=== PATIENT | male | born 1955 | race Caucasian/White ===

== ENCOUNTER 2016-08-30 16:55 | Emergency (ER) | payer OTHER ==
[~2016-08-30] VITALS: Ht 180.3 cm; Wt 138.7 kg
[~2016-08-30 16:55] MED LIST: ATEN100T PO; GABA800T PO; GLIP10TA6 PO; LACT12LO4 TOPICAL; LISI-515 PO; MELO-1 PO; METF1000 PO; PANT20 PO; ROPI1TAB PO; [UNRECOGNIZED DRUG - CODE] PO
[2016-08-30 17:02] VITALS: BP 148/83; PULSE 92; RESP 18; TEMP 99.1; O2SAT 97
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
[2016-08-30] MEDS ORDERED: TIZA4CAP3 PO (17:25)
[2016-08-30] MEDS ORDERED: DICL75TA PO (17:25)
[2016-08-30] MEDS ORDERED: IBUPROFEN 600 MG TAB PO ONE (17:30)
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
[2016-08-30 19:00] VITALS: BP 130/95; PULSE 81; RESP 18; O2SAT 98
[2016-08-30] MEDS ORDERED: IBUP-232 PO (19:12)
== END 2016-08-30 19:50 | disposition home or self-care (01) ==
LOC: PHED 16:55
DX: E11.621 Type 2 diabetes mellitus with foot ulcer (principal); M25.511 Pain in right shoulder; M54.5 Low back pain; M25.522 Pain in left elbow; M25.562 Pain in left knee; I10 Essential (primary) hypertension; J44.9 Chronic obstructive pulmonary disease, unspecified; V19.3XXA Pedal cyclist (driver) (passenger) injured in unspecified nontraffic accident, initial encounter; Y93.55 Activity, bike riding
CPT/HCPCS: 73030; 73070; 73560; 99284

== ENCOUNTER 2016-09-05 21:21 | Inpatient (IN) | payer OTHER ==
[~2016-09-05] VITALS: Ht 180.3 cm; Wt 134.0 kg
[~2016-09-05 21:21] MED LIST changes: +DICL75TA PO; +IBUP-232 PO; -LACT12LO4 TOPICAL; -MELO-1 PO; -PANT20 PO; +TIZA4CAP3 PO
[2016-09-05 21:23] VITALS: BP 162/85; PULSE 102; RESP 16; TEMP 98.1; O2SAT 96
[2016-09-05] MEDS ORDERED: LISI20TA PO (22:06)
[2016-09-05] MEDS ORDERED: LANTUS2P SQ (22:06)
[2016-09-05 22:25] LABS: AUTOMATED NEUTROPHIL # 7.7 TH/MM3 (1.8-7.7); BASOPHIL # 0.1 TH/MM3 (0-0.2); BASOPHIL % 0.7 % (0.0-2.0); EOSINOPHIL # 0.2 TH/MM3 (0-0.4); EOSINOPHIL % 1.4 % (0.0-4.0); HEMO FLAGS DIFF FINAL; LYMPH % 18.9 % (9.0-44.0); LYMPHOCYTE # 2.1 TH/MM3 (1.0-4.8); MEAN CELL VOLUME 81.9 FL (80.0-100.0); MEAN CORPUSCULAR HEMOGLOBIN 26.6 PG (27.0-34.0); MEAN CORPUSCULAR HGB CONC 32.5 % (32.0-36.0); MONO % 10.1 % (0.0-8.0); NEUT % 68.9 % (16.0-70.0); PLATELET COUNT 214 TH/MM3 (150-450); RED BLOOD COUNT 4.88 MIL/MM3 (4.50-5.90); RED CELL DISTRIBUTION WIDTH 15.2 % (11.6-17.2); WHITE BLOOD COUNT 11.2 TH/MM3 (4.0-11.0)
[2016-09-05 22:40] LABS: ANION GAP 8 MEQ/L (5-15); AST (GOT) 11 U/L (15-37); BICARBONATE 27.8 MEQ/L (21.0-32.0); BLOOD UREA NITROGEN 32 MG/DL (7-18); CHLORIDE 104 MEQ/L (98-107); GLOMERULAR FILTRATION RATE 60 ML/MIN (>89); POTASSIUM 3.9 MEQ/L (3.5-5.1); SODIUM (NA) 140 MEQ/L (136-145)
[2016-09-05 22:43] LABS: ALKALINE PHOSPHATASE 77 U/L (45-117); ALT (GPT) 17 U/L (12-78); TOTAL BILIRUBIN ADULT 0.4 MG/DL (0.2-1.0)
[2016-09-05] MEDS ORDERED: CLINDAMYCIN INJ 600 MG in SODIUM CHLORIDE 0.9% INJ 100 ML IV ONE (22:45)
--- NOTE | 2016-09-05 22:55 | PD ---
HPI Chief Complaint: Skin Problem Time Seen by Provider: 21:54 Travel History International Travel<30 days: No Contact w/Intl Traveler<30days: No Traveled to known affect area: No History of Present Illness HPI This is a 61-year-old male who has a history of diabetes who presents to the emergency department with pain and redness in his left foot and leg, constant, moderate severity, worsening in the past 24 hours associated with fevers and chills. Patient has a history of growths on his left great toe. He says he's been seen in the hospital by Dr. Fraga in the past but he never followed with a auditing coder as an outpatient. He said when his foot was getting worse today he went to take a walk in the ocean thinking that would help it. He is currently in a drug treatment program for [facility] and recently was living in the [facility]. He denies any history of IV drug use. PFSH Past Medical History Arthritis: Yes Autoimmune Disease: No Anxiety: Yes (Anxiety, panic attacks ) Heart Rhythm Problems: No Cancer: No Cardiovascular Problems: Yes (HTN) High Cholesterol: No Chest Pain: No Congestive Heart Failure: No COPD: Yes Diabetes: Yes Patient Takes Glucophage: Yes (09/05/16) Diminished Hearing: No Endocrine: Yes GERD: No Genitourinary: Yes (Frequency ) Hiatal Hernia: Yes Hypertension: Yes Immune Disorder: No Kidney Stones: No Neurologic: Yes (Neuropathy ) Psychiatric: No Reproductive: Yes Respiratory: Yes Immunizations Current: Yes Migraines: Yes Renal Failure: No Sickle Cell Disease: No Sleep Apnea: Yes Thyroid Disease: No Ulcer: Yes Tetanus Vaccination: < 5 Years Influenza Vaccination: No Past Surgical History Abdominal Surgery: Yes (Hernias) Body Medical Devices: Lt. ACL may have metal nuts Cardiac Surgery: No Ear Surgery: No Endocrine Surgery: No Eye Surgery: No Genitourinary Surgery: No Gynecologic Surgery: No Oral Surgery: No Thoracic Surgery: No Other Surgery: Yes Social History Alcohol Use: No (Hx ETOH abuse/sober 6 months ) Tobacco Use: No Substance Use: No (Hx substance abuse/clean 6 months) Allergies-Medications (Allergen,Severity, Reaction): Coded Allergies: Erythromycin (Verified Allergy, Unknown, UNKNOWN REACTION, 09/05/16) Terramycin (Verified Allergy, Unknown, UNKNOWN REACTION, 09/05/16) Uncoded Allergies: MYCINS (Allergy, Severe, 1/8/09) Reported Meds & Prescriptions Reported Meds & Active Scripts Active Ibuprofen 600 Mg Tab 600 Mg PO Q8HR PRN Metformin (Metformin HCl) 1,000 Mg Tab 1,000 Mg PO BIDPC With meals Detrol (Tolterodine Tartrate) 1 Mg Tab 1 Mg PO BID Reported Lisinopril-Hctz 20-12.5 Mg Tab 1 Tab PO BID Lantus Inj (Insulin Glargine) 1,000 Unit/10 Ml Vial 20 Units SQ HS Tizanidine (Tizanidine HCl) 4 Mg Cap 4 Mg PO TID Diclofenac Sodium DR (Diclofenac Sodium) 75 Mg Tabdr 75 Mg PO BID Ropinirole 1 Mg Tab 1 Mg PO HS Atenolol 100 Mg Tab 100 Mg PO HS Glipizide 10 Mg Tab 10 Mg PO BIDAC Take 30 minutes before a meal Gabapentin 800 Mg Tab 800 Mg PO TID Review of Systems Except as stated in HPI: all other systems reviewed are Neg Physical Exam Narrative GENERAL: Morbidly obese SKIN: Erythema and warmth that starts at the left great toe and is confluent up to the mid left lower extremity, hyperkeratotic lesion over the base of the left great toe with underlying wound down to muscle belly HEAD: Atraumatic. Normocephalic. EYES: Pupils equal and round. No injection or drainage. ENT: Moist mucous membranes NECK: Trachea midline. CARDIOVASCULAR: Regular rate and rhythm. No murmur appreciated. RESPIRATORY: Clear to auscultation. Breath sounds equal bilaterally. GASTROINTESTINAL: Abdomen soft, non-tender, nondistended. MUSCULOSKELETAL: No obvious deformities. NEUROLOGICAL: Awake and alert. No obvious cranial nerve deficits. Moving all extremities. PSYCHIATRIC: Appropriate mood and affect; insight and judgment normal. Data Data Last Documented VS Vital Signs Date Time Temp Pulse Resp B/P Pulse Ox O2 Delivery O2 Flow Rate FiO2 09/05/16 21:23 98.1 102 16 162/85 96 Room Air Orders Complete Blood Count With Diff (09/05/16 22:01) Comprehensive Metabolic Panel (09/05/16 22:01) Lactic Acid (09/05/16 22:01) ^ Insert Iv (09/05/16 22:01) Clindamycin Inj (Cleocin Inj) (09/05/16 22:45) Admit Order (Ed Use Only) (09/05/16 22:48) Labs Laboratory Tests Test 09/05/16 22:09 White Blood Count 11.2 TH/MM3 Red Blood Count 4.88 MIL/MM3 Hemoglobin 13.0 GM/DL Hematocrit 40.0 % Mean Corpuscular Volume 81.9 FL Mean Corpuscular Hemoglobin 26.6 PG Mean Corpuscular Hemoglobin 32.5 % Concent Red Cell Distribution Width 15.2 % Platelet Count 214 TH/MM3 Mean Platelet Volume 10.0 FL Neutrophils (%) (Auto) 68.9 % Lymphocytes (%) (Auto) 18.9 % Monocytes (%) (Auto) 10.1 % Eosinophils (%) (Auto) 1.4 % Basophils (%) (Auto) 0.7 % Neutrophils # (Auto) 7.7 TH/MM3 Lymphocytes # (Auto) 2.1 TH/MM3 Monocytes # (Auto) 1.1 TH/MM3 Eosinophils # (Auto) 0.2 TH/MM3 Basophils # (Auto) 0.1 TH/MM3 CBC Comment DIFF FINAL Differential Comment Sodium Level 140 MEQ/L Potassium Level 3.9 MEQ/L Chloride Level 104 MEQ/L Carbon Dioxide Level 27.8 MEQ/L Anion Gap 8 MEQ/L Blood Urea Nitrogen 32 MG/DL Creatinine 1.23 MG/DL Estimat Glomerular Filtration 60 ML/MIN Rate Random Glucose 160 MG/DL Lactic Acid Level 0.8 mmol/L Calcium Level 9.0 MG/DL Total Bilirubin 0.4 MG/DL Aspartate Amino Transf 11 U/L (AST/SGOT) Alanine Aminotransferase 17 U/L (ALT/SGPT) Alkaline Phosphatase 77 U/L Total Protein 7.6 GM/DL Albumin 3.4 GM/DL [facility] Medical Decision Making Medical Screen Exam Complete: Yes Emergency Medical Condition: Yes Interpretation(s) Afebrile, mild tachycardia, hypertensive Mild leukocytosis Electrolytes are reassuring Lactic acid is 0.8 Differential Diagnosis Diabetic foot infection, cellulitis, sepsis, osteomyelitis Narrative Course This is a 61-year-old male who has a history of diabetes who presents to the emergency department with cellulitis that starts at the patient's left great toe associated with a wound beneath a hyperkeratotic lesion on the toe. It's possible the patient has an underlying osteomyelitis. He was placed on a monitor and an IV was established. The patient was given a dose of clindamycin. He was given IV antibiotics. Labs were obtained which are reassuring. Patient will be placed in observation for podiatry intervention and continued antibiotics. Physician Communication Physician Communication Discussed with Dr. Guzman Diagnosis Primary Impression: Diabetic foot infection Admitting Information Admitting Physician Requests: Observation Angie Bear MD Sep 05, 2016 22:55
[2016-09-05] MEDS ORDERED: GLUCAGON 1 MG/ML VIAL OTHER PRN (23:15)
[2016-09-05] MEDS ORDERED: DEXTROSE 50% IN WATER 50 ML VIAL(D50) IV PUSH PRN (23:15)
[2016-09-05] MEDS ORDERED: ACETAMINOPHEN/HYDROcodone 325 MG/5 MG TAB PO PRN (23:15)
--- NOTE | 2016-09-05 23:41 | RADRPT ---
EXAM DATE/TIME: 09/05/2016 23:22 [facility] COMPARISON: FOOT LEFT LIMITED (2VWS), February 13, 2014, 11:00. INDICATIONS : Patient had open sore medially to distal 1st digit, left foot. Patient complains of pain. Redness and swelling to 1st digit. MEDICAL HISTORY : Diabetes mellitus type II. Hypertension. Hiatal hernia. Chronic obstructive pulmonary disease. SURGICAL HISTORY : None. ENCOUNTER: Initial ACUITY: 1 week PAIN SCORE: 3/10 LOCATION: Left chest 1st digit, left foot. FINDINGS: Bones of the left great toe are intact and normally aligned, appears similar to the comparison left f oot radiographs. There is soft tissue swelling and a bandage. No other radiopaque foreign body seen. CONCLUSION: Soft tissue swelling of the great toe without evidence of destruction or other acute bony abnormality . Tanner Escalona MD on September 05, 2016 at 23:38 Board Certified Radiologist. This report was verified electronically.
[2016-09-06 01:02] VITALS: BP 158/94; PULSE 87; RESP 20; TEMP 98.2; O2SAT 96
[2016-09-06] MEDS: LEVOFLOXACIN 500 MG PREMIX INJ 100 ML IV SCH (01:26)
[2016-09-06] MEDS ORDERED: KETOROLAC TROMETHAMINE 30 MG/ML (IVP) VIAL IV PUSH ONE (02:45)
[2016-09-06] MEDS: INSULIN ASPART SUPPLEMENTAL SCALE SQ SCH ×4 (06:25→21:00)
[2016-09-06] MEDS: glipiZIDE 10 MG TAB PO SCH ×2 (06:25→17:44)
[2016-09-06] MEDS: GABAPENTIN 400 MG CAP PO SCH ×3 (06:25→21:06)
[2016-09-06 07:13] VITALS: BP 151/89; PULSE 76; RESP 20; TEMP 98; O2SAT 96
--- NOTE | 2016-09-06 07:18 | HHI.PR ---
Objective Vital Signs Date Time Temp Pulse Resp B/P Pulse Ox O2 Delivery O2 Flow Rate FiO2 09/06/16 07:13 98.0 76 20 151/89 96 09/06/16 04:30 18 09/06/16 01:02 98.2 87 20 158/94 96 09/05/16 21:23 98.1 102 16 162/85 96 Room Air Result Diagram: 09/05/16220809/05/162208 Assessment and Plan Assessment and Plan BL hallux ulcers, left foot ankle leg edema cellulitis FULL CONSULT DICTATED. Ulcers debrided, tissue culture taken, Left leg compression bandage applied, Doppler ordered R/O DVT, Ordered CAM boot to offload left foot. Xrays do not show OM, Await Cx and will FU 1 day, does not appear to be OM. Michele Cochran DPM Sep 06, 2016 07:18
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
[2016-09-06] MEDS ORDERED: TOLTERODINE 1 MG PO SCH (09:00)
[2016-09-06] MEDS ORDERED: NON-FORMULARY DRUG (Lisinopril-Hctz 1 TAB) PO SCH (09:00)
[2016-09-06] MEDS: LISINOPRIL 20 MG TAB PO SCH ×2 (09:17→21:06)
[2016-09-06] MEDS: GENTAMICIN SULFATE 0.1% CREAM 15 GM TOPICAL SCH (09:17)
[2016-09-06] MEDS: TOLTERODINE TARTRATE 2 MG CAP LA PO SCH (09:17)
[2016-09-06] MEDS: CLINDAMYCIN INJ 600 MG in SODIUM CHLORIDE 0.9% INJ 100 ML IV SCH ×2 (09:17→17:45)
[2016-09-06] MEDS: HYDROCHLOROTHIAZIDE 25 MG TAB PO SCH ×2 (09:18→21:05)
[2016-09-06] MEDS: metFORMIN HCL 500 MG TAB PO SCH ×2 (09:18→17:44)
--- NOTE | 2016-09-06 10:02 | RADRPT ---
EXAM DATE/TIME: 09/06/2016 09:23 [facility] COMPARISON: US LEG LEFT VENOUS DOPPLER, June 26, 2016, 9:54. INDICATIONS : Left leg edema. MEDICAL HISTORY : Arthritis. Chronic obstructive pulmonary disease. Hernia, hiatal. Hypertensi on. Migraines. Neuropathy. Sleep apnea. Dyspnea. Ulcer. Diabetes. Anxiety. ETOH abuse. Substance use. SURGICAL HISTORY : Orthopedic surgery, left knee x2. ENCOUNTER: Subsequent ACUITY: 1 day PAIN SCORE: 0/10 LOCATION: Left leg. TECHNIQUE: Venous ultrasound of the leg was performed from the inguinal ligament to the proximal calf. Real-time, color Doppler and spectral tracing, compression and augmentation techniques were us ed. FINDINGS: There is normal compressibility of the deep venous system from the inguinal region to the proximal ca lf. No echogenic clot is seen in the lumen of the common femoral, femoral, popliteal, and posterior tibial veins. There is a normal response of the venous system to proximal and distal augmentation an d respiration. CONCLUSION: Negative for deep venous thrombosis. Connor Macias MD FACR on September 06, 2016 at 9:59 Board Certified Radiologist. This report was verified electronically.
--- NOTE | 2016-09-06 10:05 | MH ---
cc: ODILIAGELYNATHALIE DATE OF ADMISSION: 09/05/2016 DATE OF 1955 CHIEF COMPLAINT Left foot pain and redness, fever, chills. HISTORY OF PRESENT ILLNESS This is a pleasant 61-year-old white male with a significant history of diabetes at least for the last six years. He has recently been in a drug rehab program at the [facility] for meth and states that he is clean of any drugs. He has not had a PCP or had any insulin for at least two months and now has cellulitis in his left leg and left foot with diabetic wounds. The patient has hallux ulcers on the left foot and ankle with cellulitis. He also has a smaller wound on his right great toe. Currently all wounds are bandage with the left leg having a compression bandage. The ulcers have been debrided this early a.m. and skin cultures have been taken. Currently the patient is resting in the bed. Denies any other major pain including chest pain. No shortness of breath. No dizziness. No extreme weight-gain or weight loss and had been seen in the hospital previously by Dr. Fraga, but had never followed with any senior research consultant on an outpatient basis. The patient noticed that his foot was getting worse and decided to walk in the ocean thinking that it might help. He now is here with bilateral diabetic wound infections. The patient has had some fever and chills over the past 24-hours. He does note, according to the records, a history of growths on his left great toe. The patient originally was from the [place] area and has worked his way down to [place] over a short period of time. PAST MEDICAL HISTORY Includes: 1. Arthritis 2. Anxiety disorder with panic attacks 3. Hypertension 4. Diabetes type 2, he has been on Glucophage and is now back on the insulin. 5. Hiatal hernia 6. GERD 7. Some previous respiratory infections. 8. Migraines 9. COPD PAST SURGICAL HISTORY 1. Abdominal surgery with hernia repair 2. Left ACL, please note according to the medical records, may have metal nuts. ALLERGIES ERYTHROMYCIN AND TETRACYCLINE, NOTE THAT THE ALLERGY WITH THE MYCINS IS SEVERE OF 08/04/08. SOCIAL HISTORY The patient has had a history of ETOH abuse and illicit drug use with meth, but states he has been clean now with both of these for six months. Denies any tobacco use. FAMILY HISTORY Diabetes, hypertension and heart disease. REVIEW OF SYSTEMS A 12-point review was obtained. The positives noted were fever, chills, cellulitis, swelling and pain in the left leg, left ankle and left foot wound with erythema on the right great toe, anxiety. Other systems are negative or unremarkable. PHYSICAL EXAM VITAL SIGNS: Temperature is 98, pulse 76, respirations 20, blood pressure 151/89, O2 sat 96 on room air. HEAD, EYES, EARS, NOSE, AND THROAT: Atraumatic, normocephalic. Pupils are 2 mm. There is no scleral icterus and no scleral drainage. Mucous membranes are pink and moist. NECK: Thick, supple, trachea midline. CARDIOVASCULAR: Regular rate and rhythm. Heart sounds are distant. No murmurs, rubs or gallops appreciated. He has no edema and his pulses are intact. PULMONARY: His breath sounds are clear to auscultation anteriorly and posteriorly with no wheezes, rales or rhonchi. GASTROINTESTINAL: Abdomen is round, soft, nontender and nondistended. Active bowel sounds in all four quadrants. MUSCULOSKELETAL: He can move all of his extremities with purpose. Noted are the wounds and cellulitis on his left foot, left ankle, left leg and right great toe. He has no cyanosis or clubbing. NEUROLOGIC: He is alert and oriented times four, a good historian. Seems to be honest with his history. PSYCHIATRIC: Appropriate mood and affect. Insight and judgment is normal. DIAGNOSTIC DATA WBC count 11.2, RBC 4.88, hemoglobin 13, hematocrit 40, platelet count 214. Monocyte percentage absolute 10.1, all other results are within normal limits. Chemistry, sodium 140, potassium 3.9, chloride 104, carbon dioxide 27.8, amnion gap 8, BUN 32, creatinine 1.23, GFR 60, random glucose 160, lactic acid 0.8, AST 11, albumin 3.4, alkaline phosphatase 77, total protein 7.6. Toe x-ray shows soft tissue swelling. This is on his right great toe without evidence of destruction or any bony abnormality. ASSESSMENT AND PLAN 1. Sepsis due to diabetic foot infection ankle, foot, left leg and right great toe infection. 2. Diabetes type 2 uncontrolled 3. Dehydration with mild acute kidney injury 4. History of hypertension. 5. History of COPD. 6. GERD 7. Anxiety disorder 8. History of meth use. Our plan is to admit for observation. He has been seen per Dr. Michele Cochran. He has debrided the ulcers, taken tissue cultures, bandaged the left leg with a compression bandage. Doppler ultrasound has been ordered to rule out DVT. He has also ordered a cam boot to off-load that left foot. Currently the x-rays do not show osteomyelitis, but we are waiting on the cultures to continue with his plan of care. We are monitoring his vital signs. He is on a diabetic diet. Medications have been reconciled. He is on Accu-Chek's a.c. and h.s. with hypo and hyperglycemia protocols which include sliding scale insulin. He will be on Levemir insulin, IV Clindamycin. He will have any type of pain management. He is full code, full aggressive care and we will follow. Dictated by MASSIMO Potts Nathalie Torres MD JP/DENY /8:05 AM /9:45 AM PT SEEN AND EXAMINED ON DAY ADMISSION ABOVE FACE TO FACE TIME SPENT WITH PT CHART WAS REVIEWED. INCLUDING LABS MEDS AND RAD DATA NOTES WERE REVEIWED PLAN OF CARE WAS SAJI KEYS ABOVE SAJI PT IN DETAIL COND WAS GUARDED APPRECIATED CONSULTANTS HELP KEVAN
[2016-09-06 12:33] VITALS: BP 143/90; PULSE 72; RESP 19; TEMP 97.9; O2SAT 97
--- NOTE | 2016-09-06 14:52 | PD.ID.CON ---
History of Present Illness Service Infectious Disease Consult Requested By Reason for Consult Evaluation and Mment of left and right diabetic foot ulcer infection. Primary Care Physician Unknown Diagnoses: History of Present Illness is a 61 y/o CM with PMHx of Diabetes Mellitus, DM neuropathy, in a drug rehab at [facility]. He reports that while [facility] it has been difficult to get his insulin and other meds and difficult to take care of his wounds. He reports he was admitted at [facility] and had infected ulcer then. He was discharged on oral and he had a delayed start but completed his meds. Thereafter he was supposed to continue wound care but had challenges as reported above. He has not had a PCP or had any insulin for at least two months and now has cellulitis in his left leg and left foot with diabetic wounds. The patient has ulcers on the Hallux and has cellulitis with ankle. He also has a smaller wound on his right great toe. Currently all wounds are bandage with the left leg having a compression bandage and patient deferred exam as Podiatry had changed dressing in am. He reports podiatry debrided wounds and sent cultures. The patient was seen by Dr. Fraga, but had never followed with any boat engine mechanic on an outpatient basis. The patient has had some fever and chills over the past 24-hours. ID was consulted for evaluation and Mment of left diabetic foot infection. Review of Systems Constitutional: DENIES: Diaphoretic episodes, Fatigue, Fever, Weight gain, Weight loss, Chills, Dizziness, Change in appetite, Night Sweats Endocrine: DENIES: Heat/cold intolerance, Polydipsia, Polyuria, Polyphagia Eyes: DENIES: Blurred vision, Diplopia, Eye inflammation, Eye pain, Vision loss , Photosensitivity, Double Vision Ears, nose, mouth, throat: DENIES: Tinnitus, Hearing loss, Vertigo, Nasal discharge, Oral lesions, Throat pain, Hoarseness, Ear Pain, Running Nose, Epistaxis, Sinus Pain, Toothache, Odynophagia Respiratory: DENIES: Apneas, Cough, Snoring, Wheezing, Hemoptysis, Sputum production, Shortness of breath Cardiovascular: DENIES: Chest pain, Palpitations, Syncope, Dyspnea on Exertion , PND, Lower Extremity Edema, Orthopnea, Claudication Gastrointestinal: DENIES: Abdominal pain, Black stools, Bloody stools, Constipation, Diarrhea, Nausea, Vomiting, Difficulty Swallowing, Anorexia Genitourinary: DENIES: Sexual dysfunction, Urinary frequency, Urinary incontinence, Urgency, Hematuria, Dysuria, Nocturia, Penile Discharge, Testicular Pain, Testicular Swelling Musculoskeletal: DENIES: Joint pain, Muscle aches, Stiffness, Joint Swelling, Back pain, Neck pain Integumentary: DENIES: Abnormal pigmentation, Nail changes, Pruritus, Rash Hematologic/lymphatic: DENIES: Bruising, Lymphadenopathy Immunologic/allergic: DENIES: Eczema, Urticaria Neurologic: COMPLAINS OF: Paresthesias Psychiatric: DENIES: Anxiety, Confusion, Mood changes, Depression, Hallucinations, Agitation, Suicidal Ideation, Homicidal Ideation, Delusions Past Family Social History Allergies: Coded Allergies: Erythromycin (Verified Allergy, Unknown, UNKNOWN REACTION, 09/05/16) Terramycin (Verified Allergy, Unknown, UNKNOWN REACTION, 09/05/16) Uncoded Allergies: MYCINS (Allergy, Severe, 08/04/08) Past Medical History 1. Arthritis 2. Anxiety disorder with panic attacks 3. Hypertension 4. Diabetes type 2, he has been on Glucophage and is now back on the insulin. 5. Hiatal hernia 6. GERD 7. Some previous respiratory infections. 8. Migraines 9. COPD Past Surgical History 1. Abdominal surgery with hernia repair 2. Left ACL with some hardware. Reported Medications Reported Meds & Active Scripts Active Ibuprofen 600 Mg Tab 600 Mg PO Q8HR PRN Metformin (Metformin HCl) 1,000 Mg Tab 1,000 Mg PO BIDPC With meals Detrol (Tolterodine Tartrate) 1 Mg Tab 1 Mg PO BID Reported Lisinopril-Hctz 20-12.5 Mg Tab 1 Tab PO BID Lantus Inj (Insulin Glargine) 1,000 Unit/10 Ml Vial 20 Units SQ HS Tizanidine (Tizanidine HCl) 4 Mg Cap 4 Mg PO TID Diclofenac Sodium DR (Diclofenac Sodium) 75 Mg Tabdr 75 Mg PO BID Ropinirole 1 Mg Tab 1 Mg PO HS Atenolol 100 Mg Tab 100 Mg PO HS Glipizide 10 Mg Tab 10 Mg PO BIDAC Take 30 minutes before a meal Gabapentin 800 Mg Tab 800 Mg PO TID Active Ordered Medications Current Medications Medications (Trade) Dose Ordered Sig/Meka Route Start Time Stop Time Status Last Admin (Tenormin) 100 mg HS PO 2/10/17 21:00 (Neurontin) 800 mg Q8HR PO 09/06/16 06:00 09/06/16 13:59 (Glucotrol) 10 mg BIDAC PO 09/06/16 07:00 09/06/16 06:25 (Levemir Inj) 20 units HS SQ 09/06/16 21:00 (Glucophage) 1,000 mg BIDPC PO 09/06/16 09:00 09/06/16 09:18 (Requip) 1 mg HS PO 09/06/16 21:00 (Zanaflex) 4 mg TID PO 09/06/16 09:00 09/06/16 13:59 (D50w (Vial) Inj) 25 ml UNSCH PRN IV PUSH 09/05/16 23:15 Glucagon 1 mg 1 mg UNSCH PRN OTHER 09/05/16 23:15 Levofloxacin/ Dextrose 100 ml @ 100 mls/hr Q24H IV 09/06/16 00:00 09/06/16 01:26 (Cleocin Inj/NS Inj) 104 ml @ 208 mls/hr Q8H IV 09/06/16 09:00 09/06/16 09:17 ([place] 5-325 Mg) 1 tab Q6H PRN PO 09/05/16 23:15 (Prinivil) 20 mg BID PO 09/06/16 09:00 09/06/16 09:17 (Hydrodiuril) 12.5 mg BID PO 09/06/16 09:00 09/06/16 09:18 (Detrol La) 2 mg DAILY PO 09/06/16 09:00 09/06/16 09:17 (Gentamicin 0.1% Cream) 1 applic DAILY TOPICAL 09/06/16 09:00 09/06/16 09:17 Family History reviewed and NC to current ID problems. Social History The patient has had a history of ETOH abuse and illicit drug use with meth, but states he has been clean now with both of these for six months. Denies any tobacco use. He used to live in [place] in past. Physical Exam Vital Signs Vital Signs Date Time Temp Pulse Resp B/P Pulse Ox O2 Delivery O2 Flow Rate FiO2 09/06/16 12:33 97.9 72 19 143/90 97 09/06/16 07:13 98.0 76 20 151/89 96 09/06/16 04:30 18 09/06/16 01:02 98.2 87 20 158/94 96 09/05/16 21:23 98.1 102 16 162/85 96 Room Air Physical Exam GENERAL: This is a well-nourished, well-developed patient, in no apparent distress. SKIN: No rashes, ecchymoses or lesions. Cool and dry. HEAD: Atraumatic. Normocephalic. No temporal or scalp tenderness. EYES: Pupils equal round and reactive. Extraocular motions intact. No scleral icterus. No injection or drainage. ENT: Nose without bleeding, purulent drainage or septal hematoma. Throat without erythema, tonsillar hypertrophy or exudate. Uvula midline. Airway patent. NECK: Trachea midline. Supple, nontender, no meningeal signs. CARDIOVASCULAR: HS audible. RESPIRATORY: Clear to auscultation. Breath sounds equal bilaterally. No wheezes , rales, or rhonchi. GASTROINTESTINAL: Abdomen soft, non-tender, nondistended. MUSCULOSKELETAL: Bilateral great toes in bandage. Pt deferred opening of bandages at present time. NEUROLOGICAL: Awake and alert. Grossly non focal Psych: cooperative IV line sites with no e/o infection. Laboratory Laboratory Tests Test 09/05/16 22:09 White Blood Count 11.2 Red Blood Count 4.88 Hemoglobin 13.0 Hematocrit 40.0 Mean Corpuscular Volume 81.9 Mean Corpuscular Hemoglobin 26.6 Mean Corpuscular Hemoglobin 32.5 Concent Red Cell Distribution Width 15.2 Platelet Count 214 Mean Platelet Volume 10.0 Neutrophils (%) (Auto) 68.9 Lymphocytes (%) (Auto) 18.9 Monocytes (%) (Auto) 10.1 Eosinophils (%) (Auto) 1.4 Basophils (%) (Auto) 0.7 Neutrophils # (Auto) 7.7 Lymphocytes # (Auto) 2.1 Monocytes # (Auto) 1.1 Eosinophils # (Auto) 0.2 Basophils # (Auto) 0.1 CBC Comment DIFF FINAL Differential Comment Sodium Level 140 Potassium Level 3.9 Chloride Level 104 Carbon Dioxide Level 27.8 Anion Gap 8 Blood Urea Nitrogen 32 Creatinine 1.23 Estimat Glomerular Filtration 60 Rate Random Glucose 160 Lactic Acid Level 0.8 Calcium Level 9.0 Total Bilirubin 0.4 Aspartate Amino Transf 11 (AST/SGOT) Alanine Aminotransferase 17 (ALT/SGPT) Alkaline Phosphatase 77 Total Protein 7.6 Albumin 3.4 Date/Time Procedure Status Source Growth 09/06/16 07:11 Gram Stain Received Wound Foot Pending 09/06/16 07:11 Wound Culture Received Wound Foot Pending Result Diagram: 09/05/16220809/05/162208 Imaging Last Impressions Lower Extremity Ultrasound 09/06/16 0000 Signed Impressions: Service Date/Time: Tuesday, September 06, 2016 09:23 - CONCLUSION: Negative for deep venous thrombosis. Connor Macias MD FACR Toe X-Ray 09/05/16 0000 Signed Impressions: Service Date/Time: August 23:22 - CONCLUSION: Soft tissue swelling of the great toe without evidence of destruction or other acute bony abnormality. Tanner Escalona MD Assessment and Plan Assessment and Plan Diabetic foot ulcer infection (DFI) Diabetes mellitus uncontrolled. Prior DFI. DM with neuropathy Recs: Continue Clindamycin IV Continue Levaquin IV for now. Follow cultures Follow clinically. Please call on weekend with culture results. I will see patient on Friday09/09/2016 Yokasta Joy MD Sep 06, 2016 14:51
[2016-09-06 15:19] VITALS: BP 143/89; PULSE 81; RESP 19; TEMP 98.4; O2SAT 99
[2016-09-06 20:07] VITALS: BP 165/97; PULSE 80; RESP 20; TEMP 97.6; O2SAT 96
[2016-09-06] MEDS: INSULIN DETEMIR 100 UNITS/ML VIAL SQ SCH (21:05)
[2016-09-06] MEDS: ATENOLOL 100 MG TAB PO SCH (21:06)
[2016-09-06 23:57] VITALS: BP 166/94; PULSE 79; RESP 18; TEMP 96.8; O2SAT 96
[2016-09-07] MEDS: LEVOFLOXACIN 500 MG PREMIX INJ 100 ML IV SCH ×2 (00:53→23:45)
[2016-09-07] MEDS: CLINDAMYCIN INJ 600 MG in SODIUM CHLORIDE 0.9% INJ 100 ML IV SCH ×3 (00:53→17:14)
[2016-09-07 03:48] VITALS: BP 152/93; PULSE 67; RESP 18; TEMP 98; O2SAT 95
[2016-09-07] MEDS: glipiZIDE 10 MG TAB PO SCH ×2 (06:09→17:14)
[2016-09-07] MEDS: INSULIN ASPART SUPPLEMENTAL SCALE SQ SCH ×4 (06:10→21:00)
[2016-09-07] MEDS: GABAPENTIN 400 MG CAP PO SCH ×3 (06:10→22:31)
--- NOTE | 2016-09-07 07:55 | HHI.PR ---
Subjective Subjective Remarks Complaint of cough, dry, nonproductive Runny nose Mild wheezing No chest No shortness of breath No fever No nausea vomiting no diarrhea No acute changes overnight Review of Systems Constitutional Constitutional Remarks 12 point review of systems completed, negative except as noted above Vitals/Results Intake & Output 09/06/16 09/06/16 09/07/16 15:00 23:00 07:00 Intake Total 240 ml 440 ml Balance 240 ml 440 ml Intake Oral 240 ml 240 ml IV Total 200 ml # Voids 2 3 Vital Signs Vital Signs Date Time Temp Pulse Resp B/P Pulse Ox O2 Delivery O2 Flow Rate FiO2 09/07/16 03:48 98.0 67 18 152/93 95 09/06/16 23:57 96.8 79 18 166/94 96 09/06/16 20:07 97.6 80 20 165/97 96 09/06/16 15:19 98.4 81 19 143/89 99 09/06/16 12:33 97.9 72 19 143/90 97 CBC/BMP: 09/05/16220809/05/162208 Physical Exam General General Appearance: Well Developed, No Acute Distress, Comfortable, Obese Eyes Eye Exam: Pupils Equal, Pupils Reactive Ears & Nose Ears & Nose Exam: Nasal Mucosa [place] Throat Throat Exam: Oral Mucosa [place] & Moist Neck Neck Exam: Neck Supple, Trachea Midline Pulmonary Resp Exam: Clear Bilaterally, No Distress Cardiology CV Exam: Regular, Good Perfusion Gastrointestinal/Abdomen GI Exam: Soft, Non-Tender, Bowel Sounds Present, Non-Distended Musculoskeletal MS Exam: Joints Intact MS Remarks Left foot with dressing D/I, ortho boot in place Right great toe with dressing D/I Integumentary Skin Exam: Warm, Dry, Ulcer(s) Extremeties Extremities Exam: Pedal Pulses Palpable, Trace Edema Neurologic Neuro Exam: Alert, Awake, Oriented, Speech Clear, Moving All Extremities, No Focal Deficits Psychiatric Psych Exam: Appropriate Responses VTE Prophylaxis VTE Prophylaxis Meds: Heparin Assessment/Plan Assessment/Plan 1. Cellulitis left foot, bilat hallux diabetic ulceration, R/O osteo 2. Diabetes type 2 uncontrolled 3. Dehydration with mild acute kidney injury 4. History of hypertension. 5. History of COPD. 6. GERD 7. Anxiety disorder 8. History of meth use. 9. Poss. allergic rhinitis Plan Appreciate podiatry input, status post debridement HALLUX ulcerations 09/06 Continue with wound care Continue with cam boot to off-load on left leg Ultrasound Negative for DVT Appreciate ID input Follow cultures Continue with antibiotic Continue with diabetic diet Accu-Chek's a.c. and h.s. with hypo and hyperglycemia protocols which include sliding scale insulin. Continue Levemir Complaining of dry cough, rhinorrhea, mild wheezing Duo nebs when necessary Claritin 10 mg by mouth daily Pain management as needed Continue to follow labs Heparin for DVT prophylaxis Patient will be changed to inpatient, will need IV antibiotics 2-3 days, continue to follow cultures. If patient had admitted, he is at risk of sepsis, further infection and loss of limb. Labs in am D/W RN D/W Dr. Torres D/W pt. This patient was seen by myself and Dr. Torres, this note is written on his behalf Jessica Hugo Sep 07, 2016 07:55
[2016-09-07] MEDS: metFORMIN HCL 500 MG TAB PO SCH ×2 (08:50→17:14)
[2016-09-07] MEDS: HYDROCHLOROTHIAZIDE 25 MG TAB PO SCH ×2 (08:50→22:33)
[2016-09-07] MEDS: LISINOPRIL 20 MG TAB PO SCH ×2 (08:50→22:34)
[2016-09-07] MEDS: GENTAMICIN SULFATE 0.1% CREAM 15 GM TOPICAL SCH (08:50)
[2016-09-07] MEDS: TOLTERODINE TARTRATE 2 MG CAP LA PO SCH (08:51)
[2016-09-07] MEDS: LORATADINE 10 MG TAB PO SCH (09:03)
--- NOTE | 2016-09-07 09:19 | PD.POD ---
Subjective Pain score: 1 Remarks Improving left leg pain however mild cough developing Past Med/Surg/Social History Past Medical History Endocrine: REPORTS HX OF: Diabetes mellitus Social History Smoking Status: Never Smoker Objective Vital Signs Vital Signs Date Time Temp Pulse Resp B/P Pulse Ox O2 Delivery O2 Flow Rate FiO2 09/07/16 03:48 98.0 67 18 152/93 95 09/06/16 23:57 96.8 79 18 166/94 96 09/06/16 20:07 97.6 80 20 165/97 96 09/06/16 15:19 98.4 81 19 143/89 99 09/06/16 12:33 97.9 72 19 143/90 97 Coded Allergies: Erythromycin (Verified Allergy, Unknown, UNKNOWN REACTION, 09/05/16) Terramycin (Verified Allergy, Unknown, UNKNOWN REACTION, 09/05/16) Medications and IVs Administered Medications Medications (Trade) Dose Ordered Sig/Meka Route PRN Reason Start Time Stop Time Status Last Admin Dose Admin Atenolol (Tenormin) 100 mg HS PO 09/06/16 21:00 09/06/16 21:06 Gabapentin (Neurontin) 800 mg Q8HR PO 09/06/16 06:00 09/07/16 06:10 Glipizide (Glucotrol) 10 mg BIDAC PO 09/06/16 07:00 09/07/16 06:09 Insulin Detemir (Levemir Inj) 20 units HS SQ 09/06/16 21:00 09/06/16 21:05 Metformin HCl (Glucophage) 1,000 mg BIDPC PO 09/06/16 09:00 09/07/16 08:50 Ropinirole HCl (Requip) 1 mg HS PO 09/06/16 21:00 09/06/16 21:06 Tizanidine HCl 4 mg 4 mg TID PO 09/06/16 09:00 09/07/16 08:50 Levofloxacin/ Dextrose 100 ml @ 100 mls/hr Q24H IV 09/06/16 00:00 09/07/16 00:53 Clindamycin Phosphate/Sodium Chloride (Cleocin Inj/NS Inj) 104 ml @ 208 mls/hr Q8H IV 09/06/16 09:00 09/07/16 08:50 Lisinopril (Prinivil) 20 mg BID PO 09/06/16 09:00 09/07/16 08:50 Hydrochlorothiazide (Hydrodiuril) 12.5 mg BID PO 09/06/16 09:00 09/07/16 08:50 Tolterodine Tartrate (Detrol La) 2 mg DAILY PO 09/06/16 09:00 09/07/16 08:51 Gentamicin Sulfate (Gentamicin 0.1% Cream) 1 applic DAILY TOPICAL 09/06/16 09:00 09/07/16 08:50 Loratadine (Claritin) 10 mg DAILY PO 09/07/16 09:00 09/07/16 09:03 Other Results Laboratory Tests Test 09/05/16 22:09 White Blood Count 11.2 TH/MM3 Red Blood Count 4.88 MIL/MM3 Hemoglobin 13.0 GM/DL Hematocrit 40.0 % Mean Corpuscular Volume 81.9 FL Mean Corpuscular Hemoglobin 26.6 PG Mean Corpuscular Hemoglobin 32.5 % Concent Red Cell Distribution Width 15.2 % Platelet Count 214 TH/MM3 Mean Platelet Volume 10.0 FL Neutrophils (%) (Auto) 68.9 % Lymphocytes (%) (Auto) 18.9 % Monocytes (%) (Auto) 10.1 % Eosinophils (%) (Auto) 1.4 % Basophils (%) (Auto) 0.7 % Neutrophils # (Auto) 7.7 TH/MM3 Lymphocytes # (Auto) 2.1 TH/MM3 Monocytes # (Auto) 1.1 TH/MM3 Eosinophils # (Auto) 0.2 TH/MM3 Basophils # (Auto) 0.1 TH/MM3 CBC Comment DIFF FINAL Differential Comment Laboratory Tests Test 09/05/16 22:09 Sodium Level 140 MEQ/L Potassium Level 3.9 MEQ/L Chloride Level 104 MEQ/L Carbon Dioxide Level 27.8 MEQ/L Anion Gap 8 MEQ/L Blood Urea Nitrogen 32 MG/DL Creatinine 1.23 MG/DL Estimat Glomerular Filtration 60 ML/MIN Rate Random Glucose 160 MG/DL Lactic Acid Level 0.8 mmol/L Calcium Level 9.0 MG/DL Total Bilirubin 0.4 MG/DL Aspartate Amino Transf 11 U/L (AST/SGOT) Alanine Aminotransferase 17 U/L (ALT/SGPT) Alkaline Phosphatase 77 U/L Total Protein 7.6 GM/DL Albumin 3.4 GM/DL Microbiology Date/Time Procedure Status Source Growth 09/06/16 07:11 Gram Stain Received Wound Foot Pending 09/06/16 07:11 Wound Culture Received Wound Foot Pending Last 72 hours Impressions Lower Extremity Ultrasound 09/06/16 0000 Signed Impressions: Service Date/Time: Tuesday, September 06, 2016 09:23 - CONCLUSION: Negative for deep venous thrombosis. Connor Macias MD FACR Toe X-Ray 09/05/16 0000 Signed Impressions: Service Date/Time: August 23:22 - CONCLUSION: Soft tissue swelling of the great toe without evidence of destruction or other acute bony abnormality. Tanner Escalona MD Physical Exam Remarks Right foot hallux ulcer dry clean no redness or drainage 4mm 4mm 2mm no bone or tendon exposed. Left hallux with dry red eschar approx 2cm 1.5 cm, no odor no drainage no exposed bone or tendon. Left ankle and calf remain red and swollen. BL pulses of foot are palpable decreased sensation to light touch BL feet Assessment & Plan A/P BL hallux ulcer left > right, left leg cellulitis. SP debridement 09/06 BL hallux ulcers Bandage changed, CAM boot in place to offload, needs to wrap and elevate the left foot ankle and leg, Awaiting Cx will PETRA Ortega, doing well expect DC once cellulitis under better control Michele Cochran DPM Sep 07, 2016 09:19
[2016-09-07] MEDS: RESP: ALBUTEROL 2.5 MG/IPRATROPIUM 0.5 MG NEB (PRN) NEB (09:43)
[2016-09-07] MEDS: HEPARIN SODIUM - SQ 10,000 UNITS/ML VIAL SQ SCH ×2 (11:50→22:34)
[2016-09-07] MEDS: guaiFENesin/DEXTROMETHORPHAN 200 MG/20 MG/10 ML CUP PO PRN ×2 (11:50→23:51)
[2016-09-07 12:00] VITALS: BP 163/88; PULSE 69; RESP 20; TEMP 96.9; O2SAT 95
[2016-09-07 16:00] VITALS: BP 167/89; PULSE 70; RESP 20; TEMP 98; O2SAT 98
[2016-09-07 21:02] VITALS: BP 134/84; PULSE 77; RESP 21; TEMP 97.8; O2SAT 98
[2016-09-07] MEDS: ATENOLOL 100 MG TAB PO SCH (22:33)
[2016-09-07] MEDS: INSULIN DETEMIR 100 UNITS/ML VIAL SQ SCH (22:34)
[2016-09-08] VITALS (7 sets, daily range): BP systolic 104–155; BP diastolic 76–106; PULSE 67–76; RESP 18–20; TEMP 96.8–98.8; O2SAT 94–98
[2016-09-08] MEDS: CLINDAMYCIN INJ 600 MG in SODIUM CHLORIDE 0.9% INJ 100 ML IV SCH ×3 (00:39→15:35)
[2016-09-08] MEDS: GABAPENTIN 400 MG CAP PO SCH ×3 (06:06→20:51)
[2016-09-08] MEDS: INSULIN ASPART SUPPLEMENTAL SCALE SQ SCH ×4 (06:08→20:53)
[2016-09-08] MEDS: metFORMIN HCL 500 MG TAB PO SCH ×2 (07:50→17:13)
[2016-09-08] MEDS: glipiZIDE 10 MG TAB PO SCH ×2 (07:51→15:35)
[2016-09-08] MEDS: HYDROCHLOROTHIAZIDE 25 MG TAB PO SCH ×2 (07:51→20:52)
[2016-09-08] MEDS: LORATADINE 10 MG TAB PO SCH (07:51)
[2016-09-08] MEDS: LISINOPRIL 20 MG TAB PO SCH ×2 (07:51→20:52)
[2016-09-08] MEDS: TOLTERODINE TARTRATE 2 MG CAP LA PO SCH (07:51)
[2016-09-08] MEDS: HEPARIN SODIUM - SQ 10,000 UNITS/ML VIAL SQ SCH ×2 (07:52→20:52)
[2016-09-08] MEDS: GENTAMICIN SULFATE 0.1% CREAM 15 GM TOPICAL SCH (07:54)
[2016-09-08 09:09] LABS: HEMATOCRIT 42.9 % (39.0-51.0); MEAN CELL VOLUME 81.9 FL (80.0-100.0); MEAN CORPUSCULAR HEMOGLOBIN 26.9 PG (27.0-34.0); MEAN CORPUSCULAR HGB CONC 32.9 % (32.0-36.0); PLATELET COUNT 266 TH/MM3 (150-450); RED BLOOD COUNT 5.24 MIL/MM3 (4.50-5.90); RED CELL DISTRIBUTION WIDTH 15.2 % (11.6-17.2); REVIEW FLAG FINAL; WHITE BLOOD COUNT 8.1 TH/MM3 (4.0-11.0)
[2016-09-08 09:32] LABS: BICARBONATE 26.1 MEQ/L (21.0-32.0); POTASSIUM 4.4 MEQ/L (3.5-5.1)
--- NOTE | 2016-09-08 09:33 | HHI.PR ---
Subjective Interval History Complaint of cough, dry, nonproductive Runny nose No wheezing No chest No shortness of breath No fever No nausea vomiting no diarrhea No acute changes overnight Review of Systems 12 point review of systems completed, negative except as noted above Vitals/Results Intake & Output 09/07/16 09/07/16 09/08/16 15:00 23:00 07:00 Intake Total 480 ml Output Total 800 ml Balance -320 ml Intake Oral 480 ml Output Urine Total 800 ml # Voids 3 # Bowel Movements 0 Vital Signs Vital Signs Date Time Temp Pulse Resp B/P Pulse Ox O2 Delivery O2 Flow Rate FiO2 09/08/16 07:38 96.8 70 20 155/106 97 09/08/16 04:00 97.9 68 18 138/84 98 09/08/16 02:30 97.7 67 19 148/84 97 09/07/16 21:02 97.8 77 21 134/84 98 09/07/16 16:00 98.0 70 20 167/89 98 09/07/16 12:00 96.9 69 20 163/88 95 CBC/BMP: 09/08/16 0815 09/05/16 2209 Lab Results Laboratory Tests Test 09/08/16 08:15 White Blood Count 8.1 TH/MM3 Red Blood Count 5.24 MIL/MM3 Hemoglobin 14.1 GM/DL Hematocrit 42.9 % Mean Corpuscular Volume 81.9 FL Mean Corpuscular Hemoglobin 26.9 PG Mean Corpuscular Hemoglobin 32.9 % Concent Red Cell Distribution Width 15.2 % Platelet Count 266 TH/MM3 Mean Platelet Volume 9.6 FL Physical Exam General General Appearance: Well Developed, No Acute Distress, Comfortable, Obese Eyes Eye Exam: Pupils Equal, Pupils Reactive Ears & Nose Ears & Nose Exam: Nasal Mucosa Ko Olina Throat Throat Exam: Oral Mucosa Ko Olina & Moist Neck Neck Exam: Neck Supple, Trachea Midline Pulmonary Resp Exam: Clear Bilaterally, No Distress Cardiology CV Exam: Regular, Good Perfusion Gastrointestinal/Abdomen GI Exam: Soft, Non-Tender, Bowel Sounds Present, Non-Distended Musculoskeletal MS Exam: Joints Intact Integumentary Skin Exam: Warm, Dry, Ulcer(s) Extremeties Extremities Exam: Pedal Pulses Palpable, Trace Edema Extremeties Remarks Dressing on the left foot and leg with boot. Also dressing on the right hallux Neurologic Neuro Exam: Alert, Awake, Oriented, Speech Clear, Moving All Extremities, No Focal Deficits Psychiatric Psych Exam: Appropriate Responses VTE Prophylaxis VTE Prophylaxis Meds: Heparin Assessment/Plan Assessment/Plan 1. Cellulitis left foot, bilat hallux diabetic ulceration, R/O osteo 2. Diabetes type 2 uncontrolled 3. Dehydration with mild acute kidney injury 4. History of hypertension. 5. History of COPD. 6. GERD 7. Anxiety disorder 8. History of meth use. 9. Poss. allergic rhinitis Plan Appreciate podiatry input, status post debridement HALLUX ulcerations 09/06 Continue with wound care Continue with cam boot to off-load on left leg. Podiatry change his dressing yesterday Ultrasound Negative for DVT Appreciate ID input Follow cultures showing beta strep Continue with antibiotic Continue with diabetic diet Accu-Chek's a.c. and h.s. with hypo and hyperglycemia protocols which include sliding scale insulin. Continue Levemir Complaining of dry cough, rhinorrhea, mild wheezing Duo nebs when necessary Claritin 10 mg by mouth daily Tessalon Perles for cough Pain management as needed Continue to follow labs Heparin for DVT prophylaxis Patient will be changed to inpatient, will need IV antibiotics 2-3 days, continue to follow cultures. If patient had admitted, he is at risk of sepsis, further infection and loss of limb. Labs reviewed Increase WBC count better BMP pending D/W RN D/W pt. Boogie Torres MD Sep 08, 2016 09:33
[2016-09-08] MEDS ORDERED: BENZONATATE 100 MG CAP PO PRN (09:45)
--- NOTE | 2016-09-08 13:27 | PD.POD ---
Subjective Pain score: 1 Remarks Much improved left leg pain Past Med/Surg/Social History Past Medical History Endocrine: REPORTS HX OF: Diabetes mellitus Social History Smoking Status: Never Smoker Objective Vital Signs Vital Signs Date Time Temp Pulse Resp B/P Pulse Ox O2 Delivery O2 Flow Rate FiO2 09/08/16 07:38 96.8 70 20 155/106 97 09/08/16 04:00 97.9 68 18 138/84 98 09/08/16 02:30 97.7 67 19 148/84 97 09/07/16 21:02 97.8 77 21 134/84 98 09/07/16 16:00 98.0 70 20 167/89 98 Coded Allergies: Erythromycin (Verified Allergy, Unknown, UNKNOWN REACTION, 09/05/16) Terramycin (Verified Allergy, Unknown, UNKNOWN REACTION, 09/05/16) Physical Exam Remarks Right foot hallux ulcer dry clean no redness or drainage 4mm 4mm 2mm no bone or tendon exposed. Left hallux with dry red eschar approx 2cm 1.5 cm, no odor no drainage no exposed bone or tendon. Left ankle and calf much improved redness and swelling. BL pulses of foot are palpable decreased sensation to light touch BL feet Assessment & Plan A/P BL hallux ulcer left > right, left leg cellulitis. SP debridement 09/06 BL hallux ulcers Bandage changed per afshan, CAM boot in place to offload, needs to wrap and elevate the left foot ankle and leg, Cx Grp B strep, ok to DC tomorrow on PO meds, patient to apply topical ABX qd, Patient was given Medcaid Dr Watters- Dr Stevens to FU out pt, podiatry sign off. Michele Cochran DPM Sep 08, 2016 13:27
[2016-09-08] MEDS: ATENOLOL 100 MG TAB PO SCH (20:51)
[2016-09-08] MEDS: guaiFENesin/DEXTROMETHORPHAN 200 MG/20 MG/10 ML CUP PO PRN (20:52)
[2016-09-08] MEDS: INSULIN DETEMIR 100 UNITS/ML VIAL SQ SCH (20:52)
[2016-09-09] VITALS: BP 119/76; PULSE 72; RESP 19; TEMP 98.4; O2SAT 94
[2016-09-09] MEDS: LEVOFLOXACIN 500 MG PREMIX INJ 100 ML IV SCH (00:57)
[2016-09-09] MEDS: CLINDAMYCIN INJ 600 MG in SODIUM CHLORIDE 0.9% INJ 100 ML IV SCH ×2 (02:21→08:39)
[2016-09-09 04:00] VITALS: BP 129/71; PULSE 64; RESP 18; TEMP 96.7; O2SAT 97
[2016-09-09] MEDS: GABAPENTIN 400 MG CAP PO SCH ×2 (05:26→12:32)
[2016-09-09] MEDS: glipiZIDE 10 MG TAB PO SCH ×2 (05:26→15:57)
[2016-09-09] MEDS: guaiFENesin/DEXTROMETHORPHAN 200 MG/20 MG/10 ML CUP PO PRN (05:28)
[2016-09-09] MEDS: INSULIN ASPART SUPPLEMENTAL SCALE SQ SCH ×3 (07:00→15:57)
[2016-09-09] MEDS: HYDROCHLOROTHIAZIDE 25 MG TAB PO SCH (08:40)
[2016-09-09] MEDS: metFORMIN HCL 500 MG TAB PO SCH (08:40)
[2016-09-09] MEDS: TOLTERODINE TARTRATE 2 MG CAP LA PO SCH (08:40)
[2016-09-09] MEDS: LISINOPRIL 20 MG TAB PO SCH (08:40)
[2016-09-09] MEDS: HEPARIN SODIUM - SQ 10,000 UNITS/ML VIAL SQ SCH (08:41)
[2016-09-09] MEDS: LORATADINE 10 MG TAB PO SCH (08:41)
[2016-09-09] MEDS: GENTAMICIN SULFATE 0.1% CREAM 15 GM TOPICAL SCH (08:41)
[2016-09-09] MEDS: RESP: ALBUTEROL 2.5 MG/IPRATROPIUM 0.5 MG NEB (PRN) NEB (08:43)
[2016-09-09 08:53] VITALS: BP 109/66; PULSE 72; RESP 18; TEMP 98.5; O2SAT 96
--- NOTE | 2016-09-09 09:48 | HHI.PR ---
Subjective Interval History Patient is feeling better offering no complaint Review of system for 10 point system otherwise unremarkable Vitals/Results Intake & Output 09/08/16 09/08/16 09/09/16 15:00 23:00 07:00 Intake Total 2160 ml 480 ml 480 ml Output Total 500 ml 800 ml Balance 1660 ml 480 ml -320 ml Intake Oral 2160 ml 480 ml 480 ml Output Urine Total 500 ml 800 ml # Voids 2 # Bowel Movements 0 0 Vital Signs Vital Signs Date Time Temp Pulse Resp B/P Pulse Ox O2 Delivery O2 Flow Rate FiO2 09/09/16 08:53 98.5 72 18 109/66 96 09/09/16 04:00 96.7 64 18 129/71 97 09/09/16 00:00 98.4 72 19 119/76 94 09/08/16 20:35 98.6 76 18 129/81 96 09/08/16 20:00 98.8 75 18 104/76 94 09/08/16 15:50 98.0 76 20 146/98 97 09/08/16 11:45 98.0 71 20 155/99 97 CBC/BMP: 09/08/16 0815 09/08/16 0815 Physical Exam General General Appearance: Well Developed, No Acute Distress, Comfortable, Obese Eyes Eye Exam: Pupils Equal, Pupils Reactive Ears & Nose Ears & Nose Exam: Nasal Mucosa Payne Throat Throat Exam: Oral Mucosa Payne & Moist Neck Neck Exam: Neck Supple, Trachea Midline Pulmonary Resp Exam: Clear Bilaterally, No Distress Cardiology CV Exam: Regular, Good Perfusion Gastrointestinal/Abdomen GI Exam: Soft, Non-Tender, Bowel Sounds Present, Non-Distended Musculoskeletal MS Exam: Joints Intact Integumentary Skin Exam: Warm, Dry, Ulcer(s) Extremeties Extremities Exam: Pedal Pulses Palpable, Trace Edema Extremeties Remarks Dressing on the left foot and leg with boot. Also dressing on the right hallux Neurologic Neuro Exam: Alert, Awake, Oriented, Speech Clear, Moving All Extremities, No Focal Deficits Psychiatric Psych Exam: Appropriate Responses VTE Prophylaxis VTE Prophylaxis Meds: Heparin Assessment/Plan Assessment/Plan 1. Cellulitis left foot, bilat hallux diabetic ulceration, R/O osteo 2. Diabetes type 2 uncontrolled 3. Dehydration with mild acute kidney injury 4. History of hypertension. 5. History of COPD. 6. GERD 7. Anxiety disorder 8. History of meth use. 9. Poss. allergic rhinitis Plan Appreciate podiatry input, status post debridement HALLUX ulcerations 09/06 Continue with wound care Continue with cam boot to off-load on left leg. Podiatry change his dressing yesterday Ultrasound Negative for DVT Appreciate ID input Follow cultures showing group B beta strep. Continue with antibiotic Continue with diabetic diet Accu-Chek's a.c. and h.s. with hypo and hyperglycemia protocols which include sliding scale insulin. Continue Levemir Complaining of dry cough, rhinorrhea, mild wheezing, better Duo nebs when necessary Claritin 10 mg by mouth daily Tessalon Perles for cough Pain management as needed Continue to follow labs Heparin for DVT prophylaxis Labs reviewed Increase WBC count better BMP pending D/W RN D/W pt. Boogie Torres MD Sep 09, 2016 09:48
[2016-09-09 12:00] VITALS: BP 113/81; PULSE 78; RESP 18; TEMP 97.6; O2SAT 97
[2016-09-09] MEDS ORDERED: LEVA500T PO (13:18)
[2016-09-09] MEDS ORDERED: [UNRECOGNIZED DRUG - CODE] PO (13:18)
--- NOTE | 2016-09-09 13:25 | HHI.DS ---
Discharge Summary Admission Date Sep 07, 2016 at 08:10 Admitting Diagnosis cellulitis (1) Diabetic foot infection Diagnosis: Principal (2) Cellulitis Diagnosis: Principal (3) Type 2 diabetes mellitus Diagnosis: Principal (4) Hypertension Diagnosis: Principal (5) Diabetic foot ulcers Diagnosis: Principal Brief History pt admitted for diabetic ulcer with celluliltis. seen by security tester had infected ulceration which were debrided, seen by ID and kept on appropriate abx. culture were followed. dw ID ok to dc on po abx . as overall stable will dc to [facility] where he is currently residing. for further detail please see chart please. CBC/BMP: 09/08/16 0815 09/08/16 0815 Significant Findings Laboratory Tests Test 09/08/16 08:15 Mean Corpuscular Hemoglobin 26.9 PG (27.0-34.0) Sodium Level 135 MEQ/L (136-145) Blood Urea Nitrogen 20 MG/DL (7-18) Estimat Glomerular Filtration 74 ML/MIN (>89) Rate Random Glucose 135 MG/DL (74-106) Pt Condition on Discharge: Good Discharge Disposition: Discharge Home Discharge Instructions DIET: Follow Instructions for: Diabetic Diet Activities you can perform: Weight Bearing as Kai Follow up Referrals: PCP Follow-up - 1 Week Podiatry - 1 Week New Medications: Levofloxacin (Levaquin) 500 Mg Tab 500 MG PO DAILY Infection #14 Ref 0 TAB Changed Medications: Tolterodine (Detrol) 1 Mg Tab 2 MG PO BID Urinary Symptom Managemen #60 Ref 0 TAB (Changed from: 1 MG) Continued Medications: Atenolol (Atenolol) 100 Mg Tab 100 MG PO HS Blood Pressure Management #30 Ref [address] (Diclofenac Sodium DR) 75 Mg Tabdr 75 MG PO BID #60 Ref 0 TAB Gabapentin (Gabapentin) 800 Mg Tab 800 MG PO TID #90 Ref 0 TAB Glipizide (Glipizide) 10 Mg Tab 10 MG PO BIDAC Take 30 minutes before a meal Blood Sugar Management #60 Ref 0 TAB Ibuprofen (Ibuprofen) 600 Mg Tab 600 MG PO Q8HR PRN PAIN #20 Ref 0 TAB Insulin Glargine Inj (Lantus Inj) 1,000 Unit/10 Ml Vial 20 UNITS SQ HS Blood Sugar Management Ref 0 VIAL Lisinopril-Hctz (Lisinopril-Hctz) 20-12.5 Mg Tab 1 TAB PO BID Blood Pressure Management #30 Ref 0 TAB Metformin (Metformin) 1,000 Mg Tab 1000 MG PO BIDPC With meals Blood Sugar Management #60 Ref 0 TAB Ropinirole (Ropinirole) 1 Mg Tab 1 MG PO HS #30 Ref 0 TAB Tizanidine (Tizanidine) 4 Mg Cap 4 MG PO TID Muscle Spasm Ref 0 CAP Boogie Torres MD Sep 09, 2016 13:25
[2016-09-10] MEDS ORDERED: TOLTERODINE TARTRATE 4 MG CAP LA PO SCH (09:00)
[2016-09-10] MEDS ORDERED: PRED20 PO (23:44)
== END 2016-09-09 16:39 | disposition home or self-care (01) | DRG 623 ==
LOC: NEPE 21:21 → NEDA 22:50 → NEPFCDU 09-06 00:33 → OBSVTOIN 09-07 08:10 → HOCA 09-08 02:16
PROVIDERS: ADMIT Specialist; ATTEND Specialist
PROC: 0HBNXZZ Excision of Left Foot Skin, External Approach (ICD-10-PCS; principal; 2016-09-06)
DX: E11.621 Type 2 diabetes mellitus with foot ulcer (principal); L03.116 Cellulitis of left lower limb; L97.529 Non-pressure chronic ulcer of other part of left foot with unspecified severity; N17.9 Acute kidney failure, unspecified; G62.9 Polyneuropathy, unspecified; E11.40 Type 2 diabetes mellitus with diabetic neuropathy, unspecified; I10 Essential (primary) hypertension; G47.30 Sleep apnea, unspecified; R05 Cough; K44.9 Diaphragmatic hernia without obstruction or gangrene; K21.9 Gastro-esophageal reflux disease without esophagitis; J44.9 Chronic obstructive pulmonary disease, unspecified; E86.0 Dehydration; G43.909 Migraine, unspecified, not intractable, without status migrainosus; M19.90 Unspecified osteoarthritis, unspecified site
CPT/HCPCS: 73660; 76937; 80048; 80053; 80074; 82948; 83605; 85025; 85027; 86403; 87070; 87186; 87205; 93971; 94640; 94664; 99284; G0378; J1644; J1815; J1885; J1956; L2114

== ENCOUNTER 2016-09-10 21:04 | Emergency (ER) | payer OTHER ==
[~2016-09-10] VITALS: Ht 180.3 cm; Wt 134.0 kg
[~2016-09-10 21:04] MED LIST changes: +LANTUS2P SQ; +LEVA500T PO; -LISI-515 PO; +LISI20TA PO
[2016-09-10 21:36] VITALS: BP 129/76; PULSE 88; RESP 20; TEMP 98; O2SAT 93
[2016-09-10] MEDS ORDERED: SODIUM CHLORIDE 0.9% FLUSH 5 ML FLUSH IVF PRN (21:45)
[2016-09-10] MEDS ORDERED: methylPREDNISolone SOD SUCC 125 MG/2 ML VIAL IVP ONE (21:45)
[2016-09-10] MEDS ORDERED: guaiFENesin/CODEINE SYRUP 200 MG/20 MG/10 ML CUP PO ONE (21:45)
--- NOTE | 2016-09-10 21:51 | PD ---
HPI Chief Complaint: Respiratory Symptoms Time Seen by Provider: 21:42 Travel History International Travel<30 days: No Contact w/Intl Traveler<30days: No Traveled to known affect area: No History of Present Illness HPI Patient is a 7-year-old male who presents emergency department for evaluation of coughing, wheezing. Patient states his symptoms started 4 days ago while he was a patient in the hospital. He states he was given nebulizer treatments as well as cough syrup. He states his symptoms are worse when he lays flat. Patient states that he was admitted to the hospital for treatment of diabetic ulcers on his foot. He has been on Levaquin for 3 days, the first dose was IV in the hospital in the second 2 doses were taken orally. Patient denies any fevers, chills, nausea, vomiting, headache. Patient denies any tobacco use, he denies any history of COPD/asthma. PFSH Past Medical History Arthritis: Yes Autoimmune Disease: No Anxiety: Yes (Anxiety, panic attacks ) Heart Rhythm Problems: No Cancer: No High Cholesterol: No Chest Pain: No Congestive Heart Failure: No Diabetes: Yes Diminished Hearing: No Endocrine: Yes GERD: No Genitourinary: Yes (Frequency ) Hiatal Hernia: Yes Hypertension: Yes Immune Disorder: No Kidney Stones: No Neurologic: Yes (Neuropathy ) Psychiatric: No Reproductive: Yes Respiratory: Yes Immunizations Current: Yes Migraines: Yes Renal Failure: No Sickle Cell Disease: No Sleep Apnea: Yes Thyroid Disease: No Ulcer: Yes Past Surgical History Abdominal Surgery: Yes (Hernias) Body Medical Devices: Lt. ACL may have metal nuts Cardiac Surgery: No Ear Surgery: No Endocrine Surgery: No Eye Surgery: No Genitourinary Surgery: No Gynecologic Surgery: No Oral Surgery: No Thoracic Surgery: No Other Surgery: Yes Social History Alcohol Use: No (Hx ETOH abuse/sober 6 months ) Tobacco Use: No Substance Use: Yes (Hx substance abuse/clean 6 months) Allergies-Medications (Allergen,Severity, Reaction): Coded Allergies: Erythromycin (Verified Allergy, Unknown, UNKNOWN REACTION, 09/05/16) Terramycin (Verified Allergy, Unknown, UNKNOWN REACTION, 09/05/16) Reported Meds & Prescriptions Reported Meds & Active Scripts Active Tessalon Perles (Benzonatate) 100 Mg Cap 100 Mg PO TID PRN Proair Hfa 8.5 GM Inh (Albuterol Sulfate) 90 Mcg/Act Aer 2 Puff INH Q6H PRN 108 mcg/actuation Prednisone 20 Mg Tab 40 Mg PO DAILY 5 Days Take 40 mg (2 tablets) daily for 5 days Levaquin (Levofloxacin) 500 Mg Tab 500 Mg PO DAILY Detrol (Tolterodine Tartrate) 1 Mg Tab 2 Mg PO BID Ibuprofen 600 Mg Tab 600 Mg PO Q8HR PRN Metformin (Metformin HCl) 1,000 Mg Tab 1,000 Mg PO BIDPC With meals Reported Lisinopril-Hctz 20-12.5 Mg Tab 1 Tab PO BID Lantus Inj (Insulin Glargine) 1,000 Unit/10 Ml Vial 20 Units SQ HS Tizanidine (Tizanidine HCl) 4 Mg Cap 4 Mg PO TID Diclofenac Sodium DR (Diclofenac Sodium) 75 Mg Tabdr 75 Mg PO BID Ropinirole 1 Mg Tab 1 Mg PO HS Atenolol 100 Mg Tab 100 Mg PO HS Glipizide 10 Mg Tab 10 Mg PO BIDAC Take 30 minutes before a meal Gabapentin 800 Mg Tab 800 Mg PO TID Review of Systems Except as stated in HPI: all other systems reviewed are Neg General / Constitutional: No: Fever, Chills Cardiovascular: No: Chest Pain or Discomfort Respiratory: Positive: Cough, Shortness of Breath, Wheezing, Orthopnea, Pleuritic Pain Gastrointestinal: No: Nausea, Vomiting, Diarrhea, Abdominal Pain Musculoskeletal: No: Myalgias Physical Exam Narrative GENERAL: Obese, well-developed, alert male. Resting comfortably in no acute distress. SKIN: Warm and dry. Chronic changes noted to bilateral lower extremities. HEAD: Atraumatic. Normocephalic. EYES: Pupils equal and round. No scleral icterus. No injection or drainage. ENT: No nasal bleeding or discharge. Mucous membranes pink and moist. NECK: Trachea midline. No JVD. CARDIOVASCULAR: Regular rate and rhythm. No murmur appreciated. RESPIRATORY: No accessory muscle use. Expiratory wheezing noted throughout. Dry nonproductive cough GASTROINTESTINAL: Abdomen soft, non-tender, nondistended. Hepatic and splenic margins not palpable. MUSCULOSKELETAL: No obvious deformities. No clubbing. No cyanosis. No edema. NEUROLOGICAL: Awake and alert. No obvious cranial nerve deficits. Motor grossly within normal limits. Normal speech. PSYCHIATRIC: Appropriate mood and affect; insight and judgment normal. Data Data Last Documented VS Vital Signs Date Time Temp Pulse Resp B/P Pulse Ox O2 Delivery O2 Flow Rate FiO2 09/10/16 23:58 98 Room Air 09/10/16 22:52 107 20 150/93 09/10/16 21:36 98.0 Orders Complete Blood Count With Diff (09/10/16 21:36) Comprehensive Metabolic Panel (09/10/16 21:36) Magnesium (Mg) (09/10/16 21:36) Chest, Pa & Lat (09/10/16 21:36) Sodium Chloride 0.9% Flush (Ns Flush) (09/10/16 21:45) Methylprednisolone So Succ Inj (Solumedr (09/10/16 21:45) Albuterol-Ipratropium Neb (Duoneb Neb) (09/10/16 21:45) Guaifen-Cod 200-20 Mg/10ml Liq (Robituss (09/10/16 21:45) Sodium Chlor 0.9% 1000 Ml Inj (Ns 1000 M (09/10/16 22:45) Resp Request For Service (09/10/16 ) Albuterol Hfa Inh (Proair Hfa Inh) (09/11/16 00:15) Labs Laboratory Tests Test 09/10/16 21:40 White Blood Count 6.1 TH/MM3 Red Blood Count 4.97 MIL/MM3 Hemoglobin 13.4 GM/DL Hematocrit 40.4 % Mean Corpuscular Volume 81.3 FL Mean Corpuscular Hemoglobin 26.9 PG Mean Corpuscular Hemoglobin 33.1 % Concent Red Cell Distribution Width 15.3 % Platelet Count 220 TH/MM3 Mean Platelet Volume 9.8 FL Neutrophils (%) (Auto) 53.5 % Lymphocytes (%) (Auto) 28.2 % Monocytes (%) (Auto) 14.9 % Eosinophils (%) (Auto) 2.6 % Basophils (%) (Auto) 0.8 % Neutrophils # (Auto) 3.2 TH/MM3 Lymphocytes # (Auto) 1.7 TH/MM3 Monocytes # (Auto) 0.9 TH/MM3 Eosinophils # (Auto) 0.2 TH/MM3 Basophils # (Auto) 0.0 TH/MM3 CBC Comment DIFF FINAL Differential Comment Sodium Level 140 MEQ/L Potassium Level 4.0 MEQ/L Chloride Level 104 MEQ/L Carbon Dioxide Level 27.3 MEQ/L Anion Gap 9 MEQ/L Blood Urea Nitrogen 39 MG/DL Creatinine 1.35 MG/DL Estimat Glomerular Filtration 54 ML/MIN Rate Random Glucose 226 MG/DL Calcium Level 8.6 MG/DL Magnesium Level 2.0 MG/DL Total Bilirubin 0.2 MG/DL Aspartate Amino Transf 17 U/L (AST/SGOT) Alanine Aminotransferase 23 U/L (ALT/SGPT) Alkaline Phosphatase 120 U/L Total Protein 7.2 GM/DL Albumin 3.2 GM/DL MDM Medical Decision Making Medical Screen Exam Complete: Yes Emergency Medical Condition: Yes Interpretation(s) Vital Signs Date Time Temp Pulse Resp B/P Pulse Ox O2 Delivery O2 Flow Rate FiO2 09/10/16 21:36 98.0 88 20 129/76 93 Differential Diagnosis Bronchitis versus pneumonia versus viral syndrome versus allergic rhinitis versus other Narrative Course Patient is a 61-year-old male who presented to the emergency department for evaluation of cough, wheezing, shortness of breath. Patient is residing at the [facility]. He was just discharged from the hospital on 09 September due to diabetic ulcers. His O2 sat was 92-93% on room air on arrival, after duo nebs 3, he is currently 98% on room air. CBC is unremarkable chemistry shows acute renal insufficiency with an elevated BUN/creatinine that was not present on labs that were drawn 2 days ago. Patient be given 1 L of normal saline IV now. Care of patient will be transferred to my attending physician who determine patient's disposition. Scripts Benzonatate (Tessalon Perles)100 Mg [id number] Mg PO TID PRN (COUGH) #15 CAP Ref 0 Prov:Will Steen MD 09/11/16 Albuterol 8.5 GM Inh (Proair Hfa 8.5 GM Inh)90 Mcg/Act Aer2 Puff INH Q6H PRN ( SHORTNESS OF BREATH) #1 INHALER Ref 0 108 mcg/actuation Prov:Will Steen MD 09/11/16 Prednisone 20 Mg Tab40 Mg PO DAILY 5 Days Ref 0 Take 40 mg (2 tablets) daily for 5 days Prov:Will Steen MD 09/10/16 Minerva Cordoba Sep 10, 2016 21:51
[2016-09-10] MEDS: RESP: ALBUTEROL 2.5 MG/IPRATROPIUM 0.5 MG NEB (SCH) INH ×2 (22:06→22:07)
[2016-09-10 22:08] LABS: AUTOMATED NEUTROPHIL # 3.2 TH/MM3 (1.8-7.7); BASOPHIL % 0.8 % (0.0-2.0); EOSINOPHIL # 0.2 TH/MM3 (0-0.4); EOSINOPHIL % 2.6 % (0.0-4.0); HEMATOCRIT 40.4 % (39.0-51.0); HEMO FLAGS DIFF FINAL; LYMPH % 28.2 % (9.0-44.0); LYMPHOCYTE # 1.7 TH/MM3 (1.0-4.8); MEAN CELL VOLUME 81.3 FL (80.0-100.0); MEAN CORPUSCULAR HEMOGLOBIN 26.9 PG (27.0-34.0); MEAN CORPUSCULAR HGB CONC 33.1 % (32.0-36.0); MONO % 14.9 % (0.0-8.0); NEUT % 53.5 % (16.0-70.0); PLATELET COUNT 220 TH/MM3 (150-450); RED BLOOD COUNT 4.97 MIL/MM3 (4.50-5.90); RED CELL DISTRIBUTION WIDTH 15.3 % (11.6-17.2); WHITE BLOOD COUNT 6.1 TH/MM3 (4.0-11.0)
--- NOTE | 2016-09-10 22:14 | RADRPT ---
EXAM DATE/TIME: 09/10/2016 21:58 [facility] COMPARISON: No previous studies available for comparison. INDICATIONS : Shortness of breath and cough. MEDICAL HISTORY : Hypertension. Diabetes mellitus type II. Chronic obstructive pulmonary disease. SURGICAL HISTORY : None. ENCOUNTER: Initial ACUITY: 1 week PAIN SCORE: 0/10 LOCATION: Bilateral chest FINDINGS: PA and lateral views of the chest demonstrate the lungs to be symmetrically aerated without evidence of mass, infiltrate or effusion. The cardiomediastinal contours are unremarkable. Osseous structure s are intact. CONCLUSION: No acute disease. Tanner Sheppard MD on September 10, 2016 at 22:12 Board Certified Radiologist. This report was verified electronically.
[2016-09-10 22:26] LABS: ANION GAP 9 MEQ/L (5-15); BICARBONATE 27.3 MEQ/L (21.0-32.0); BLOOD UREA NITROGEN 39 MG/DL (7-18); CHLORIDE 104 MEQ/L (98-107); GLOMERULAR FILTRATION RATE 54 ML/MIN (>89); SODIUM (NA) 140 MEQ/L (136-145)
[2016-09-10 22:31] LABS: ALKALINE PHOSPHATASE 120 U/L (45-117); ALT (GPT) 23 U/L (12-78); AST (GOT) 17 U/L (15-37); TOTAL BILIRUBIN ADULT 0.2 MG/DL (0.2-1.0)
[2016-09-10] MEDS ORDERED: SODIUM CHLOR 0.9% 1000 ML INJ 1,000 ML IV ONE (22:45)
[2016-09-10 22:52] VITALS: BP 150/93; PULSE 107; RESP 20; O2SAT 96
[2016-09-10] MEDS ORDERED: PRED20 PO (23:44)
--- NOTE | 2016-09-10 23:45 | PD ---
Data Data Last Documented VS Vital Signs Date Time Temp Pulse Resp B/P Pulse Ox O2 Delivery O2 Flow Rate FiO2 09/10/16 23:58 98 Room Air 09/10/16 22:52 107 20 150/93 09/10/16 21:36 98.0 Orders Complete Blood Count With Diff (09/10/16 21:36) Comprehensive Metabolic Panel (09/10/16 21:36) Magnesium (Mg) (09/10/16 21:36) Chest, Pa & Lat (09/10/16 21:36) Sodium Chloride 0.9% Flush (Ns Flush) (09/10/16 21:45) Methylprednisolone So Succ Inj (Solumedr (09/10/16 21:45) Albuterol-Ipratropium Neb (Duoneb Neb) (09/10/16 21:45) Guaifen-Cod 200-20 Mg/10ml Liq (Robituss (09/10/16 21:45) Sodium Chlor 0.9% 1000 Ml Inj (Ns 1000 M (09/10/16 22:45) Resp Request For Service (09/10/16 ) Albuterol Hfa Inh (Proair Hfa Inh) (09/11/16 00:15) Labs Laboratory Tests Test 09/10/16 21:40 White Blood Count 6.1 TH/MM3 Red Blood Count 4.97 MIL/MM3 Hemoglobin 13.4 GM/DL Hematocrit 40.4 % Mean Corpuscular Volume 81.3 FL Mean Corpuscular Hemoglobin 26.9 PG Mean Corpuscular Hemoglobin 33.1 % Concent Red Cell Distribution Width 15.3 % Platelet Count 220 TH/MM3 Mean Platelet Volume 9.8 FL Neutrophils (%) (Auto) 53.5 % Lymphocytes (%) (Auto) 28.2 % Monocytes (%) (Auto) 14.9 % Eosinophils (%) (Auto) 2.6 % Basophils (%) (Auto) 0.8 % Neutrophils # (Auto) 3.2 TH/MM3 Lymphocytes # (Auto) 1.7 TH/MM3 Monocytes # (Auto) 0.9 TH/MM3 Eosinophils # (Auto) 0.2 TH/MM3 Basophils # (Auto) 0.0 TH/MM3 CBC Comment DIFF FINAL Differential Comment Sodium Level 140 MEQ/L Potassium Level 4.0 MEQ/L Chloride Level 104 MEQ/L Carbon Dioxide Level 27.3 MEQ/L Anion Gap 9 MEQ/L Blood Urea Nitrogen 39 MG/DL Creatinine 1.35 MG/DL Estimat Glomerular Filtration 54 ML/MIN Rate Random Glucose 226 MG/DL Calcium Level 8.6 MG/DL Magnesium Level 2.0 MG/DL Total Bilirubin 0.2 MG/DL Aspartate Amino Transf 17 U/L (AST/SGOT) Alanine Aminotransferase 23 U/L (ALT/SGPT) Alkaline Phosphatase 120 U/L Total Protein 7.2 GM/DL Albumin 3.2 GM/DL [facility] Medical Record Reviewed: Yes Supervised Visit with FRANCIS: Yes Narrative Course CBC & BMP Diagram 09/10/16 21:40 Mild elevation in LFTs is observed. The patient has mild prerenal azotemia. He is ambulated around the pod without difficulty. His O2 remained at about 98 % or so upon return to his bed. We'll send him home with Tessalon Perles albuterol inhaler and prednisone. Return precautions discussed. Diagnosis Primary Impression: Prerenal azotemia Additional Impression: Wheezing Referrals: Primary Care Physician call for appointment Additional Instruction: You have a choice when it comes to health care, and we are glad that you chose [facility]. Hopefully, we have met your expectations on today's visit. You are welcome to return to [facility] at any time, as we are committed to meeting the health care needs of our community. Med/Other Pt SpecificInfo: Prescription(s) given Scripts Benzonatate (Tessalon Perles)100 Mg [id number] Mg PO TID PRN (COUGH) #15 CAP Ref 0 Prov:Will Steen MD 09/11/16 Albuterol 8.5 GM Inh (Proair Hfa 8.5 GM Inh)90 Mcg/Act Aer2 Puff INH Q6H PRN ( SHORTNESS OF BREATH) #1 INHALER Ref 0 108 mcg/actuation Prov:Will Steen MD 09/11/16 Prednisone 20 Mg Tab40 Mg PO DAILY 5 Days Ref 0 Take 40 mg (2 tablets) daily for 5 days Prov:Will Steen MD 09/10/16 Disposition: 01 DISCHARGE HOME Condition: Stable Will Steen MD Sep 10, 2016 23:45
[2016-09-10 23:58] VITALS: O2SAT 98
[2016-09-11] MEDS ORDERED: BENZ100 PO (00:06)
[2016-09-11] MEDS ORDERED: ALBUAER3 INH (00:06)
[2016-09-11] MEDS ORDERED: ALBUTEROL SULFATE 90 MCG/ACT HFA 8 GM INHALER INH ONE (00:15)
== END 2016-09-11 00:30 | disposition home or self-care (01) ==
LOC: NEPC 21:04
DX: R79.89 Other specified abnormal findings of blood chemistry (principal); R06.2 Wheezing
CPT/HCPCS: 71020; 80053; 83735; 85025; 94640; 94664; 96361; 96374; 99285; J2930; J7030

== ENCOUNTER → 2017-06-23 | Day surgery (SDC) | payer OTHER ==
[~2017-06-23] VITALS: Ht 177.8 cm; Wt 138.0 kg
[~2017-06-23] MED LIST changes: +ACYC400T PO; +CEPH-459 PO; +CHLORHEXIDINE GLUCONATE 2 % 1 PACK (2 CLOTHS) TOPICAL PRN; +CIAL20TA PO; -DICL75TA PO; +DO NOT ADM ANY ANTICOAGULANT DRUGS PRN; +FURO20TA PO; -GLIP10TA6 PO; +GLIP5TAB8 PO; +GLYCOPYRROLATE 1 MG/5 ML SYRINGE IV PUSH ONE; +INSULIN HUMAN REGULAR 1,000 UNITS/10 ML VIAL SQ PRN; +LACTATED RINGER'S 1000 ML INJ 1,000 ML IV ONE; +LACTATED RINGER'S 1000 ML IV PRN; -LEVA500T PO; +LIDOCAINE HCL 1% PF 5 ML SYRINGE OTHER ONE; +LISI-515 PO; -LISI20TA PO; +LURA40 PO; +METH500T3 PO; +METOPROLOL TARTRATE 25 MG TAB PO PRN; +NEOSTIGMINE 3 MG/3 ML SYR IV ONE; +ONDANSETRON HCL 4 MG/2 ML VIAL IV ONE; +ONDANSETRON HCL 4 MG/2 ML VIAL IV PUSH PRN; +PERC5TAB12 PO; +PHENYLEPH/NS 1000 MCG/10 ML SYR IV ONE; +POVIDONE IODINE 5% (ANTISEPSIS KIT) 4 APPLICATIONS EACH NARE PRN; +PROPOFOL 200 MG/20 ML AMP IV ONE; +ROCURONIUM INJ 50 MG/5 ML SYRINGE IV PUSH ONE; -ROPI1TAB PO; +SODIUM CHLORID 0.9% 500 ML IV PRN; -TIZA4CAP3 PO; -[UNRECOGNIZED DRUG - CODE] PO; +ePHEDrine/NS 25 MG/5 ML SYR IV ONE; +oxyCODONE/ACETAMINOPHEN 5 MG/325 MG TAB PO PRN
[2017-06-23 07:06] LABS: BASOPHIL % 0.5 % (0.0-2.0); EOSINOPHIL # 0.2 TH/MM3 (0-0.4); HEMATOCRIT 38.7 % (39.0-51.0); HEMO FLAGS DIFF FINAL; LYMPH % 23.2 % (9.0-44.0); LYMPHOCYTE # 2.1 TH/MM3 (1.0-4.8); MEAN CELL VOLUME 84.6 FL (80.0-100.0); MEAN CORPUSCULAR HEMOGLOBIN 28.1 PG (27.0-34.0); MEAN CORPUSCULAR HGB CONC 33.2 % (32.0-36.0); MONO % 9.2 % (0.0-8.0); NEUT % 65.1 % (16.0-70.0); PLATELET COUNT 205 TH/MM3 (150-450); RED BLOOD COUNT 4.57 MIL/MM3 (4.50-5.90); RED CELL DISTRIBUTION WIDTH 14.5 % (11.6-17.2); WHITE BLOOD COUNT 9.2 TH/MM3 (4.0-11.0)
[2017-06-23] MEDS: BUPIVACAINE HCL PF 0.25% 30 ML VIAL ONE ×2 (08:38→09:38)
--- NOTE | 2017-06-23 09:54 | PD.OP ---
Operative Report Date of Surgery: Jun 23, 2017 Preoperative Diagnosis: (1) Lower urinary tract symptoms (LUTS) (2) Phimosis Postoperative Diagnosis: (1) Lower urinary tract symptoms (LUTS) (2) Phimosis Procedure: Sleeve circumcision, cystoscopy and penile block Anesthesia: General Surgeon: Rohith Pandey Deli Cutter Slicer(s): None Operation and Findings: Indication for procedure: The case of a pleasant 61 year-old gentleman with history severe phimosis and lower urinary tract symptoms who presents today for a sleeve circumcision and cystoscopic evaluation. Operative procedure in detail: Patient was brought to the operating room suite and placed supine on the OR table. He was then placed under general anesthesia. He was then prepped and draped in normal sterile fashion. After appropriate timeout was undertaken I proceeded with performing the circumcision procedure. Initially a dorsal slit was made utilizing the #15 blade to facilitate retraction of the foreskin. 2 circumferential skin incisions were then made both proximal and distal to the redundant penile foreskin utilizing the 15 blade. This collar tissue was then sharply excised off the penile shaft and sent off to pathology. Hemostasis was accomplished utilizing the Bovie cautery and smooth forceps. The free skin edges were then reapproximated with interrupted 3. 0 chromic suture material. A U stitch was placed at the ventral aspect. Next a penile block was administered utilizing 5 cc of one quarter strength Marcaine solution. I then proceeded with cystoscopic evaluation utilizing the flexible cystoscope. The urethra was patent without stricture formation, the prostatic urethra was nonobstructing and further passage of the cystoscope within the urinary bladder fail to demonstrate any significant bladder wall pathology. Both right and left ureteral orifices were in correct anatomic position effluxing clear yellow urine. There were no bladder mucosal lesions, calculi or diverticula formation. The flexible scope was then gently withdrawn. A dressing was placed at the circumcision site consisting of Xeroform followed by Kerlix followed by a Coban wrap. The patient tolerated the procedures without complications and was transferred to the PACU in satisfactory condition. Rohith Pandey MD Jun 23, 2017 09:54
[2017-06-23 11:06] VITALS: BP 138/86; PULSE 86; RESP 16; TEMP 97.5; O2SAT 95
== END | disposition home or self-care (01) ==
LOC: HSDC 05:53
PROVIDERS: ATTEND Urology
DX: N47.1 Phimosis (principal); R39.9 Unspecified symptoms and signs involving the genitourinary system; I10 Essential (primary) hypertension; E11.9 Type 2 diabetes mellitus without complications; Z79.4 Long term (current) use of insulin
CPT/HCPCS: 00920; 52000; 54161; 85025; 88302; J1815; J7120; J2370; J2405; J2710; J3010

== ENCOUNTER 2018-07-05 20:49 | Inpatient (IN) ==
--- NOTE | 2018-07-05 22:48 | US ---
EXAM DATE: 07/05/2018 10:45 PM EST AGE/SEX: 62 years / Male INDICATIONS: Bilateral leg swelling and pain. CLINICAL DATA: This is the patient's initial encounter. Patient reports that signs and symptoms have been present for 1 day and indicates a pain score of 9/10. MEDICAL/SURGICAL HISTORY: Hypertension. Diabetes. Foot ulcer. . Hernia repair. Knee repair. COMPARISON: [facility], US LEG VENOUS DOPPLER, BILATERAL, 01/17/2017. . TECHNIQUE: Venous ultrasound of both lower extremities was performed from the inguinal ligament to t he proximal calf. Real-time, color Doppler and spectral tracing, compression and augmentation techni ques were used. FINDINGS: Right Leg: Normal compression of the deep venous system from the inguinal region to the proximal cathy f. No echogenic clot is seen. Normal response of the venous system to augmentation and respiration. Left Leg: Normal compression of the deep venous system from the inguinal region to the proximal calf . No echogenic clot is seen. Normal response of the venous system to augmentation and respiration. Other: None. CONCLUSION: No venous thrombosis is identified within either lower extremity. Electronically signed by: Tanner Hill MD 07/05/2018 10:47 PM EST
[2018-07-05 22:58] LABS: Baso # (Auto) 0.2 th/mm3 (0.0-0.2); Baso % (Auto) 0.9 % (0.0-2.0); Eos % (Auto) 0.1 % (0.0-4.0); Hematocrit 32.8 % (39.0-51.0); Hemoglobin 10.8 gm/dL (13.0-17.0); Lymph # (Auto) 1.1 th/mm3 (1.0-4.8); Lymph % (Auto) 5.9 % (9.0-44.0); Mean Corpuscular HGB Conc 33.1 % (32.0-36.0); Mean Corpuscular Hemoglobin 24.8 pg (27.0-34.0); Mean Corpuscular Volume 74.9 fL (80.0-100.0); Mean Platelet Volume 9.7 fL (7.0-11.0); Mono # (Auto) 1.1 th/mm3 (0.0-0.9); Mono % (Auto) 5.6 % (0.0-8.0); Neut # (Auto) 16.4 th/mm3 (1.8-7.7); Neut % (Auto) 87.5 % (16.0-70.0); Platelet Count 223 th/mm3 (150-450); Red Blood Count 4.38 mil/mm3 (4.50-5.90); Red Cell Distribution Width 15.6 % (11.6-17.2); White Blood Count 18.8 th/mm3 (4.0-11.0)
[2018-07-05 23:07] LABS: Chloride 97 meq/L (98-107); Potassium 3.6 meq/L (3.5-5.1); Sodium 130 meq/L (136-145)
[2018-07-05 23:10] LABS: Albumin 2.1 g/dL (3.4-5.0); Anion Gap 14 meq/L (5-15); Blood Urea Nitrogen 110 mg/dL (7-18); Carbon Dioxide 18.9 meq/L (21.0-32.0); Glucose,Random 105 mg/dL (74-106)
[2018-07-05 23:13] LABS: Alanine Aminotransferase 51 U/L (12-78); Aspartate Aminotransferase 71 U/L (15-37); Glomerular Filtration Rate 11 mL/min (>89)
[2018-07-05 23:15] LABS: Activated Partial Thrombo Time 37.4 sec (23.4-31.7); D-Dimer 2.74 mg/L FEU (0.00-0.50); Prothrombin Time 10.6 sec (9.8-11.6); Total Protein 7.4 g/dL (6.4-8.2)
[2018-07-05 23:16] LABS: Alkaline Phosphatase 99 U/L (45-117)
[2018-07-05 23:18] LABS: Platelet Estimate Normal (Normal); Platelet Morphology Normal (Normal)
[2018-07-06 02:49] LABS: Bilirubin,Urine Negative (Negative); Clarity,Urine Cloudy (Clear); Color,Urine Yellow (Yellw/Straw); Glucose,Urine (UA) Negative (Negative); Leukocyte Esterase,Urine Small (Negative); Nitrite,Urine Negative (Negative); Specific Gravity,Urine 1.015 (1.002-1.035); Urobilinogen,Urine 0.2 mg/dL (Less than 2)
[2018-07-06 02:54] LABS: Squamous Epithelial Cell,Urine 0-5 /hpf (0-5)
[2018-07-06 02:58] LABS: Amphetamine Screen,Urine Neg (Neg); Barbiturate Screen,Urine Neg (Neg); Cannabinoid Screen,Urine Neg (Neg); Cocaine Screen,Urine Neg (Neg)
[2018-07-06 03:01] LABS: Opiate Screen,Urine Neg (Neg)
--- NOTE | 2018-07-06 03:26 | ED ---
HPI General Chief complaint: Skin/Abscess/Foreign Body Stated complaint: Leg Pain Time Seen by Provider: 07/05/18 21:17 Related Data Home Medications Medication Instructions Recorded Confirmed dapagliflozin [Farxiga] 10 mg PO QAM 07/05/18 07/05/18 diclofenac sodium 100 mg PO DAILY 07/05/18 07/05/18 folic acid 0.8 mg PO DAILY 07/05/18 07/05/18 furosemide 40 mg PO DAILY 07/05/18 07/05/18 gabapentin 800 mg PO TID 07/05/18 07/05/18 glimepiride 4 mg PO QAM 07/05/18 07/05/18 lisinopril 20 mg PO DAILY 07/05/18 07/05/18 metformin 1,000 mg PO BID 07/05/18 07/05/18 [id number] 1 tab PO DAILY 07/05/18 07/05/18 [Airborne (ascorbate sodium)] omega 9-lhv-mri-fish oil [Fish Oil] 1,000 mg PO DAILY 07/05/18 07/05/18 solifenacin [Vesicare] 5 mg PO DAILY 07/05/18 07/05/18 Allergies Allergy/AdvReac Type Severity Reaction Status Date / Time erythromycin base Allergy Unknown UNKNOWN Verified 07/06/18 03:23 REACTION oxytetracycline Allergy Unknown UNKNOWN Verified 07/06/18 03:23 REACTION Review of Systems ROS: all other systems reviewed are negative [facility] Medical History Medical History History of high blood pressure (Acute) Hx of diabetes mellitus (Acute) Hx of diabetic foot ulcer (Acute) Surgical History Surgical History Hx of hernia repair (Acute) Hx of knee surgery (Acute) Social History Social History Substance History: No History of Abuse Smoking Status: Never smoker How Often Do You Have a Drink Containing Alcohol: Never Recent Travel in [place] within the Last 8 Weeks: No Recent Out of Country Travel within the Last 8 Weeks: No Immunization History Tetanus Immunization: Unsure Exam Narrative Exam Narrative: GENERAL: Alert and oriented SKIN: Focused skin assessment warm/dry. HEAD: Atraumatic. Normocephalic. EYES: Pupils equal and round. No scleral icterus. No injection or drainage. ENT: No nasal bleeding or discharge. Mucous membranes pink and moist. NECK: Trachea midline. No JVD. CARDIOVASCULAR: Regular rate and rhythm. No murmur appreciated. RESPIRATORY: No accessory muscle use. Clear to auscultation. Breath sounds equal bilaterally. GASTROINTESTINAL: Abdomen soft, non-tender, nondistended. Hepatic and splenic margins not palpable. MUSCULOSKELETAL: Patient has erythema and swelling with calf tenderness and popliteal tenderness to left leg. The right leg is edematous with minimal calf tenderness. 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 In addition to that he comes in with increasing pain and discomfort to his left leg. Patient has leukocytosis secondary to infection to left lower extremity. Additionally patient has renal failure and has elevated d-dimer. Medical Screen Exam Complete: Yes Emergency Medical Condition: Yes Lab Data Result diagrams: 07/05/18 22:50 07/05/18 22:50 Lab Results 07/05/18 07/05/18 07/05/18 Range/Units 22:50 22:50 22:50 CBC w Diff Slide review pending WBC 18.8 H (4.0-11.0) th/mm3 RBC 4.38 L (4.50-5.90) mil/mm3 Hgb 10.8 L (13.0-17.0) gm/dL Hct 32.8 L (39.0-51.0) % MCV 74.9 L (80.0-100.0) fL MCH 24.8 L (27.0-34.0) pg MCHC 33.1 (32.0-36.0) % RDW 15.6 (11.6-17.2) % Plt Count 223 (150-450) th/mm3 MPV 9.7 (7.0-11.0) fL Neut % (Auto) 87.5 H (16.0-70.0) % Lymph % (Auto) 5.9 L (9.0-44.0) % [place] % (Auto) 5.6 (0.0-8.0) % Eos % (Auto) 0.1 (0.0-4.0) % Baso % (Auto) 0.9 (0.0-2.0) % Neut # (Auto) 16.4 H (1.8-7.7) th/mm3 Lymph # (Auto) 1.1 (1.0-4.8) th/mm3 [place] # (Auto) 1.1 H (0.0-0.9) th/mm3 Eos # (Auto) 0.0 (0.0-0.4) th/mm3 Baso # (Auto) 0.2 (0.0-0.2) th/mm3 WBC Differential . Diff Scan Auto diff confirmed Differential Comment . Platelet Estimate Normal (Normal) Platelet Morphology Normal (Normal) PT 10.6 (9.8-11.6) sec INR 1.0 Ratio APTT 37.4 H (23.4-31.7) sec D-Dimer Quant (PE/DVT) 2.74 H (0.00-0.50) mg/L FEU Sodium 130 L (136-145) meq/L Potassium 3.6 (3.5-5.1) meq/L Chloride 97 L (98-107) meq/L Carbon Dioxide 18.9 L (21.0-32.0) meq/L Anion Gap 14 (5-15) meq/L BUN 110 H (7-18) mg/dL Creatinine 5.30 H (0.60-1.30) mg/dL Estimated GFR 11 L (>89) mL/min Random Glucose 105 (74-106) mg/dL Calcium 8.0 L (8.5-10.1) mg/dL Total Bilirubin 0.6 (0.2-1.0) mg/dL AST 71 H (15-37) U/L ALT 51 (12-78) U/L Alkaline Phosphatase 99 (45-117) U/L Troponin I Less than 0.02 L (0.02-0.05) ng/mL Total Protein 7.4 (6.4-8.2) g/dL Albumin 2.1 L (3.4-5.0) g/dL Urine Color (Yellw/Straw) Urine Clarity (Clear) Urine pH (5.0-8.5) Ur Specific [place] (1.002-1.035) Urine Protein (Neg-Trace) mg/dL Urine Glucose (UA) (Negative) mg/dL Urine Ketones (Negative) mg/dL Urine Occult Blood (Negative) Urine Nitrate (Negative) Urine Bilirubin (Negative) Urine Urobilinogen (Less than 2) mg/dL Ur Leukocyte Esterase (Negative) Urine RBC (0-3) /hpf Urine WBC (0-5) /hpf Ur Squamous Epith Cells (0-5) /hpf Micro UA Comment Ur Microscopic Review Urine Culture Comments Urine Opiates Screen (Neg) Ur Barbiturates Screen (Neg) Ur Amphetamines Screen (Neg) U Benzodiazepines Scrn (Neg) Urine Cocaine Screen (Neg) U Cannabinoids Screen (Neg) 07/06/18 07/06/18 Range/Units 02:45 02:45 CBC w Diff WBC (4.0-11.0) th/mm3 RBC (4.50-5.90) mil/mm3 Hgb (13.0-17.0) gm/dL Hct (39.0-51.0) % MCV (80.0-100.0) fL MCH (27.0-34.0) pg MCHC (32.0-36.0) % RDW (11.6-17.2) % Plt Count (150-450) th/mm3 MPV (7.0-11.0) fL Neut % (Auto) (16.0-70.0) % Lymph % (Auto) (9.0-44.0) % [place] % (Auto) (0.0-8.0) % Eos % (Auto) (0.0-4.0) % Baso % (Auto) (0.0-2.0) % Neut # (Auto) (1.8-7.7) th/mm3 Lymph # (Auto) (1.0-4.8) th/mm3 [place] # (Auto) (0.0-0.9) th/mm3 Eos # (Auto) (0.0-0.4) th/mm3 Baso # (Auto) (0.0-0.2) th/mm3 WBC Differential Diff Scan Differential Comment Platelet Estimate (Normal) Platelet Morphology (Normal) PT (9.8-11.6) sec INR Ratio APTT (23.4-31.7) sec D-Dimer Quant (PE/DVT) (0.00-0.50) mg/L FEU Sodium (136-145) meq/L Potassium (3.5-5.1) meq/L Chloride (98-107) meq/L Carbon Dioxide (21.0-32.0) meq/L Anion Gap (5-15) meq/L BUN (7-18) mg/dL Creatinine (0.60-1.30) mg/dL Estimated GFR (>89) mL/min Random Glucose (74-106) mg/dL Calcium (8.5-10.1) mg/dL Total Bilirubin (0.2-1.0) mg/dL AST (15-37) U/L ALT (12-78) U/L Alkaline Phosphatase (45-117) U/L Troponin I (0.02-0.05) ng/mL Total Protein (6.4-8.2) g/dL Albumin (3.4-5.0) g/dL Urine Color Yellow (Yellw/Straw) Urine Clarity Cloudy H (Clear) Urine pH 5.0 (5.0-8.5) Ur Specific [place] 1.015 (1.002-1.035) Urine Protein 30 H (Neg-Trace) mg/dL Urine Glucose (UA) Negative (Negative) mg/dL Urine Ketones Negative (Negative) mg/dL Urine Occult Blood Large H (Negative) Urine Nitrate Negative (Negative) Urine Bilirubin Negative (Negative) Urine Urobilinogen 0.2 (Less than 2) mg/dL Ur Leukocyte Esterase Small H (Negative) Urine RBC 15-50 H (0-3) /hpf Urine WBC 6-8 H (0-5) /hpf Ur Squamous Epith Cells 0-5 (0-5) /hpf Micro UA Comment Culture not ind Ur Microscopic Review Microscopic reviewed Urine Culture Comments Culture not ind Urine Opiates Screen Neg (Neg) Ur Barbiturates Screen Neg (Neg) Ur Amphetamines Screen Neg (Neg) U Benzodiazepines Scrn Neg (Neg) Urine Cocaine Screen Neg (Neg) U Cannabinoids Screen Neg (Neg) Imaging Data Radiologist's impression: Venous Doppler Study 07/05/18 21:32 CONCLUSION: No venous thrombosis is identified within either lower extremity. Discharge Plan Discharge Order Discharge Orders: ED Use Only Admit Order (Routine); Ordered 07/06/18 Ordered By: Reynold De Paz Physicians Team ED Provider: Reynold De Paz Primary Care Provider: Primary Care Opali,Kirsten Rxs /Orders / Referrals /Forms Prescriptions: No Action furosemide 40 mg Tablet 40 mg PO DAILY RF: 0 lisinopril 20 mg Tablet 20 mg PO DAILY RF: 0 gabapentin 800 mg Tablet 800 mg PO TID RF: 0 metformin 1,000 mg Tablet 1,000 mg PO BID RF: 0 glimepiride 4 mg Tablet 4 mg PO QAM RF: 0 folic acid 800 mcg Tablet 0.8 mg PO DAILY RF: 0 solifenacin [Vesicare] 5 mg Tablet 5 mg PO DAILY RF: 0 omega 9-vpg-yqm-fish oil [Fish Oil] 1,000 mg (120 mg-180 mg) Capsule 1,000 mg PO DAILY RF: 0 mg-xh-cycY-kiaPa-Adp-Izp-hc124 [Airborne (ascorbate sodium)] 333-1.7 mg Tablet ,Chewable 1 tab PO DAILY RF: 0 dapagliflozin [Farxiga] 10 mg Tablet 10 mg PO QAM RF: 0 diclofenac sodium 100 mg PO DAILY RF: 0 Status ED Status: Ready for Discharge
[2018-07-06] MEDS ORDERED: Bisacodyl 10 MG Supp RECTAL PRN (03:27)
[2018-07-06] MEDS ORDERED: Acetaminophen 325 MG Tablet PO PRN (03:27)
[2018-07-06] MEDS ORDERED: Sod Chloride 0.9% Inj 1,000 ML IV.SIG SCH (03:30)
[2018-07-06] MEDS ORDERED: Clindamycin 900 mg/NS Premix 900 MG/50 ML PIGGYBACK IV.SIG SCH ×2 (03:30→12:00)
[2018-07-06] MEDS ORDERED: Sod Chloride 0.9% Inj 1,000 ML IV.CONT SCH (03:30)
[2018-07-06] MEDS: Sod Chloride 0.9% Inj 1,000 ML IV.CONT SCH ×3 (05:45→20:23)
[2018-07-06 05:55] LABS: CKMB Percent 0.7 % (0.0-4.0); Creatine Kinase MB 2.4 ng/mL (0.5-3.6)
[2018-07-06] MEDS: Heparin - SQ 10,000 UNITS/ML Vial SQ SCH ×2 (06:07→17:29)
[2018-07-06] MEDS ORDERED: Dextrose 50% in Water 50 ML Vial IV.PUSH PRN (06:13)
[2018-07-06 07:41] LABS: Potassium 3.7 meq/L (3.5-5.1)
[2018-07-06 07:44] LABS: Calcium 7.7 mg/dL (8.5-10.1); Carbon Dioxide 10.4 meq/L (21.0-32.0)
[2018-07-06] MEDS: Insulin NovoLOG Aspart Correctional Sugar Inj SQ SCH ×4 (07:52→20:35)
[2018-07-06] MEDS ORDERED: Influenza (Quadrivalent) Vaccine 0.5 ML Syringe IM ONE (09:00)
--- NOTE | 2018-07-06 09:02 | US ---
EXAM DATE: 07/06/2018 8:53 AM EST AGE/SEX: 62 years / Male INDICATIONS: Hydronephrosis. CLINICAL DATA: This is the patient's initial encounter. Patient reports that signs and symptoms have been present for 1 day and indicates a pain score of 10/10. MEDICAL/SURGICAL HISTORY: . HTN. Diabetic. Diabetic foot ulcer. . Hernia repair. Knee surge ry. COMPARISON: [facility] – [place], [place] ABDOMEN & PELVIS W CONTRAST, 06/25/2016. . MEASUREMENTS: Right Kidney:__12.6 x 6.0 x 7.4 cm Left Kidney:__14.2 x 7.0 x 7.3 cm FINDINGS: Right Kidney: Small right kidney containing 2 cyst, the largest 5 cm x 5 cm. This is in the mid pole of the kidney. A second cyst is in the upper pole measuring 2.3 cm Left Kidney: Normal echogenicity and cortical thickness. No mass or hydronephrosis. Bladder: Within normal limits given the degree of distension. Other: None. CONCLUSION: 1. Renal cyst on the right 2. No suspicious mass or hydronephrosis. Electronically signed by: Connor Macias MD 07/06/2018 9:01 AM EST
--- NOTE | 2018-07-06 09:41 | XR ---
EXAM DATE: 07/06/2018 9:37 AM EST AGE/SEX: 62 years / Male INDICATIONS: . Short of Breath and Congestion CLINICAL DATA: This is the patient's subsequent encounter. Patient reports that signs and symptoms h ave been present for 2 weeks and indicates a pain score of 2/10. MEDICAL/SURGICAL HISTORY: . . HTN. Diabetic. Diabetic foot ulcer. . . . Hernia repair. Knee surgery. COMPARISON: [facility] – [place], CHEST PA & LAT, 09/10/2016. . FINDINGS: AP and wheelchair lateral views of the chest demonstrate no significant new focal pleural or parenchy mal opacities.. The cardiomediastinal contours are stable. Osseous structures are intact. CONCLUSION: 1. No acute abnormality or significant interval change. Electronically signed by: Shaan Arthur MD 07/06/2018 9:40 AM EST
--- NOTE | 2018-07-06 10:46 | NM ---
EXAM DATE: 07/06/2018 10:41 AM EST AGE/SEX: 62 years / Male INDICATIONS: Leg pain. Shortness of breath and congestion. CLINICAL DATA: This is the patient's initial encounter. Patient reports that signs and symptoms have been present for 1 day and indicates a pain score of 4/10. MEDICAL/SURGICAL HISTORY: Hypertension. Diabetes mellitus type II. Umbilical hernia repair. Kn ee. COMPARISON: [facility], CHEST 2V AP&LAT, 07/06/2018. . DOSE: 1.2 mCi Tc99m DTPA aerosol 8.7 mCi Tc99m MAA IV TECHNIQUE: Following five minutes of tidal breathing of DTPA aerosol, planar images of the lungs wer e performed in eight projections. The patient was then injected with MAA, and eight-view perfusion s can was performed. FINDINGS: There is a homogeneous pattern of aerosol delivery to the periphery of both lungs. No focal ventilat ory defects are seen. The perfusion lung scan demonstrates a homogenous pattern of uptake in both lungs. No segmental or s ubsegmental defects are seen. CONCLUSION: 1. Low probability for pulmonary embolism. Electronically signed by: Naveen Webb MD 07/06/2018 10:45 AM EST
[2018-07-06] MEDS ORDERED: Naloxone Inj 0.4 MG/ML Vial IV.PUSH PRN (13:23)
[2018-07-06] MEDS ORDERED: Sod Chloride 0.9% Inj 1,000 ML IV.SIG ONE (13:28)
[2018-07-06] MEDS ORDERED: Vancomycin Inj 1,000 MG in Sodium Chlor 0.9% Inj 250 ML IV.SIG ONE (13:41)
--- NOTE | 2018-07-06 13:48 | P.HP ---
History of Present Illness Primary Care Physician: No Primary Care Physician Chief Complaint: Left lower extremity pain History of Present Illness: 62-year-old male with known history of hypertension, hyperlipidemia, diabetes who presented to hospital because of worsening left lower extremity pain and swelling. The patient indicates that over the last 2 weeks he has had progressive swelling of the left lower extremity, difficulty ambulating, draining wounds. He got to the point where he could not ambulate so he came to emergency department for evaluation. Patient states that he has not followed up with any of his medical doctors or prior medical doctor concerning this condition in the last 2 weeks. Patient did have workup done in emergency department found to have multiple abnormalities with severe sepsis, leukocytosis , supraventricular tachycardia, acute renal failure, metabolic acidosis. Due to patient's multiple medical problems as recommended by the ER physician the patient be admitted the hospital for further evaluation. Upon evaluating patient he does appear to be a significant amount of pain and in severe sepsis. Patient is requesting to have his home medications continued. As indicated by nursing staff the family is concerned about the patient's ambulatory status. States that he is been having difficulty in walking especially with right ankle pain. Patient indicates that he was walking home using a walker up until 2 weeks ago when his leg started getting worse and it progressively got to the point where he could not ambulate at all. Patient was denying any fever, chills , shortness of breath, dyspnea, chest pain. - Diagnosis (1) Severe sepsis (2) Acute renal failure (3) Cellulitis of left lower extremity (4) Hyponatremia (5) Metabolic acidosis (6) Leukocytosis (7) Febrile illness (8) Supraventricular tachycardia Inpatient Certification: I certify that the inpatient services were ordered in accordance with Medicare regulations governing the order. This includes certification that hospital inpatient services are reasonable and necessary and in the case of services not specified as inpatient-only under 42 CFR 419.22(n), that they are appropriately provided as inpatient services in accordance to with the 2-midnight benchmark under 43 CFR 412.3(e) Estimated Total Length of Stay (Days): 2 Plans for Post Hospital Care: Home Review of Systems All other systems reviewed negative except as stated in HPI Musculoskeletal: Reports abnormal walking PMFSH - History History Provided By: Patient - Medical History Medical History: Medical History (Last Updated 07/06/18 @ 13:33 by RAQUEL Mata) History of high blood pressure Hx of diabetes mellitus Hx of diabetic foot ulcer Peripheral neuropathy - Surgical History Surgical History: Surgical History (Last Reviewed 07/06/18 @ 13:47 by RAQUEL Mata) Hx of hernia repair Hx of knee surgery - Family History Family History: Family History (Last Updated 07/06/18 @ 13:33 by RAQUEL Mata) Other Family history of diabetes mellitus Family history of heart disease - Tobacco History Second Hand Smoke Exposure: No Smoking Status: Never smoker - Alcohol History How Often Do You Have a Drink Containing Alcohol: Never - Substance Use History Substance History: No History of Abuse - Travel History Recent Travel in the [place] Within the Last 8 Weeks: No Recent Travel Out of the Country Within the Last 8 Weeks: No - Immunization History Tetanus Immunization: Unable to Assess Hx Influenza Vaccine This Season: No Medications and Allergies Active Medications: Active Medications Acetaminophen (Tylenol) 650 mg PO Q4H PRN PRN Reason: Temp > 100.4 Al Hydroxide/Mg Hydroxide (Milk Of Magnesia Liq) 30 ml PO Q12H PRN PRN Reason: Mild Constipation Bisacodyl (Dulcolax Supp) 10 mg RECTAL DAILY PRN PRN Reason: SEVERE CONSITIPATION Dextrose (D50w Vial) 50 ml IV.PUSH UNSCH PRN PRN Reason: PER HYPOGLYCEMIA PROTOCOL Glucagon (Glucagon Inj) 1 mg OTHER PRN PRN PRN Reason: for Hypoglycemia Protocol Heparin Sodium (Porcine) (Heparin Inj) 5,000 units SQ Q12H [facility] Last Admin: 07/06/18 06:07 Dose: 5,000 units Sodium Chloride (Ns Inj) 1,000 mls @ 150 mls/hr IV.CONT .Q6H40M [facility] Last Admin: 07/06/18 05:45 Dose: 150 mls/hr Clindamycin/Sodium Chloride (Cleocin 900 Mg/Ns Premix) 900 mg in 50 mls @ 100 mls/hr IV.SIG Q8H [facility] Last Admin: 07/06/18 13:14 Dose: 100 mls/hr Insulin Aspart (Novolog Insulin Correctional Sugar Inj) 0 unit SQ ACHS [facility]; Protocol Last Admin: 07/06/18 13:11 Dose: Not Given Lactulose (Lactulose Liq) 30 ml PO DAILY PRN PRN Reason: SEVERE CONSITIPATION Non-Formulary Medication (Folic Acid [Folic Acid]) 0.8 mg PO DAILY [facility] Ondansetron HCl (Zofran Inj) 4 mg IV.PUSH Q6H PRN PRN Reason: NAUSEA OR VOMITING Sennosides (Senokot) 17.2 mg PO Q12H PRN PRN Reason: Moderate Constipation Sodium Chloride (Ns Flush) 2 ml IV.FLUSH BID [facility] Last Admin: 07/06/18 11:41 Dose: Not Given Sodium Chloride (Ns Flush) 2 ml IV.FLUSH PRN PRN PRN Reason: FLUSH AFTER USING IV ACCESS Allergies Allergy/AdvReac Type Severity Reaction Status Date / Time erythromycin base Allergy Unknown UNKNOWN Verified 07/06/18 03:23 REACTION oxytetracycline Allergy Unknown UNKNOWN Verified 07/06/18 03:23 REACTION Home Medications Medication Instructions Recorded Confirmed Type dapagliflozin [Farxiga] 10 mg PO QAM 07/05/18 07/05/18 History diclofenac sodium 100 mg PO DAILY 07/05/18 07/05/18 History folic acid 0.8 mg PO DAILY 07/05/18 07/05/18 History furosemide 40 mg PO DAILY 07/05/18 07/05/18 History gabapentin 800 mg PO TID 07/05/18 07/05/18 History glimepiride 4 mg PO QAM 07/05/18 07/05/18 History lisinopril 20 mg PO DAILY 07/05/18 07/05/18 History metformin 1,000 mg PO BID 07/05/18 07/05/18 History [id number] 1 tab PO DAILY 07/05/18 07/05/18 History [Airborne (ascorbate sodium)] omega [id number]-jrm-[id number]-fish oil [Fish Oil] 1,000 mg PO DAILY 07/05/18 07/05/18 History solifenacin [Vesicare] 5 mg PO DAILY 07/05/18 07/05/18 History Exam Vital signs: Vital Signs 07/05/18 20:50 07/05/18 22:30 07/05/18 23:50 Temperature 98.4 F Pulse Rate 97 H 87 87 Respiratory Rate 18 16 Blood Pressure 136/69 119/71 Pulse Oximetry 97 98 99 07/06/18 04:55 07/06/18 06:00 07/06/18 07:50 Temperature 96.4 F L Pulse Rate 128 H 147 H Respiratory Rate 18 18 Blood Pressure 110/60 109/63 Pulse Oximetry 96 97 96 07/06/18 08:00 07/06/18 11:48 Temperature 101.1 F H 100.6 F H Pulse Rate 153 H 153 H Respiratory Rate 20 20 Blood Pressure 136/68 122/60 Pulse Oximetry 98 98 Intake & Output 07/05/18 07/06/18 07/06/18 18:59 06:59 18:59 Intake Total 2140 / 2140 Output Total 550 / 550 Balance 1590 / 1590 Weight 140.3 kg Intake: IV 2049 / 0 NS Inj 1,000 ML @ 500 mls/hr IV 1000 / 1000 .CONT .Q2H [facility] Rx#:[id number] Cleocin 900 mg/NS Premix 900 mg 50 / 50 In 50 ml @ 100 mls/hr IV.SIG Q8H [facility] Rx#:[id number] NS Inj 1,000 ML @ 1000 mls/hr 1000 / 1000 IV.SIG BOLUS [facility] Rx#:[id number] Oral 90 / 90 Output: Urine 550 / 550 Other: # Voids 1 Weight On Admission 140.3 kg Narrative: GENERAL: Well-developed, obese with BMI 43, in no acute distress. alert and orientated HEENT: Head is normocephalic without any lesions or masses noted. Facial features are symmetric. Eyes: Pupils equal round reactive to light. Extraocular muscles are intact. Conjunctivae were clear. Oropharyngeal: Pharynx without any erythema edema. Tongue is midline without deviation. Buccal mucosa is moist without any masses or lesions NECK: Supple without any masses. Trachea midline no deviation. No JVD, no bruits are appreciated CARDIAC: Regular rhythm, regular rate. S1/S2 are heard. No murmurs gallops or rubs. LUNGS: Clear to auscultation bilaterally. No wheeze, rhonchi or rales. No use of accessory muscles on inspiration or expiration. ABDOMEN: Soft, nontender. Nondistended. Bowel sounds heard in all 4 quadrants. No organomegaly or masses. Negative rebound, negative guarding EXTREMITIES: No edema, pulses are equal bilaterally. No cyanosis or clubbing NEUROLOGY: Mood and affect appear appropriate. Cranial nerves II through XII grossly intact. Muscle strength 5/5 in upper and lower extremities bilaterally. Deep tendon reflexes are 2+ in upper and lower extremities bilaterally. LEFT LOWER EXTREMITY: Patient has had significant edema noted the left lower extremity. Patient does have cellulitis noted from the knee down to the tips of his toes. Patient has multiple excoriations, openings, weepage of serosanguineous fluid. On the bottom of his toes appears to have black eschars. Patient has had open skin tears on the left anterior surface of his mejía. Patient does have some mild blister formation of fluid noted on the medial aspect of his lower extremity Results - Labs CBC & Chem 7: 07/05/18 22:50 07/06/18 04:40 Labs: Laboratory Results - last 24 hr 07/05/18 07/05/18 07/05/18 22:50 22:50 22:50 CBC w Diff Slide review pending WBC 18.8 H RBC 4.38 L Hgb 10.8 L Hct 32.8 L MCV 74.9 L MCH 24.8 L MCHC 33.1 RDW 15.6 Plt Count 223 MPV 9.7 Neut % (Auto) 87.5 H Lymph % (Auto) 5.9 L Wells % (Auto) 5.6 Eos % (Auto) 0.1 Baso % (Auto) 0.9 Neut # (Auto) 16.4 H Lymph # (Auto) 1.1 Wells # (Auto) 1.1 H Eos # (Auto) 0.0 Baso # (Auto) 0.2 WBC Differential . Diff Scan Auto diff confirmed Differential Comment . Platelet Estimate Normal Platelet Morphology Normal PT 10.6 INR 1.0 APTT 37.4 H D-Dimer Quant (PE/DVT) 2.74 H Sodium 130 L Potassium 3.6 Chloride 97 L Carbon Dioxide 18.9 L Anion Gap 14 BUN 110 H Creatinine 5.30 H Estimated GFR 11 L POC Glucose Random Glucose 105 Calcium 8.0 L Total Bilirubin 0.6 AST 71 H ALT 51 Alkaline Phosphatase 99 Total Creatine Kinase CK-MB (CK-2) CK-MB (CK-2) % Troponin I Less than 0.02 L Total Protein 7.4 Albumin 2.1 L Urine Color Urine Clarity Urine pH Ur Specific Eccles Urine Protein Urine Glucose (UA) Urine Ketones Urine Occult Blood Urine Nitrate Urine Bilirubin Urine Urobilinogen Ur Leukocyte Esterase Urine RBC Urine WBC Ur Squamous Epith Cells Micro UA Comment Ur Microscopic Review Urine Culture Comments Urine Opiates Screen Ur Barbiturates Screen Ur Amphetamines Screen U Benzodiazepines Scrn Urine Cocaine Screen U Cannabinoids Screen 07/06/18 07/06/18 07/06/18 02:45 02:45 04:40 CBC w Diff WBC RBC Hgb Hct MCV MCH MCHC RDW Plt Count MPV Neut % (Auto) Lymph % (Auto) Wells % (Auto) Eos % (Auto) Baso % (Auto) Neut # (Auto) Lymph # (Auto) Wells # (Auto) Eos # (Auto) Baso # (Auto) WBC Differential Diff Scan Differential Comment Platelet Estimate Platelet Morphology PT INR APTT D-Dimer Quant (PE/DVT) Sodium Potassium Chloride Carbon Dioxide Anion Gap BUN Creatinine Estimated GFR POC Glucose Random Glucose Calcium Total Bilirubin AST ALT Alkaline Phosphatase Total Creatine Kinase 339 H CK-MB (CK-2) 2.4 CK-MB (CK-2) % 0.7 Troponin I Total Protein Albumin Urine Color Yellow Urine Clarity Cloudy H Urine pH 5.0 Ur Specific Eccles 1.015 Urine Protein 30 H Urine Glucose (UA) Negative Urine Ketones Negative Urine Occult Blood Large H Urine Nitrate Negative Urine Bilirubin Negative Urine Urobilinogen 0.2 Ur Leukocyte Esterase Small H Urine RBC 15-50 H Urine WBC 6-8 H Ur Squamous Epith Cells 0-5 Micro UA Comment Culture not ind Ur Microscopic Review Microscopic reviewed Urine Culture Comments Culture not ind Urine Opiates Screen Neg Ur Barbiturates Screen Neg Ur Amphetamines Screen Neg U Benzodiazepines Scrn Neg Urine Cocaine Screen Neg U Cannabinoids Screen Neg 07/06/18 07/06/18 04:40 07:47 CBC w Diff WBC RBC Hgb Hct MCV MCH MCHC RDW Plt Count MPV Neut % (Auto) Lymph % (Auto) Wells % (Auto) Eos % (Auto) Baso % (Auto) Neut # (Auto) Lymph # (Auto) Wells # (Auto) Eos # (Auto) Baso # (Auto) WBC Differential Diff Scan Differential Comment Platelet Estimate Platelet Morphology PT INR APTT D-Dimer Quant (PE/DVT) Sodium 131 L Potassium 3.7 Chloride 101 Carbon Dioxide 10.4 L Anion Gap 20 H BUN 100 H Creatinine 4.90 H Estimated GFR 12 L POC Glucose 97 Random Glucose 99 Calcium 7.7 L Total Bilirubin AST ALT Alkaline Phosphatase Total Creatine Kinase CK-MB (CK-2) CK-MB (CK-2) % Troponin I Total Protein Albumin Urine Color Urine Clarity Urine pH Ur Specific Eccles Urine Protein Urine Glucose (UA) Urine Ketones Urine Occult Blood Urine Nitrate Urine Bilirubin Urine Urobilinogen Ur Leukocyte Esterase Urine RBC Urine WBC Ur Squamous Epith Cells Micro UA Comment Ur Microscopic Review Urine Culture Comments Urine Opiates Screen Ur Barbiturates Screen Ur Amphetamines Screen U Benzodiazepines Scrn Urine Cocaine Screen U Cannabinoids Screen - Imaging Impressions Venous Doppler Study 07/05/18 21:32 CONCLUSION: No venous thrombosis is identified within either lower extremity. Abdomen/Bladder Ultrasound 07/06/18 00:00 CONCLUSION: 1. Renal cyst on the right 2. No suspicious mass or hydronephrosis. Chest X-Ray 07/06/18 00:00 CONCLUSION: 1. No acute abnormality or significant interval change. Pulmonary Perfusion Imaging 07/06/18 23:40 CONCLUSION: 1. Low probability for pulmonary embolism. Caprini VTE Risk Assessment Caprini VTE Risk Assessment: Moderate/High Risk (score >= 2) Caprini Risk Assessment Model: Point Value = 1 Point Value = 2 Point Value = 3 Point Value = 5 Age 41-60 Minor surgery BMI > 25 kg/m2 Swollen legs Varicose veins or History of unexplained or recurrent spontaneous Oral contraceptives or hormone replacement Sepsis (< 1 month) Serious lung disease, including pneumonia (< 1 month) Abnormal pulmonary function Acute myocardial infarction Congestive heart failure (< 1 month) History of inflammatory bowel disease Medical patient at bed rest Age 61-74 Arthroscopic surgery Major open surgery (> 45 min) Laparoscopic surgery (> 45 min) Malignancy Confined to bed (> 72 hours) Immobilizing plaster cast Central venous access Age >= 75 History of VTE Family history of VTE Factor V Leiden Prothrombin [id number] Lupus anticoagulant Anticardiolipin antibodies Elevated serum homocysteine Heparin-induced thrombocytopenia Other congenital or acquired thrombophilia Stroke (< 1 month) Elective arthroplasty Hip, pelvis, or leg fracture Acute spinal cord injury (< 1 month) Prophylaxis Regimen: Total Risk Factor Score Risk Level Prophylaxis Regimen 0-1 Low Early ambulation 2 Moderate Order ONE of the following: *Sequential Compression Device (SCD) *Heparin 5000 units SQ BID 3-4 Higher Order ONE of the following medications: *Heparin 5000 units SQ TID *Enoxaparin/Lovenox 40 mg SQ daily (WT < 150 kg, CrCl > 30 mL/min) *Enoxaparin/Lovenox 30 mg SQ daily (WT < 150 kg, CrCl > 10-29 mL/min) *Enoxaparin/Lovenox 30 mg SQ BID (WT < 150 kg, CrCl > 30 mL/min) AND/OR *Sequential Compression Device (SCD) 5 or more Highest Order ONE of the following medications: *Heparin 5000 units SQ TID (Preferred with Epidurals) *Enoxaparin/Lovenox 40 mg SQ daily (WT < 150 kg, CrCl > 30 mL/min) *Enoxaparin/Lovenox 30 mg SQ daily (WT < 150 kg, CrCl > 10-29 mL/min) *Enoxaparin/Lovenox 30 mg SQ BID (WT < 150 kg, CrCl > 30 mL/min) AND *Sequential Compression Device (SCD) Assessment and Plan - Assessment (1) Severe sepsis Code(s): A41.9 - Sepsis, unspecified organism; R65.20 - Severe sepsis without septic shock Status: Acute (2) Acute renal failure Code(s): N17.9 - Acute kidney failure, unspecified Status: Acute (3) Cellulitis of left lower extremity Code(s): L03.116 - Cellulitis of left lower limb Status: Acute (4) Hyponatremia Code(s): E87.1 - Hypo-osmolality and hyponatremia Status: Acute (5) Metabolic acidosis Code(s): E87.2 - Acidosis Status: Acute (6) Leukocytosis Code(s): D72.829 - Elevated white blood cell count, unspecified Status: Acute (7) Febrile illness Code(s): R50.9 - Fever, unspecified Status: Acute (8) Supraventricular tachycardia Code(s): I47.1 - Supraventricular tachycardia Status: Acute - Plan Severe sepsis -Patient with febrile illness, supraventricular tachycardia, leukocytosis, left lower extremity cellulitis -Patient has been started on clindamycin, will discontinue and start vancomycin and Zosyn -Obtain blood cultures -Check influenza testing -Check lactic acid level Left lower leg cellulitis -Complicated with sepsis, diabetes, peripheral vascular disease, peripheral neuropathy -We will continue antibiotics as above with vancomycin and Zosyn, will need MRSA and Pseudomonas coverage -Ultrasound of the lower extremity was done which did not indicate any DVTs -We will get wound care nurse and podiatry consultations for further evaluation -Obtain sed rate and C-reactive protein -Obtain MRI of the ankle and foot to evaluate for any osteomyelitis Acute renal failure with metabolic acidosis, anion gap 20 -Unknown etiology at this time, however patient does have multiple medications that are nephrotoxic -We will hold nephrotoxic medication at this time -Continue IV fluids -Continue monitor BMP -Renal bladder ultrasound was performed which did not indicate any acute abnormality -Nephrology consultation has been requested Elevated d-dimer -Lower extremity ultrasounds performed without any signs of DVT -VQ scan was performed which was low probability for pulmonary emboli Diabetes -Accu-Cheks with sliding scale insulin -Diabetic diet Hypertension -Holding patient's SHANTE inhibitor and diuretic at this time due to acute renal failure -Clonidine as needed for blood pressure control DVT prevention -Subcutaneous heparin
[2018-07-06] MEDS: Folic Acid 1 MG Tablet PO SCH (14:39)
[2018-07-06 14:59] LABS: Baso # (Auto) 0.1 th/mm3 (0.0-0.2); Baso % (Auto) 0.5 % (0.0-2.0); Eos % (Auto) 0.1 % (0.0-4.0); Hematocrit 33.5 % (39.0-51.0); Hemoglobin 11.1 gm/dL (13.0-17.0); Lymph # (Auto) 0.9 th/mm3 (1.0-4.8); Mean Corpuscular Volume 75.7 fL (80.0-100.0); Mean Platelet Volume 9.8 fL (7.0-11.0); Mono # (Auto) 1.5 th/mm3 (0.0-0.9); Neut # (Auto) 15.7 th/mm3 (1.8-7.7); Neut % (Auto) 86.4 % (16.0-70.0); Platelet Count 265 th/mm3 (150-450); Red Blood Count 4.43 mil/mm3 (4.50-5.90); Red Cell Distribution Width 15.4 % (11.6-17.2); White Blood Count 18.2 th/mm3 (4.0-11.0)
[2018-07-06] MEDS ORDERED: Vancomycin Consult Pharmacy 1 EACH OTHER SCH (15:00)
[2018-07-06 15:03] LABS: Potassium 3.4 meq/L (3.5-5.1)
[2018-07-06 15:06] LABS: Calcium 8.2 mg/dL (8.5-10.1)
[2018-07-06 15:07] LABS: Carbon Dioxide 18.3 meq/L (21.0-32.0)
[2018-07-06 15:48] LABS: Lymphocytes 5 % (9-44); Monocytes 10 % (0-8)
[2018-07-06 15:49] LABS: Dohle Bodies Present; Path Slide Review N; Platelet Morphology Normal (Normal)
[2018-07-06] MEDS: Piperacil/Tazo 2.25 GM Premix 50 ML IV.SIG SCH (17:15)
[2018-07-06] MEDS ORDERED: Vancomycin Inj 1,800 MG in Sodium Chlor 0.9% Inj 500 ML IV.SIG ONE (18:00)
[2018-07-06] MEDS ORDERED: Vancomycin Inj 1,750 MG in Sodium Chlor 0.9% Inj 500 ML IV.SIG ONE (18:00)
--- NOTE | 2018-07-06 18:54 | ECG ---
Date Performed: 07/06/2018 Time Performed: 02:20:02 PTAGE: 62 years EKG: SUPRAVENTRICULAR TACHYCARDIA ABNORMAL RHYTHM ECG PREVIOUS TRACING : 06/26/2016 21.07 Since the previous tracing, no significant change noted DOCTOR: Gil Willis Interpretating Date/Time 07/06/2018 18:53:50
[2018-07-07] MEDS: Piperacil/Tazo 2.25 GM Premix 50 ML IV.SIG SCH ×4 (01:11→23:51)
[2018-07-07] MEDS: Sod Chloride 0.9% Inj 1,000 ML IV.CONT SCH ×5 (01:18→23:48)
[2018-07-07] MEDS: Heparin - SQ 10,000 UNITS/ML Vial SQ SCH ×2 (05:43→18:50)
[2018-07-07 06:10] LABS: Baso % (Auto) 0.2 % (0.0-2.0); Eos # (Auto) 0.1 th/mm3 (0.0-0.4); Eos % (Auto) 0.5 % (0.0-4.0); Hematocrit 28.3 % (39.0-51.0); Lymph # (Auto) 1.1 th/mm3 (1.0-4.8); Lymph % (Auto) 6.7 % (9.0-44.0); Mean Corpuscular HGB Conc 31.9 % (32.0-36.0); Mean Corpuscular Hemoglobin 24.3 pg (27.0-34.0); Mean Platelet Volume 9.4 fL (7.0-11.0); Mono # (Auto) 1.3 th/mm3 (0.0-0.9); Mono % (Auto) 8.5 % (0.0-8.0); Neut # (Auto) 13.3 th/mm3 (1.8-7.7); Neut % (Auto) 84.1 % (16.0-70.0); Platelet Count 264 th/mm3 (150-450); Red Blood Count 3.72 mil/mm3 (4.50-5.90); Red Cell Distribution Width 16.2 % (11.6-17.2); White Blood Count 15.8 th/mm3 (4.0-11.0)
[2018-07-07 06:28] LABS: Ovalocytes 1+; Platelet Estimate Normal (Normal); Platelet Morphology Normal (Normal)
[2018-07-07 06:31] LABS: Alanine Aminotransferase 62 U/L (12-78); Albumin 1.7 g/dL (3.4-5.0); Alkaline Phosphatase 107 U/L (45-117); Anion Gap 11 meq/L (5-15); Aspartate Aminotransferase 78 U/L (15-37); Blood Urea Nitrogen 88 mg/dL (7-18); Calcium 7.8 mg/dL (8.5-10.1); Carbon Dioxide 19.6 meq/L (21.0-32.0); Chloride 109 meq/L (98-107); Glomerular Filtration Rate 22 mL/min (>89); Glucose,Random 188 mg/dL (74-106); Potassium 3.5 meq/L (3.5-5.1); Sodium 140 meq/L (136-145); Total Protein 6.1 g/dL (6.4-8.2)
[2018-07-07] MEDS: Insulin NovoLOG Aspart Correctional Sugar Inj SQ SCH ×4 (07:45→21:28)
[2018-07-07] MEDS: Folic Acid 1 MG Tablet PO SCH (08:13)
--- NOTE | 2018-07-07 08:41 | P.PNIM ---
Subjective Interval history: The patient was complaining of a lot of pain. He said that his leg blew up over the past few days. He says that he needs his Neurontin for diabetic control. He was about to be evaluated by the wound care nurse. He says he has been wheezing a lot lately. Physical Exam Vital signs: Vital Signs 07/06/18 10:00 07/06/18 11:48 07/06/18 15:26 Temperature 100.6 F H 100.3 F H Pulse Rate 153 H 103 H Respiratory Rate 20 20 Blood Pressure 122/60 136/73 Pulse Oximetry 96 98 98 07/06/18 20:00 07/07/18 00:00 07/07/18 04:00 Temperature 101.7 F H 96.6 F L 96.8 F L Pulse Rate 98 H 72 87 Respiratory Rate 16 18 18 Blood Pressure 133/72 130/60 137/63 Pulse Oximetry 96 98 98 07/07/18 08:28 Temperature Pulse Rate Respiratory Rate Blood Pressure Pulse Oximetry 96 Intake & Output 07/06/18 07/07/18 07/07/18 18:59 06:59 18:59 Intake Total 1100 / 1100 2170 / 2170 2518 / 2518 Output Total 2500 / 2500 Balance 1100 / 1100 -330 / -330 2518 / 2518 Weight 143 kg Intake: IV 1100 / 1100 2050 / 2050 2518 / 2518 NS Inj 1,000 ML @ 150 mls/hr IV 1000 / 1000 2000 / 2000 1000 / 1000 .CONT .Q6H40M DEBRA Rx#: [id number] Cleocin 900 mg/NS Premix 900 mg 50 / 50 In 50 ml @ 100 mls/hr IV.SIG Q8H DEBRA Rx#:[id number] Zosyn 2.25 GM Premix 50 ML @ 50 / 50 50 / 50 100 mls/hr IV.SIG Q8H DEBRA Rx#: [id number] Oral 120 / 120 Output: Urine 2500 / 2500 Other: # Voids 4 Narrative: GENERAL: Obese, nad. HEENT: Head is normocephalic without any lesions or masses noted. Facial features are symmetric. Eyes: Pupils equal round reactive to light. Extraocular muscles are intact. Conjunctivae were clear. Oropharyngeal: Pharynx without any erythema edema. NECK: Supple without any masses. Trachea midline no deviation. No JVD, no bruits are appreciated. CARDIAC: Regular rhythm, regular rate. S1/S2 are heard. No murmurs gallops or rubs. LUNGS: Clear to auscultation bilaterally. No wheeze, rhonchi or rales. No use of accessory muscles on inspiration or expiration. ABDOMEN: Soft, nontender. Nondistended. Bowel sounds heard in all 4 quadrants. No organomegaly or masses. Negative rebound, negative guarding. NEUROLOGY: Mood and affect appear appropriate. Cranial nerves II through XII grossly intact. Muscle strength 5/5 in upper and lower extremities bilaterally. Deep tendon reflexes are 2+ in upper and lower extremities bilaterally. LEFT LOWER EXTREMITY: Patient has had significant edema noted on the left lower extremity. Patient does have cellulitis noted from the knee down to the tips of his toes. Patient has multiple excoriations, openings, weepage of serosanguineous fluid. On the bottom of his toes appears to have black eschars. Patient has had open skin tears on the left anterior surface of his mejía. Patient does have some mild blister formation of fluid noted on the medial aspect of his lower extremity Results - Labs CBC & Chem 7: 07/07/18 05:27 07/07/18 05:27 Laboratory Results - last 24 hr 07/06/18 07/06/18 07/06/18 14:20 14:20 14:20 CBC w Diff Slide review pending WBC 18.2 H RBC 4.43 L Hgb 11.1 L Hct 33.5 L MCV 75.7 L MCH 25.0 L MCHC 33.0 RDW 15.4 Plt Count 265 MPV 9.8 Neut % (Auto) 86.4 H Lymph % (Auto) 5.0 L [place] % (Auto) 8.0 Eos % (Auto) 0.1 Baso % (Auto) 0.5 Neut # (Auto) 15.7 H Lymph # (Auto) 0.9 L [place] # (Auto) 1.5 H Eos # (Auto) 0.0 Baso # (Auto) 0.1 WBC Differential Manual diff final Diff Scan Seg Neuts % (Manual) 76 H Band Neuts % (Manual) 9 H Lymphocytes % (Manual) 5 L Monocytes % (Manual) 10 H Abs Neuts (Manual) 15.5 H Differential Comment . Dohle Bodies Present H Platelet Estimate Platelet Morphology Normal Ovalocytes ESR 118 H Sodium Potassium Chloride Carbon Dioxide Anion Gap BUN Creatinine Estimated GFR POC Glucose Random Glucose Lactic Acid Calcium Total Bilirubin AST ALT Alkaline Phosphatase C-Reactive Protein 34.50 H Total Protein Albumin 07/06/18 07/06/18 07/06/18 14:20 14:20 16:35 CBC w Diff WBC RBC Hgb Hct MCV MCH MCHC RDW Plt Count MPV Neut % (Auto) Lymph % (Auto) [place] % (Auto) Eos % (Auto) Baso % (Auto) Neut # (Auto) Lymph # (Auto) [place] # (Auto) Eos # (Auto) Baso # (Auto) WBC Differential Diff Scan Seg Neuts % (Manual) Band Neuts % (Manual) Lymphocytes % (Manual) Monocytes % (Manual) Abs Neuts (Manual) Differential Comment Dohle Bodies Platelet Estimate Platelet Morphology Ovalocytes ESR Sodium 131 L Potassium 3.4 L Chloride 100 Carbon Dioxide 18.3 L Anion Gap 13 BUN 106 H Creatinine 4.20 H Estimated GFR 15 L POC Glucose 237 H Random Glucose 210 H D Lactic Acid 1.4 Calcium 8.2 L Total Bilirubin AST ALT Alkaline Phosphatase C-Reactive Protein Total Protein Albumin 07/06/18 07/07/18 07/07/18 20:28 05:27 05:27 CBC w Diff Slide review pending WBC 15.8 H RBC 3.72 L Hgb 9.0 L D Hct 28.3 L MCV 76.0 L MCH 24.3 L MCHC 31.9 L RDW 16.2 Plt Count 264 MPV 9.4 Neut % (Auto) 84.1 H Lymph % (Auto) 6.7 L [place] % (Auto) 8.5 H Eos % (Auto) 0.5 Baso % (Auto) 0.2 Neut # (Auto) 13.3 H Lymph # (Auto) 1.1 [place] # (Auto) 1.3 H Eos # (Auto) 0.1 Baso # (Auto) 0.0 WBC Differential . Diff Scan Auto diff confirmed Seg Neuts % (Manual) Band Neuts % (Manual) Lymphocytes % (Manual) Monocytes % (Manual) Abs Neuts (Manual) Differential Comment . Dohle Bodies Platelet Estimate Normal Platelet Morphology Normal Ovalocytes 1+ H ESR Sodium 140 Potassium 3.5 Chloride 109 H D Carbon Dioxide 19.6 L Anion Gap 11 BUN 88 H Creatinine 2.90 H Estimated GFR 22 L POC Glucose 219 H Random Glucose 188 H Lactic Acid Calcium 7.8 L Total Bilirubin 0.5 AST 78 H ALT 62 Alkaline Phosphatase 107 C-Reactive Protein Total Protein 6.1 L D Albumin 1.7 L 07/07/18 07:36 CBC w Diff WBC RBC Hgb Hct MCV MCH MCHC RDW Plt Count MPV Neut % (Auto) Lymph % (Auto) [place] % (Auto) Eos % (Auto) Baso % (Auto) Neut # (Auto) Lymph # (Auto) [place] # (Auto) Eos # (Auto) Baso # (Auto) WBC Differential Diff Scan Seg Neuts % (Manual) Band Neuts % (Manual) Lymphocytes % (Manual) Monocytes % (Manual) Abs Neuts (Manual) Differential Comment Dohle Bodies Platelet Estimate Platelet Morphology Ovalocytes ESR Sodium Potassium Chloride Carbon Dioxide Anion Gap BUN Creatinine Estimated GFR POC Glucose 251 H Random Glucose Lactic Acid Calcium Total Bilirubin AST ALT Alkaline Phosphatase C-Reactive Protein Total Protein Albumin Microbiology 07/07/18 00:10 Nasal Wash Influenza Types A,B Antigen - Final Negative for FLU A and B antigen Infection due to influenza A or B cannot be ruled out since the antigen present in the sample may be below the detection limit of the test. - Imaging Impressions Abdomen/Bladder Ultrasound 07/06/18 00:00 CONCLUSION: 1. Renal cyst on the right 2. No suspicious mass or hydronephrosis. Chest X-Ray 07/06/18 00:00 CONCLUSION: 1. No acute abnormality or significant interval change. Pulmonary Perfusion Imaging 07/06/18 23:40 CONCLUSION: 1. Low probability for pulmonary embolism. Assessment and Plan - Assessment (1) Severe sepsis Code(s): A41.9 - Sepsis, unspecified organism; R65.20 - Severe sepsis without septic shock Status: Acute (2) Acute renal failure Code(s): N17.9 - Acute kidney failure, unspecified Status: Acute (3) Cellulitis of left lower extremity Code(s): L03.116 - Cellulitis of left lower limb Status: Acute (4) Hyponatremia Code(s): E87.1 - Hypo-osmolality and hyponatremia Status: Acute (5) Metabolic acidosis Code(s): E87.2 - Acidosis Status: Acute (6) Leukocytosis Code(s): D72.829 - Elevated white blood cell count, unspecified Status: Acute (7) Febrile illness Code(s): R50.9 - Fever, unspecified Status: Acute (8) Supraventricular tachycardia Code(s): I47.1 - Supraventricular tachycardia Status: Acute - Plan Severe sepsis -Patient with febrile illness, supraventricular tachycardia, leukocytosis, left lower extremity cellulitis. Flu negative. -continue vancomycin and Zosyn -Obtain blood cultures. Left lower leg cellulitis -Complicated with sepsis, diabetes, peripheral vascular disease, peripheral neuropathy -We will continue antibiotics as above with vancomycin and Zosyn, will need MRSA and Pseudomonas coverage. -Ultrasound of the lower extremity was done which did not indicate any DVTs. -We will get wound care nurse and podiatry consultations for further evaluation. -Obtain MRI of the ankle and foot to evaluate for any osteomyelitis. -pain control with a bowel regimen. Acute renal failure with metabolic acidosis, anion gap 20 Likely prerenal, however patient does have multiple medications that are nephrotoxic -We will hold nephrotoxic medications at this time -Continue IV fluids -Continue monitor BMP -Renal bladder ultrasound was performed which did not indicate any acute abnormality -Nephrology consultation has been requested Elevated d-dimer -Lower extremity ultrasounds performed without any signs of DVT -VQ scan was performed which was low probability for pulmonary emboli Diabetes -Accu-Cheks with sliding scale insulin -Diabetic diet -Levemir 10 units BID. Adjust as needed. Hypertension -Holding patient's SHANTE inhibitor and diuretic at this time due to acute renal failure -Clonidine as needed for blood pressure control DVT prevention -Subcutaneous heparin
--- NOTE | 2018-07-07 09:36 | ECG ---
Date Performed: 07/06/2018 Time Performed: 14:01:32 PTAGE: 62 years EKG: SINUS TACHYCARDIA BORDERLINE RIGHT AXIS DEVIATION ABNORMAL RHYTHM ECG PREVIOUS TRACING : 07/06/2018 02.20 DOCTOR: Martin Borrego Interpretating Date/Time 07/07/2018 09:35:08
[2018-07-07] MEDS: Insulin Detemir Inj 1,000 UNIT/10 ML Vial SQ SCH ×2 (10:05→21:27)
--- NOTE | 2018-07-07 10:46 | P.PNWCN ---
Wound Care Nurse Consult Description: Received wound management consult for L lower extremity from RAQUEL Pleitez Communicated with: HAYDEN Ramsay [facility] 3rd floor, Leeann BLAKE [facility] 3rd floor and Doctor Mcnally Recommendation: 1.Please consult podiatry for Possible debridement L great toe. 2. Cleanse wound to L posterior lower leg and two weeping areas on L anterior lower leg with wound cleanser and pat dry 3. Apply Maxorb extra AG over weeping areas and L lower posterior leg wound. 4. Secure dressing with ABD pads, rolled gauze and tape. 5. Change every 2 days or as needed if saturated or dislodged. 6. keep L leg elevated to reduced edema. Wound/Pressure Injury - Wound Left Lower Posterior Leg Wound Assessment: Ongoing Wound Type: Traumatic Wound Requested from Provider a Wound Care Consult: Yes (Patient was seen today by Wound care inpatient ) Length (cm): 7 (~7cm) Width (cm): 7 (~7cm) Depth (cm): 0.1 (~<0.1cm ) Wound Bed Appearance: [place] Wound Bed Appearance: Wound bed presents with 100% pink tissue Surrounding Tissue Appearance: Erythema, Taut Surrounding Tissue Temperature: Warm Drainage Description: Serosanguinous Drainage Amount: Minimal Drainage Odor: No Odor Dressing Status: Changed Cleansing Solution: Saline Primary Dressing: Maxorb extra AG Cover Dressing: ABD pad,with rolled gauze Tape Type: Silk Wound Dressing Change Date: 07/07/18 Wound Margin Description: Poorly defined and open Left Great Toe Wound Assessment: Ongoing Wound Type: Traumatic Wound (Diabetic foot ulcer) Is This a Chronic Wound: No Length (cm): 1.5 (~1.5cm) Width (cm): 1.5 (~1.5cm) Depth (cm): 0 (100% dry brown callus) Wound Bed Appearance: !00% dry brown callus Drainage Amount: None Drainage Odor: No Odor Dressing Status: Open to Air - Additional Information Patient seen on [facility] 3rd floor for wound management of L lower extremity. Patient is laying in bed upon telegraphic typewriter installer's arrival, L leg is open to air and elevated on pillow with absorbant pad underneath leg. L leg presents with erythema, edema that is pitting 2+ and is warm to touch. L posterior leg is noted with open wound that appears shallow, partial thickness, with poorly defined jagged wound margins. Wound is noted with 100% pink tissue and drainage is minimal and sero-sanguinous with foul odor. Periwound present with boggy erythema and roofed bullae that are deflated. The anterior aspect of the L lower leg presents with two areas of excoriation or scratch raymundo. There are also two pin sized openings in the skin with moderate drainage on the Anterior aspect of the L lower leg. The L great toe presents with a Diabetic foot ulcer that is covered with 100% dry brown callus.Entire L leg and foot were cleansed with soap and water. Open wound to L posterior leg and draining areas on the anterior aspect of the L lower leg were cleansed with wound cleanser and pat dry.All draining areas and open wound to L posterior lower leg was covered with Maxorb extra AG. Abd pad was placed over Maxorb extra AG and secured with rolled gauze and tape. L great toe was left open to air. Full wound description , measurements and wound care recommendations are noted above.
--- NOTE | 2018-07-07 14:48 | MR ---
EXAM DATE: 07/07/2018 1:40 PM EST AGE/SEX: 62 years / Male INDICATIONS: . Cellulitis. GFR 12. CLINICAL DATA: This is the patient's initial encounter. Patient reports that signs and symptoms have been present for 4 - 6 days and indicates a pain score of 9/10. MEDICAL/SURGICAL HISTORY: Diabetes mellitus type II. Hypertension. peripheral neuropathy. Ing uinal hernia repair. Knee surgery. COMPARISON: No prior exams available for comparison. TECHNIQUE: Multiplanar, multisequence MRI examination was performed without contrast. FINDINGS: Severe and diffuse subcutaneous edema seen of the ankle and visualized portions of the foot and lower leg. No organized or drainable fluid/abscess. The muscles and other deep soft tissues are only sligh tly edematous. No fractures or subluxations. Mild navicular/cuneiform osteoarthritis is present. There is no osteomy elitis or evidence of septic arthropathy. Mildly thickened distal Achilles and proximal plantar fascia. No tear. There is a type II accessory navicular without perceptible marrow edema. Minimal tendinosis and tenos ynovitis of tibialis posterior tendon. CONCLUSION: 1. Severe and diffuse subcutaneous edema without abscess or osteomyelitis. 2. Mild navicular/cuneiform osteoarthritis. 3. Type II accessory navicular and slight tendinopathy of tibialis posterior tendon. 4. Very mild proximal plantar fasciitis. No tear. 5. Very mild Achilles tendinosis without tear. Electronically signed by: Tanner Escalona MD 07/07/2018 2:46 PM EST
--- NOTE | 2018-07-07 14:52 | MR ---
EXAM DATE: 07/07/2018 2:33 PM EST AGE/SEX: 62 years / Male INDICATIONS: . Cellulitis. GFR 12. CLINICAL DATA: This is the patient's initial encounter. Patient reports that signs and symptoms have been present for 4 - 6 days and indicates a pain score of 8/10. MEDICAL/SURGICAL HISTORY: Diabetes mellitus type II. Hypertension. Peripheral neuropathy. Ing uinal hernia repair. Knee surgery. COMPARISON: [facility], MR ANKLE LEFT W/O CONTRAST, 07/07/2018. [facility], TOE LEFT 1ST DIGIT (MIN 2VWS), 09/05/2016. . TECHNIQUE: Multiplanar, multisequence MRI examination was performed without contrast. FINDINGS: Fairly diffuse but dorsal predominant subcutaneous edema and swelling present. No organized or draina ble fluid demonstrated. Bones of the left foot are intact and normally aligned. There is mild navicular/cuneiform osteoarthri tis. There is also mild osteoarthritis of the interphalangeal joint of the great toe. There is mild, chronic appearing cortical irregularity of the great toe distal phalanx but without signal changes co nvincing for osteomyelitis. CONCLUSION: Dorsal predominant subcutaneous swelling and edema of the left foot without abscess or ev idence of osteomyelitis. Electronically signed by: Tanner Escalona MD 07/07/2018 2:51 PM EST
[2018-07-07] MEDS ORDERED: Lidocaine 1% Inj 50 ML Vial ONE (15:16)
--- NOTE | 2018-07-07 15:27 | P.CON ---
History of Present Illness Service: Foot and Ankle Surgery/Podiatry Consult date: 07/07/18 Primary Care Provider: No Primary Care Physician Chief Complaint: Left lower extremity pain History of Present Illness: Podiatry consulted for this 62-year-old male with history of hypertension, hyperlipidemia, diabetes for left lower extremity cellulitis with hallux plantar ulcer to the left lower extremity. Patient states he is unable to lift the leg or move it as it has become very heavy due to swelling. Patient was found to be septic in ER and was admitted for IV antibiotics states he had MRIs performed today. Denies any nausea vomiting fevers or chills. Review of Systems Constitutional: Denies chills, Denies fever(s), Denies night sweats Cardiovascular: Denies chest pain, Denies shortness of breath Gastrointestinal: Denies abdominal pain, Denies nausea, Denies vomiting PMFSH - History History Provided By: Patient - Medical History Medical History: Medical History (Last Reviewed 07/07/18 @ 15:22 by Elvia Garcia DPM) History of high blood pressure Hx of diabetes mellitus Hx of diabetic foot ulcer Peripheral neuropathy - Surgical History Surgical History: Surgical History (Last Reviewed 07/07/18 @ 15:23 by Elvia Garcia DPM) Hx of hernia repair Hx of knee surgery - Family History Family History: Family History (Last Reviewed 07/07/18 @ 15:23 by Elvia Garcia DPM) Other Family history of diabetes mellitus Family history of heart disease - Tobacco History Second Hand Smoke Exposure: No Smoking Status: Never smoker - Alcohol History How Often Do You Have a Drink Containing Alcohol: Never - Substance Use History Substance History: No History of Abuse - Travel History Recent Travel in the [place] Within the Last 8 Weeks: No Recent Travel Out of the Country Within the Last 8 Weeks: No - Immunization History Tetanus Immunization: Unable to Assess Hx Influenza Vaccine This Season: No Medications and Allergies Active Medications: Active Medications Acetaminophen (Tylenol) 650 mg PO Q4H PRN PRN Reason: Temp > 100.4 Last Admin: 07/06/18 20:24 Dose: 650 mg Hydrocodone Bitart/Acetaminophen ([place] 10/325) 1 tab PO Q6H PRN PRN Reason: PAIN SCALE 6 TO 10 Last Admin: 07/07/18 12:12 Dose: 1 tab Hydrocodone Bitart/Acetaminophen ([place] 5/325) 1 tab PO Q6H PRN PRN Reason: PAIN SCALE 1 TO 5 Al Hydroxide/Mg Hydroxide (Milk Of Magnesia Liq) 30 ml PO Q12H PRN PRN Reason: Mild Constipation Albuterol (Duoneb Neb (Prn)) 1 ampul NEB Q2HR NEB PRN PRN Reason: WHEEZING Last Admin: 07/07/18 10:39 Dose: 1 ampul Bisacodyl (Dulcolax Supp) 10 mg RECTAL DAILY PRN PRN Reason: SEVERE CONSITIPATION Clonidine HCl (Catapres) 0.1 mg PO Q6H PRN PRN Reason: SBP>160, DBP>90 Dextrose (D50w Vial) 50 ml IV.PUSH UNSCH PRN PRN Reason: PER HYPOGLYCEMIA PROTOCOL Folic Acid (Folic Acid) 1 mg PO DAILY [facility] Last Admin: 07/07/18 08:13 Dose: 1 mg Glucagon (Glucagon Inj) 1 mg OTHER PRN PRN PRN Reason: for Hypoglycemia Protocol Heparin Sodium (Porcine) (Heparin Inj) 5,000 units SQ Q12H [facility] Last Admin: 07/07/18 05:43 Dose: 5,000 units Sodium Chloride (Ns Inj) 1,000 mls @ 150 mls/hr IV.CONT .Q6H40M [facility] Last Admin: 07/07/18 08:14 Dose: 150 mls/hr Piperacillin/Tazobactam/Dextrose (Zosyn 2.25 Gm Premix) 50 mls @ 100 mls/hr IV.SIG Q8H [facility] Last Infusion: 07/07/18 10:07 Dose: Infused Pharmacy Profile Note (Vancomycin Consult Pharmacy) 0 mls @ 0 mls/hr OTHER UNSCH [facility] Insulin Aspart (Novolog Insulin Correctional Sugar Inj) 0 unit SQ ACHS [facility]; Protocol Last Admin: 07/07/18 12:01 Dose: 2 unit Insulin Detemir (Levemir Inj) 10 unit SQ BID [facility] Last Admin: 07/07/18 10:05 Dose: 10 unit Lactulose (Lactulose Liq) 30 ml PO DAILY PRN PRN Reason: SEVERE CONSITIPATION Miscellaneous Information [place] [place]dered [place] Info) 1 each OTHER ONCE ONE Stop: 07/08/18 06:01 Morphine Sulfate (Morphine Inj) 4 mg IV.PUSH Q4H PRN PRN Reason: BREAKTHROUGH PAIN Naloxone HCl (Narcan Inj) 0.4 mg IV.PUSH UNSCH PRN PRN Reason: SEE LABEL COMMENTS Ondansetron HCl (Zofran Inj) 4 mg IV.PUSH Q6H PRN PRN Reason: NAUSEA OR VOMITING Sennosides (Senokot) 17.2 mg PO Q12H PRN PRN Reason: Moderate Constipation Sodium Chloride (Ns Flush) 2 ml IV.FLUSH BID [facility] Last Admin: 07/07/18 08:05 Dose: Not Given Sodium Chloride (Ns Flush) 2 ml IV.FLUSH PRN PRN PRN Reason: FLUSH AFTER USING IV ACCESS Allergies Allergy/AdvReac Type Severity Reaction Status Date / Time erythromycin base Allergy Unknown UNKNOWN Verified 07/06/18 03:23 REACTION oxytetracycline Allergy Unknown UNKNOWN Verified 07/06/18 03:23 REACTION Home Medications Medication Instructions Recorded Confirmed Type dapagliflozin [Farxiga] 10 mg PO QAM 07/05/18 07/05/18 History diclofenac sodium 100 mg PO DAILY 07/05/18 07/05/18 History folic acid 0.8 mg PO DAILY 07/05/18 07/05/18 History furosemide 40 mg PO DAILY 07/05/18 07/05/18 History gabapentin 800 mg PO TID 07/05/18 07/05/18 History glimepiride 4 mg PO QAM 07/05/18 07/05/18 History lisinopril 20 mg PO DAILY 07/05/18 07/05/18 History metformin 1,000 mg PO BID 07/05/18 07/05/18 History [id number] 1 tab PO DAILY 07/05/18 07/05/18 History [Airborne (ascorbate sodium)] omega 8-yif-eaa-fish oil [Fish Oil] 1,000 mg PO DAILY 07/05/18 07/05/18 History solifenacin [Vesicare] 5 mg PO DAILY 07/05/18 07/05/18 History Physical Exam Vital signs: Vital Signs 07/06/18 15:26 07/06/18 20:00 07/07/18 00:00 Temperature 100.3 F H 101.7 F H 96.6 F L Pulse Rate 103 H 98 H 72 Respiratory Rate 20 16 18 Blood Pressure 136/73 133/72 130/60 Pulse Oximetry 98 96 98 07/07/18 04:00 07/07/18 08:00 07/07/18 08:28 Temperature 96.8 F L 98.1 F Pulse Rate 87 83 Respiratory Rate 18 18 Blood Pressure 137/63 118/63 Pulse Oximetry 98 97 96 07/07/18 10:42 Temperature Pulse Rate 85 Respiratory Rate 22 Blood Pressure Pulse Oximetry Intake & Output 07/06/18 07/07/18 07/07/18 18:59 06:59 18:59 Intake Total 1100 / 1100 2170 / 2170 2568 / 2568 Output Total 2500 / 2500 Balance 1100 / 1100 -330 / -330 2568 / 2568 Weight 143 kg Intake: IV 1100 / 1100 2050 / 2050 2568 / 2568 NS Inj 1,000 ML @ 150 mls/hr IV 1000 / 1000 2000 / 2000 1000 / 1000 .CONT .Q6H40M [facility] Rx#: [id number] Cleocin 900 mg/NS Premix 900 mg 50 / 50 In 50 ml @ 100 mls/hr IV.SIG Q8H [facility] Rx#:[id number] Zosyn 2.25 GM Premix 50 ML @ 50 / 50 50 / 50 50 / 50 100 mls/hr IV.SIG Q8H [facility] Rx#: [id number] Oral 120 / 120 Output: Urine 2500 / 2500 Other: # Voids 4 Narrative: GENERAL: This is a well-nourished, well-developed patient, in no apparent distress. SKIN: Left hallux plantar ulceration HEAD: Atraumatic. EYES: Pupils equal round and reactive. ENT: Airway patent. NECK: Trachea midline. RESPIRATORY: Nonlabored breathing. MUSCULOSKELETAL:. Negative Homans sign bilaterally. NEUROLOGICAL: Awake and alert. Normal speech. Lower extremity physical exam: Vascular: Dorsalis pedis nonpalpable secondary to edema, posterior tibial nonpalpable secondary to edema. Capillary refill time within normal limits to digits x5 bilateral foot. Edema present significantly to left lower extremity, +3 pitting edema noted Neuro: Gross sensation intact to bilateral lower extremity. Pinpoint sensation decreased. No hyperalgesia noted to bilateral lower extremity Dermatology: Erythema and edema noted to left lower extremity with brawny induration and multiple blisters present. Weeping drainage noted to left lower extremity. Demarcation of erythema is below the knee. Left hallux ulcer noted to plantar hallux with hyperkeratosis noted. No purulent drainage noted. Fibro -granular base noted. Musculoskeletal: Tender to palpation to left lower extremity. Weakness observed left lower extremity Results - Labs CBC & Chem 7: 07/07/18 05:27 07/07/18 05:27 Labs: Laboratory Results - last 24 hr 07/06/18 07/06/18 07/06/18 14:20 14:20 16:35 CBC w Diff WBC RBC Hgb Hct MCV MCH MCHC RDW Plt Count MPV Neut % (Auto) Lymph % (Auto) Cook % (Auto) Eos % (Auto) Baso % (Auto) Neut # (Auto) Lymph # (Auto) Cook # (Auto) Eos # (Auto) Baso # (Auto) WBC Differential Manual diff final Diff Scan Seg Neuts % (Manual) 76 H Band Neuts % (Manual) 9 H Lymphocytes % (Manual) 5 L Monocytes % (Manual) 10 H Abs Neuts (Manual) 15.5 H Differential Comment Dohle Bodies Present H Platelet Estimate Platelet Morphology Normal Ovalocytes ESR 118 H Sodium Potassium Chloride Carbon Dioxide Anion Gap BUN Creatinine Estimated GFR POC Glucose 237 H Random Glucose Calcium Total Bilirubin AST ALT Alkaline Phosphatase Total Protein Albumin 07/06/18 07/07/18 07/07/18 20:28 05:27 05:27 CBC w Diff Slide review pending WBC 15.8 H RBC 3.72 L Hgb 9.0 L D Hct 28.3 L MCV 76.0 L MCH 24.3 L MCHC 31.9 L RDW 16.2 Plt Count 264 MPV 9.4 Neut % (Auto) 84.1 H Lymph % (Auto) 6.7 L Cook % (Auto) 8.5 H Eos % (Auto) 0.5 Baso % (Auto) 0.2 Neut # (Auto) 13.3 H Lymph # (Auto) 1.1 Cook # (Auto) 1.3 H Eos # (Auto) 0.1 Baso # (Auto) 0.0 WBC Differential . Diff Scan Auto diff confirmed Seg Neuts % (Manual) Band Neuts % (Manual) Lymphocytes % (Manual) Monocytes % (Manual) Abs Neuts (Manual) Differential Comment . Dohle Bodies Platelet Estimate Normal Platelet Morphology Normal Ovalocytes 1+ H ESR Sodium 140 Potassium 3.5 Chloride 109 H D Carbon Dioxide 19.6 L Anion Gap 11 BUN 88 H Creatinine 2.90 H Estimated GFR 22 L POC Glucose 219 H Random Glucose 188 H Calcium 7.8 L Total Bilirubin 0.5 AST 78 H ALT 62 Alkaline Phosphatase 107 Total Protein 6.1 L D Albumin 1.7 L 07/07/18 07/07/18 07:36 11:45 CBC w Diff WBC RBC Hgb Hct MCV MCH MCHC RDW Plt Count MPV Neut % (Auto) Lymph % (Auto) Cook % (Auto) Eos % (Auto) Baso % (Auto) Neut # (Auto) Lymph # (Auto) Cook # (Auto) Eos # (Auto) Baso # (Auto) WBC Differential Diff Scan Seg Neuts % (Manual) Band Neuts % (Manual) Lymphocytes % (Manual) Monocytes % (Manual) Abs Neuts (Manual) Differential Comment Dohle Bodies Platelet Estimate Platelet Morphology Ovalocytes ESR Sodium Potassium Chloride Carbon Dioxide Anion Gap BUN Creatinine Estimated GFR POC Glucose 251 H 173 H Random Glucose Calcium Total Bilirubin AST ALT Alkaline Phosphatase Total Protein Albumin - Imaging Impressions Ankle MRI 07/07/18 00:00 CONCLUSION: 1. Severe and diffuse subcutaneous edema without abscess or osteomyelitis. 2. Mild navicular/cuneiform osteoarthritis. 3. Type II accessory navicular and slight tendinopathy of tibialis posterior tendon. 4. Very mild proximal plantar fasciitis. No tear. 5. Very mild Achilles tendinosis without tear. Foot MRI 07/07/18 07:11 CONCLUSION: Dorsal predominant subcutaneous swelling and edema of the left foot without abscess or evidence of osteomyelitis. Assessment and Plan - Plan 62-year-old male with left lower extremity cellulitis associated lymphedema and venous leg ulcers, left hallux ulceration Patient examined evaluated with all questions answered Bedside debridement performed Left lower extremity dressed by nursing with Maxorb AG, ABD, Julius Will place daily wound care orders MRI foot and ankle negative for any osteomyelitis, subcutaneous edema noted Continue IV antibiotic Will reevaluate for improvement Continue local wound care No surgical intervention planned at this time Full thickness excisional debridement to subcutaneous tissue performed to left hallux ulceration with 15 blade. Appropriate bleeding noted. No probe to bone. No purulent drainage. Left hallux dressed with DSD.
--- NOTE | 2018-07-07 20:32 | P.CONNP ---
History of Present Illness Service: Nephrology Consult date: 07/07/18 Requesting Physician: Jerald Geller Reason for Consult: Acute renal failure Primary Care Provider: No Primary Care Physician Chief Complaint: Left lower extremity pain History of Present Illness: Patient is a 62-year-old with history of diabetes, obesity, who has left leg cellulitis which is getting worse he stated that he had leg pain for a week and then he noticed increased redness and this has been getting worse and he came in with a creatinine 5.3, declined 4.9 with hydration is down to 2.9 Patient he denies any history of kidney disease or stones in the past Review of Systems Constitutional: Reports chills, Reports fatigue, Reports fever(s) Eyes: Denies blind spots, Denies blurry vision, Denies bulging eyes, Denies change in vision, Denies double vision, Denies discharge, Denies dry eyes, Denies floaters, Denies irritation, Denies itchy eyes, Denies loss of vision, Denies pain, Denies requires corrective lenses, Denies sensitivity to light, Denies other Ears, Nose, Mouth, and Throat: Denies abnormal hearing, Denies bleeding gums, Denies bad breath, Denies change in voice, Denies dental pain, Denies difficulty swallowing, Denies dizziness, Denies dry mouth, Denies ear discharge , Denies ear pain, Denies facial pain, Denies headache(s), Denies hearing loss, Denies hoarseness, Denies lip swelling, Denies nosebleed, Denies mouth lesions, Denies mouth pain, Denies nasal congestion, Denies nasal discharge, Denies nasal obstruction, Denies nasal trauma, Denies neck lump, Denies neck pain, Denies nose pain, Denies pain with swallowing, Denies poor balance, Denies post nasal drip, Denies ringing in the ears, Denies sinus pain, Denies sinus pressure , Denies sore throat, Denies throat swelling, Denies tongue swelling, Denies other Cardiovascular: Denies chest pain, Denies chest pain at rest, Denies chest pain with activity, Denies excessive sweating, Denies fainting, Denies fast heart rate, Denies foot swelling, Denies generalized swelling, Denies irregular heart rhythm, Denies leg pain with activity, Denies leg sores, Denies leg swelling, Denies lightheadedness, Denies radiating jaw, neck or arm pain, Denies rapid, pounding, or irregular heartbeat, Denies shortness of breath, Denies shortness of breath with activity, Denies shortness of breath when lying down, Denies shortness of breath causing sudden awakening, Denies slow heart rate, Denies other Respiratory: Reports other Gastrointestinal: Reports other Genitourinary: Reports urinary frequency Musculoskeletal: Reports radiating pain into limb Skin/Breast: Reports redness, Reports rash, Reports sores Neurologic: Reports sensory deficit, Reports tingling, Reports tingling/numbness /burning sensations, Reports weakness Psychiatric: Reports anxiety PMFSH - History History Provided By: Patient - Medical History Medical History: Medical History (Last Reviewed 07/07/18 @ 20:25 by Lew Means MD) History of high blood pressure Hx of diabetes mellitus Hx of diabetic foot ulcer Peripheral neuropathy - Surgical History Surgical History: Surgical History (Last Reviewed 07/07/18 @ 20:25 by Lew Means MD) Hx of hernia repair Hx of knee surgery - Family History Family History: Family History (Last Reviewed 07/07/18 @ 20:25 by Lew Means MD) Other Family history of diabetes mellitus Family history of heart disease - Social History I have reviewed the patient's Social History: Yes - Tobacco History Second Hand Smoke Exposure: No Smoking Status: Never smoker - Alcohol History How Often Do You Have a Drink Containing Alcohol: Never - Substance Use History Substance History: No History of Abuse - Travel History Recent Travel in the [place] Within the Last 8 Weeks: No Recent Travel Out of the Country Within the Last 8 Weeks: No - Immunization History Tetanus Immunization: Unable to Assess Hx Influenza Vaccine This Season: No Medications and Allergies Active Medications: Active Medications Acetaminophen (Tylenol) 650 mg PO Q4H PRN PRN Reason: Temp > 100.4 Last Admin: 07/06/18 20:24 Dose: 650 mg Hydrocodone Bitart/Acetaminophen ([place] 10/325) 1 tab PO Q6H PRN PRN Reason: PAIN SCALE 6 TO 10 Last Admin: 07/07/18 12:12 Dose: 1 tab Hydrocodone Bitart/Acetaminophen ([place] 5/325) 1 tab PO Q6H PRN PRN Reason: PAIN SCALE 1 TO 5 Al Hydroxide/Mg Hydroxide (Milk Of Magnesia Liq) 30 ml PO Q12H PRN PRN Reason: Mild Constipation Albuterol (Duoneb Neb (Prn)) 1 ampul NEB Q2HR NEB PRN PRN Reason: WHEEZING Last Admin: 07/07/18 10:39 Dose: 1 ampul Bisacodyl (Dulcolax Supp) 10 mg RECTAL DAILY PRN PRN Reason: SEVERE CONSITIPATION Clonidine HCl (Catapres) 0.1 mg PO Q6H PRN PRN Reason: SBP>160, DBP>90 Dextrose (D50w Vial) 50 ml IV.PUSH UNSCH PRN PRN Reason: PER HYPOGLYCEMIA PROTOCOL Folic Acid (Folic Acid) 1 mg PO DAILY [facility] Last Admin: 07/07/18 08:13 Dose: 1 mg Glucagon (Glucagon Inj) 1 mg OTHER PRN PRN PRN Reason: for Hypoglycemia Protocol Heparin Sodium (Porcine) (Heparin Inj) 5,000 units SQ Q12H [facility] Last Admin: 07/07/18 18:50 Dose: 5,000 units Sodium Chloride (Ns Inj) 1,000 mls @ 150 mls/hr IV.CONT .Q6H40M [facility] Last Admin: 07/07/18 08:14 Dose: 150 mls/hr Piperacillin/Tazobactam/Dextrose (Zosyn 2.25 Gm Premix) 50 mls @ 100 mls/hr IV.SIG Q8H [facility] Last Infusion: 07/07/18 18:06 Dose: Infused Pharmacy Profile Note (Vancomycin Consult Pharmacy) 0 mls @ 0 mls/hr OTHER UNSCH [facility] Insulin Aspart (Novolog Insulin Correctional Sugar Inj) 0 unit SQ ACHS [facility]; Protocol Last Admin: 07/07/18 18:01 Dose: 7 unit Insulin Detemir (Levemir Inj) 10 unit SQ BID [facility] Last Admin: 07/07/18 10:05 Dose: 10 unit Lactulose (Lactulose Liq) 30 ml PO DAILY PRN PRN Reason: SEVERE CONSITIPATION Miscellaneous Information [place] Or[place] Info) 1 each OTHER ONCE ONE Stop: 07/08/18 06:01 Morphine Sulfate (Morphine Inj) 4 mg IV.PUSH Q4H PRN PRN Reason: BREAKTHROUGH PAIN Naloxone HCl (Narcan Inj) 0.4 mg IV.PUSH UNSCH PRN PRN Reason: SEE LABEL COMMENTS Ondansetron HCl (Zofran Inj) 4 mg IV.PUSH Q6H PRN PRN Reason: NAUSEA OR VOMITING Sennosides (Senokot) 17.2 mg PO Q12H PRN PRN Reason: Moderate Constipation Sodium Chloride (Ns Flush) 2 ml IV.FLUSH BID [facility] Last Admin: 07/07/18 08:05 Dose: Not Given Sodium Chloride (Ns Flush) 2 ml IV.FLUSH PRN PRN PRN Reason: FLUSH AFTER USING IV ACCESS Allergies Allergy/AdvReac Type Severity Reaction Status Date / Time erythromycin base Allergy Unknown UNKNOWN Verified 07/06/18 03:23 REACTION oxytetracycline Allergy Unknown UNKNOWN Verified 07/06/18 03:23 REACTION Home Medications Medication Instructions Recorded Confirmed Type dapagliflozin [Farxiga] 10 mg PO QAM 07/05/18 07/05/18 History diclofenac sodium 100 mg PO DAILY 07/05/18 07/05/18 History folic acid 0.8 mg PO DAILY 07/05/18 07/05/18 History furosemide 40 mg PO DAILY 07/05/18 07/05/18 History gabapentin 800 mg PO TID 07/05/18 07/05/18 History glimepiride 4 mg PO QAM 07/05/18 07/05/18 History lisinopril 20 mg PO DAILY 07/05/18 07/05/18 History metformin 1,000 mg PO BID 07/05/18 07/05/18 History [id number] 1 tab PO DAILY 07/05/18 07/05/18 History [Airborne (ascorbate sodium)] omega 7-rjz-zvr-fish oil [Fish Oil] 1,000 mg PO DAILY 07/05/18 07/05/18 History solifenacin [Vesicare] 5 mg PO DAILY 07/05/18 07/05/18 History Exam Vital signs: Vital Signs 07/07/18 00:00 07/07/18 04:00 07/07/18 08:00 Temperature 96.6 F L 96.8 F L 98.1 F Pulse Rate 72 87 83 Respiratory Rate 18 18 18 Blood Pressure 130/60 137/63 118/63 Pulse Oximetry 98 98 97 07/07/18 08:28 07/07/18 10:42 07/07/18 16:00 Temperature 98.2 F Pulse Rate 85 85 Respiratory Rate 22 20 Blood Pressure 125/67 Pulse Oximetry 96 98 07/07/18 20:00 Temperature 97.0 F L Pulse Rate 98 H Respiratory Rate 18 Blood Pressure 150/74 H Pulse Oximetry 99 Intake & Output 07/07/18 07/07/18 07/08/18 06:59 18:59 06:59 Intake Total 2170 / 2170 3518 / 3518 Output Total 2500 / 2500 1100 / 1100 Balance -330 / -330 2418 / 2418 Weight 143 kg Intake: IV 2049 / 2049 2618 / 2618 NS Inj 1,000 ML @ 150 mls/hr IV 2000 / 2000 1000 / 1000 .CONT .Q6H40M [facility] Rx#: [id number] Zosyn 2.25 GM Premix 50 ML @ 50 / 50 100 / 100 100 mls/hr IV.SIG Q8H [facility] Rx#: [id number] Oral 120 / 120 900 / 900 Output: Urine 2500 / 2500 1100 / 1100 Other: Date of Last Bowel Movement 07/07/18 # Bowel Movements 1 Narrative: GENERAL: Well-nourished, well-developed patient. SKIN: Warm and dry. HEAD: Normocephalic. EYES: No scleral icterus. No injection or drainage. NECK: Supple, trachea midline. No JVD or lymphadenopathy. CARDIOVASCULAR: Regular rate and rhythm without murmurs, gallops, or rubs. RESPIRATORY: Breath sounds equal bilaterally. No accessory muscle use. GASTROINTESTINAL: Abdomen soft, non-tender, nondistended. EXTREMITIES: Left leg erythematous red up to the knee with blotches which are dark colored edema present NEUROLOGICAL: Awake, alert, and oriented x 3. Non-focal. Results - Lab Results 07/07/18 05:27 07/07/18 05:27 Most recent lab results Calcium 7.8 mg/dL (8.5-10.1) L 07/07/18 05:27 Assessment and Plan - Assessment (1) Acute renal failure Code(s): N17.9 - Acute kidney failure, unspecified Status: Acute Plan: Acute renal failure repeat appears to be due to dehydration and recent infection which is resolving with hydration and IV antibiotics creatinine is significantly improved since admission continue to monitor BMP, avoid nephrotoxic agents Avoid dye studies ultrasound reviewed he has right renal cyst which appears benign Patient received vancomycin and this should be monitored I will try to avoid it and use alternate medication Monitor urine output (2) Cellulitis of left lower extremity Code(s): L03.116 - Cellulitis of left lower limb Status: Acute Plan: Patient is given vancomycin and Zosyn (3) Severe sepsis Code(s): A41.9 - Sepsis, unspecified organism; R65.20 - Severe sepsis without septic shock Status: Acute (4) Diabetes Code(s): E11.9 - Type 2 diabetes mellitus without complications Status: Acute Plan: Blood sugars elevated on insulin continue to monitor - Plan Patient has acute renal failure was resolving with hydration we will monitor his progress (4) Diabetes Qualifiers: Diabetes mellitus type: type 2 Diabetes mellitus complication status: with neurologic complications Diabetes mellitus complication detail: with polyneuropathy
[2018-07-07] MEDS: Morphine Inj 4 MG/ML Vial IV.PUSH PRN (23:50)
[2018-07-08] MEDS ORDERED: Metoprolol Tartrate 25 MG Tablet PO ONE (00:46)
[2018-07-08 02:54] LABS: Baso % (Auto) 0.2 % (0.0-2.0); Eos # (Auto) 0.2 th/mm3 (0.0-0.4); Eos % (Auto) 1.1 % (0.0-4.0); Hematocrit 27.3 % (39.0-51.0); Lymph # (Auto) 1.5 th/mm3 (1.0-4.8); Lymph % (Auto) 7.7 % (9.0-44.0); Mean Corpuscular HGB Conc 33.2 % (32.0-36.0); Mean Corpuscular Hemoglobin 25.6 pg (27.0-34.0); Mean Corpuscular Volume 77.2 fL (80.0-100.0); Mean Platelet Volume 9.6 fL (7.0-11.0); Mono # (Auto) 1.5 th/mm3 (0.0-0.9); Mono % (Auto) 7.6 % (0.0-8.0); Neut # (Auto) 16.6 th/mm3 (1.8-7.7); Neut % (Auto) 83.4 % (16.0-70.0); Platelet Count 383 th/mm3 (150-450); Red Blood Count 3.53 mil/mm3 (4.50-5.90); Red Cell Distribution Width 16.2 % (11.6-17.2); White Blood Count 19.8 th/mm3 (4.0-11.0)
[2018-07-08 02:58] LABS: Potassium 3.7 meq/L (3.5-5.1)
[2018-07-08 03:01] LABS: Calcium 7.8 mg/dL (8.5-10.1)
[2018-07-08 03:25] LABS: Dohle Bodies Present; Ovalocytes 1+; Platelet Estimate Normal (Normal); Platelet Morphology Clumped (Normal); Target Cells 1+
[2018-07-08] MEDS: Sod Chloride 0.9% Inj 1,000 ML IV.CONT SCH ×2 (03:32→12:08)
[2018-07-08] MEDS ORDERED: Metoprolol Inj 5 MG/5 ML Vial IV.PUSH ONE (04:00)
[2018-07-08] MEDS ORDERED: Vancomycin Inj 1,500 MG in Sodium Chlor 0.9% Inj 500 ML IV.SIG ONE (05:00)
[2018-07-08] MEDS ORDERED: Adenosine Inj 6 MG/2 ML Syringe IV.PUSH ONE ×6 (05:09→08:01)
[2018-07-08 05:15] LABS: Baso # (Auto) 0.5 th/mm3 (0.0-0.2); Baso % (Auto) 2.2 % (0.0-2.0); Eos # (Auto) 0.2 th/mm3 (0.0-0.4); Eos % (Auto) 1.1 % (0.0-4.0); Hematocrit 29.5 % (39.0-51.0); Hemoglobin 9.5 gm/dL (13.0-17.0); Lymph # (Auto) 1.3 th/mm3 (1.0-4.8); Lymph % (Auto) 6.1 % (9.0-44.0); Mean Corpuscular Hemoglobin 24.5 pg (27.0-34.0); Mean Corpuscular Volume 76.4 fL (80.0-100.0); Mean Platelet Volume 9.5 fL (7.0-11.0); Mono # (Auto) 0.8 th/mm3 (0.0-0.9); Mono % (Auto) 3.9 % (0.0-8.0); Neut # (Auto) 17.8 th/mm3 (1.8-7.7); Neut % (Auto) 86.7 % (16.0-70.0); Platelet Count 410 th/mm3 (150-450); Red Blood Count 3.87 mil/mm3 (4.50-5.90); White Blood Count 20.6 th/mm3 (4.0-11.0)
[2018-07-08 05:33] LABS: Potassium 3.9 meq/L (3.5-5.1)
[2018-07-08 05:35] LABS: Carbon Dioxide 20.8 meq/L (21.0-32.0); Magnesium 1.8 mg/dL (1.5-2.5)
[2018-07-08] MEDS: Piperacil/Tazo 3.375 GM Premix 50 ML IV.SIG SCH ×3 (05:51→17:18)
[2018-07-08] MEDS: Heparin - SQ 10,000 UNITS/ML Vial SQ SCH ×2 (05:52→17:18)
[2018-07-08 06:00] LABS: Ovalocytes 1+; Tear Drop Cells 1+
[2018-07-08] MEDS ORDERED: VANCOMYCIN RANDOM OTHER ONE (06:00)
[2018-07-08 06:01] LABS: Target Cells 1+
[2018-07-08] MEDS: Insulin NovoLOG Aspart Correctional Sugar Inj SQ SCH ×4 (08:11→22:22)
[2018-07-08] MEDS: Insulin Detemir Inj 1,000 UNIT/10 ML Vial SQ SCH ×2 (08:14→22:22)
[2018-07-08] MEDS: Folic Acid 1 MG Tablet PO SCH (08:15)
--- NOTE | 2018-07-08 09:55 | P.PNIM ---
Subjective Interval history: The patient was feeling well. He denied any chest pain or shortness of breath. He said his pain was controlled. He said he has had problems with his heart rate in the past but does not have a heart condition. Discussed with nursing at the bedside. Physical Exam Vital signs: Vital Signs 07/07/18 10:42 07/07/18 16:00 07/07/18 20:00 Temperature 98.2 F 97.0 F L Pulse Rate 85 85 94 H Respiratory Rate 22 20 18 Blood Pressure 125/67 150/74 H Pulse Oximetry 98 99 07/08/18 00:00 07/08/18 03:42 07/08/18 04:00 Temperature 98.5 F Pulse Rate 142 H 145 H Respiratory Rate 18 Blood Pressure 136/75 Pulse Oximetry 99 96 07/08/18 05:00 07/08/18 05:04 07/08/18 05:09 Temperature Pulse Rate 142 H 142 H 144 H Respiratory Rate 21 23 22 Blood Pressure 82/48 L 85/72 L 110/82 Pulse Oximetry 97 97 96 07/08/18 06:09 Temperature Pulse Rate 146 H Respiratory Rate 25 H Blood Pressure 113/69 Pulse Oximetry 95 Intake & Output 07/07/18 07/08/18 07/08/18 18:59 06:59 18:59 Intake Total 4518 / 4518 1615 / 1615 Output Total 1100 / 1100 Balance 3418 / 3418 1615 / 1615 Weight 142 kg Intake: IV 3618 / 3618 1615 / 1615 NS Inj 1,000 ML @ 150 mls/hr IV 1999 / 1999 1000 / 1000 .CONT .Q6H40M [facility] Rx#: [id number] Zosyn 2.25 GM Premix 50 ML @ 100 / 100 50 / 50 100 mls/hr IV.SIG Q8H [facility] Rx#: [id number] Zosyn 3.375 GM Premix 50 ML @ 50 / 50 100 mls/hr IV.SIG Q6HR [facility] Rx#: [id number] Vancomycin Inj 1,500 MG In NS 515 / 515 Inj 500 ML @ 257.5 mls/hr IV. SIG ONCE ONE Rx#:[id number] Oral 900 / 900 Output: Urine 1100 / 1100 Other: # Incontinent Voids 2 Date of Last Bowel Movement 07/07/18 07/07/18 # Bowel Movements 1 Narrative: GENERAL: Well-nourished, well-developed patient. SKIN: Warm and dry. HEAD: Normocephalic. EYES: No scleral icterus. No injection or drainage. NECK: Supple, trachea midline. No JVD or lymphadenopathy. CARDIOVASCULAR: Regular rate and rhythm without murmurs, gallops, or rubs. RESPIRATORY: Breath sounds equal bilaterally. No accessory muscle use. GASTROINTESTINAL: Abdomen soft, non-tender, nondistended. EXTREMITIES: Left leg erythematous red up to the knee with blotches which are dark colored. NEUROLOGICAL: Awake, alert, and oriented x 3. Non-focal. Results - Labs CBC & Chem 7: 07/08/18 04:45 07/08/18 04:45 Laboratory Results - last 24 hr 07/07/18 07/07/18 07/07/18 11:45 16:33 20:33 CBC w Diff WBC RBC Hgb Hct MCV MCH MCHC RDW Plt Count MPV Neut % (Auto) Lymph % (Auto) Ramsey % (Auto) Eos % (Auto) Baso % (Auto) Neut # (Auto) Lymph # (Auto) Ramsey # (Auto) Eos # (Auto) Baso # (Auto) WBC Differential Diff Scan Differential Comment Dohle Bodies Platelet Estimate Platelet Morphology Target Cells Tear Drop Cells Ovalocytes Sodium Potassium Chloride Carbon Dioxide Anion Gap BUN Creatinine Estimated GFR POC Glucose 173 H 271 H 185 H Random Glucose Calcium Magnesium 07/08/18 07/08/18 07/08/18 02:35 02:35 02:35 CBC w Diff Slide review pending WBC 19.8 H RBC 3.53 L Hgb 9.0 L Hct 27.3 L MCV 77.2 L MCH 25.6 L MCHC 33.2 RDW 16.2 Plt Count 383 D MPV 9.6 Neut % (Auto) 83.4 H Lymph % (Auto) 7.7 L Ramsey % (Auto) 7.6 Eos % (Auto) 1.1 Baso % (Auto) 0.2 Neut # (Auto) 16.6 H Lymph # (Auto) 1.5 Ramsey # (Auto) 1.5 H Eos # (Auto) 0.2 Baso # (Auto) 0.0 WBC Differential Manual diff final Diff Scan Differential Comment . Dohle Bodies Present H Platelet Estimate Normal Platelet Morphology Clumped H Target Cells 1+ H Tear Drop Cells Ovalocytes 1+ H Sodium 142 Potassium 3.7 Chloride 112 H Carbon Dioxide 21.0 Anion Gap 9 BUN 59 H Creatinine 1.70 H Estimated GFR 41 L POC Glucose Random Glucose 131 H Calcium 7.8 L Magnesium 1.8 07/08/18 07/08/18 07/08/18 04:45 04:45 08:11 CBC w Diff Slide review pending WBC 20.6 H RBC 3.87 L Hgb 9.5 L Hct 29.5 L MCV 76.4 L MCH 24.5 L MCHC 32.0 RDW 16.0 Plt Count 410 MPV 9.5 Neut % (Auto) 86.7 H Lymph % (Auto) 6.1 L Ramsey % (Auto) 3.9 Eos % (Auto) 1.1 Baso % (Auto) 2.2 H Neut # (Auto) 17.8 H Lymph # (Auto) 1.3 Ramsey # (Auto) 0.8 Eos # (Auto) 0.2 Baso # (Auto) 0.5 H WBC Differential . Diff Scan Auto diff confirmed Differential Comment . Dohle Bodies Platelet Estimate Platelet Morphology Target Cells 1+ H Tear Drop Cells 1+ H Ovalocytes 1+ H Sodium 142 Potassium 3.9 Chloride 112 H Carbon Dioxide 20.8 L Anion Gap 9 BUN 53 H Creatinine 1.70 H Estimated GFR 41 L POC Glucose 142 H Random Glucose 166 H Calcium 8.0 L Magnesium 1.8 Microbiology 07/07/18 09:00 Wound - Leg Gram Stain - Final 07/06/18 14:10 Blood - Peripheral Aerobic Blood Culture - Preliminary No growth in 1 day 07/06/18 14:10 Blood - Peripheral Anaerobic Blood Culture - Preliminary No growth in 1 day 07/06/18 14:20 Blood - Peripheral Aerobic Blood Culture - Preliminary No growth in 1 day 07/06/18 14:20 Blood - Peripheral Anaerobic Blood Culture - Preliminary No growth in 1 day - Imaging Impressions Ankle MRI 07/07/18 00:00 CONCLUSION: 1. Severe and diffuse subcutaneous edema without abscess or osteomyelitis. 2. Mild navicular/cuneiform osteoarthritis. 3. Type II accessory navicular and slight tendinopathy of tibialis posterior tendon. 4. Very mild proximal plantar fasciitis. No tear. 5. Very mild Achilles tendinosis without tear. Foot MRI 07/07/18 07:11 CONCLUSION: Dorsal predominant subcutaneous swelling and edema of the left foot without abscess or evidence of osteomyelitis. Assessment and Plan - Assessment (1) Severe sepsis Code(s): A41.9 - Sepsis, unspecified organism; R65.20 - Severe sepsis without septic shock Status: Acute (2) Acute renal failure Code(s): N17.9 - Acute kidney failure, unspecified Status: Acute (3) Cellulitis of left lower extremity Code(s): L03.116 - Cellulitis of left lower limb Status: Acute (4) Hyponatremia Code(s): E87.1 - Hypo-osmolality and hyponatremia Status: Acute (5) Metabolic acidosis Code(s): E87.2 - Acidosis Status: Acute (6) Leukocytosis Code(s): D72.829 - Elevated white blood cell count, unspecified Status: Acute (7) Febrile illness Code(s): R50.9 - Fever, unspecified Status: Acute (8) Supraventricular tachycardia Code(s): I47.1 - Supraventricular tachycardia Status: Acute - Plan Severe sepsis -Patient with febrile illness, supraventricular tachycardia, leukocytosis, left lower extremity cellulitis. Flu negative. -continue Zosyn and clindamycin. -Obtain blood cultures. Left lower leg cellulitis -Complicated with sepsis, diabetes, peripheral vascular disease, peripheral neuropathy -We will continue antibiotics as above. -Ultrasound of the lower extremity was done which did not indicate any DVTs. -We will get wound care nurse and podiatry consultations for further evaluation. -MRI of the ankle and foot negative for osteomyelitis. -pain control with a bowel regimen. SVT Resolved with two doses of adenosine. -telemetry. Acute renal failure with metabolic acidosis, anion gap 20 Likely prerenal, however patient does have multiple medications that are nephrotoxic. Nephrology consult appreciated. -We will hold nephrotoxic medications at this time -Continue IV fluids -Continue monitor BMP -Renal bladder ultrasound was performed which did not indicate any acute abnormality -switch vancomycin to clindamycin. Elevated d-dimer -Lower extremity ultrasounds performed without any signs of DVT -VQ scan was performed which was low probability for pulmonary emboli Diabetes -Accu-Cheks with sliding scale insulin -Diabetic diet -Levemir 10 units BID. Adjust as needed. Hypertension -Holding patient's SHANTE inhibitor and diuretic at this time due to acute renal failure -Clonidine as needed for blood pressure control DVT prevention -Subcutaneous heparin
[2018-07-08 10:26] LABS: Vancomycin,Random 7.5 Comment
[2018-07-08] MEDS: Morphine Inj 4 MG/ML Vial IV.PUSH PRN (12:07)
[2018-07-08] MEDS ORDERED: Vancomycin Consult Pharmacy OTHER PRN (14:05)
[2018-07-08] MEDS: Gabapentin 400 MG Capsule PO SCH ×2 (14:23→17:18)
--- NOTE | 2018-07-08 18:20 | P.CON ---
History of Present Illness Service: INFECTIOUS DISEASE Primary Care Provider: Kirsten Primary Care Physician Chief Complaint: Left lower extremity pain History of Present Illness: 62 YR OLD MALE PATIENT WHO WAS ADMITTED WITH LEFT LEG CELLULITIS WORSENING OVER THE PAST 2 WEEKS. HE IS IN THE ICU AND WAITING TO TRANSFER TO THE FLOOR. 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 HE IS NOT ABLE TO GIVE MANY DETAILS BUT STATES HE WAS IN CARE HOME X 77DAYS. HE HAD A LEFT GREAT TOE FUNGAL INFECTION BUT STATES THE LEG STARTED TO SWELL AND WEAP OUT OF NO WHERE. HE DID HAVE SOME FEVER AND CHILLS. HE IS DIABETIC AND STATES HE IS DISABLED. HIS WOUND CULTURES ARE + PSEUDOMONAS AND BLOOD CULTURES ARE GROWING GPC IN 2 OF 4 BOTTLES. HE IS ON ZOSYN AND VANCOMYCIN. ID CONSULTED. Review of Systems unobtainable due to mental status Constitutional: Reports chills Cardiovascular: Reports foot swelling PMFSH - History History Provided By: Patient - Medical History Medical History: Medical History (Last Reviewed 07/07/18 @ 20:25 by Lew Means MD) History of high blood pressure Hx of diabetes mellitus Hx of diabetic foot ulcer Peripheral neuropathy - Surgical History Surgical History: Surgical History (Last Reviewed 07/07/18 @ 20:25 by Lew Means MD) Hx of hernia repair Hx of knee surgery - Family History Family History: Family History (Last Reviewed 07/07/18 @ 20:25 by Lew Means MD) Other Family history of diabetes mellitus Family history of heart disease - Social History I have reviewed the patient's Social History: Yes - Tobacco History Second Hand Smoke Exposure: No Smoking Status: Never smoker - Alcohol History How Often Do You Have a Drink Containing Alcohol: Never - Substance Use History Substance History: No History of Abuse - Travel History History of Recent Travel: No Recent Travel in the [place] Within the Last 8 Weeks: No Recent Travel Out of the Country Within the Last 8 Weeks: No - Immunization History Tetanus Immunization: Unable to Assess Hx Influenza Vaccine This Season: No Medications and Allergies Active Medications: Active Medications Acetaminophen (Tylenol) 650 mg PO Q4H PRN PRN Reason: Temp > 100.4 Last Admin: 07/06/18 20:24 Dose: 650 mg Hydrocodone Bitart/Acetaminophen ([place] 10/325) 1 tab PO Q6H PRN PRN Reason: PAIN SCALE 6 TO 10 Last Admin: 07/08/18 17:18 Dose: 1 tab Hydrocodone Bitart/Acetaminophen ([place] 5/325) 1 tab PO Q6H PRN PRN Reason: PAIN SCALE 1 TO 5 Al Hydroxide/Mg Hydroxide (Milk Of Magnesia Liq) 30 ml PO Q12H PRN PRN Reason: Mild Constipation Albuterol (Duoneb Neb (Prn)) 1 ampul NEB Q2HR NEB PRN PRN Reason: WHEEZING Last Admin: 07/07/18 10:39 Dose: 1 ampul Bisacodyl (Dulcolax Supp) 10 mg RECTAL DAILY PRN PRN Reason: SEVERE CONSITIPATION Clonidine HCl (Catapres) 0.1 mg PO Q6H PRN PRN Reason: SBP>160, DBP>90 Dextrose (D50w Vial) 50 ml IV.PUSH UNSCH PRN PRN Reason: PER HYPOGLYCEMIA PROTOCOL Folic Acid (Folic Acid) 1 mg PO DAILY [facility] Last Admin: 07/08/18 08:15 Dose: 1 mg Gabapentin (Neurontin) 800 mg PO TID [facility] Last Admin: 07/08/18 17:18 Dose: 800 mg Glucagon (Glucagon Inj) 1 mg OTHER PRN PRN PRN Reason: for Hypoglycemia Protocol Heparin Sodium (Porcine) (Heparin Inj) 5,000 units SQ Q12H [facility] Last Admin: 07/08/18 17:18 Dose: 5,000 units Sodium Chloride (Ns Inj) 1,000 mls @ 150 mls/hr IV.CONT .Q6H40M [facility] Last Admin: 07/08/18 12:08 Dose: 150 mls/hr Piperacillin/Tazobactam/Dextrose (Zosyn 3.375 Gm Premix) 50 mls @ 100 mls/hr IV.SIG Q6HR [facility] Last Admin: 07/08/18 17:18 Dose: 100 mls/hr Insulin Aspart (Novolog Insulin Correctional Sugar Inj) 0 unit SQ ACHS [facility]; Protocol Last Admin: 07/08/18 17:18 Dose: 2 unit Insulin Detemir (Levemir Inj) 10 unit SQ BID [facility] Last Admin: 07/08/18 08:14 Dose: 10 unit Lactulose (Lactulose Liq) 30 ml PO DAILY PRN PRN Reason: SEVERE CONSITIPATION Naloxone HCl (Narcan Inj) 0.4 mg IV.PUSH UNSCH PRN PRN Reason: SEE LABEL COMMENTS Ondansetron HCl (Zofran Inj) 4 mg IV.PUSH Q6H PRN PRN Reason: NAUSEA OR VOMITING Pharmacy Profile Note (Vancomycin Consult Pharmacy) 1 each OTHER UNSCH PRN PRN Reason: Pharmacy to dose Sennosides (Senokot) 17.2 mg PO Q12H PRN PRN Reason: Moderate Constipation Sodium Chloride (Ns Flush) 2 ml IV.FLUSH BID [facility] Last Admin: 07/08/18 08:20 Dose: Not Given Sodium Chloride (Ns Flush) 2 ml IV.FLUSH PRN PRN PRN Reason: FLUSH AFTER USING IV ACCESS Last Admin: 07/07/18 23:51 Dose: 2 ml Allergies Allergy/AdvReac Type Severity Reaction Status Date / Time erythromycin base Allergy Unknown UNKNOWN Verified 07/06/18 03:23 REACTION oxytetracycline Allergy Unknown UNKNOWN Verified 07/06/18 03:23 REACTION Home Medications Medication Instructions Recorded Confirmed Type dapagliflozin [Farxiga] 10 mg PO QAM 07/05/18 07/05/18 History diclofenac sodium 100 mg PO DAILY 07/05/18 07/05/18 History folic acid 0.8 mg PO DAILY 07/05/18 07/05/18 History furosemide 40 mg PO DAILY 07/05/18 07/05/18 History gabapentin 800 mg PO TID 07/05/18 07/05/18 History glimepiride 4 mg PO QAM 07/05/18 07/05/18 History lisinopril 20 mg PO DAILY 07/05/18 07/05/18 History metformin 1,000 mg PO BID 07/05/18 07/05/18 History [id number] 1 tab PO DAILY 07/05/18 07/05/18 History [Airborne (ascorbate sodium)] omega [id number] oil [Fish Oil] 1,000 mg PO DAILY 07/05/18 07/05/18 History solifenacin [Vesicare] 5 mg PO DAILY 07/05/18 07/05/18 History Physical Exam Vital signs: Vital Signs 07/07/18 20:00 07/08/18 00:00 07/08/18 03:42 Temperature 97.0 F L 98.5 F Pulse Rate 94 H 142 H Respiratory Rate 18 18 Blood Pressure 150/74 H 136/75 Pulse Oximetry 99 99 96 07/08/18 04:00 07/08/18 05:00 07/08/18 05:04 Temperature Pulse Rate 145 H 142 H 142 H Respiratory Rate 21 23 Blood Pressure 82/48 L 85/72 L Pulse Oximetry 97 97 07/08/18 05:09 07/08/18 06:09 07/08/18 08:00 Temperature 98.2 F Pulse Rate 144 H 146 H 150 H Respiratory Rate 22 25 H 16 Blood Pressure 110/82 113/69 121/81 Pulse Oximetry 96 95 97 07/08/18 12:00 07/08/18 16:00 07/08/18 17:18 Temperature 98.2 F 98 F Pulse Rate 96 H 96 H Respiratory Rate 17 27 H 22 Blood Pressure 159/72 H 143/79 H Pulse Oximetry 94 L 96 Intake & Output 07/07/18 07/08/18 07/08/18 18:59 06:59 18:59 Intake Total 4518 / 4518 2615 / 2615 154 / 154 Output Total 1100 / 1100 Balance 3418 / 3418 2615 / 2615 154 / 154 Weight 142 kg Intake: IV 3618 / 3618 2615 / 2615 154 / 154 NS Inj 1,000 ML @ 150 mls/hr IV 2000 / 1999 1000 / 1000 .CONT .Q6H40M [facility] Rx#: [id number] Cleocin Inj 600 MG In NS Inj 104 / 104 100 ML @ 200 mls/hr IV.SIG Q8H [facility] Rx#:[id number] LR 1000 mL Inj 1,000 ML @ Wide 1000 / 1000 Open IV.SIG BOLUS ONE Rx#: [id number] Zosyn 2.25 GM Premix 50 ML @ 100 / 100 50 / 50 100 mls/hr IV.SIG Q8H [facility] Rx#: [id number] Zosyn 3.375 GM Premix 50 ML @ 50 / 50 50 / 50 100 mls/hr IV.SIG Q6HR [facility] Rx#: [id number] Vancomycin Inj 1,500 MG In NS 515 / 515 Inj 500 ML @ 257.5 mls/hr IV. SIG ONCE ONE Rx#:[id number] Oral 900 / 900 Output: Urine 1100 / 1100 Other: # Incontinent Voids 2 Date of Last Bowel Movement 07/07/18 07/07/18 07/07/18 # Bowel Movements 1 - Constitutional no acute distress, morbidly obese - Routine HEENT Exam Head: Present: normocephalic, atraumatic Eye: Present: EOMI, PERRL ENT: Present: mucous membranes moist - Routine Neck Exam Present: supple - Routine Respiratory Exam Present: CTA bilaterally - Routine Cardiovascular Exam Present: S1, S2 - Routine Abdominal Exam Present: soft, normoactive bowel sounds - Routine Extremities Exam Present: edema, calf tenderness. Absent: full ROM - Detailed Lower Extremity Exam Lower leg: Left swelling, Left tenderness, Left wound, Left erythema, Left warmth Ankle: Left erythema, Left swelling, Left tenderness (BLISTERING WEAPING ECCYOTIC AND VERY TENDER) - Routine Skin Exam Present: intact, erythema, warm, ecchymosis Results - Labs CBC & Chem 7: 07/08/18 04:45 07/08/18 04:45 Labs: Laboratory Results - last 24 hr 07/07/18 07/08/18 07/08/18 20:33 02:35 02:35 CBC w Diff Slide review pending WBC 19.8 H RBC 3.53 L Hgb 9.0 L Hct 27.3 L MCV 77.2 L MCH 25.6 L MCHC 33.2 RDW 16.2 Plt Count 383 D MPV 9.6 Neut % (Auto) 83.4 H Lymph % (Auto) 7.7 L Lamb % (Auto) 7.6 Eos % (Auto) 1.1 Baso % (Auto) 0.2 Neut # (Auto) 16.6 H Lymph # (Auto) 1.5 Lamb # (Auto) 1.5 H Eos # (Auto) 0.2 Baso # (Auto) 0.0 WBC Differential Manual diff final Diff Scan Differential Comment . Dohle Bodies Present H Platelet Estimate Normal Platelet Morphology Clumped H Target Cells 1+ H Tear Drop Cells Ovalocytes 1+ H Sodium Potassium Chloride Carbon Dioxide Anion Gap BUN Creatinine Estimated GFR POC Glucose 185 H Random Glucose Calcium Magnesium 1.8 Random Vancomycin 07/08/18 07/08/18 07/08/18 02:35 04:45 04:45 CBC w Diff Slide review pending WBC 20.6 H RBC 3.87 L Hgb 9.5 L Hct 29.5 L MCV 76.4 L MCH 24.5 L MCHC 32.0 RDW 16.0 Plt Count 410 MPV 9.5 Neut % (Auto) 86.7 H Lymph % (Auto) 6.1 L Lamb % (Auto) 3.9 Eos % (Auto) 1.1 Baso % (Auto) 2.2 H Neut # (Auto) 17.8 H Lymph # (Auto) 1.3 Lamb # (Auto) 0.8 Eos # (Auto) 0.2 Baso # (Auto) 0.5 H WBC Differential . Diff Scan Auto diff confirmed Differential Comment . Dohle Bodies Platelet Estimate Platelet Morphology Target Cells 1+ H Tear Drop Cells 1+ H Ovalocytes 1+ H Sodium 142 142 Potassium 3.7 3.9 Chloride 112 H 112 H Carbon Dioxide 21.0 20.8 L Anion Gap 9 9 BUN 59 H 53 H Creatinine 1.70 H 1.70 H Estimated GFR 41 L 41 L POC Glucose Random Glucose 131 H 166 H Calcium 7.8 L 8.0 L Magnesium 1.8 Random Vancomycin 7.5 07/08/18 07/08/18 07/08/18 08:11 12:17 17:13 CBC w Diff WBC RBC Hgb Hct MCV MCH MCHC RDW Plt Count MPV Neut % (Auto) Lymph % (Auto) Lamb % (Auto) Eos % (Auto) Baso % (Auto) Neut # (Auto) Lymph # (Auto) Lamb # (Auto) Eos # (Auto) Baso # (Auto) WBC Differential Diff Scan Differential Comment Dohle Bodies Platelet Estimate Platelet Morphology Target Cells Tear Drop Cells Ovalocytes Sodium Potassium Chloride Carbon Dioxide Anion Gap BUN Creatinine Estimated GFR POC Glucose 142 H 159 H 170 H Random Glucose Calcium Magnesium Random Vancomycin Assessment and Plan - Plan STOP ZOSYN START MERREM 500MG IV Q8H CONTINUE VANCOMYCIN WILL MONITOR CBC CLOSELY PT LEFT LEG IS STILL VERY INFECTED FOLLOW BC CLOSELY
--- NOTE | 2018-07-08 19:16 | P.PNNP ---
Subjective Interval history: patient has leg edema tired and weak Physical Exam Vital signs: Vital Signs 07/07/18 20:00 07/08/18 00:00 07/08/18 03:42 Temperature 97.0 F L 98.5 F Pulse Rate 94 H 142 H Respiratory Rate 18 18 Blood Pressure 150/74 H 136/75 Pulse Oximetry 99 99 96 07/08/18 04:00 07/08/18 05:00 07/08/18 05:04 Temperature Pulse Rate 145 H 142 H 142 H Respiratory Rate 21 23 Blood Pressure 82/48 L 85/72 L Pulse Oximetry 97 97 07/08/18 05:09 07/08/18 06:09 07/08/18 08:00 Temperature 98.2 F Pulse Rate 144 H 146 H 150 H Respiratory Rate 22 25 H 16 Blood Pressure 110/82 113/69 121/81 Pulse Oximetry 96 95 97 07/08/18 12:00 07/08/18 16:00 07/08/18 17:18 Temperature 98.2 F 98 F Pulse Rate 96 H 96 H Respiratory Rate 17 27 H 22 Blood Pressure 159/72 H 143/79 H Pulse Oximetry 94 L 96 Intake & Output 07/08/18 07/08/18 07/09/18 06:59 18:59 06:59 Intake Total 2615 / 2615 204 / 204 Balance 2615 / 2615 204 / 204 Weight 142 kg Intake: IV 2615 / 2615 204 / 204 NS Inj 1,000 ML @ 150 mls/hr IV 1000 / 1000 .CONT .Q6H40M [facility] Rx#: [id number] Cleocin Inj 600 MG In NS Inj 104 / 104 100 ML @ 200 mls/hr IV.SIG Q8H [facility] Rx#:[id number] LR 1000 mL Inj 1,000 ML @ Wide 1000 / 1000 Open IV.SIG BOLUS ONE Rx#: [id number] Zosyn 2.25 GM Premix 50 ML @ 50 / 50 100 mls/hr IV.SIG Q8H [facility] Rx#: [id number] Zosyn 3.375 GM Premix 50 ML @ 50 / 50 100 / 100 100 mls/hr IV.SIG Q6HR [facility] Rx#: [id number] Vancomycin Inj 1,500 MG In NS 515 / 515 Inj 500 ML @ 257.5 mls/hr IV. SIG ONCE ONE Rx#:[id number] Other: # Incontinent Voids 2 Date of Last Bowel Movement 07/07/18 07/07/18 Narrative: GENERAL: Well-nourished, well-developed patient. SKIN: Warm and dry. HEAD: Normocephalic. EYES: No scleral icterus. No injection or drainage. NECK: Supple, trachea midline. No JVD or lymphadenopathy. CARDIOVASCULAR: Regular rate and rhythm without murmurs, gallops, or rubs. RESPIRATORY: Breath sounds equal bilaterally. No accessory muscle use. GASTROINTESTINAL: Abdomen soft, non-tender, nondistended. EXTREMITIES: Left leg erythematous red up to the knee with blotches which are dark colored. NEUROLOGICAL: Awake, alert, and oriented x 3. Non-focal. Assessment and Plan - Assessment (1) Acute renal failure Code(s): N17.9 - Acute kidney failure, unspecified Status: Acute Plan: Acute renal failure repeat appears to be due to dehydration and recent infection which is resolving with hydration cr 1.7 better L Leg cellulitis blister on Vanco Level 7.5 off it stayed on Zosyn follow c/s gr neg gr positive may continue Vanco and change to Meropenem per ID Notes (2) Cellulitis of left lower extremity Code(s): L03.116 - Cellulitis of left lower limb Status: Acute Plan: Patient is given Zosyn (3) Severe sepsis Code(s): A41.9 - Sepsis, unspecified organism; R65.20 - Severe sepsis without septic shock Status: Acute (4) Diabetes Code(s): E11.9 - Type 2 diabetes mellitus without complications Status: Acute Qualifiers: Diabetes mellitus type: type 2 Diabetes mellitus complication status: with neurologic complications Diabetes mellitus complication detail: with polyneuropathy Plan: Blood sugars elevated on insulin continue to monitor - Plan Patient has acute renal failure was resolving with hydration we will monitor his progress
--- NOTE | 2018-07-08 21:59 | ECG ---
Date Performed: 07/08/2018 Time Performed: 02:34:29 PTAGE: 62 years EKG: SUPRAVENTRICULAR TACHYCARDIA BORDERLINE RIGHT AXIS DEVIATION ABNORMAL ECG PREVIOUS TRACING : 07/06/2018 14.01 Compared to previous tracing, SVT has replaced NSR DOCTOR: Judah Dahl Interpretating Date/Time 07/08/2018 21:58:02
[2018-07-09] MEDS: Sod Chloride 0.9% Inj 1,000 ML IV.CONT SCH ×2 (00:29→00:37)
[2018-07-09] MEDS: Piperacil/Tazo 3.375 GM Premix 50 ML IV.SIG SCH ×4 (00:37→20:38)
[2018-07-09] MEDS: Heparin - SQ 10,000 UNITS/ML Vial SQ SCH ×2 (05:27→17:24)
[2018-07-09 06:39] LABS: Baso # (Auto) 0.1 th/mm3 (0.0-0.2); Baso % (Auto) 0.8 % (0.0-2.0); Eos # (Auto) 0.3 th/mm3 (0.0-0.4); Eos % (Auto) 1.6 % (0.0-4.0); Hematocrit 24.7 % (39.0-51.0); Hemoglobin 8.1 gm/dL (13.0-17.0); Lymph # (Auto) 1.5 th/mm3 (1.0-4.8); Lymph % (Auto) 8.3 % (9.0-44.0); Mean Corpuscular HGB Conc 32.7 % (32.0-36.0); Mean Corpuscular Hemoglobin 25.6 pg (27.0-34.0); Mean Corpuscular Volume 78.2 fL (80.0-100.0); Mean Platelet Volume 9.7 fL (7.0-11.0); Mono # (Auto) 1.7 th/mm3 (0.0-0.9); Mono % (Auto) 9.1 % (0.0-8.0); Neut # (Auto) 14.8 th/mm3 (1.8-7.7); Neut % (Auto) 80.2 % (16.0-70.0); Platelet Count 441 th/mm3 (150-450); Red Blood Count 3.16 mil/mm3 (4.50-5.90); Red Cell Distribution Width 16.6 % (11.6-17.2); White Blood Count 18.4 th/mm3 (4.0-11.0)
[2018-07-09 06:45] LABS: Potassium 3.6 meq/L (3.5-5.1)
[2018-07-09 06:51] LABS: Calcium 7.9 mg/dL (8.5-10.1)
[2018-07-09 06:52] LABS: Carbon Dioxide 23.2 meq/L (21.0-32.0)
[2018-07-09 07:30] LABS: Platelet Morphology Normal (Normal)
[2018-07-09] MEDS: Gabapentin 400 MG Capsule PO SCH ×3 (08:01→17:23)
[2018-07-09] MEDS: Insulin Detemir Inj 1,000 UNIT/10 ML Vial SQ SCH ×2 (08:02→21:32)
[2018-07-09] MEDS: Folic Acid 1 MG Tablet PO SCH (08:02)
[2018-07-09] MEDS: Insulin NovoLOG Aspart Correctional Sugar Inj SQ SCH ×4 (08:02→21:33)
--- NOTE | 2018-07-09 10:25 | P.PNIM ---
Subjective Interval history: The patient was requesting to get out of bed and walk around a little bit. He stated that he wants to eat more fruit. He says he has been having a lot of salmon and broccoli. Discussed with nursing at the bedside. Physical Exam Vital signs: Vital Signs 07/08/18 12:00 07/08/18 16:00 07/08/18 17:18 Temperature 98.2 F 98 F Pulse Rate 96 H 96 H Respiratory Rate 17 27 H 22 Blood Pressure 159/72 H 143/79 H Pulse Oximetry 94 L 96 07/08/18 20:00 07/08/18 20:50 07/09/18 00:00 Temperature 99.3 F 100.9 F H Pulse Rate 97 H 94 H 99 H Respiratory Rate 20 20 Blood Pressure 140/68 140/65 Pulse Oximetry 96 94 L 07/09/18 00:05 07/09/18 04:55 07/09/18 07:36 Temperature 98.7 F Pulse Rate 97 H 94 H Respiratory Rate 20 20 Blood Pressure 145/90 H Pulse Oximetry 97 07/09/18 08:00 Temperature 97.5 F L Pulse Rate 90 Respiratory Rate 20 Blood Pressure 146/74 H Pulse Oximetry 97 Intake & Output 07/08/18 07/09/18 07/09/18 18:59 06:59 18:59 Intake Total 204 / 204 1935 / 1935 50 / 50 Output Total 1800 / 1800 800 / 800 Balance -1596 / -1596 1135 / 1135 50 / 50 Weight 143.9 kg Intake: IV 204 / 204 1050 / 1050 50 / 50 NS Inj 1,000 ML @ 150 mls/hr IV 1000 / 1000 .CONT .Q6H40M DEBRA Rx#: [id number] Cleocin Inj 600 MG In NS Inj 104 / 104 100 ML @ 200 mls/hr IV.SIG Q8H DEBRA Rx#:[id number] Zosyn 3.375 GM Premix 50 ML @ 100 / 100 50 / 50 50 / 50 100 mls/hr IV.SIG Q6HR DEBRA Rx#: [id number] Oral 885 / 885 Output: Urine 1800 / 1800 800 / 800 Other: # Incontinent Voids 1 Date of Last Bowel Movement 07/07/18 07/08/18 07/08/18 # Bowel Movements 1 Narrative: GENERAL: Well-nourished, well-developed patient. SKIN: Warm and dry. HEAD: Normocephalic. EYES: No scleral icterus. No injection or drainage. NECK: Supple, trachea midline. No JVD or lymphadenopathy. CARDIOVASCULAR: Regular rate and rhythm without murmurs, gallops, or rubs. RESPIRATORY: Breath sounds equal bilaterally. No accessory muscle use. GASTROINTESTINAL: Abdomen soft, non-tender, nondistended. EXTREMITIES: Left leg erythematous red up to the knee with blotches which are dark colored. Currently bandaged. NEUROLOGICAL: Awake, alert, and oriented x 3. Non-focal. Results - Labs CBC & Chem 7: 07/09/18 05:45 07/09/18 05:45 Laboratory Results - last 24 hr 07/08/18 07/08/18 07/08/18 04:45 12:17 17:13 CBC w Diff WBC RBC Hgb Hct MCV MCH MCHC RDW Plt Count MPV Neut % (Auto) Lymph % (Auto) [place] % (Auto) Eos % (Auto) Baso % (Auto) Neut # (Auto) Lymph # (Auto) [place] # (Auto) Eos # (Auto) Baso # (Auto) WBC Differential Diff Scan Differential Comment Platelet Estimate Platelet Morphology Sodium Potassium Chloride Carbon Dioxide Anion Gap BUN Creatinine Estimated GFR POC Glucose 159 H 170 H Random Glucose Calcium Random Vancomycin 7.5 07/08/18 07/09/18 07/09/18 22:16 05:45 05:45 CBC w Diff Slide review pending WBC 18.4 H RBC 3.16 L Hgb 8.1 L Hct 24.7 L MCV 78.2 L MCH 25.6 L MCHC 32.7 RDW 16.6 Plt Count 441 MPV 9.7 Neut % (Auto) 80.2 H Lymph % (Auto) 8.3 L [place] % (Auto) 9.1 H Eos % (Auto) 1.6 Baso % (Auto) 0.8 Neut # (Auto) 14.8 H Lymph # (Auto) 1.5 [place] # (Auto) 1.7 H Eos # (Auto) 0.3 Baso # (Auto) 0.1 WBC Differential . Diff Scan Auto diff confirmed Differential Comment . Platelet Estimate High H Platelet Morphology Normal Sodium 146 H Potassium 3.6 Chloride 114 H Carbon Dioxide 23.2 Anion Gap 9 BUN 28 H Creatinine 1.10 Estimated GFR 68 L POC Glucose 179 H Random Glucose 130 H Calcium 7.9 L Random Vancomycin Microbiology 07/06/18 14:20 Blood - Peripheral Aerobic Blood Culture - Preliminary gram positive cocci 07/06/18 14:20 Blood - Peripheral Anaerobic Blood Culture - Preliminary pleomorphic gram positive rods 07/07/18 09:00 Wound - Leg Gram Stain - Final 07/07/18 09:00 Wound - Leg Wound Culture - Preliminary Pseudomonas species 07/06/18 14:10 Blood - Peripheral Aerobic Blood Culture - Preliminary gram positive cocci 07/06/18 14:10 Blood - Peripheral Anaerobic Blood Culture - Preliminary No growth in 2 days Assessment and Plan - Assessment (1) Severe sepsis Code(s): A41.9 - Sepsis, unspecified organism; R65.20 - Severe sepsis without septic shock Status: Acute (2) Acute renal failure Code(s): N17.9 - Acute kidney failure, unspecified Status: Acute (3) Cellulitis of left lower extremity Code(s): L03.116 - Cellulitis of left lower limb Status: Acute (4) Hyponatremia Code(s): E87.1 - Hypo-osmolality and hyponatremia Status: Acute (5) Metabolic acidosis Code(s): E87.2 - Acidosis Status: Acute (6) Leukocytosis Code(s): D72.829 - Elevated white blood cell count, unspecified Status: Acute (7) Febrile illness Code(s): R50.9 - Fever, unspecified Status: Acute (8) Supraventricular tachycardia Code(s): I47.1 - Supraventricular tachycardia Status: Acute - Plan Left lower leg cellulitis/Severe sepsis Complicated with sepsis, diabetes, peripheral vascular disease, peripheral neuropathy. Ultrasound of the lower extremity was done which did not indicate any DVTs. Wound care nurse, ID and podiatry consultations appreciated. MRI of the ankle and foot negative for osteomyelitis. S/p IVFs. Blood cultures with gpc , wound culture with pseudomonas. -continue IV vancomycin and Zosyn. -pain control with a bowel regimen. -follow culture data. SVT Resolved with two doses of adenosine. -telemetry. Acute renal failure with metabolic acidosis, anion gap 20 Likely prerenal, however patient does have multiple medications that are nephrotoxic. Nephrology consult appreciated. -We will hold nephrotoxic medications at this time -S/p IV fluids. -Continue to monitor BMP. -Renal bladder ultrasound was performed which did not indicate any acute abnormality. Elevated d-dimer -Lower extremity ultrasounds performed without any signs of DVT -VQ scan was performed which was low probability for pulmonary emboli Diabetes -Accu-Cheks with sliding scale insulin -Diabetic diet -Levemir 10 units BID. Adjust as needed. Hypertension -Holding patient's SHANTE inhibitor and diuretic at this time due to acute renal failure -Clonidine as needed for blood pressure control DVT prevention -Subcutaneous heparin
[2018-07-09] MEDS: Vancomycin Inj 1,750 MG in Sodium Chlor 0.9% Inj 500 ML IV.SIG SCH (13:16)
[2018-07-09 13:39] LABS: % Iron Saturation 12.2 % (20-50); Iron 21 mcg/dL (65-175); Total Iron Binding Capacity 172 mcg/dL (250-450)
[2018-07-09 14:04] LABS: Ferritin 1320 ng/mL (26-388); Vitamin B12 641 pg/mL (193-986)
[2018-07-09] MEDS: Levofloxacin 500 mg Premix Inj 500 MG/100 ML PIGGYBACK IV.SIG SCH (16:20)
--- NOTE | 2018-07-09 22:02 | P.PNPOD ---
Subjective Interval history: Patient seen at bedside with nursing staff. Physical Exam Vital signs: Vital Signs 07/09/18 00:00 07/09/18 00:05 07/09/18 04:55 Temperature 100.9 F H 98.7 F Pulse Rate 99 H 97 H 94 H Respiratory Rate 20 20 Blood Pressure 140/65 145/90 H Pulse Oximetry 94 L 97 07/09/18 07:36 07/09/18 08:00 07/09/18 12:00 Temperature 97.5 F L 99.8 F H Pulse Rate 90 20 L Respiratory Rate 20 20 20 Blood Pressure 146/74 H 178/84 H Pulse Oximetry 97 07/09/18 16:00 07/09/18 20:00 07/09/18 20:25 Temperature 98.1 F 97.2 F L Pulse Rate 81 96 H Respiratory Rate 20 18 Blood Pressure 139/72 158/85 H Pulse Oximetry 97 93 L 96 Intake & Output 07/09/18 07/09/18 07/10/18 06:59 18:59 06:59 Intake Total 1935 / 1935 1557.5 / 1557.5 50 / 50 Output Total 800 / 800 1025 / 1025 Balance 1135 / 1135 532.5 / 532.5 50 / 50 Weight 143.9 kg Intake: IV 1050 / 1050 717.5 / 717.5 50 / 50 NS Inj 1,000 ML @ 150 mls/hr IV 1000 / 1000 .CONT .Q6H40M DEBRA Rx#: [id number] Levaquin 500 mg Premix Inj 500 100 / 100 mg In 100 ml @ 100 mls/hr IV. SIG Q24H DEBRA Rx#:[id number] Zosyn 3.375 GM Premix 50 ML @ 50 / 50 100 / 100 50 / 50 100 mls/hr IV.SIG Q6HR DEBRA Rx#: [id number] Vancomycin Inj 1,750 MG In NS 517.5 / 517.5 Inj 500 ML @ 250 mls/hr IV.SIG Q12H DEBRA Rx#:[id number] Oral 885 / 885 840 / 840 Output: Urine 800 / 800 1025 / 1025 Other: # Incontinent Voids 1 Date of Last Bowel Movement 07/08/18 07/08/18 # Bowel Movements 1 Narrative: LLE\ + significant edema, + multiple serous bulla, + ecchymotic to the knee, no streaking. Warm to warm. Medications and Allergies Active Medications: Active Medications Acetaminophen (Tylenol) 650 mg PO Q4H PRN PRN Reason: Temp > 100.4 Last Admin: 07/06/18 20:24 Dose: 650 mg Hydrocodone Bitart/Acetaminophen ([place] 10/325) 1 tab PO Q6H PRN PRN Reason: PAIN SCALE 6 TO 10 Last Admin: 07/09/18 09:36 Dose: 1 tab Hydrocodone Bitart/Acetaminophen ([place]good 5/325) 1 tab PO Q6H PRN PRN Reason: PAIN SCALE 1 TO 5 Al Hydroxide/Mg Hydroxide (Milk Of Magnesia Liq) 30 ml PO Q12H PRN PRN Reason: Mild Constipation Albuterol (Duoneb Neb (Prn)) 1 ampul NEB Q2HR NEB PRN PRN Reason: WHEEZING Last Admin: 07/07/18 10:39 Dose: 1 ampul Bisacodyl (Dulcolax Supp) 10 mg RECTAL DAILY PRN PRN Reason: SEVERE CONSITIPATION Clonidine HCl (Catapres) 0.1 mg PO Q6H PRN PRN Reason: SBP>160, DBP>90 Dextrose (D50w Vial) 50 ml IV.PUSH UNSCH PRN PRN Reason: PER HYPOGLYCEMIA PROTOCOL Folic Acid (Folic Acid) 1 mg PO DAILY [facility] Last Admin: 07/09/18 08:02 Dose: 1 mg Gabapentin (Neurontin) 800 mg PO TID [facility] Last Admin: 07/09/18 17:23 Dose: 800 mg Glucagon (Glucagon Inj) 1 mg OTHER PRN PRN PRN Reason: for Hypoglycemia Protocol Heparin Sodium (Porcine) (Heparin Inj) 5,000 units SQ Q12H [facility] Last Admin: 07/09/18 17:24 Dose: 5,000 units Piperacillin/Tazobactam/Dextrose (Zosyn 3.375 Gm Premix) 50 mls @ 100 mls/hr IV.SIG Q6HR [facility] Last Infusion: 07/09/18 21:33 Dose: Infused Vancomycin HCl 1,750 mg/ (Sodium Chloride) 517.5 mls @ 250 mls/hr IV.SIG Q12H [facility] Last Infusion: 07/09/18 15:21 Dose: Infused Levofloxacin/Dextrose (Levaquin 500 Mg Premix Inj) 500 mg in 100 mls @ 100 mls/ hr IV.SIG Q24H [facility] Last Infusion: 07/09/18 17:54 Dose: Infused Insulin Aspart (Novolog Insulin Correctional Sugar Inj) 0 unit SQ ACHS [facility]; Protocol Last Admin: 07/09/18 21:33 Dose: 2 unit Insulin Detemir (Levemir Inj) 10 unit SQ BID [facility] Last Admin: 07/09/18 21:32 Dose: 10 unit Lactulose (Lactulose Liq) 30 ml PO DAILY PRN PRN Reason: SEVERE CONSITIPATION Miscellaneous Information ([facility] Ordered Lab Info) 1 each OTHER ONCE ONE Stop: 07/11/18 01:46 Naloxone HCl (Narcan Inj) 0.4 mg IV.PUSH UNSCH PRN PRN Reason: SEE LABEL COMMENTS Ondansetron HCl (Zofran Inj) 4 mg IV.PUSH Q6H PRN PRN Reason: NAUSEA OR VOMITING Pharmacy Profile Note (Vancomycin Consult Pharmacy) 1 each OTHER UNSCH PRN PRN Reason: Pharmacy to dose Sennosides (Senokot) 17.2 mg PO Q12H PRN PRN Reason: Moderate Constipation Sodium Chloride (Ns Flush) 2 ml IV.FLUSH BID [facility] Last Admin: 07/09/18 10:48 Dose: Not Given Sodium Chloride (Ns Flush) 2 ml IV.FLUSH PRN PRN PRN Reason: FLUSH AFTER USING IV ACCESS Last Admin: 07/07/18 23:51 Dose: 2 ml Allergies Allergy/AdvReac Type Severity Reaction Status Date / Time erythromycin base Allergy Unknown UNKNOWN Verified 07/06/18 03:23 REACTION oxytetracycline Allergy Unknown UNKNOWN Verified 07/06/18 03:23 REACTION Home Medications Medication Instructions Recorded Confirmed Type dapagliflozin [Farxiga] 10 mg PO QAM 07/05/18 07/05/18 History diclofenac sodium 100 mg PO DAILY 07/05/18 07/05/18 History folic acid 0.8 mg PO DAILY 07/05/18 07/05/18 History furosemide 40 mg PO DAILY 07/05/18 07/05/18 History gabapentin 800 mg PO TID 07/05/18 07/05/18 History glimepiride 4 mg PO QAM 07/05/18 07/05/18 History lisinopril 20 mg PO DAILY 07/05/18 07/05/18 History metformin 1,000 mg PO BID 07/05/18 07/05/18 History [id number] 1 tab PO DAILY 07/05/18 07/05/18 History [Airborne (ascorbate sodium)] omega [id number] oil [Fish Oil] 1,000 mg PO DAILY 07/05/18 07/05/18 History solifenacin [Vesicare] 5 mg PO DAILY 07/05/18 07/05/18 History Results - Labs CBC & Chem 7: 07/09/18 05:45 07/09/18 05:45 Laboratory Results - last 24 hr 07/08/18 07/09/18 07/09/18 22:16 05:45 05:45 CBC w Diff Slide review pending WBC 18.4 H RBC 3.16 L Hgb 8.1 L Hct 24.7 L MCV 78.2 L MCH 25.6 L MCHC 32.7 RDW 16.6 Plt Count 441 MPV 9.7 Neut % (Auto) 80.2 H Lymph % (Auto) 8.3 L [place] % (Auto) 9.1 H Eos % (Auto) 1.6 Baso % (Auto) 0.8 Neut # (Auto) 14.8 H Lymph # (Auto) 1.5 [place] # (Auto) 1.7 H Eos # (Auto) 0.3 Baso # (Auto) 0.1 WBC Differential . Diff Scan Auto diff confirmed Differential Comment . Platelet Estimate High H Platelet Morphology Normal Sodium 146 H Potassium 3.6 Chloride 114 H Carbon Dioxide 23.2 Anion Gap 9 BUN 28 H Creatinine 1.10 Estimated GFR 68 L POC Glucose 179 H Random Glucose 130 H Calcium 7.9 L Iron TIBC % Saturation Ferritin Vitamin B12 Folate Random Vancomycin 07/09/18 07/09/18 07/09/18 05:45 05:45 11:20 CBC w Diff WBC RBC Hgb Hct MCV MCH MCHC RDW Plt Count MPV Neut % (Auto) Lymph % (Auto) [place] % (Auto) Eos % (Auto) Baso % (Auto) Neut # (Auto) Lymph # (Auto) [place] # (Auto) Eos # (Auto) Baso # (Auto) WBC Differential Diff Scan Differential Comment Platelet Estimate Platelet Morphology Sodium Potassium Chloride Carbon Dioxide Anion Gap BUN Creatinine Estimated GFR POC Glucose 147 H Random Glucose Calcium Iron 21 L TIBC 172 L % Saturation 12.2 L Ferritin 1320 H Vitamin B12 641 Folate Greater than 20.0 H Random Vancomycin 7.4 07/09/18 07/09/18 17:00 20:07 CBC w Diff WBC RBC Hgb Hct MCV MCH MCHC RDW Plt Count MPV Neut % (Auto) Lymph % (Auto) [place] % (Auto) Eos % (Auto) Baso % (Auto) Neut # (Auto) Lymph # (Auto) [place] # (Auto) Eos # (Auto) Baso # (Auto) WBC Differential Diff Scan Differential Comment Platelet Estimate Platelet Morphology Sodium Potassium Chloride Carbon Dioxide Anion Gap BUN Creatinine Estimated GFR POC Glucose 167 H 168 H Random Glucose Calcium Iron TIBC % Saturation Ferritin Vitamin B12 Folate Random Vancomycin Microbiology 07/06/18 14:20 Blood - Peripheral Aerobic Blood Culture - Preliminary 07/06/18 14:20 Blood - Peripheral Anaerobic Blood Culture - Preliminary pleomorphic gram positive rods 07/07/18 09:00 Wound - Leg Gram Stain - Final 07/07/18 09:00 Wound - Leg Wound Culture - Preliminary Pseudomonas aeruginosa gram negative rods Group D Enterococcus 07/06/18 14:10 Blood - Peripheral Aerobic Blood Culture - Preliminary gram positive cocci 07/06/18 14:10 Blood - Peripheral Anaerobic Blood Culture - Preliminary No growth in 3 days Assessment and Plan - Assessment (1) Cellulitis of left lower extremity Code(s): L03.116 - Cellulitis of left lower limb Status: Acute (2) Diabetes Code(s): E11.9 - Type 2 diabetes mellitus without complications Status: Acute (3) Leukocytosis Code(s): D72.829 - Elevated white blood cell count, unspecified Status: Acute (4) Severe sepsis Code(s): A41.9 - Sepsis, unspecified organism; R65.20 - Severe sepsis without septic shock Status: Acute - Plan Continue abx per ID Wound care with Elyse vera and ramakrishna, change daily. RX placed and discussed with nurse MRI negative Will continue to follow. (2) Diabetes Qualifiers: Diabetes mellitus type: type 2 Diabetes mellitus complication status: with neurologic complications Diabetes mellitus complication detail: with polyneuropathy
[2018-07-10] MEDS: Piperacil/Tazo 3.375 GM Premix 50 ML IV.SIG SCH (00:46)
[2018-07-10] MEDS: Vancomycin Inj 1,750 MG in Sodium Chlor 0.9% Inj 500 ML IV.SIG SCH ×2 (01:19→13:04)
[2018-07-10] MEDS: Heparin - SQ 10,000 UNITS/ML Vial SQ SCH ×2 (05:48→17:11)
[2018-07-10 06:15] LABS: Albumin 1.5 g/dL (3.4-5.0); Carbon Dioxide 25.7 meq/L (21.0-32.0); Magnesium 1.5 mg/dL (1.5-2.5)
[2018-07-10] MEDS ORDERED: Meropenem Inj 500 MG in Sodium Chlor 0.9% Inj 100 ML IV.SIG SCH (08:00)
[2018-07-10] MEDS: Folic Acid 1 MG Tablet PO SCH (09:05)
[2018-07-10] MEDS: Gabapentin 400 MG Capsule PO SCH ×3 (09:05→17:11)
--- NOTE | 2018-07-10 09:05 | P.PNID ---
Subjective Remarks: Left leg feels " like a ton of bricks" No more fevers No nausea, vomiting or diarrhea Antibiotics: IV Vancomycin, Meropenem and Levofloxacin Lines: Peripheral Past Medical History: Diabetes Allergies/Adverse Reactions: Allergies erythromycin base Allergy (Unknown, Verified 07/06/18 03:23) UNKNOWN REACTION oxytetracycline Allergy (Unknown, Verified 07/06/18 03:23) UNKNOWN REACTION Objective Vital Signs 07/09/18 12:00 07/09/18 16:00 07/09/18 20:00 Temperature 99.8 F H 98.1 F 97.2 F L Pulse Rate 20 L 81 96 H Respiratory Rate 20 20 18 Blood Pressure 178/84 H 139/72 158/85 H Pulse Oximetry 97 93 L 07/09/18 20:25 07/10/18 00:00 07/10/18 03:58 Temperature 97.7 F 98 F Pulse Rate 87 83 Respiratory Rate 18 18 Blood Pressure 152/81 H 155/84 H Pulse Oximetry 96 96 99 07/10/18 04:00 07/10/18 08:00 Temperature 97.6 F Pulse Rate 78 81 Respiratory Rate 20 Blood Pressure 143/67 H Pulse Oximetry 96 Intake & Output 07/09/18 07/10/18 07/10/18 18:59 06:59 18:59 Intake Total 1557.5 / 1557.5 617.5 / 617.5 Output Total 1025 / 1025 900 / 900 Balance 532.5 / 532.5 -282.5 / -282.5 Weight 146.6 kg Intake: IV 717.5 / 717.5 617.5 / 617.5 Levaquin 500 mg Premix Inj 500 100 / 100 mg In 100 ml @ 100 mls/hr IV. SIG Q24H DEBRA Rx#:[id number] Zosyn 3.375 GM Premix 50 ML @ 100 / 100 100 / 100 100 mls/hr IV.SIG Q6HR DEBRA Rx#: [id number] Vancomycin Inj 1,750 MG In NS 517.5 / 517.5 517.5 / 517.5 Inj 500 ML @ 250 mls/hr IV.SIG Q12H DEBRA Rx#:[id number] Oral 840 / 840 Output: Urine 1025 / 1025 900 / 900 Other: Date of Last Bowel Movement 07/08/18 07/07/18 09:00 Wound - Leg Gram Stain - Final 07/07/18 09:00 Wound - Leg Wound Culture - Preliminary Pseudomonas aeruginosa gram negative rods Group D Enterococcus 07/06/18 14:20 Blood - Peripheral Aerobic Blood Culture - Preliminary 07/06/18 14:20 Blood - Peripheral Anaerobic Blood Culture - Preliminary pleomorphic gram positive rods 07/06/18 14:10 Blood - Peripheral Aerobic Blood Culture - Preliminary gram positive cocci 07/06/18 14:10 Blood - Peripheral Anaerobic Blood Culture - Preliminary No growth in 3 days Lab - Hematology Results 07/09/18 05:45 CBC w Diff Slide review pending WBC 18.4 H RBC 3.16 L Hgb 8.1 L Hct 24.7 L MCV 78.2 L MCH 25.6 L MCHC 32.7 RDW 16.6 Plt Count 441 MPV 9.7 Neut % (Auto) 80.2 H Lymph % (Auto) 8.3 L [place] % (Auto) 9.1 H Eos % (Auto) 1.6 Baso % (Auto) 0.8 Neut # (Auto) 14.8 H Lymph # (Auto) 1.5 [place] # (Auto) 1.7 H Eos # (Auto) 0.3 Baso # (Auto) 0.1 WBC Differential . Diff Scan Auto diff confirmed Differential Comment . Platelet Estimate High H Platelet Morphology Normal Lab - Chemistry Results 07/08/18 07/08/18 07/08/18 12:17 17:13 22:16 Sodium Potassium Chloride Carbon Dioxide Anion Gap BUN Creatinine Estimated GFR POC Glucose 159 H 170 H 179 H Random Glucose Calcium Magnesium Iron TIBC % Saturation Ferritin Total Bilirubin Direct Bilirubin Indirect Bilirubin AST ALT Alkaline Phosphatase Total Protein Albumin Vitamin B12 Folate 07/09/18 07/09/18 07/09/18 05:45 05:45 11:20 Sodium 146 H Potassium 3.6 Chloride 114 H Carbon Dioxide 23.2 Anion Gap 9 BUN 28 H Creatinine 1.10 Estimated GFR 68 L POC Glucose 147 H Random Glucose 130 H Calcium 7.9 L Magnesium Iron 21 L TIBC 172 L % Saturation 12.2 L Ferritin 1320 H Total Bilirubin Direct Bilirubin Indirect Bilirubin AST ALT Alkaline Phosphatase Total Protein Albumin Vitamin B12 641 Folate Greater than 20.0 H 07/09/18 07/09/18 07/10/18 17:00 20:07 05:20 Sodium 144 Potassium 4.0 Chloride 111 H Carbon Dioxide 25.7 Anion Gap 7 BUN 18 Creatinine 0.97 Estimated GFR 79 L POC Glucose 167 H 168 H Random Glucose 113 H Calcium 8.0 L Magnesium 1.5 Iron TIBC % Saturation Ferritin Total Bilirubin 0.6 Direct Bilirubin 0.2 Indirect Bilirubin 0.4 AST 31 ALT 40 Alkaline Phosphatase 120 H Total Protein 6.0 L Albumin 1.5 L Vitamin B12 Folate 07/10/18 07:43 Sodium Potassium Chloride Carbon Dioxide Anion Gap BUN Creatinine Estimated GFR POC Glucose 167 H Random Glucose Calcium Magnesium Iron TIBC % Saturation Ferritin Total Bilirubin Direct Bilirubin Indirect Bilirubin AST ALT Alkaline Phosphatase Total Protein Albumin Vitamin B12 Folate Imaging: ITS Impressions Venous Doppler Study 07/05/18 21:32 CONCLUSION: No venous thrombosis is identified within either lower extremity. Abdomen/Bladder Ultrasound 07/06/18 00:00 CONCLUSION: 1. Renal cyst on the right 2. No suspicious mass or hydronephrosis. Chest X-Ray 07/06/18 00:00 CONCLUSION: 1. No acute abnormality or significant interval change. Pulmonary Perfusion Imaging 07/06/18 23:40 CONCLUSION: 1. Low probability for pulmonary embolism. Ankle MRI 07/07/18 00:00 CONCLUSION: 1. Severe and diffuse subcutaneous edema without abscess or osteomyelitis. 2. Mild navicular/cuneiform osteoarthritis. 3. Type II accessory navicular and slight tendinopathy of tibialis posterior tendon. 4. Very mild proximal plantar fasciitis. No tear. 5. Very mild Achilles tendinosis without tear. Foot MRI 07/07/18 07:11 CONCLUSION: Dorsal predominant subcutaneous swelling and edema of the left foot without abscess or evidence of osteomyelitis. Physical Exam: Alert, Oriented x 3 No icterus No thrush Chest : Clear Heart : S1 S2 normal Abdomen: Soft Non tender Bowel sounds present Left leg with large bullous lesions and cellulitis - No spread above knee DP felt Assessment and Plan (1) Cellulitis of left lower extremity Status: Acute Code(s): L03.116 - Cellulitis of left lower limb (2) Severe sepsis Status: Acute Code(s): A41.9 - Sepsis, unspecified organism; R65.20 - Severe sepsis without septic shock (3) Diabetes Status: Acute Code(s): E11.9 - Type 2 diabetes mellitus without complications - Plan 1. Blood cultures- still not identified 2. Reviewed wound cultures 3. Continue IV Vancomycin 4. IV Zosyn at 4.5 g q 6hrs 5. Levofloxacin 500 mg IV daily (3) Diabetes Qualifiers: Diabetes mellitus type: type 2 Diabetes mellitus complication status: with neurologic complications Diabetes mellitus complication detail: with polyneuropathy
[2018-07-10] MEDS: Insulin Detemir Inj 1,000 UNIT/10 ML Vial SQ SCH ×2 (09:06→20:55)
[2018-07-10] MEDS: Insulin NovoLOG Aspart Correctional Sugar Inj SQ SCH ×4 (09:06→20:54)
[2018-07-10 09:22] LABS: Baso # (Auto) 0.3 th/mm3 (0.0-0.2); Baso % (Auto) 1.4 % (0.0-2.0); Eos # (Auto) 0.4 th/mm3 (0.0-0.4); Hematocrit 25.7 % (39.0-51.0); Hemoglobin 8.1 gm/dL (13.0-17.0); Lymph # (Auto) 1.8 th/mm3 (1.0-4.8); Mean Corpuscular HGB Conc 31.4 % (32.0-36.0); Mean Corpuscular Hemoglobin 24.9 pg (27.0-34.0); Mean Corpuscular Volume 79.4 fL (80.0-100.0); Mono # (Auto) 1.8 th/mm3 (0.0-0.9); Mono % (Auto) 9.2 % (0.0-8.0); Neut # (Auto) 15.2 th/mm3 (1.8-7.7); Neut % (Auto) 78.4 % (16.0-70.0); Platelet Count 507 th/mm3 (150-450); Red Blood Count 3.24 mil/mm3 (4.50-5.90); Red Cell Distribution Width 16.8 % (11.6-17.2); White Blood Count 19.5 th/mm3 (4.0-11.0)
[2018-07-10] MEDS: Piperacil/Tazo 4.5 GM Premix 4.5 GM/100 ML BAG IV.SIG SCH ×3 (11:01→22:20)
--- NOTE | 2018-07-10 12:03 | P.PNIM ---
Subjective Interval history: The patient was complaining of severe pain in his left lower extremity. He said that the pain was much better when the bandage was undressed. He says he has been ambulatory with a walker but feels like he wants a walker with different handgrips. Discussed with nursing at the bedside. Physical Exam Vital signs: Vital Signs 07/09/18 12:00 07/09/18 16:00 07/09/18 20:00 Temperature 99.8 F H 98.1 F 97.2 F L Pulse Rate 20 L 81 96 H Respiratory Rate 20 20 18 Blood Pressure 178/84 H 139/72 158/85 H Pulse Oximetry 97 93 L 07/09/18 20:25 07/10/18 00:00 07/10/18 03:58 Temperature 97.7 F 98 F Pulse Rate 87 83 Respiratory Rate 18 18 Blood Pressure 152/81 H 155/84 H Pulse Oximetry 96 96 99 07/10/18 04:00 07/10/18 08:00 Temperature 97.6 F Pulse Rate 78 81 Respiratory Rate 20 Blood Pressure 143/67 H Pulse Oximetry 96 Intake & Output 07/09/18 07/10/18 07/10/18 18:59 06:59 18:59 Intake Total 1557.5 / 1557.5 617.5 / 617.5 Output Total 1025 / 1025 900 / 900 Balance 532.5 / 532.5 -282.5 / -282.5 Weight 146.6 kg Intake: IV 717.5 / 717.5 617.5 / 617.5 Levaquin 500 mg Premix Inj 500 100 / 100 mg In 100 ml @ 100 mls/hr IV. SIG Q24H [facility] Rx#:[id number] Zosyn 3.375 GM Premix 50 ML @ 100 / 100 100 / 100 100 mls/hr IV.SIG Q6HR [facility] Rx#: [id number] Vancomycin Inj 1,750 MG In NS 517.5 / 517.5 517.5 / 517.5 Inj 500 ML @ 250 mls/hr IV.SIG Q12H [facility] Rx#:[id number] Oral 840 / 840 Output: Urine 1025 / 1025 900 / 900 Other: Date of Last Bowel Movement 07/08/18 Narrative: GENERAL: Well-nourished, well-developed patient. SKIN: Warm and dry. HEAD: Normocephalic. EYES: No scleral icterus. No injection or drainage. NECK: Supple, trachea midline. No JVD or lymphadenopathy. CARDIOVASCULAR: Regular rate and rhythm without murmurs, gallops, or rubs. RESPIRATORY: Breath sounds equal bilaterally. No accessory muscle use. GASTROINTESTINAL: Abdomen soft, non-tender, nondistended. EXTREMITIES: Left leg erythematous red up to the knee with blotches which are dark colored. NEUROLOGICAL: Awake, alert, and oriented x 3. Non-focal. Results - Labs CBC & Chem 7: 07/10/18 05:20 07/10/18 05:20 Laboratory Results - last 24 hr 07/09/18 07/09/18 07/09/18 05:45 17:00 20:07 CBC w Diff WBC RBC Hgb Hct MCV MCH MCHC RDW Plt Count MPV Neut % (Auto) Lymph % (Auto) [place] % (Auto) Eos % (Auto) Baso % (Auto) Neut # (Auto) Lymph # (Auto) [place] # (Auto) Eos # (Auto) Baso # (Auto) WBC Differential Diff Scan Differential Comment Sodium Potassium Chloride Carbon Dioxide Anion Gap BUN Creatinine Estimated GFR POC Glucose 167 H 168 H Random Glucose Calcium Magnesium Iron 21 L TIBC 172 L % Saturation 12.2 L Ferritin 1320 H Total Bilirubin Direct Bilirubin Indirect Bilirubin AST ALT Alkaline Phosphatase Total Protein Albumin Vitamin B12 641 Folate Greater than 20.0 H 07/10/18 07/10/18 07/10/18 05:20 05:20 07:43 CBC w Diff Slide review pending WBC 19.5 H RBC 3.24 L Hgb 8.1 L Hct 25.7 L MCV 79.4 L MCH 24.9 L MCHC 31.4 L RDW 16.8 Plt Count 507 H MPV 10.0 Neut % (Auto) 78.4 H Lymph % (Auto) 9.0 [place] % (Auto) 9.2 H Eos % (Auto) 2.0 Baso % (Auto) 1.4 Neut # (Auto) 15.2 H Lymph # (Auto) 1.8 [place] # (Auto) 1.8 H Eos # (Auto) 0.4 Baso # (Auto) 0.3 H WBC Differential . Diff Scan Auto diff confirmed Differential Comment . Sodium 144 Potassium 4.0 Chloride 111 H Carbon Dioxide 25.7 Anion Gap 7 BUN 18 Creatinine 0.97 Estimated GFR 79 L POC Glucose 167 H Random Glucose 113 H Calcium 8.0 L Magnesium 1.5 Iron TIBC % Saturation Ferritin Total Bilirubin 0.6 Direct Bilirubin 0.2 Indirect Bilirubin 0.4 AST 31 ALT 40 Alkaline Phosphatase 120 H Total Protein 6.0 L Albumin 1.5 L Vitamin B12 Folate Microbiology 07/06/18 14:10 Blood - Peripheral Aerobic Blood Culture - Preliminary gram positive cocci 07/06/18 14:10 Blood - Peripheral Anaerobic Blood Culture - Preliminary No growth in 4 days 07/07/18 09:00 Wound - Leg Gram Stain - Final 07/07/18 09:00 Wound - Leg Wound Culture - Preliminary Pseudomonas aeruginosa gram negative rods Enterococcus faecalis 07/06/18 14:20 Blood - Peripheral Aerobic Blood Culture - Preliminary 07/06/18 14:20 Blood - Peripheral Anaerobic Blood Culture - Preliminary pleomorphic gram positive rods Assessment and Plan - Assessment (1) Severe sepsis Code(s): A41.9 - Sepsis, unspecified organism; R65.20 - Severe sepsis without septic shock Status: Acute (2) Acute renal failure Code(s): N17.9 - Acute kidney failure, unspecified Status: Acute (3) Cellulitis of left lower extremity Code(s): L03.116 - Cellulitis of left lower limb Status: Acute (4) Hyponatremia Code(s): E87.1 - Hypo-osmolality and hyponatremia Status: Acute (5) Metabolic acidosis Code(s): E87.2 - Acidosis Status: Acute (6) Leukocytosis Code(s): D72.829 - Elevated white blood cell count, unspecified Status: Acute (7) Febrile illness Code(s): R50.9 - Fever, unspecified Status: Acute (8) Supraventricular tachycardia Code(s): I47.1 - Supraventricular tachycardia Status: Acute - Plan Left lower leg cellulitis/Severe sepsis Complicated with sepsis, diabetes, peripheral vascular disease, peripheral neuropathy. Ultrasound of the lower extremity was done which did not indicate any DVTs. Wound care nurse, ID and podiatry consultations appreciated. MRI of the ankle and foot negative for osteomyelitis. S/p IVFs. Blood cultures with gpc , wound culture with pseudomonas, gram-negative rods and Enterococcus faecalis. Pt complained of increased pain in the leg 07/10, but it was relieved with undoing of the dressings. -continue IV vancomycin, Levaquin and Zosyn per ID. -pain control with a bowel regimen. -follow culture data. -follow up with podiatry. SVT Resolved with two doses of adenosine. -telemetry. Acute renal failure with metabolic acidosis, anion gap 20 Likely prerenal, however patient does have multiple medications that are nephrotoxic. Nephrology consult appreciated. -We will hold nephrotoxic medications at this time -S/p IV fluids. -Continue to monitor BMP. -Renal bladder ultrasound was performed which did not indicate any acute abnormality. Elevated d-dimer -Lower extremity ultrasounds performed without any signs of DVT. -VQ scan was performed which was low probability for pulmonary emboli. Diabetes -Accu-Cheks with sliding scale insulin -Diabetic diet -Levemir 10 units BID. Adjust as needed. Hypertension -resume lisinopril at 10 mg daily (normally on 20) -Clonidine as needed for blood pressure control DVT prevention -Subcutaneous heparin
[2018-07-10] MEDS: Lisinopril 10 MG Tablet PO SCH (13:03)
--- NOTE | 2018-07-10 16:10 | P.PNNP ---
Subjective Interval history: Patient has cellulitis left leg which is being treated On vancomycin and Zosyn Physical Exam Vital signs: Vital Signs 07/09/18 20:00 07/09/18 20:25 07/10/18 00:00 Temperature 97.2 F L 97.7 F Pulse Rate 96 H 87 Respiratory Rate 18 18 Blood Pressure 158/85 H 152/81 H Pulse Oximetry 93 L 96 96 07/10/18 03:58 07/10/18 04:00 07/10/18 08:00 Temperature 98 F 97.6 F Pulse Rate 83 78 81 Respiratory Rate 18 20 Blood Pressure 155/84 H 143/67 H Pulse Oximetry 99 96 07/10/18 12:00 Temperature 97.2 F L Pulse Rate 99 H Respiratory Rate 21 Blood Pressure 146/74 H Pulse Oximetry 96 Intake & Output 07/09/18 07/10/18 07/10/18 18:59 06:59 18:59 Intake Total 1557.5 / 1557.5 617.5 / 617.5 617.5 / 617.5 Output Total 1025 / 1025 900 / 900 Balance 532.5 / 532.5 -282.5 / -282.5 617.5 / 617.5 Weight 146.6 kg Intake: IV 717.5 / 717.5 617.5 / 617.5 617.5 / 617.5 Levaquin 500 mg Premix Inj 500 100 / 100 mg In 100 ml @ 100 mls/hr IV. SIG Q24H [facility] Rx#:[id number] Zosyn 3.375 GM Premix 50 ML @ 100 / 100 100 / 100 100 mls/hr IV.SIG Q6HR [facility] Rx#: [id number] Zosyn 4.5 GM Premix 4.5 gm In 100 / 100 100 ml @ 200 mls/hr IV.SIG Q6H [facility] Rx#:[id number] Vancomycin Inj 1,750 MG In NS 517.5 / 517.5 517.5 / 517.5 517.5 / 517.5 Inj 500 ML @ 250 mls/hr IV.SIG Q12H [facility] Rx#:[id number] Oral 840 / 840 Output: Urine 1025 / 1025 900 / 900 Other: Date of Last Bowel Movement 07/08/18 07/10/18 Narrative: GENERAL: Well-nourished, well-developed patient. SKIN: Warm and dry. HEAD: Normocephalic. EYES: No scleral icterus. No injection or drainage. NECK: Supple, trachea midline. No JVD or lymphadenopathy. CARDIOVASCULAR: Regular rate and rhythm without murmurs, gallops, or rubs. RESPIRATORY: Breath sounds equal bilaterally. No accessory muscle use. GASTROINTESTINAL: Abdomen soft, non-tender, nondistended. EXTREMITIES: Left leg erythematous red up to the knee with blotches which are dark colored. NEUROLOGICAL: Awake, alert, and oriented x 3. Non-focal. Assessment and Plan - Assessment (1) Acute renal failure Code(s): N17.9 - Acute kidney failure, unspecified Status: Acute Plan: Acute renal failure repeat appears to be due to dehydration and recent infection which is resolved with hydration cr 0.9 better L Leg cellulitis on Vanco Level 7.4 patient has Pseudomonas and enterococcus in the wound stayed on Zosyn continue Vanco Kidney function improved nephrology to sign off (2) Cellulitis of left lower extremity Code(s): L03.116 - Cellulitis of left lower limb Status: Acute Plan: Patient is on Zosyn And vancomycin (3) Severe sepsis Code(s): A41.9 - Sepsis, unspecified organism; R65.20 - Severe sepsis without septic shock Status: Acute (4) Diabetes Code(s): E11.9 - Type 2 diabetes mellitus without complications Status: Acute Qualifiers: Diabetes mellitus type: type 2 Diabetes mellitus complication status: with neurologic complications Diabetes mellitus complication detail: with polyneuropathy Plan: Blood sugars elevated on insulin continue to monitor - Plan Patient has acute renal failure which resolved.
[2018-07-10] MEDS: Levofloxacin 500 mg Premix Inj 500 MG/100 ML PIGGYBACK IV.SIG SCH (16:16)
[2018-07-10] MEDS ORDERED: dilTIAZem 30 MG Tablet PO ONE (22:10)
[2018-07-11] MEDS ORDERED: Adenosine Inj 6 MG/2 ML Syringe IV.PUSH ONE (00:47)
[2018-07-11] MEDS ORDERED: VANCOMYCIN TROUGH OTHER ONE (01:45)
[2018-07-11] MEDS: Vancomycin Inj 1,750 MG in Sodium Chlor 0.9% Inj 500 ML IV.SIG SCH ×2 (02:03→14:23)
[2018-07-11 02:16] LABS: Chloride 109 meq/L (98-107); Potassium 3.8 meq/L (3.5-5.1); Sodium 143 meq/L (136-145)
[2018-07-11] MEDS: Metoprolol Tartrate 25 MG Tablet PO SCH ×3 (02:17→20:41)
[2018-07-11 02:19] LABS: Anion Gap 8 meq/L (5-15); Blood Urea Nitrogen 16 mg/dL (7-18); Calcium 7.7 mg/dL (8.5-10.1); Carbon Dioxide 26.5 meq/L (21.0-32.0); Glucose,Random 150 mg/dL (74-106); Magnesium 1.5 mg/dL (1.5-2.5)
[2018-07-11 02:22] LABS: Glomerular Filtration Rate 76 mL/min (>89)
[2018-07-11 02:23] LABS: Hematocrit 27.1 % (39.0-51.0); Hemoglobin 8.5 gm/dL (13.0-17.0)
[2018-07-11 02:33] LABS: Creatine Kinase 35 U/L (39-308)
[2018-07-11] MEDS ORDERED: Sodium Chlor 0.9% Inj 250 ML IV.SIG SCH (03:31)
[2018-07-11] MEDS: Piperacil/Tazo 4.5 GM Premix 4.5 GM/100 ML BAG IV.SIG SCH ×4 (04:21→21:46)
[2018-07-11] MEDS: Heparin - SQ 10,000 UNITS/ML Vial SQ SCH ×2 (05:45→18:06)
--- NOTE | 2018-07-11 06:28 | XR ---
EXAM DATE: 07/11/2018 6:02 AM EST AGE/SEX: 62 years / Male INDICATIONS: Cardiomyopathy. CLINICAL DATA: This is the patient's subsequent encounter. Patient reports that signs and symptoms h ave been present for 4 - 6 days and indicates a pain score of 0/10. MEDICAL/SURGICAL HISTORY: Hypertension. Diabetes mellitus type II. Sepsis. Peripheral neurop athy. Acute renal failure. . Hernia repair. COMPARISON: . FINDINGS: A single AP view of the chest demonstrates the lungs to be symmetrically aerated without evidence of mass, infiltrate or effusion. The cardiomediastinal contours are unremarkable. Osseous structures a re intact. CONCLUSION: No acute cardiopulmonary process. Electronically signed by: Tanner Sheppard MD Board Certified Radiologist 07/11/2018 6:26 AM EST
[2018-07-11 08:40] LABS: Baso # (Auto) 0.1 th/mm3 (0.0-0.2); Baso % (Auto) 0.4 % (0.0-2.0); Eos # (Auto) 0.2 th/mm3 (0.0-0.4); Eos % (Auto) 1.5 % (0.0-4.0); Hematocrit 30.6 % (39.0-51.0); Hemoglobin 9.4 gm/dL (13.0-17.0); Lymph # (Auto) 2.4 th/mm3 (1.0-4.8); Lymph % (Auto) 15.7 % (9.0-44.0); Mean Corpuscular Hemoglobin 24.5 pg (27.0-34.0); Mean Corpuscular Volume 79.7 fL (80.0-100.0); Mean Platelet Volume 8.9 fL (7.0-11.0); Mono % (Auto) 6.4 % (0.0-8.0); Neut # (Auto) 11.6 th/mm3 (1.8-7.7); Platelet Count 543 th/mm3 (150-450); Red Blood Count 3.84 mil/mm3 (4.50-5.90); Red Cell Distribution Width 15.9 % (11.6-17.2); White Blood Count 15.3 th/mm3 (4.0-11.0)
[2018-07-11] MEDS: Insulin NovoLOG Aspart Correctional Sugar Inj SQ SCH ×4 (08:42→20:42)
[2018-07-11] MEDS: Insulin Detemir Inj 1,000 UNIT/10 ML Vial SQ SCH ×3 (08:42→20:41)
[2018-07-11] MEDS: Gabapentin 400 MG Capsule PO SCH ×4 (08:43→20:41)
[2018-07-11] MEDS: Folic Acid 1 MG Tablet PO SCH (08:43)
[2018-07-11] MEDS: Lisinopril 10 MG Tablet PO SCH (08:43)
[2018-07-11 08:50] LABS: Potassium 3.6 meq/L (3.5-5.1)
[2018-07-11 08:53] LABS: Calcium 7.8 mg/dL (8.5-10.1); Carbon Dioxide 25.9 meq/L (21.0-32.0)
[2018-07-11 08:55] LABS: Mean Corpuscular HGB Conc 30.7 % (32.0-36.0)
--- NOTE | 2018-07-11 11:37 | ECG ---
Date Performed: 07/11/2018 Time Performed: 00:35:16 PTAGE: 62 years EKG: SINUS TACHYCARDIA BORDERLINE RIGHT AXIS DEVIATION LOW QRS VOLTAGE IN PRECORDIAL LEADS PATTE RN CONSISTENT WITH PULMONARY DISEASE ABNORMAL ECG Compared to PREVIOUS TRACING no significant change PREVIOUS TRACIN07/08/2018 02.34 DOCTOR: Stefan Aldana Interpretating Date/Time 07/11/2018 11:36:53
--- NOTE | 2018-07-11 12:06 | P.PNIM ---
Subjective Interval history: The patient said that he did not feel his heart racing earlier. He says overall his leg feels better. He would like his Neurontin dose increased in frequency. Otherwise he has no acute complaints. Discussed with nursing. Physical Exam Vital signs: Vital Signs 07/10/18 12:00 07/10/18 16:00 07/10/18 20:00 Temperature 97.2 F L 100.0 F H 99.7 F H Pulse Rate 99 H 97 H 118 H Respiratory Rate 21 20 18 Blood Pressure 146/74 H 160/72 H 152/90 H Pulse Oximetry 96 96 98 07/10/18 21:45 07/10/18 21:51 07/10/18 22:00 Temperature 100.2 F H Pulse Rate 147 H 146 H 141 H Respiratory Rate 18 Blood Pressure 138/84 Pulse Oximetry 07/10/18 23:00 07/10/18 23:28 07/11/18 00:00 Temperature 100.1 F H Pulse Rate 141 H 74 123 H Respiratory Rate 20 Blood Pressure 104/79 Pulse Oximetry 95 07/11/18 01:00 07/11/18 01:05 07/11/18 02:02 Temperature Pulse Rate 139 H 141 H Respiratory Rate 20 Blood Pressure Pulse Oximetry 07/11/18 02:32 07/11/18 04:00 07/11/18 08:00 Temperature 99.6 F Pulse Rate 66 82 Respiratory Rate 16 23 Blood Pressure 107/69 Pulse Oximetry 93 L 07/11/18 08:19 07/11/18 09:01 Temperature 98.3 F Pulse Rate 86 90 Respiratory Rate 20 14 Blood Pressure 136/72 165/84 H Pulse Oximetry 96 Intake & Output 07/10/18 07/11/18 07/11/18 18:59 06:59 18:59 Intake Total 817.5 / 817.5 940 / 940 Output Total 1785 / 1785 Balance 817.5 / 817.5 -845 / -845 Weight 146.7 kg Intake: IV 817.5 / 817.5 700 / 700 Levaquin 500 mg Premix Inj 500 100 / 100 mg In 100 ml @ 100 mls/hr IV. SIG Q24H [facility] Rx#:[id number] Zosyn 4.5 GM Premix 4.5 gm In 200 / 200 200 / 200 100 ml @ 200 mls/hr IV.SIG Q6H [facility] Rx#:[id number] Vancomycin Inj 1,750 MG In NS 517.5 / 517.5 500 / 500 Inj 500 ML @ 250 mls/hr IV.SIG Q12H [facility] Rx#:[id number] Oral 240 / 240 Output: Urine 1785 / 1785 Other: # Incontinent Voids 2 Date of Last Bowel Movement 07/10/18 07/11/18 07/11/18 # Bowel Movements 1 Narrative: GENERAL: Well-nourished, well-developed patient. SKIN: Warm and dry. HEAD: Normocephalic. EYES: No scleral icterus. No injection or drainage. NECK: Supple, trachea midline. No JVD or lymphadenopathy. CARDIOVASCULAR: Regular rate and rhythm without murmurs, gallops, or rubs. RESPIRATORY: Breath sounds equal bilaterally. No accessory muscle use. GASTROINTESTINAL: Abdomen soft, non-tender, nondistended. EXTREMITIES: Left leg erythematous red up to the knee with dark colored bullous lesions and weeping edema. NEUROLOGICAL: Awake, alert, and oriented x 3. Non-focal. Results - Labs CBC & Chem 7: 07/11/18 08:15 07/11/18 08:15 Laboratory Results - last 24 hr 07/10/18 07/10/18 07/10/18 12:17 16:24 20:09 CBC w Diff WBC RBC Hgb Hct MCV MCH MCHC RDW Plt Count MPV Neut % (Auto) Lymph % (Auto) [place] % (Auto) Eos % (Auto) Baso % (Auto) Neut # (Auto) Lymph # (Auto) [place] # (Auto) Eos # (Auto) Baso # (Auto) WBC Differential Differential Comment Sodium Potassium Chloride Carbon Dioxide Anion Gap BUN Creatinine Estimated GFR POC Glucose 191 H 184 H 200 H Random Glucose Calcium Magnesium Total Creatine Kinase Troponin I Vancomycin Trough 07/11/18 07/11/18 07/11/18 01:45 01:45 02:10 CBC w Diff WBC RBC Hgb 8.5 L Hct 27.1 L MCV MCH MCHC RDW Plt Count MPV Neut % (Auto) Lymph % (Auto) [place] % (Auto) Eos % (Auto) Baso % (Auto) Neut # (Auto) Lymph # (Auto) [place] # (Auto) Eos # (Auto) Baso # (Auto) WBC Differential Differential Comment Sodium 143 Potassium 3.8 Chloride 109 H Carbon Dioxide 26.5 Anion Gap 8 BUN 16 Creatinine 1.00 Estimated GFR 76 L POC Glucose Random Glucose 150 H Calcium 7.7 L Magnesium 1.5 Total Creatine Kinase 35 L Troponin I Less than 0.02 L Vancomycin Trough 17.2 H 07/11/18 07/11/18 07/11/18 07:22 08:15 08:15 CBC w Diff Auto diff final WBC 15.3 H RBC 3.84 L Hgb 9.4 L Hct 30.6 L MCV 79.7 L MCH 24.5 L MCHC 30.7 L RDW 15.9 Plt Count 543 H MPV 8.9 Neut % (Auto) 76.0 H Lymph % (Auto) 15.7 [place] % (Auto) 6.4 Eos % (Auto) 1.5 Baso % (Auto) 0.4 Neut # (Auto) 11.6 H Lymph # (Auto) 2.4 [place] # (Auto) 1.0 H Eos # (Auto) 0.2 Baso # (Auto) 0.1 WBC Differential . Differential Comment . Sodium 144 Potassium 3.6 Chloride 108 H Carbon Dioxide 25.9 Anion Gap 10 BUN 13 Creatinine 1.00 Estimated GFR 76 L POC Glucose 154 H Random Glucose 145 H Calcium 7.8 L Magnesium Total Creatine Kinase Troponin I Vancomycin Trough 07/11/18 11:13 CBC w Diff WBC RBC Hgb Hct MCV MCH MCHC RDW Plt Count MPV Neut % (Auto) Lymph % (Auto) [place] % (Auto) Eos % (Auto) Baso % (Auto) Neut # (Auto) Lymph # (Auto) [place] # (Auto) Eos # (Auto) Baso # (Auto) WBC Differential Differential Comment Sodium Potassium Chloride Carbon Dioxide Anion Gap BUN Creatinine Estimated GFR POC Glucose 203 H Random Glucose Calcium Magnesium Total Creatine Kinase Troponin I Vancomycin Trough Microbiology 07/10/18 13:40 Blood - Peripheral Aerobic Blood Culture - Preliminary No growth in 1 day 07/10/18 13:40 Blood - Peripheral Anaerobic Blood Culture - Preliminary No growth in 1 day 07/10/18 13:50 Blood - Peripheral Aerobic Blood Culture - Preliminary No growth in 1 day 07/10/18 13:50 Blood - Peripheral Anaerobic Blood Culture - Preliminary No growth in 1 day 07/06/18 14:10 Blood - Peripheral Aerobic Blood Culture - Final Corynebacterium not JK 07/06/18 14:10 Blood - Peripheral Anaerobic Blood Culture - Final No growth in 5 days 07/06/18 14:20 Blood - Peripheral Aerobic Blood Culture - Final Corynebacterium not K 07/06/18 14:20 Blood - Peripheral Anaerobic Blood Culture - Final Corynebacterium not JK 07/07/18 09:00 Wound - Leg Gram Stain - Final 07/07/18 09:00 Wound - Leg Wound Culture - Final Pseudomonas aeruginosa Klebsiella pneumoniae Enterococcus faecalis - Imaging Impressions Chest X-Ray 07/11/18 00:00 CONCLUSION: No acute cardiopulmonary process. Assessment and Plan - Assessment (1) Severe sepsis Code(s): A41.9 - Sepsis, unspecified organism; R65.20 - Severe sepsis without septic shock Status: Acute (2) Acute renal failure Code(s): N17.9 - Acute kidney failure, unspecified Status: Acute (3) Cellulitis of left lower extremity Code(s): L03.116 - Cellulitis of left lower limb Status: Acute (4) Hyponatremia Code(s): E87.1 - Hypo-osmolality and hyponatremia Status: Acute (5) Metabolic acidosis Code(s): E87.2 - Acidosis Status: Acute (6) Leukocytosis Code(s): D72.829 - Elevated white blood cell count, unspecified Status: Acute (7) Febrile illness Code(s): R50.9 - Fever, unspecified Status: Acute (8) Supraventricular tachycardia Code(s): I47.1 - Supraventricular tachycardia Status: Acute - Plan Left lower leg cellulitis/Severe sepsis Complicated with sepsis, diabetes, peripheral vascular disease, peripheral neuropathy. Ultrasound of the lower extremity was done which did not indicate any DVTs. Wound care nurse, ID and podiatry consultations appreciated. MRI of the ankle and foot negative for osteomyelitis. S/p IVFs. Wound culture with pseudomonas, gram-negative rods and Enterococcus faecalis. Blood cultures growing corynebacterium. Pt complained of increased pain in the leg 07/10, but it was relieved with undoing of the dressings. -continue IV vancomycin, Levaquin and Zosyn per ID. -pain control with a bowel regimen. -follow culture data. -follow up with podiatry. SVT Resolved with two doses of adenosine. Went into sinus tachycardia on 07/11 which has resolved. -telemetry. Acute renal failure with metabolic acidosis, anion gap 20 Likely prerenal, however patient does have multiple medications that are nephrotoxic. Nephrology consult appreciated. -We will hold nephrotoxic medications at this time -S/p IV fluids. -Continue to monitor BMP. -Renal bladder ultrasound was performed which did not indicate any acute abnormality. -nephrology signed off. Elevated d-dimer -Lower extremity ultrasounds performed without any signs of DVT. -VQ scan was performed which was low probability for pulmonary emboli. Diabetes -Accu-Cheks with sliding scale insulin -Diabetic diet -Levemir increased to 15 units BID. Adjust as needed. Hypertension -resume lisinopril at 10 mg daily (normally on 20). -amlodipine 5 mg daily added. -Clonidine as needed for blood pressure control DVT prevention -Subcutaneous heparin
[2018-07-11] MEDS: amLODIPine 5 MG Tablet PO SCH (14:26)
--- NOTE | 2018-07-11 16:19 | P.PNPOD ---
Subjective Interval history: Patient seen at bedside this am. Nursing staff present. Physical Exam Vital signs: Vital Signs 07/10/18 20:00 07/10/18 21:45 07/10/18 21:51 Temperature 99.7 F H 100.2 F H Pulse Rate 118 H 147 H 146 H Respiratory Rate 18 18 Blood Pressure 152/90 H 138/84 Pulse Oximetry 98 07/10/18 22:00 07/10/18 23:00 07/10/18 23:28 Temperature Pulse Rate 141 H 141 H 74 Respiratory Rate Blood Pressure Pulse Oximetry 07/11/18 00:00 07/11/18 01:00 07/11/18 01:05 Temperature 100.1 F H Pulse Rate 123 H 139 H 141 H Respiratory Rate 20 Blood Pressure 104/79 Pulse Oximetry 95 07/11/18 02:02 07/11/18 02:32 07/11/18 04:00 Temperature 99.6 F Pulse Rate 66 Respiratory Rate 20 16 23 Blood Pressure 107/69 Pulse Oximetry 93 L 07/11/18 08:00 07/11/18 08:19 07/11/18 09:01 Temperature 98.3 F Pulse Rate 82 86 90 Respiratory Rate 20 14 Blood Pressure 136/72 165/84 H Pulse Oximetry 96 07/11/18 14:34 Temperature Pulse Rate Respiratory Rate 19 Blood Pressure Pulse Oximetry Intake & Output 07/10/18 07/11/18 07/11/18 18:59 06:59 18:59 Intake Total 817.5 / 817.5 957.5 / 957.5 100 / 100 Output Total 1785 / 1785 Balance 817.5 / 817.5 -827.5 / -827.5 100 / 100 Weight 146.7 kg Intake: IV 817.5 / 817.5 717.5 / 717.5 100 / 100 Levaquin 500 mg Premix Inj 500 100 / 100 mg In 100 ml @ 100 mls/hr IV. SIG Q24H [facility] Rx#:[id number] Zosyn 4.5 GM Premix 4.5 gm In 200 / 200 200 / 200 100 / 100 100 ml @ 200 mls/hr IV.SIG Q6H [facility] Rx#:[id number] Vancomycin Inj 1,750 MG In NS 517.5 / 517.5 517.5 / 517.5 Inj 500 ML @ 250 mls/hr IV.SIG Q12H [facility] Rx#:[id number] Oral 240 / 240 Output: Urine 1785 / 1785 Other: # Incontinent Voids 2 Date of Last Bowel Movement 07/10/18 07/11/18 07/11/18 # Bowel Movements 1 Narrative: LLE continued edema, erythema, + bulla eccymotic and puritic. warm no palpable cords. Medications and Allergies Active Medications: Active Medications Acetaminophen (Tylenol) 650 mg PO Q4H PRN PRN Reason: Temp > 100.4 Last Admin: 07/06/18 20:24 Dose: 650 mg Hydrocodone Bitart/Acetaminophen (Bracey 10/325) 1 tab PO Q6H PRN PRN Reason: PAIN SCALE 6 TO 10 Last Admin: 07/11/18 14:34 Dose: 1 tab Hydrocodone Bitart/Acetaminophen (Bracey 5/325) 1 tab PO Q6H PRN PRN Reason: PAIN SCALE 1 TO 5 Al Hydroxide/Mg Hydroxide (Milk Of Magnesia Liq) 30 ml PO Q12H PRN PRN Reason: Mild Constipation Albuterol (Duoneb Neb (Prn)) 1 ampul NEB Q2HR NEB PRN PRN Reason: WHEEZING Last Admin: 07/07/18 10:39 Dose: 1 ampul Amlodipine Besylate (Norvasc) 5 mg PO DAILY [facility] Last Admin: 07/11/18 14:26 Dose: 5 mg Bisacodyl (Dulcolax Supp) 10 mg RECTAL DAILY PRN PRN Reason: SEVERE CONSITIPATION Clonidine HCl (Catapres) 0.1 mg PO Q6H PRN PRN Reason: SBP>160, DBP>90 Last Admin: 07/10/18 20:05 Dose: 0.1 mg Dextrose (D50w Vial) 50 ml IV.PUSH UNSCH PRN PRN Reason: PER HYPOGLYCEMIA PROTOCOL Folic Acid (Folic Acid) 1 mg PO DAILY [facility] Last Admin: 07/11/18 08:43 Dose: 1 mg Gabapentin (Neurontin) 800 mg PO QID [facility] Last Admin: 07/11/18 14:24 Dose: 800 mg Glucagon (Glucagon Inj) 1 mg OTHER PRN PRN PRN Reason: for Hypoglycemia Protocol Heparin Sodium (Porcine) (Heparin Inj) 5,000 units SQ Q12H [facility] Last Admin: 07/11/18 05:45 Dose: 5,000 units Vancomycin HCl 1,750 mg/ (Sodium Chloride) 517.5 mls @ 250 mls/hr IV.SIG Q12H [facility] Last Admin: 07/11/18 14:23 Dose: 250 mls/hr Levofloxacin/Dextrose (Levaquin 500 Mg Premix Inj) 500 mg in 100 mls @ 100 mls/ hr IV.SIG Q24H [facility] Last Infusion: 07/10/18 17:36 Dose: Infused Piperacillin/Tazobactam/Dextrose (Zosyn 4.5 Gm Premix) 4.5 gm in 100 mls @ 200 mls/hr IV.SIG Q6H [facility] Last Infusion: 07/11/18 11:35 Dose: Infused Sodium Chloride (Ns Inj) 1,000 mls @ 100 mls/hr IV.CONT .Q10H [facility] Insulin Aspart (Novolog Insulin Correctional Sugar Inj) 0 unit SQ ACHS [facility]; Protocol Last Admin: 07/11/18 14:24 Dose: 4 unit Insulin Detemir (Levemir Inj) 15 unit SQ BID [facility] Last Admin: 07/11/18 14:25 Dose: 15 unit Lactulose (Lactulose Liq) 30 ml PO DAILY PRN PRN Reason: SEVERE CONSITIPATION Lisinopril (Prinivil) 10 mg PO DAILY [facility] Last Admin: 07/11/18 08:43 Dose: 10 mg Metoprolol Tartrate (Lopressor) 25 mg PO BID [facility] Last Admin: 07/11/18 08:42 Dose: 25 mg Naloxone HCl (Narcan Inj) 0.4 mg IV.PUSH UNSCH PRN PRN Reason: SEE LABEL COMMENTS Ondansetron HCl (Zofran Inj) 4 mg IV.PUSH Q6H PRN PRN Reason: NAUSEA OR VOMITING Pharmacy Profile Note (Vancomycin Consult Pharmacy) 1 each OTHER UNSCH PRN PRN Reason: Pharmacy to dose Sennosides (Senokot) 17.2 mg PO Q12H PRN PRN Reason: Moderate Constipation Sodium Chloride (Ns Flush) 2 ml IV.FLUSH BID [facility] Last Admin: 07/11/18 08:43 Dose: 2 ml Sodium Chloride (Ns Flush) 2 ml IV.FLUSH PRN PRN PRN Reason: FLUSH AFTER USING IV ACCESS Last Admin: 07/10/18 00:46 Dose: 2 ml Allergies Allergy/AdvReac Type Severity Reaction Status Date / Time erythromycin base Allergy Unknown UNKNOWN Verified 07/06/18 03:23 REACTION oxytetracycline Allergy Unknown UNKNOWN Verified 07/06/18 03:23 REACTION Home Medications Medication Instructions Recorded Confirmed Type dapagliflozin [Farxiga] 10 mg PO QAM 07/05/18 07/05/18 History diclofenac sodium 100 mg PO DAILY 07/05/18 07/05/18 History folic acid 0.8 mg PO DAILY 07/05/18 07/05/18 History furosemide 40 mg PO DAILY 07/05/18 07/05/18 History gabapentin 800 mg PO TID 07/05/18 07/05/18 History glimepiride 4 mg PO QAM 07/05/18 07/05/18 History lisinopril 20 mg PO DAILY 07/05/18 07/05/18 History metformin 1,000 mg PO BID 07/05/18 07/05/18 History [id number] 1 tab PO DAILY 07/05/18 07/05/18 History [Airborne (ascorbate sodium)] omega [id number] oil [Fish Oil] 1,000 mg PO DAILY 07/05/18 07/05/18 History solifenacin [Vesicare] 5 mg PO DAILY 07/05/18 07/05/18 History Results - Labs CBC & Chem 7: 07/11/18 08:15 07/11/18 08:15 Laboratory Results - last 24 hr 07/10/18 07/10/18 07/11/18 16:24 20:09 01:45 CBC w Diff WBC RBC Hgb Hct MCV MCH MCHC RDW Plt Count MPV Neut % (Auto) Lymph % (Auto) [place] % (Auto) Eos % (Auto) Baso % (Auto) Neut # (Auto) Lymph # (Auto) [place] # (Auto) Eos # (Auto) Baso # (Auto) WBC Differential Differential Comment Sodium Potassium Chloride Carbon Dioxide Anion Gap BUN Creatinine Estimated GFR POC Glucose 184 H 200 H Random Glucose Calcium Magnesium Total Creatine Kinase Troponin I Vancomycin Trough 17.2 H 07/11/18 07/11/18 07/11/18 01:45 02:10 07:22 CBC w Diff WBC RBC Hgb 8.5 L Hct 27.1 L MCV MCH MCHC RDW Plt Count MPV Neut % (Auto) Lymph % (Auto) [place] % (Auto) Eos % (Auto) Baso % (Auto) Neut # (Auto) Lymph # (Auto) [place] # (Auto) Eos # (Auto) Baso # (Auto) WBC Differential Differential Comment Sodium 143 Potassium 3.8 Chloride 109 H Carbon Dioxide 26.5 Anion Gap 8 BUN 16 Creatinine 1.00 Estimated GFR 76 L POC Glucose 154 H Random Glucose 150 H Calcium 7.7 L Magnesium 1.5 Total Creatine Kinase 35 L Troponin I Less than 0.02 L Vancomycin Trough 07/11/18 07/11/18 07/11/18 08:15 08:15 11:13 CBC w Diff Auto diff final WBC 15.3 H RBC 3.84 L Hgb 9.4 L Hct 30.6 L MCV 79.7 L MCH 24.5 L MCHC 30.7 L RDW 15.9 Plt Count 543 H MPV 8.9 Neut % (Auto) 76.0 H Lymph % (Auto) 15.7 [place] % (Auto) 6.4 Eos % (Auto) 1.5 Baso % (Auto) 0.4 Neut # (Auto) 11.6 H Lymph # (Auto) 2.4 [place] # (Auto) 1.0 H Eos # (Auto) 0.2 Baso # (Auto) 0.1 WBC Differential . Differential Comment . Sodium 144 Potassium 3.6 Chloride 108 H Carbon Dioxide 25.9 Anion Gap 10 BUN 13 Creatinine 1.00 Estimated GFR 76 L POC Glucose 203 H Random Glucose 145 H Calcium 7.8 L Magnesium Total Creatine Kinase Troponin I Vancomycin Trough Microbiology 07/10/18 13:40 Blood - Peripheral Aerobic Blood Culture - Preliminary No growth in 1 day 07/10/18 13:40 Blood - Peripheral Anaerobic Blood Culture - Preliminary No growth in 1 day 07/10/18 13:50 Blood - Peripheral Aerobic Blood Culture - Preliminary No growth in 1 day 07/10/18 13:50 Blood - Peripheral Anaerobic Blood Culture - Preliminary No growth in 1 day 07/06/18 14:10 Blood - Peripheral Aerobic Blood Culture - Final Corynebacterium not 07/06/18 14:10 Blood - Peripheral Anaerobic Blood Culture - Final No growth in 5 days 07/06/18 14:20 Blood - Peripheral Aerobic Blood Culture - Final Corynebacterium not 07/06/18 14:20 Blood - Peripheral Anaerobic Blood Culture - Final Corynebacterium not JK 07/07/18 09:00 Wound - Leg Gram Stain - Final 07/07/18 09:00 Wound - Leg Wound Culture - Final Pseudomonas aeruginosa Klebsiella pneumoniae Enterococcus faecalis - Imaging Impressions Chest X-Ray 07/11/18 00:00 CONCLUSION: No acute cardiopulmonary process. Assessment and Plan - Assessment (1) Cellulitis of left lower extremity Code(s): L03.116 - Cellulitis of left lower limb Status: Acute (2) Diabetes Code(s): E11.9 - Type 2 diabetes mellitus without complications Status: Acute (3) Leukocytosis Code(s): D72.829 - Elevated white blood cell count, unspecified Status: Acute (4) Severe sepsis Code(s): A41.9 - Sepsis, unspecified organism; R65.20 - Severe sepsis without septic shock Status: Acute - Plan Continue abx per ID Wound care with Elyse vrea and ramakrishna, change daily. RX placed and discussed with nurse MRI negative Negative for DVT. Will continue to follow. (2) Diabetes Qualifiers: Diabetes mellitus type: type 2 Diabetes mellitus complication status: with neurologic complications Diabetes mellitus complication detail: with polyneuropathy
[2018-07-11] MEDS: Levofloxacin 500 mg Premix Inj 500 MG/100 ML PIGGYBACK IV.SIG SCH (16:30)
[2018-07-11] MEDS: Sod Chloride 0.9% Inj 1,000 ML IV.CONT SCH (16:32)
[2018-07-12] MEDS: Vancomycin Inj 1,750 MG in Sodium Chlor 0.9% Inj 500 ML IV.SIG SCH ×2 (01:47→13:24)
[2018-07-12] MEDS: Sod Chloride 0.9% Inj 1,000 ML IV.CONT SCH ×2 (02:17→16:23)
[2018-07-12] MEDS: Piperacil/Tazo 4.5 GM Premix 4.5 GM/100 ML BAG IV.SIG SCH ×3 (03:35→19:49)
[2018-07-12] MEDS: Heparin - SQ 10,000 UNITS/ML Vial SQ SCH ×2 (05:30→19:48)
[2018-07-12 06:33] LABS: Eos # (Auto) 0.2 th/mm3 (0.0-0.4); Eos % (Auto) 1.7 % (0.0-4.0); Hematocrit 27.9 % (39.0-51.0); Hemoglobin 8.9 gm/dL (13.0-17.0); Lymph % (Auto) 15.7 % (9.0-44.0); Mean Corpuscular Hemoglobin 25.6 pg (27.0-34.0); Mean Corpuscular Volume 79.8 fL (80.0-100.0); Mean Platelet Volume 8.9 fL (7.0-11.0); Mono # (Auto) 0.7 th/mm3 (0.0-0.9); Mono % (Auto) 5.7 % (0.0-8.0); Neut % (Auto) 76.9 % (16.0-70.0); Platelet Count 502 th/mm3 (150-450); Red Cell Distribution Width 16.1 % (11.6-17.2); White Blood Count 12.9 th/mm3 (4.0-11.0)
[2018-07-12 06:41] LABS: Potassium 3.8 meq/L (3.5-5.1)
[2018-07-12 06:44] LABS: Calcium 7.7 mg/dL (8.5-10.1)
[2018-07-12 06:45] LABS: Albumin 1.6 g/dL (3.4-5.0); Carbon Dioxide 26.6 meq/L (21.0-32.0)
[2018-07-12 06:50] LABS: Total Protein 6.1 g/dL (6.4-8.2)
--- NOTE | 2018-07-12 08:20 | P.PNID ---
Subjective Remarks: ID FU DR THACKER NO FEVER OR CHILLS WBC 20 TODAY LEG PAIN BETTER Antibiotics: IV Vancomycin, Meropenem and Levofloxacin Lines: Peripheral Past Medical History: Diabetes Allergies/Adverse Reactions: Allergies erythromycin base Allergy (Unknown, Verified 07/06/18 03:23) UNKNOWN REACTION oxytetracycline Allergy (Unknown, Verified 07/06/18 03:23) UNKNOWN REACTION Objective Vital Signs 07/11/18 09:01 07/11/18 12:00 07/11/18 14:34 Temperature Pulse Rate 90 76 Respiratory Rate 14 19 19 Blood Pressure 165/84 H 148/72 H Pulse Oximetry 07/11/18 16:00 07/11/18 17:27 07/11/18 17:30 Temperature Pulse Rate 138 H 138 H Respiratory Rate 20 19 Blood Pressure 141/84 H 138/94 H Pulse Oximetry 07/11/18 18:00 07/11/18 20:00 07/11/18 23:38 Temperature 99.1 F Pulse Rate 126 H 140 H Respiratory Rate 22 35 H Blood Pressure 141/84 H 138/94 H Pulse Oximetry 94 L 07/12/18 00:00 07/12/18 04:00 Temperature 98.9 F 98.8 F Pulse Rate 133 H 133 H Respiratory Rate 22 22 Blood Pressure 152/106 H 119/83 Pulse Oximetry 98 95 Intake & Output 07/11/18 07/12/18 07/12/18 18:59 06:59 18:59 Intake Total 1677.5 / 1677.5 2600 / 2600 Output Total 1100 / 1100 2800 / 2800 Balance 577.5 / 577.5 -200 / -200 Weight 144.6 kg Intake: IV 717.5 / 717.5 1400 / 1400 NS Inj 1,000 ML @ 100 mls/hr IV 100 / 100 .CONT .Q10H [facility] Rx#:[id number] Levaquin 500 mg Premix Inj 500 100 / 100 mg In 100 ml @ 100 mls/hr IV. SIG Q24H [facility] Rx#:[id number] Zosyn 4.5 GM Premix 4.5 gm In 100 / 100 300 / 300 100 ml @ 200 mls/hr IV.SIG Q6H [facility] Rx#:[id number] Vancomycin Inj 1,750 MG In NS 517.5 / 517.5 1000 / 1000 Inj 500 ML @ 250 mls/hr IV.SIG Q12H [facility] Rx#:[id number] Oral 960 / 960 1200 / 1200 Output: Urine 1100 / 1100 2800 / 2800 Other: # Incontinent Voids 2 2 Date of Last Bowel Movement 07/11/18 # Incontinent Bowel Movements 0 07/10/18 13:40 Blood - Peripheral Aerobic Blood Culture - Preliminary No growth in 1 day 07/10/18 13:40 Blood - Peripheral Anaerobic Blood Culture - Preliminary No growth in 1 day 07/10/18 13:50 Blood - Peripheral Aerobic Blood Culture - Preliminary No growth in 1 day 07/10/18 13:50 Blood - Peripheral Anaerobic Blood Culture - Preliminary No growth in 1 day 07/06/18 14:10 Blood - Peripheral Aerobic Blood Culture - Final Corynebacterium not 07/06/18 14:10 Blood - Peripheral Anaerobic Blood Culture - Final No growth in 5 days 07/06/18 14:20 Blood - Peripheral Aerobic Blood Culture - Final Corynebacterium not 07/06/18 14:20 Blood - Peripheral Anaerobic Blood Culture - Final Corynebacterium not 07/07/18 09:00 Wound - Leg Gram Stain - Final 07/07/18 09:00 Wound - Leg Wound Culture - Final Pseudomonas aeruginosa Klebsiella pneumoniae Enterococcus faecalis Lab - Hematology Results 07/10/18 07/11/18 07/11/18 05:20 02:10 08:15 CBC w Diff Slide review pending Auto diff final WBC 19.5 H 15.3 H RBC 3.24 L 3.84 L Hgb 8.1 L 8.5 L 9.4 L Hct 25.7 L 27.1 L 30.6 L MCV 79.4 L 79.7 L MCH 24.9 L 24.5 L MCHC 31.4 L 30.7 L RDW 16.8 15.9 Plt Count 507 H 543 H MPV 10.0 8.9 Neut % (Auto) 78.4 H 76.0 H Lymph % (Auto) 9.0 15.7 [place] % (Auto) 9.2 H 6.4 Eos % (Auto) 2.0 1.5 Baso % (Auto) 1.4 0.4 Neut # (Auto) 15.2 H 11.6 H Lymph # (Auto) 1.8 2.4 [place] # (Auto) 1.8 H 1.0 H Eos # (Auto) 0.4 0.2 Baso # (Auto) 0.3 H 0.1 WBC Differential . . Diff Scan Auto diff confirmed Differential Comment . . 07/12/18 05:55 CBC w Diff Auto diff final WBC 12.9 H RBC 3.50 L Hgb 8.9 L Hct 27.9 L MCV 79.8 L MCH 25.6 L MCHC 32.0 RDW 16.1 Plt Count 502 H MPV 8.9 Neut % (Auto) 76.9 H Lymph % (Auto) 15.7 [place] % (Auto) 5.7 Eos % (Auto) 1.7 Baso % (Auto) 0.0 Neut # (Auto) 10.0 H Lymph # (Auto) 2.0 [place] # (Auto) 0.7 Eos # (Auto) 0.2 Baso # (Auto) 0.0 WBC Differential . Diff Scan Differential Comment . Lab - Chemistry Results 07/10/18 07/10/18 07/10/18 12:17 16:24 20:09 Sodium Potassium Chloride Carbon Dioxide Anion Gap BUN Creatinine Estimated GFR POC Glucose 191 H 184 H 200 H Random Glucose Calcium Magnesium Total Bilirubin Direct Bilirubin Indirect Bilirubin AST ALT Alkaline Phosphatase Total Creatine Kinase Troponin I Total Protein Albumin 07/11/18 07/11/18 07/11/18 01:45 07:22 08:15 Sodium 143 144 Potassium 3.8 3.6 Chloride 109 H 108 H Carbon Dioxide 26.5 25.9 Anion Gap 8 10 BUN 16 13 Creatinine 1.00 1.00 Estimated GFR 76 L 76 L POC Glucose 154 H Random Glucose 150 H 145 H Calcium 7.7 L 7.8 L Magnesium 1.5 Total Bilirubin Direct Bilirubin Indirect Bilirubin AST ALT Alkaline Phosphatase Total Creatine Kinase 35 L Troponin I Less than 0.02 L Total Protein Albumin 07/11/18 07/11/18 07/11/18 11:13 18:01 20:35 Sodium Potassium Chloride Carbon Dioxide Anion Gap BUN Creatinine Estimated GFR POC Glucose 203 H 179 H 182 H Random Glucose Calcium Magnesium Total Bilirubin Direct Bilirubin Indirect Bilirubin AST ALT Alkaline Phosphatase Total Creatine Kinase Troponin I Total Protein Albumin 07/12/18 05:55 Sodium 144 Potassium 3.8 Chloride 110 H Carbon Dioxide 26.6 Anion Gap 7 BUN 12 Creatinine 0.92 Estimated GFR 84 L POC Glucose Random Glucose 92 Calcium 7.7 L Magnesium Total Bilirubin 0.4 Direct Bilirubin 0.2 Indirect Bilirubin 0.2 AST 27 ALT 35 Alkaline Phosphatase 101 Total Creatine Kinase Troponin I Total Protein 6.1 L Albumin 1.6 L Imaging: ITS Impressions Venous Doppler Study 07/05/18 21:32 CONCLUSION: No venous thrombosis is identified within either lower extremity. Abdomen/Bladder Ultrasound 07/06/18 00:00 CONCLUSION: 1. Renal cyst on the right 2. No suspicious mass or hydronephrosis. Pulmonary Perfusion Imaging 07/06/18 23:40 CONCLUSION: 1. Low probability for pulmonary embolism. Ankle MRI 07/07/18 00:00 CONCLUSION: 1. Severe and diffuse subcutaneous edema without abscess or osteomyelitis. 2. Mild navicular/cuneiform osteoarthritis. 3. Type II accessory navicular and slight tendinopathy of tibialis posterior tendon. 4. Very mild proximal plantar fasciitis. No tear. 5. Very mild Achilles tendinosis without tear. Foot MRI 07/07/18 07:11 CONCLUSION: Dorsal predominant subcutaneous swelling and edema of the left foot without abscess or evidence of osteomyelitis. Chest X-Ray 07/11/18 00:00 CONCLUSION: No acute cardiopulmonary process. Physical Exam: Sleepy arouses HEENT: Perrl ns no jvd, No thrush Chest : Clear No wheezes Heart : S1 S2 normal Abdomen: Soft Non tender Bowel sounds present Left leg with large bullous lesions and cellulitis - No spread above knee DP felt Assessment and Plan - Plan 1. Blood cultures- CORNYBACTERIUM NOT JK - REPEAT HOWEVER NEGATIVE SO FAR 2. Reviewed wound cultures 3. Continue IV Vancomycin 4. IV Zosyn at 4.5 g q 6hrs 5. Levofloxacin 500 mg IV daily
[2018-07-12] MEDS: Metoprolol Tartrate 25 MG Tablet PO SCH ×2 (08:34→20:18)
[2018-07-12] MEDS: Lisinopril 10 MG Tablet PO SCH (08:34)
[2018-07-12] MEDS: amLODIPine 5 MG Tablet PO SCH (08:34)
[2018-07-12] MEDS: Folic Acid 1 MG Tablet PO SCH (08:34)
[2018-07-12] MEDS: Insulin Detemir Inj 1,000 UNIT/10 ML Vial SQ SCH ×2 (09:43→20:27)
[2018-07-12] MEDS: Insulin NovoLOG Aspart Correctional Sugar Inj SQ SCH ×4 (09:46→20:28)
[2018-07-12] MEDS: Gabapentin 400 MG Capsule PO SCH ×4 (09:47→20:18)
--- NOTE | 2018-07-12 11:25 | P.PNIM ---
Subjective Interval history: The patient was resting comfortably in bed. He said he had a large bowel movement and needed to have another one. He said his pain was about a 7 out of 10 in severity. No other acute complaints. Discussed with nursing at the bedside. Physical Exam Vital signs: Vital Signs 07/11/18 12:00 07/11/18 14:34 07/11/18 16:00 Temperature Pulse Rate 76 138 H Respiratory Rate 19 19 20 Blood Pressure 148/72 H 141/84 H Pulse Oximetry 07/11/18 17:27 07/11/18 17:30 07/11/18 18:00 Temperature Pulse Rate 138 H 126 H Respiratory Rate 19 22 Blood Pressure 138/94 H 141/84 H Pulse Oximetry 07/11/18 20:00 07/11/18 23:38 07/12/18 00:00 Temperature 99.1 F 98.9 F Pulse Rate 140 H 133 H Respiratory Rate 35 H 22 Blood Pressure 138/94 H 152/106 H Pulse Oximetry 94 L 98 07/12/18 04:00 07/12/18 08:05 Temperature 98.8 F Pulse Rate 133 H 136 H Respiratory Rate 22 18 Blood Pressure 119/83 137/91 H Pulse Oximetry 95 Intake & Output 07/11/18 07/12/18 07/12/18 18:59 06:59 18:59 Intake Total 1677.5 / 1677.5 2600 / 2600 Output Total 1100 / 1100 2800 / 2800 Balance 577.5 / 577.5 -200 / -200 Weight 144.6 kg Intake: IV 717.5 / 717.5 1400 / 1400 NS Inj 1,000 ML @ 100 mls/hr IV 100 / 100 .CONT .Q10H [facility] Rx#:[id number] Levaquin 500 mg Premix Inj 500 100 / 100 mg In 100 ml @ 100 mls/hr IV. SIG Q24H [facility] Rx#:[id number] Zosyn 4.5 GM Premix 4.5 gm In 100 / 100 300 / 300 100 ml @ 200 mls/hr IV.SIG Q6H [facility] Rx#:[id number] Vancomycin Inj 1,750 MG In NS 517.5 / 517.5 1000 / 1000 Inj 500 ML @ 250 mls/hr IV.SIG Q12H [facility] Rx#:[id number] Oral 960 / 960 1200 / 1200 Output: Urine 1100 / 1100 2800 / 2800 Other: # Incontinent Voids 2 2 Date of Last Bowel Movement 07/11/18 07/11/18 # Incontinent Bowel Movements 0 Narrative: GENERAL: Well-nourished, well-developed patient. SKIN: Warm and dry. HEAD: Normocephalic. EYES: No scleral icterus. No injection or drainage. NECK: Supple, trachea midline. No JVD or lymphadenopathy. CARDIOVASCULAR: Regular rate and rhythm without murmurs, gallops, or rubs. RESPIRATORY: Breath sounds equal bilaterally. No accessory muscle use. GASTROINTESTINAL: Abdomen soft, non-tender, nondistended. EXTREMITIES: Left leg erythematous red up to the knee with dark colored bullous lesions and weeping edema. NEUROLOGICAL: Awake, alert, and oriented x 3. Non-focal. Results - Labs CBC & Chem 7: 07/12/18 05:55 07/12/18 05:55 Laboratory Results - last 24 hr 07/11/18 07/11/18 07/12/18 18:01 20:35 05:55 CBC w Diff Auto diff final WBC 12.9 H RBC 3.50 L Hgb 8.9 L Hct 27.9 L MCV 79.8 L MCH 25.6 L MCHC 32.0 RDW 16.1 Plt Count 502 H MPV 8.9 Neut % (Auto) 76.9 H Lymph % (Auto) 15.7 [place] % (Auto) 5.7 Eos % (Auto) 1.7 Baso % (Auto) 0.0 Neut # (Auto) 10.0 H Lymph # (Auto) 2.0 [place] # (Auto) 0.7 Eos # (Auto) 0.2 Baso # (Auto) 0.0 WBC Differential . Differential Comment . Sodium Potassium Chloride Carbon Dioxide Anion Gap BUN Creatinine Estimated GFR POC Glucose 179 H 182 H Random Glucose Calcium Total Bilirubin Direct Bilirubin Indirect Bilirubin AST ALT Alkaline Phosphatase Total Protein Albumin 07/12/18 05:55 CBC w Diff WBC RBC Hgb Hct MCV MCH MCHC RDW Plt Count MPV Neut % (Auto) Lymph % (Auto) [place] % (Auto) Eos % (Auto) Baso % (Auto) Neut # (Auto) Lymph # (Auto) [place] # (Auto) Eos # (Auto) Baso # (Auto) WBC Differential Differential Comment Sodium 144 Potassium 3.8 Chloride 110 H Carbon Dioxide 26.6 Anion Gap 7 BUN 12 Creatinine 0.92 Estimated GFR 84 L POC Glucose Random Glucose 92 Calcium 7.7 L Total Bilirubin 0.4 Direct Bilirubin 0.2 Indirect Bilirubin 0.2 AST 27 ALT 35 Alkaline Phosphatase 101 Total Protein 6.1 L Albumin 1.6 L Microbiology 07/10/18 13:40 Blood - Peripheral Aerobic Blood Culture - Preliminary No growth in 2 days 07/10/18 13:40 Blood - Peripheral Anaerobic Blood Culture - Preliminary No growth in 2 days 07/10/18 13:50 Blood - Peripheral Aerobic Blood Culture - Preliminary No growth in 2 days 07/10/18 13:50 Blood - Peripheral Anaerobic Blood Culture - Preliminary No growth in 2 days 07/06/18 14:10 Blood - Peripheral Aerobic Blood Culture - Final Corynebacterium not K 07/06/18 14:10 Blood - Peripheral Anaerobic Blood Culture - Final No growth in 5 days 07/06/18 14:20 Blood - Peripheral Aerobic Blood Culture - Final Corynebacterium not K 07/06/18 14:20 Blood - Peripheral Anaerobic Blood Culture - Final Corynebacterium not K 07/07/18 09:00 Wound - Leg Gram Stain - Final 07/07/18 09:00 Wound - Leg Wound Culture - Final Pseudomonas aeruginosa Klebsiella pneumoniae Enterococcus faecalis Assessment and Plan - Assessment (1) Severe sepsis Code(s): A41.9 - Sepsis, unspecified organism; R65.20 - Severe sepsis without septic shock Status: Acute (2) Acute renal failure Code(s): N17.9 - Acute kidney failure, unspecified Status: Acute (3) Cellulitis of left lower extremity Code(s): L03.116 - Cellulitis of left lower limb Status: Acute (4) Hyponatremia Code(s): E87.1 - Hypo-osmolality and hyponatremia Status: Acute (5) Metabolic acidosis Code(s): E87.2 - Acidosis Status: Acute (6) Leukocytosis Code(s): D72.829 - Elevated white blood cell count, unspecified Status: Acute (7) Febrile illness Code(s): R50.9 - Fever, unspecified Status: Acute (8) Supraventricular tachycardia Code(s): I47.1 - Supraventricular tachycardia Status: Acute - Plan Left lower leg cellulitis/Severe sepsis Complicated with sepsis, diabetes, peripheral vascular disease, peripheral neuropathy. Ultrasound of the lower extremity was done which did not indicate any DVTs. Wound care nurse, ID and podiatry consultations appreciated. MRI of the ankle and foot negative for osteomyelitis. S/p IVFs. Wound culture with pseudomonas, gram-negative rods and Enterococcus faecalis. Blood cultures growing corynebacterium. Pt complained of increased pain in the leg 07/10, but it was relieved with undoing of the dressings. -continue IV vancomycin, Levaquin and Zosyn per ID. -pain control with a bowel regimen. -follow culture data. -follow up with podiatry. SVT Resolved with two doses of adenosine. Currently in sinus tachycardia. -IV fluids and pain control. -IV Lopressor if needed. -telemetry. Acute renal failure with metabolic acidosis, anion gap 20 Likely prerenal, however patient does have multiple medications that are nephrotoxic. Nephrology consult appreciated. -We will hold nephrotoxic medications at this time -IV fluids. -Continue to monitor BMP. -Renal bladder ultrasound was performed which did not indicate any acute abnormality. -nephrology signed off. Elevated d-dimer -Lower extremity ultrasounds performed without any signs of DVT. -VQ scan was performed which was low probability for pulmonary emboli. Diabetes -Accu-Cheks with sliding scale insulin -Diabetic diet -Levemir increased to 15 units BID. Adjust as needed. Hypertension -resume lisinopril at 10 mg daily (normally on 20). -amlodipine 5 mg daily added. -Clonidine as needed for blood pressure control DVT prevention -Subcutaneous heparin
[2018-07-12] MEDS: Levofloxacin 500 mg Premix Inj 500 MG/100 ML PIGGYBACK IV.SIG SCH (16:24)
[2018-07-12] MEDS ORDERED: Metoprolol Inj 5 MG/5 ML Vial ONE (19:24)
[2018-07-12] MEDS ORDERED: Metoprolol Inj 5 MG/5 ML Vial IV.PUSH ONE (20:00)
[2018-07-13] MEDS: Vancomycin Inj 1,750 MG in Sodium Chlor 0.9% Inj 500 ML IV.SIG SCH ×2 (01:42→18:49)
[2018-07-13 04:35] LABS: Baso % (Auto) 0.3 % (0.0-2.0); Eos # (Auto) 0.2 th/mm3 (0.0-0.4); Eos % (Auto) 1.6 % (0.0-4.0); Hematocrit 30.1 % (39.0-51.0); Hemoglobin 9.4 gm/dL (13.0-17.0); Lymph # (Auto) 1.9 th/mm3 (1.0-4.8); Lymph % (Auto) 16.7 % (9.0-44.0); Mean Corpuscular HGB Conc 31.1 % (32.0-36.0); Mean Corpuscular Hemoglobin 24.5 pg (27.0-34.0); Mean Corpuscular Volume 78.9 fL (80.0-100.0); Mean Platelet Volume 8.6 fL (7.0-11.0); Mono # (Auto) 0.7 th/mm3 (0.0-0.9); Mono % (Auto) 6.2 % (0.0-8.0); Neut # (Auto) 8.7 th/mm3 (1.8-7.7); Neut % (Auto) 75.2 % (16.0-70.0); Platelet Count 584 th/mm3 (150-450); Red Blood Count 3.82 mil/mm3 (4.50-5.90); Red Cell Distribution Width 15.6 % (11.6-17.2); White Blood Count 11.5 th/mm3 (4.0-11.0)
[2018-07-13] MEDS: Piperacil/Tazo 4.5 GM Premix 4.5 GM/100 ML BAG IV.SIG SCH ×2 (04:46→22:17)
[2018-07-13 05:00] LABS: Ovalocytes 1+; Platelet Estimate Normal (Normal); Platelet Morphology Normal (Normal)
[2018-07-13] MEDS: Heparin - SQ 10,000 UNITS/ML Vial SQ SCH ×2 (06:33→19:22)
[2018-07-13] MEDS: Folic Acid 1 MG Tablet PO SCH (09:43)
[2018-07-13] MEDS: Lisinopril 10 MG Tablet PO SCH (09:43)
[2018-07-13] MEDS: Gabapentin 400 MG Capsule PO SCH ×3 (09:43→19:57)
[2018-07-13] MEDS: Insulin Detemir Inj 1,000 UNIT/10 ML Vial SQ SCH ×2 (09:43→22:07)
[2018-07-13] MEDS: Metoprolol Tartrate 25 MG Tablet PO SCH ×2 (09:43→22:16)
[2018-07-13] MEDS: amLODIPine 5 MG Tablet PO SCH (09:43)
[2018-07-13] MEDS: Insulin NovoLOG Aspart Correctional Sugar Inj SQ SCH ×4 (09:44→22:17)
[2018-07-13] MEDS ORDERED: Piperacil/Tazo 4.5 GM Premix 4.5 GM/100 ML BAG IV.SIG SCH (10:00)
--- NOTE | 2018-07-13 13:05 | P.PNIM ---
Subjective Interval history: The patient was sitting up in a chair. He said his pain was well controlled. He said he has been having some bowel movements in response to the antibiotics. He ambulated well with physical therapy. He had no acute complaints. Discussed with nursing. Physical Exam Vital signs: Vital Signs 07/12/18 13:39 07/12/18 13:59 07/12/18 14:00 Temperature Pulse Rate 144 H 144 H 144 H Respiratory Rate 21 20 20 Blood Pressure 113/92 H 127/64 Pulse Oximetry 07/12/18 15:03 07/12/18 15:58 07/12/18 16:00 Temperature Pulse Rate 138 H 138 H Respiratory Rate 16 18 20 Blood Pressure 99/76 L Pulse Oximetry 94 L 94 L 07/12/18 16:58 07/12/18 17:00 07/12/18 20:00 Temperature 98.8 F Pulse Rate 138 H 138 H 138 H Respiratory Rate 17 16 20 Blood Pressure 117/83 119/79 Pulse Oximetry 96 96 95 07/13/18 00:00 07/13/18 04:00 07/13/18 08:00 Temperature 98.3 F 98.9 F 98.5 F Pulse Rate 133 H 100 H 87 Respiratory Rate 17 15 16 Blood Pressure 128/80 112/81 137/77 Pulse Oximetry 94 L 94 L Intake & Output 07/12/18 07/13/18 07/13/18 18:59 06:59 18:59 Intake Total 2917.5 / 2917.5 957.5 / 957.5 Output Total 1800 / 1800 1000 / 1000 Balance 1117.5 / 1117.5 -42.5 / -42.5 Weight 144.6 kg Intake: IV 1717.5 / 1717.5 717.5 / 717.5 NS Inj 1,000 ML @ 100 mls/hr IV 1000 / 1000 .CONT .Q10H DEBRA Rx#:[id number] Levaquin 500 mg Premix Inj 500 100 / 100 mg In 100 ml @ 100 mls/hr IV. SIG Q24H DEBRA Rx#:[id number] Zosyn 4.5 GM Premix 4.5 gm In 100 / 100 200 / 200 100 ml @ 200 mls/hr IV.SIG Q6H DEBRA Rx#:[id number] Vancomycin Inj 1,750 MG In NS 517.5 / 517.5 517.5 / 517.5 Inj 500 ML @ 250 mls/hr IV.SIG Q12H DEBRA Rx#:[id number] Oral 1200 / 1200 240 / 240 Output: Urine 1800 / 1800 1000 / 1000 Other: Date of Last Bowel Movement 07/12/18 07/13/18 07/13/18 # Bowel Movements 2 2 # Incontinent Bowel Movements 0 Narrative: GENERAL: Well-nourished, well-developed patient. SKIN: Warm and dry. HEAD: Normocephalic. EYES: No scleral icterus. No injection or drainage. NECK: Supple, trachea midline. No JVD or lymphadenopathy. CARDIOVASCULAR: Regular rate and rhythm without murmurs, gallops, or rubs. RESPIRATORY: Breath sounds equal bilaterally. No accessory muscle use. GASTROINTESTINAL: Abdomen soft, non-tender, nondistended. EXTREMITIES: Left leg erythematous red up to the knee with dark colored bullous lesions and weeping edema. Currently bandaged. NEUROLOGICAL: Awake, alert, and oriented x 3. Non-focal. Results - Labs CBC & Chem 7: 07/13/18 04:09 07/12/18 05:55 Laboratory Results - last 24 hr 07/12/18 07/12/18 07/13/18 18:20 20:21 04:09 CBC w Diff Slide review pending WBC 11.5 H RBC 3.82 L Hgb 9.4 L Hct 30.1 L MCV 78.9 L MCH 24.5 L MCHC 31.1 L RDW 15.6 Plt Count 584 H MPV 8.6 Neut % (Auto) 75.2 H Lymph % (Auto) 16.7 [place] % (Auto) 6.2 Eos % (Auto) 1.6 Baso % (Auto) 0.3 Neut # (Auto) 8.7 H Lymph # (Auto) 1.9 [place] # (Auto) 0.7 Eos # (Auto) 0.2 Baso # (Auto) 0.0 WBC Differential . Diff Scan Auto diff confirmed Differential Comment . Platelet Estimate Normal Platelet Morphology Normal Ovalocytes 1+ H POC Glucose 145 H 196 H 07/13/18 07/13/18 07:47 11:57 CBC w Diff WBC RBC Hgb Hct MCV MCH MCHC RDW Plt Count MPV Neut % (Auto) Lymph % (Auto) [place] % (Auto) Eos % (Auto) Baso % (Auto) Neut # (Auto) Lymph # (Auto) Rogers # (Auto) Eos # (Auto) Baso # (Auto) WBC Differential Diff Scan Differential Comment Platelet Estimate Platelet Morphology Ovalocytes POC Glucose 149 H 203 H Microbiology 07/10/18 13:40 Blood - Peripheral Aerobic Blood Culture - Preliminary No growth in 3 days 07/10/18 13:40 Blood - Peripheral Anaerobic Blood Culture - Preliminary No growth in 3 days 07/10/18 13:50 Blood - Peripheral Aerobic Blood Culture - Preliminary No growth in 3 days 07/10/18 13:50 Blood - Peripheral Anaerobic Blood Culture - Preliminary No growth in 3 days Assessment and Plan - Assessment (1) Severe sepsis Code(s): A41.9 - Sepsis, unspecified organism; R65.20 - Severe sepsis without septic shock Status: Acute (2) Acute renal failure Code(s): N17.9 - Acute kidney failure, unspecified Status: Acute (3) Cellulitis of left lower extremity Code(s): L03.116 - Cellulitis of left lower limb Status: Acute (4) Hyponatremia Code(s): E87.1 - Hypo-osmolality and hyponatremia Status: Acute (5) Metabolic acidosis Code(s): E87.2 - Acidosis Status: Acute (6) Leukocytosis Code(s): D72.829 - Elevated white blood cell count, unspecified Status: Acute (7) Febrile illness Code(s): R50.9 - Fever, unspecified Status: Acute (8) Supraventricular tachycardia Code(s): I47.1 - Supraventricular tachycardia Status: Acute - Plan Left lower leg cellulitis/Severe sepsis Complicated with sepsis, diabetes, peripheral vascular disease, peripheral neuropathy. Ultrasound of the lower extremity was done which did not indicate any DVTs. Wound care nurse, ID and podiatry consultations appreciated. MRI of the ankle and foot negative for osteomyelitis. S/p IVFs. Wound culture with pseudomonas, gram-negative rods and Enterococcus faecalis. Blood cultures growing corynebacterium. Pt complained of increased pain in the leg 07/10, but it was relieved with undoing of the dressings. -continue IV vancomycin, Levaquin and Zosyn per ID. -pain control with a bowel regimen. -follow culture data. -follow up with podiatry. SVT Resolved with two doses of adenosine. Currently in sinus tachycardia. -IV fluids and pain control. -IV Lopressor if needed. -telemetry. -seems resolved. Acute renal failure with metabolic acidosis, anion gap 20 Likely prerenal, however patient does have multiple medications that are nephrotoxic. Nephrology consult appreciated. -We will hold nephrotoxic medications at this time -IV fluids. -Continue to monitor BMP. -Renal bladder ultrasound was performed which did not indicate any acute abnormality. -nephrology signed off. Elevated d-dimer -Lower extremity ultrasounds performed without any signs of DVT. -VQ scan was performed which was low probability for pulmonary emboli. Diabetes -Accu-Cheks with sliding scale insulin -Diabetic diet -Levemir increased to 15 units BID. Adjust as needed. Hypertension -resume lisinopril at 10 mg daily (normally on 20). -amlodipine 5 mg daily added. -Clonidine as needed for blood pressure control DVT prevention -Subcutaneous heparin Discharge Planning: D/c when cleared by podiatry and ID
[2018-07-13] MEDS: Levofloxacin 500 mg Premix Inj 500 MG/100 ML PIGGYBACK IV.SIG SCH (16:44)
[2018-07-13] MEDS: Sod Chloride 0.9% Inj 1,000 ML IV.CONT SCH (17:09)
[2018-07-13] MEDS ORDERED: Sod Chloride 0.9% Inj 1,000 ML IV.CONT SCH (17:15)
[2018-07-13] MEDS ORDERED: Piperacil/Tazo 4.5 GM Premix 4.5 GM/100 ML BAG IV.SIG ONE ×2 (17:15→17:30)
--- NOTE | 2018-07-13 17:51 | P.PNID ---
Subjective Remarks: No fevers Feels better Less pain in leg even during ambulation with PT Antibiotics: IV Vancomycin, Zosyn and Levofloxacin Lines: Peripheral Past Medical History: Diabetes Allergies/Adverse Reactions: Allergies erythromycin base Allergy (Unknown, Verified 07/06/18 03:23) UNKNOWN REACTION oxytetracycline Allergy (Unknown, Verified 07/06/18 03:23) UNKNOWN REACTION Objective Vital Signs 07/12/18 20:00 07/13/18 00:00 07/13/18 04:00 Temperature 98.8 F 98.3 F 98.9 F Pulse Rate 138 H 133 H 100 H Respiratory Rate 20 17 15 Blood Pressure 119/79 128/80 112/81 Pulse Oximetry 95 94 L 94 L 07/13/18 08:00 07/13/18 12:00 Temperature 98.5 F 98 F Pulse Rate 87 83 Respiratory Rate 16 18 Blood Pressure 137/77 110/77 Pulse Oximetry 96 Intake & Output 07/12/18 07/13/18 07/13/18 18:59 06:59 18:59 Intake Total 2917.5 / 2917.5 957.5 / 957.5 100 / 100 Output Total 1800 / 1800 1000 / 1000 Balance 1117.5 / 1117.5 -42.5 / -42.5 100 / 100 Weight 144.6 kg Intake: IV 1717.5 / 1717.5 717.5 / 717.5 100 / 100 NS Inj 1,000 ML @ 100 mls/hr IV 1000 / 1000 .CONT .Q10H DEBRA Rx#:[id number] Levaquin 500 mg Premix Inj 500 100 / 100 mg In 100 ml @ 100 mls/hr IV. SIG Q24H DEBRA Rx#:[id number] Zosyn 4.5 GM Premix 4.5 gm In 100 / 100 200 / 200 100 / 100 100 ml @ 200 mls/hr IV.SIG ONCE ONE Rx#:[id number] Vancomycin Inj 1,750 MG In NS 517.5 / 517.5 517.5 / 517.5 Inj 500 ML @ 250 mls/hr IV.SIG Q12H DEBRA Rx#:[id number] Oral 1200 / 1200 240 / 240 Output: Urine 1800 / 1800 1000 / 1000 Other: Date of Last Bowel Movement 07/12/18 07/13/18 07/13/18 # Bowel Movements 2 2 # Incontinent Bowel Movements 0 07/10/18 13:40 Blood - Peripheral Aerobic Blood Culture - Preliminary No growth in 3 days 07/10/18 13:40 Blood - Peripheral Anaerobic Blood Culture - Preliminary No growth in 3 days 07/10/18 13:50 Blood - Peripheral Aerobic Blood Culture - Preliminary No growth in 3 days 07/10/18 13:50 Blood - Peripheral Anaerobic Blood Culture - Preliminary No growth in 3 days 07/06/18 14:10 Blood - Peripheral Aerobic Blood Culture - Final Corynebacterium not K 07/06/18 14:10 Blood - Peripheral Anaerobic Blood Culture - Final No growth in 5 days 07/06/18 14:20 Blood - Peripheral Aerobic Blood Culture - Final Corynebacterium not 07/06/18 14:20 Blood - Peripheral Anaerobic Blood Culture - Final Corynebacterium not 07/07/18 09:00 Wound - Leg Gram Stain - Final 07/07/18 09:00 Wound - Leg Wound Culture - Final Pseudomonas aeruginosa Klebsiella pneumoniae Enterococcus faecalis Lab - Hematology Results 07/12/18 07/13/18 05:55 04:09 CBC w Diff Auto diff final Slide review pending WBC 12.9 H 11.5 H RBC 3.50 L 3.82 L Hgb 8.9 L 9.4 L Hct 27.9 L 30.1 L MCV 79.8 L 78.9 L MCH 25.6 L 24.5 L MCHC 32.0 31.1 L RDW 16.1 15.6 Plt Count 502 H 584 H MPV 8.9 8.6 Neut % (Auto) 76.9 H 75.2 H Lymph % (Auto) 15.7 16.7 [place] % (Auto) 5.7 6.2 Eos % (Auto) 1.7 1.6 Baso % (Auto) 0.0 0.3 Neut # (Auto) 10.0 H 8.7 H Lymph # (Auto) 2.0 1.9 [place] # (Auto) 0.7 0.7 Eos # (Auto) 0.2 0.2 Baso # (Auto) 0.0 0.0 WBC Differential . . Diff Scan Auto diff confirmed Differential Comment . . Platelet Estimate Normal Platelet Morphology Normal Ovalocytes 1+ H Lab - Chemistry Results 07/11/18 07/11/18 07/12/18 18:01 20:35 05:55 Sodium 144 Potassium 3.8 Chloride 110 H Carbon Dioxide 26.6 Anion Gap 7 BUN 12 Creatinine 0.92 Estimated GFR 84 L POC Glucose 179 H 182 H Random Glucose 92 Calcium 7.7 L Total Bilirubin 0.4 Direct Bilirubin 0.2 Indirect Bilirubin 0.2 AST 27 ALT 35 Alkaline Phosphatase 101 Total Protein 6.1 L Albumin 1.6 L 07/12/18 07/12/18 07/12/18 12:10 18:20 20:21 Sodium Potassium Chloride Carbon Dioxide Anion Gap BUN Creatinine Estimated GFR POC Glucose 174 H 145 H 196 H Random Glucose Calcium Total Bilirubin Direct Bilirubin Indirect Bilirubin AST ALT Alkaline Phosphatase Total Protein Albumin 07/13/18 07/13/18 07/13/18 07:47 11:57 17:14 Sodium Potassium Chloride Carbon Dioxide Anion Gap BUN Creatinine Estimated GFR POC Glucose 149 H 203 H 199 H Random Glucose Calcium Total Bilirubin Direct Bilirubin Indirect Bilirubin AST ALT Alkaline Phosphatase Total Protein Albumin Imaging: ITS Impressions Venous Doppler Study 07/05/18 21:32 CONCLUSION: No venous thrombosis is identified within either lower extremity. Abdomen/Bladder Ultrasound 07/06/18 00:00 CONCLUSION: 1. Renal cyst on the right 2. No suspicious mass or hydronephrosis. Pulmonary Perfusion Imaging 07/06/18 23:40 CONCLUSION: 1. Low probability for pulmonary embolism. Ankle MRI 07/07/18 00:00 CONCLUSION: 1. Severe and diffuse subcutaneous edema without abscess or osteomyelitis. 2. Mild navicular/cuneiform osteoarthritis. 3. Type II accessory navicular and slight tendinopathy of tibialis posterior tendon. 4. Very mild proximal plantar fasciitis. No tear. 5. Very mild Achilles tendinosis without tear. Foot MRI 07/07/18 07:11 CONCLUSION: Dorsal predominant subcutaneous swelling and edema of the left foot without abscess or evidence of osteomyelitis. Chest X-Ray 07/11/18 00:00 CONCLUSION: No acute cardiopulmonary process. Physical Exam: Sleepy arouses HEENT: Perrl ns no jvd, No thrush Chest : Clear No wheezes Heart : S1 S2 normal Abdomen: Soft Non tender Bowel sounds present Left leg dressing clean. Swelling of leg is improved Assessment and Plan (1) Cellulitis of left lower extremity Status: Acute Code(s): L03.116 - Cellulitis of left lower limb (2) Severe sepsis Status: Acute Code(s): A41.9 - Sepsis, unspecified organism; R65.20 - Severe sepsis without septic shock (3) Diabetes Status: Acute Code(s): E11.9 - Type 2 diabetes mellitus without complications - Plan 1. Blood cultures- CORNYBACTERIUM NOT JK - REPEAT HOWEVER NEGATIVE SO FAR. Likely was contaminants 2. Reviewed wound cultures- 3. Continue IV Vancomycin 4. IV Zosyn at 4.5 g q 6hrs 5. Change Levofloxacin to 500 mg po daily (3) Diabetes Qualifiers: Diabetes mellitus type: type 2 Diabetes mellitus complication status: with neurologic complications Diabetes mellitus complication detail: with polyneuropathy
[2018-07-14] MEDS: Gabapentin 400 MG Capsule PO SCH ×5 (00:04→21:25)
[2018-07-14] MEDS: Sod Chloride 0.9% Inj 1,000 ML IV.CONT SCH ×3 (06:08→22:45)
[2018-07-14] MEDS: Piperacil/Tazo 4.5 GM Premix 4.5 GM/100 ML BAG IV.SIG SCH ×4 (06:09→21:25)
[2018-07-14] MEDS: Heparin - SQ 10,000 UNITS/ML Vial SQ SCH ×2 (06:11→17:32)
[2018-07-14] MEDS: Vancomycin Inj 1,750 MG in Sodium Chlor 0.9% Inj 500 ML IV.SIG SCH ×2 (06:52→17:33)
[2018-07-14] MEDS: Lisinopril 10 MG Tablet PO SCH (11:14)
[2018-07-14] MEDS: Folic Acid 1 MG Tablet PO SCH (11:14)
[2018-07-14] MEDS: amLODIPine 5 MG Tablet PO SCH (11:14)
[2018-07-14] MEDS: Metoprolol Tartrate 25 MG Tablet PO SCH ×2 (11:14→21:25)
[2018-07-14] MEDS: Insulin NovoLOG Aspart Correctional Sugar Inj SQ SCH ×4 (11:15→22:04)
[2018-07-14] MEDS: Insulin Detemir Inj 1,000 UNIT/10 ML Vial SQ SCH ×2 (11:17→21:37)
--- NOTE | 2018-07-14 14:23 | P.PNIM ---
Subjective Interval history: patient c/o left thigh pain since yesterday. no other complaints. Physical Exam Vital signs: Last Vital Signs Temp 99.1 F 07/14/18 12:00 Pulse 80 07/14/18 12:00 Resp 20 07/14/18 12:00 BP 168/82 H 07/14/18 12:00 Pulse Ox 97 07/14/18 12:00 Intake & Output 07/12/18 07/13/18 07/14/18 07/15/18 06:59 06:59 06:59 06:59 Intake Total 4277.5 / 4277.5 3875.0 / 3875.0 2762.5 / 2762.5 480 / 480 Output Total 3900 / 3900 2800 / 2800 3850 / 3850 1000 / 1000 Balance 377.5 / 377.5 1075.0 / 1075.0 -1087.5 / -1087.5 -520 / -520 Weight 144.6 kg 144.6 kg 146.7 kg Narrative: GENERAL: Well-nourished, well-developed patient. SKIN: Warm and dry. HEENT: not pale,anicteric NECK:No JVD or lymphadenopathy. CARDIOVASCULAR: Regular rate and rhythm without murmurs, gallops, or rubs. RESPIRATORY: Breath sounds equal bilaterally. No accessory muscle use. GASTROINTESTINAL: Abdomen soft, non-tender, nondistended. EXTREMITIES: Left leg with dressing in situ. NEUROLOGICAL: Awake, alert, and oriented x 3. Non-focal. Results Labs CBC & Chem 7: 07/15/18 05:45 07/15/18 05:45 Labs: Microbiology 07/10/18 13:40 Blood - Peripheral Aerobic Blood Culture - Preliminary No growth in 4 days 07/10/18 13:40 Blood - Peripheral Anaerobic Blood Culture - Preliminary No growth in 4 days 07/10/18 13:50 Blood - Peripheral Aerobic Blood Culture - Preliminary No growth in 4 days 07/10/18 13:50 Blood - Peripheral Anaerobic Blood Culture - Preliminary No growth in 4 days Assessment and Plan Plan Left lower leg cellulitis/Severe sepsis Complicated with sepsis, diabetes, peripheral vascular disease, peripheral neuropathy. Ultrasound of the lower extremity was done which did not indicate any DVTs. Wound care nurse, ID and podiatry consultations appreciated. MRI of the ankle and foot negative for osteomyelitis. S/p IVFs. Wound culture with pseudomonas, gram-negative rods and Enterococcus faecalis. Blood cultures growing corynebacterium. Pt complained of increased pain in the leg 07/10, but it was relieved with undoing of the dressings. -continue IV vancomycin, Levaquin and Zosyn per ID. -pain control with a bowel regimen. -follow culture data. -follow up with podiatry. 07/14-had left thigh pain, resolved now. reviewed recent duplex, there was no evidence of DVT. SVT Resolved with two doses of adenosine. Currently in sinus tachycardia. -IV fluids and pain control. -IV Lopressor if needed. -telemetry. -seems resolved. Acute Kidney injury with metabolic acidosis, anion gap 20--now resolved. Likely prerenal, however patient does have multiple medications that are nephrotoxic. Nephrology consult appreciated. -We will hold nephrotoxic medications at this time -Renal bladder ultrasound was performed which did not indicate any acute abnormality. Elevated d-dimer -Lower extremity ultrasounds performed without any signs of DVT. -VQ scan was performed which was low probability for pulmonary emboli. Diabetes -Accu-Cheks with sliding scale insulin -Diabetic diet -Levemir increased to 15 units BID. Adjust as needed. Hypertension -continue lisinopril at 10 mg daily (normally on 20). -amlodipine 5 mg daily added. -Clonidine as needed for blood pressure control DVT prevention -Subcutaneous heparin Progress Note: Quality VTE Deep Vein Thrombosis/Pulmonary Embolism Present on Admission: No
--- NOTE | 2018-07-14 15:04 | P.PNPOD ---
Subjective Interval history: LATE ENTRY PATIENT WAS SEEN 07-13 at 4pm with Nursing staff. Doing better, leg drainage and swelling is less. Physical Exam Vital signs: Vital Signs 07/13/18 16:00 07/13/18 16:33 07/13/18 20:00 Temperature 98.8 F Pulse Rate 86 84 146 H Respiratory Rate 20 16 Blood Pressure 135/69 129/79 Pulse Oximetry 97 07/14/18 00:00 07/14/18 04:00 07/14/18 08:00 Temperature 99.6 F 98.5 F 99.0 F Pulse Rate 135 H 85 80 Respiratory Rate 20 20 22 Blood Pressure 131/69 138/66 136/77 Pulse Oximetry 95 95 97 07/14/18 12:00 Temperature 99.1 F Pulse Rate 80 Respiratory Rate 20 Blood Pressure 168/82 H Pulse Oximetry 97 Intake & Output 07/13/18 07/14/18 07/14/18 18:59 06:59 18:59 Intake Total 200 / 200 2562.5 / 2562.5 720 / 720 Output Total 1500 / 1500 2350 / 2350 1999 Balance -1300 / -1300 212.5 / 212.5 -1280 / -1280 Weight 146.7 kg Intake: IV 200 / 200 1717.5 / 1717.5 NS Inj 1,000 ML @ 100 mls/hr IV 1000 / 1000 .CONT .Q10H DEBRA Rx#:[id number] Levaquin 500 mg Premix Inj 500 100 / 100 mg In 100 ml @ 100 mls/hr IV. SIG Q24H DEBRA Rx#:[id number] Zosyn 4.5 GM Premix 4.5 gm In 100 / 100 200 / 200 100 ml @ 200 mls/hr IV.SIG Q6H DEBRA Rx#:[id number] Vancomycin Inj 1,750 MG In NS 517.5 / 517.5 Inj 500 ML @ 250 mls/hr IV.SIG Q12H DEBRA Rx#:[id number] Oral 845 / 845 720 / 720 Output: Urine 1500 / 1500 2350 / 2350 1999 Other: Date of Last Bowel Movement 07/13/18 # Bowel Movements 2 1 - Neurological Alert and oriented x3 - Routine Extremities Exam Comments: LEFT LE expansile partial thickness skin slough of purple tissue with viable tissue beneath with no probing deep from calf to ankle serous fluid noted pulses hard to palpate but feet are warm able to perform ROM of foot and ankle sensation decreased to light touch Medications and Allergies Active Medications: Active Medications Acetaminophen (Tylenol) 650 mg PO Q4H PRN PRN Reason: Temp > 100.4 Last Admin: 07/06/18 20:24 Dose: 650 mg Hydrocodone Bitart/Acetaminophen ([place] 10/325) 1 tab PO Q6H PRN PRN Reason: PAIN SCALE 6 TO 10 Last Admin: 07/13/18 06:34 Dose: 1 tab Hydrocodone Bitart/Acetaminophen ([place] 5/325) 1 tab PO Q6H PRN PRN Reason: PAIN SCALE 1 TO 5 Al Hydroxide/Mg Hydroxide (Milk Of Magnesia Liq) 30 ml PO Q12H PRN PRN Reason: Mild Constipation Albuterol (Duoneb Neb (Prn)) 1 ampul NEB Q2HR NEB PRN PRN Reason: WHEEZING Last Admin: 07/07/18 10:39 Dose: 1 ampul Amlodipine Besylate (Norvasc) 5 mg PO DAILY [facility] Last Admin: 07/14/18 11:14 Dose: 5 mg Bisacodyl (Dulcolax Supp) 10 mg RECTAL DAILY PRN PRN Reason: SEVERE CONSITIPATION Clonidine HCl (Catapres) 0.1 mg PO Q6H PRN PRN Reason: SBP>160, DBP>90 Last Admin: 07/10/18 20:05 Dose: 0.1 mg Dextrose (D50w Vial) 50 ml IV.PUSH UNSCH PRN PRN Reason: PER HYPOGLYCEMIA PROTOCOL Folic Acid (Folic Acid) 1 mg PO DAILY [facility] Last Admin: 07/14/18 11:14 Dose: 1 mg Gabapentin (Neurontin) 800 mg PO QID [facility] Last Admin: 07/14/18 14:24 Dose: Not Given Glucagon (Glucagon Inj) 1 mg OTHER PRN PRN PRN Reason: for Hypoglycemia Protocol Heparin Sodium (Porcine) (Heparin Inj) 5,000 units SQ Q12H [facility] Last Admin: 07/14/18 06:11 Dose: 5,000 units Levofloxacin/Dextrose (Levaquin 500 Mg Premix Inj) 500 mg in 100 mls @ 100 mls/ hr IV.SIG Q24H [facility] Last Infusion: 07/13/18 17:45 Dose: Infused Sodium Chloride (Ns Inj) 1,000 mls @ 100 mls/hr IV.CONT .Q10H [facility] Last Admin: 07/14/18 14:24 Dose: Not Given Vancomycin HCl 1,750 mg/ (Sodium Chloride) 517.5 mls @ 250 mls/hr IV.SIG Q12H [facility] Last Infusion: 07/14/18 11:19 Dose: 250 mls/hr Piperacillin/Tazobactam/Dextrose (Zosyn 4.5 Gm Premix) 4.5 gm in 100 mls @ 200 mls/hr IV.SIG Q6H [facility] Last Admin: 07/14/18 14:24 Dose: 200 mls/hr Insulin Aspart (Novolog Insulin Correctional Sugar Inj) 0 unit SQ ACHS [facility]; Protocol Last Admin: 07/14/18 14:24 Dose: Not Given Insulin Detemir (Levemir Inj) 15 unit SQ BID [facility] Last Admin: 07/14/18 11:17 Dose: 15 unit Lactulose (Lactulose Liq) 30 ml PO DAILY PRN PRN Reason: SEVERE CONSITIPATION Lisinopril (Prinivil) 10 mg PO DAILY [facility] Last Admin: 07/14/18 11:14 Dose: 10 mg Metoprolol Tartrate (Lopressor) 25 mg PO BID [facility] Last Admin: 07/14/18 11:14 Dose: 25 mg Naloxone HCl (Narcan Inj) 0.4 mg IV.PUSH UNSCH PRN PRN Reason: SEE LABEL COMMENTS Ondansetron HCl (Zofran Inj) 4 mg IV.PUSH Q6H PRN PRN Reason: NAUSEA OR VOMITING Pharmacy Profile Note (Vancomycin Consult Pharmacy) 1 each OTHER UNSCH PRN PRN Reason: Pharmacy to dose Sennosides (Senokot) 17.2 mg PO Q12H PRN PRN Reason: Moderate Constipation Last Admin: 07/14/18 14:25 Dose: 17.2 mg Sodium Chloride (Ns Flush) 2 ml IV.FLUSH BID [facility] Last Admin: 07/14/18 14:23 Dose: Not Given Sodium Chloride (Ns Flush) 2 ml IV.FLUSH PRN PRN PRN Reason: FLUSH AFTER USING IV ACCESS Last Admin: 07/10/18 00:46 Dose: 2 ml Allergies Allergy/AdvReac Type Severity Reaction Status Date / Time erythromycin base Allergy Unknown UNKNOWN Verified 07/06/18 03:23 REACTION oxytetracycline Allergy Unknown UNKNOWN Verified 07/06/18 03:23 REACTION Home Medications Medication Instructions Recorded Confirmed Type dapagliflozin [Farxiga] 10 mg PO QAM 07/05/18 07/05/18 History diclofenac sodium 100 mg PO DAILY 07/05/18 07/05/18 History folic acid 0.8 mg PO DAILY 07/05/18 07/05/18 History furosemide 40 mg PO DAILY 07/05/18 07/05/18 History gabapentin 800 mg PO TID 07/05/18 07/05/18 History glimepiride 4 mg PO QAM 07/05/18 07/05/18 History lisinopril 20 mg PO DAILY 07/05/18 07/05/18 History metformin 1,000 mg PO BID 07/05/18 07/05/18 History [id number] 1 tab PO DAILY 07/05/18 07/05/18 History [Airborne (ascorbate sodium)] omega 1-qhn-[id number]-fish oil [Fish Oil] 1,000 mg PO DAILY 07/05/18 07/05/18 History solifenacin [Vesicare] 5 mg PO DAILY 07/05/18 07/05/18 History Results - Labs CBC & Chem 7: 07/13/18 04:09 07/12/18 05:55 Laboratory Results - last 24 hr 07/13/18 07/13/18 07/14/18 17:14 21:55 11:17 POC Glucose 199 H 162 H 183 H Microbiology 07/10/18 13:40 Blood - Peripheral Aerobic Blood Culture - Preliminary No growth in 4 days 07/10/18 13:40 Blood - Peripheral Anaerobic Blood Culture - Preliminary No growth in 4 days 07/10/18 13:50 Blood - Peripheral Aerobic Blood Culture - Preliminary No growth in 4 days 07/10/18 13:50 Blood - Peripheral Anaerobic Blood Culture - Preliminary No growth in 4 days Assessment and Plan - Assessment (1) Cellulitis of left lower extremity Code(s): L03.116 - Cellulitis of left lower limb Status: Acute (2) Diabetes Code(s): E11.9 - Type 2 diabetes mellitus without complications Status: Acute (3) Leukocytosis Code(s): D72.829 - Elevated white blood cell count, unspecified Status: Acute (4) Severe sepsis Code(s): A41.9 - Sepsis, unspecified organism; R65.20 - Severe sepsis without septic shock Status: Acute - Plan New multilayer compression bandage applied. I expect with each bandage change more of the slough tissue will be removed. Continue ABX and wound care Will follow up in 3-5 days. Patient to be showing some improvement. (2) Diabetes Qualifiers: Diabetes mellitus type: type 2 Diabetes mellitus complication status: with neurologic complications Diabetes mellitus complication detail: with polyneuropathy
[2018-07-14] MEDS: Levofloxacin 500 mg Premix Inj 500 MG/100 ML PIGGYBACK IV.SIG SCH (17:33)
[2018-07-15] MEDS ORDERED: Metoprolol Tartrate 25 MG Tablet PO ONE (01:13)
[2018-07-15] MEDS ORDERED: Metoprolol Inj 5 MG/5 ML Vial IV.PUSH ONE (05:34)
[2018-07-15] MEDS: Piperacil/Tazo 4.5 GM Premix 4.5 GM/100 ML BAG IV.SIG SCH ×4 (05:49→21:55)
[2018-07-15] MEDS: Heparin - SQ 10,000 UNITS/ML Vial SQ SCH ×2 (05:50→18:18)
[2018-07-15] MEDS: Vancomycin Inj 1,750 MG in Sodium Chlor 0.9% Inj 500 ML IV.SIG SCH ×2 (06:32→18:17)
[2018-07-15 07:02] LABS: Baso % (Auto) 0.5 % (0.0-2.0); Eos # (Auto) 0.1 th/mm3 (0.0-0.4); Eos % (Auto) 1.7 % (0.0-4.0); Hematocrit 28.4 % (39.0-51.0); Hemoglobin 8.9 gm/dL (13.0-17.0); Lymph # (Auto) 1.6 th/mm3 (1.0-4.8); Lymph % (Auto) 18.5 % (9.0-44.0); Mean Corpuscular HGB Conc 31.4 % (32.0-36.0); Mean Corpuscular Hemoglobin 24.9 pg (27.0-34.0); Mean Corpuscular Volume 79.1 fL (80.0-100.0); Mean Platelet Volume 8.9 fL (7.0-11.0); Mono # (Auto) 0.6 th/mm3 (0.0-0.9); Mono % (Auto) 7.1 % (0.0-8.0); Neut # (Auto) 6.3 th/mm3 (1.8-7.7); Neut % (Auto) 72.2 % (16.0-70.0); Platelet Count 515 th/mm3 (150-450); Red Blood Count 3.59 mil/mm3 (4.50-5.90); Red Cell Distribution Width 16.5 % (11.6-17.2); White Blood Count 8.6 th/mm3 (4.0-11.0)
[2018-07-15] MEDS: amLODIPine 5 MG Tablet PO SCH (08:49)
[2018-07-15] MEDS: Lisinopril 10 MG Tablet PO SCH (08:49)
[2018-07-15] MEDS: Gabapentin 400 MG Capsule PO SCH ×4 (08:50→21:55)
[2018-07-15] MEDS: Insulin NovoLOG Aspart Correctional Sugar Inj SQ SCH ×4 (08:50→22:05)
[2018-07-15] MEDS: Folic Acid 1 MG Tablet PO SCH (08:50)
[2018-07-15] MEDS: Metoprolol Tartrate 25 MG Tablet PO SCH ×2 (08:50→21:56)
[2018-07-15] MEDS: Insulin Detemir Inj 1,000 UNIT/10 ML Vial SQ SCH ×2 (08:51→22:05)
[2018-07-15 10:32] LABS: Potassium 3.5 meq/L (3.5-5.1)
[2018-07-15 10:35] LABS: Calcium 8.3 mg/dL (8.5-10.1)
[2018-07-15 10:36] LABS: Carbon Dioxide 29.3 meq/L (21.0-32.0)
[2018-07-15] MEDS: Sod Chloride 0.9% Inj 1,000 ML IV.CONT SCH ×2 (12:15→20:47)
--- NOTE | 2018-07-15 15:15 | P.PNID ---
Subjective Remarks: ID coverage. Notes reviewed. No fevers Has some pain in the left leg. No pain with removal of the dressing for dressing change. Antibiotics: IV Vancomycin, Zosyn and Levofloxacin Lines: Peripheral Past Medical History: Diabetes Allergies/Adverse Reactions: Allergies erythromycin base Allergy (Unknown, Verified 07/06/18 03:23) UNKNOWN REACTION oxytetracycline Allergy (Unknown, Verified 07/06/18 03:23) UNKNOWN REACTION Objective Vital Signs 07/14/18 16:00 07/14/18 20:00 07/15/18 00:00 Temperature 98.3 F 97.2 F L 98.5 F Pulse Rate 80 130 H 85 Respiratory Rate 21 18 18 Blood Pressure 149/72 H 142/82 H 143/74 H Pulse Oximetry 95 97 98 07/15/18 04:00 07/15/18 08:00 07/15/18 11:11 Temperature 96.8 F L 98.2 F Pulse Rate 131 H 136 H 81 Respiratory Rate 18 20 Blood Pressure 159/83 H 130/72 Pulse Oximetry 96 07/15/18 11:34 07/15/18 12:00 Temperature 97.4 F L Pulse Rate 83 95 H Respiratory Rate 20 Blood Pressure 154/78 H Pulse Oximetry 97 Intake & Output 07/14/18 07/15/18 07/15/18 18:59 06:59 18:59 Intake Total 1300 / 1300 2367.5 / 2367.5 1517.5 / 1517.5 Output Total 2500 / 2500 3000 / 3000 Balance -1200 / -1200 -632.5 / -632.5 1517.5 / 1517.5 Weight 146.7 kg Intake: IV 100 / 100 1917.5 / 1917.5 1517.5 / 1517.5 NS Inj 1,000 ML @ 100 mls/hr IV 1000 / 1000 1000 / 1000 .CONT .Q10H [facility] Rx#:[id number] Levaquin 500 mg Premix Inj 500 100 / 100 mg In 100 ml @ 100 mls/hr IV. SIG Q24H [facility] Rx#:[id number] Zosyn 4.5 GM Premix 4.5 gm In 100 / 100 300 / 300 100 ml @ 200 mls/hr IV.SIG Q6H [facility] Rx#:[id number] Vancomycin Inj 1,750 MG In NS 517.5 / 517.5 517.5 / 517.5 Inj 500 ML @ 250 mls/hr IV.SIG Q12H [facility] Rx#:[id number] Oral 1200 / 1200 450 / 450 Output: Urine 2500 / 2500 3000 / 3000 Other: Date of Last Bowel Movement 07/14/18 07/10/18 13:40 Blood - Peripheral Aerobic Blood Culture - Final No growth in 5 days 07/10/18 13:40 Blood - Peripheral Anaerobic Blood Culture - Final No growth in 5 days 07/10/18 13:50 Blood - Peripheral Aerobic Blood Culture - Final No growth in 5 days 07/10/18 13:50 Blood - Peripheral Anaerobic Blood Culture - Final No growth in 5 days Lab - Hematology Results 07/15/18 05:45 CBC w Diff Slide review pending WBC 8.6 RBC 3.59 L Hgb 8.9 L Hct 28.4 L MCV 79.1 L MCH 24.9 L MCHC 31.4 L RDW 16.5 Plt Count 515 H MPV 8.9 Neut % (Auto) 72.2 H Lymph % (Auto) 18.5 Ponce % (Auto) 7.1 Eos % (Auto) 1.7 Baso % (Auto) 0.5 Neut # (Auto) 6.3 Lymph # (Auto) 1.6 Ponce # (Auto) 0.6 Eos # (Auto) 0.1 Baso # (Auto) 0.0 WBC Differential . Diff Scan Auto diff confirmed Differential Comment . Lab - Chemistry Results 07/13/18 07/13/18 07/14/18 17:14 21:55 11:17 Sodium Potassium Chloride Carbon Dioxide Anion Gap BUN Creatinine Estimated GFR POC Glucose 199 H 162 H 183 H Random Glucose Calcium 07/14/18 07/14/18 07/15/18 18:46 21:35 01:55 Sodium Potassium Chloride Carbon Dioxide Anion Gap BUN Creatinine Estimated GFR POC Glucose 217 H 217 H 160 H Random Glucose Calcium 07/15/18 07/15/18 07/15/18 05:45 06:03 12:18 Sodium 147 H Potassium 3.5 Chloride 111 H Carbon Dioxide 29.3 Anion Gap 7 BUN 8 Creatinine 0.91 Estimated GFR 85 L POC Glucose 110 151 H Random Glucose 118 H Calcium 8.3 L Imaging: ITS Impressions Venous Doppler Study 07/05/18 21:32 CONCLUSION: No venous thrombosis is identified within either lower extremity. Abdomen/Bladder Ultrasound 07/06/18 00:00 CONCLUSION: 1. Renal cyst on the right 2. No suspicious mass or hydronephrosis. Pulmonary Perfusion Imaging 07/06/18 23:40 CONCLUSION: 1. Low probability for pulmonary embolism. Ankle MRI 07/07/18 00:00 CONCLUSION: 1. Severe and diffuse subcutaneous edema without abscess or osteomyelitis. 2. Mild navicular/cuneiform osteoarthritis. 3. Type II accessory navicular and slight tendinopathy of tibialis posterior tendon. 4. Very mild proximal plantar fasciitis. No tear. 5. Very mild Achilles tendinosis without tear. Foot MRI 07/07/18 07:11 CONCLUSION: Dorsal predominant subcutaneous swelling and edema of the left foot without abscess or evidence of osteomyelitis. Chest X-Ray 07/11/18 00:00 CONCLUSION: No acute cardiopulmonary process. Physical Exam: Awake alert and oriented. HEENT: Andrei. EOMI. No icterus. Chest : Clear breath sounds. Heart : S1 S2 normal. Abdomen: Soft Non tender Bowel sounds present EXT: Left leg has blisters with brittle underlying skin which partially peels off and sloughs upon removal of the dressing. underlying skin is purpuric. NEURO: non-focal. PSYCH: Calm and cooperative. Assessment and Plan (1) Cellulitis of left lower extremity Status: Acute Code(s): L03.116 - Cellulitis of left lower limb (2) Severe sepsis Status: Acute Code(s): A41.9 - Sepsis, unspecified organism; R65.20 - Severe sepsis without septic shock (3) Diabetes Status: Acute Code(s): E11.9 - Type 2 diabetes mellitus without complications - Plan Cellulitis severe. 1. Blood cultures- CORNYBACTERIUM NOT JK - REPEAT HOWEVER NEGATIVE. Likely was contaminants 2. Reviewed wound cultures- 3. Continue IV Vancomycin 4. Continue IV Zosyn at 4.5 g q 6hrs 5. Continue Levofloxacin 500 mg po daily. 6. Continue dressing changes. (3) Diabetes Qualifiers: Diabetes mellitus type: type 2 Diabetes mellitus complication status: with neurologic complications Diabetes mellitus complication detail: with polyneuropathy
[2018-07-15] MEDS: Levofloxacin 500 mg Premix Inj 500 MG/100 ML PIGGYBACK IV.SIG SCH (16:17)
--- NOTE | 2018-07-15 16:50 | P.PNIM ---
Subjective Interval history: No complaints today Physical Exam Vital signs: Last Vital Signs Temp 97.4 F L 07/15/18 12:00 Pulse 95 H 07/15/18 12:00 Resp 20 07/15/18 12:00 BP 154/78 H 07/15/18 12:00 Pulse Ox 97 07/15/18 12:00 Intake & Output 07/13/18 07/14/18 07/15/18 07/16/18 06:59 06:59 06:59 06:59 Intake Total 3875.0 / 3875.0 2762.5 / 2762.5 3667.5 / 3667.5 1617.5 / 1617.5 Output Total 2800 / 2800 3850 / 3850 5500 / 5500 Balance 1075.0 / 1075.0 -1087.5 / -1087.5 -1832.5 / -1832.5 1617.5 / 1617.5 Weight 144.6 kg 146.7 kg 146.7 kg Narrative: GENERAL: Well-nourished, well-developed patient. SKIN: Warm and dry. HEENT: not pale,anicteric NECK:No JVD or lymphadenopathy. CARDIOVASCULAR: Regular rate and rhythm without murmurs, gallops, or rubs. RESPIRATORY: Breath sounds equal bilaterally. No accessory muscle use. GASTROINTESTINAL: Abdomen soft, non-tender, nondistended. EXTREMITIES: Left leg with dressing in situ. NEUROLOGICAL: Awake, alert, and oriented x 3. Non-focal. Results Labs CBC & Chem 7: 07/15/18 05:45 07/15/18 05:45 Labs: Microbiology 07/10/18 13:40 Blood - Peripheral Aerobic Blood Culture - Final No growth in 5 days 07/10/18 13:40 Blood - Peripheral Anaerobic Blood Culture - Final No growth in 5 days 07/10/18 13:50 Blood - Peripheral Aerobic Blood Culture - Final No growth in 5 days 07/10/18 13:50 Blood - Peripheral Anaerobic Blood Culture - Final No growth in 5 days Assessment and Plan Plan Left lower leg cellulitis/Severe sepsis Complicated with sepsis, diabetes, peripheral vascular disease, peripheral neuropathy. Ultrasound of the lower extremity was done which did not indicate any DVTs. Wound care nurse, ID and podiatry consultations appreciated. MRI of the ankle and foot negative for osteomyelitis. S/p IVFs. Wound culture with pseudomonas, gram-negative rods and Enterococcus faecalis. Blood cultures growing corynebacterium. Pt complained of increased pain in the leg 07/10, but it was relieved with undoing of the dressings. -continue IV vancomycin, Levaquin and Zosyn per ID. -pain control with a bowel regimen. -follow culture data. -follow up with podiatry. 07/14-had left thigh pain, resolved now. reviewed recent duplex, there was no evidence of DVT. SVT Resolved with two doses of adenosine. Currently in sinus tachycardia. -IV fluids and pain control. -IV Lopressor if needed. -telemetry. -seems resolved. Acute Kidney injury with metabolic acidosis, anion gap 20--now resolved. Likely prerenal, however patient does have multiple medications that are nephrotoxic. Nephrology consult appreciated. -We will hold nephrotoxic medications at this time -Renal bladder ultrasound was performed which did not indicate any acute abnormality. Elevated d-dimer -Lower extremity ultrasounds performed without any signs of DVT. -VQ scan was performed which was low probability for pulmonary emboli. Diabetes -Accu-Cheks with sliding scale insulin -Diabetic diet -Levemir 15 units BID. Adjust as needed. Hypertension -continue lisinopril at 10 mg daily (normally on 20). -amlodipine 5 mg daily added. -Clonidine as needed for blood pressure control DVT prevention -Subcutaneous heparin Progress Note: Quality VTE Deep Vein Thrombosis/Pulmonary Embolism Present on Admission: No
[2018-07-16] MEDS: Piperacil/Tazo 4.5 GM Premix 4.5 GM/100 ML BAG IV.SIG SCH ×4 (04:06→21:34)
[2018-07-16] MEDS: Vancomycin Inj 1,750 MG in Sodium Chlor 0.9% Inj 500 ML IV.SIG SCH ×2 (05:52→18:26)
[2018-07-16] MEDS: Heparin - SQ 10,000 UNITS/ML Vial SQ SCH ×2 (05:52→17:30)
[2018-07-16] MEDS: Sod Chloride 0.9% Inj 1,000 ML IV.CONT SCH (05:53)
[2018-07-16] MEDS: Insulin NovoLOG Aspart Correctional Sugar Inj SQ SCH ×4 (07:37→21:49)
[2018-07-16] MEDS: Insulin Detemir Inj 1,000 UNIT/10 ML Vial SQ SCH ×2 (08:50→21:49)
[2018-07-16] MEDS: Folic Acid 1 MG Tablet PO SCH (08:50)
[2018-07-16] MEDS: Metoprolol Tartrate 25 MG Tablet PO SCH ×3 (08:51→21:34)
[2018-07-16] MEDS: amLODIPine 5 MG Tablet PO SCH (08:51)
[2018-07-16] MEDS: Gabapentin 400 MG Capsule PO SCH ×4 (08:51→21:34)
[2018-07-16] MEDS: Lisinopril 10 MG Tablet PO SCH (08:51)
[2018-07-16] MEDS ORDERED: levoFLOXacin 500 MG Tablet PO SCH (14:00)
[2018-07-16] MEDS: levoFLOXacin 500 MG Tablet PO SCH (16:35)
--- NOTE | 2018-07-16 17:02 | P.PNIM ---
Subjective Interval history: patient has no new complaints. Physical Exam Vital signs: Last Vital Signs Temp 97.8 F 07/16/18 16:00 Pulse 137 H 07/16/18 16:00 Resp 20 07/16/18 16:00 BP 134/79 07/16/18 16:00 Pulse Ox 95 07/16/18 16:00 Intake & Output 07/14/18 07/15/18 07/16/18 07/17/18 06:59 06:59 06:59 06:59 Intake Total 2762.5 / 2762.5 3667.5 / 3667.5 5555.0 / 5555.0 1517.5 / 1517.5 Output Total 3850 / 3850 5500 / 5500 1700 / 1700 Balance -1087.5 / -1087.5 -1832.5 / -1832.5 3855.0 / 3855.0 1517.5 / 1517.5 Weight 146.7 kg 146.7 kg 146.4 kg Narrative: GENERAL: Well-nourished, well-developed patient. SKIN: Warm and dry. HEENT: not pale,anicteric NECK:No JVD or lymphadenopathy. CARDIOVASCULAR: Regular rate and rhythm without murmurs, gallops, or rubs. RESPIRATORY: Breath sounds equal bilaterally. No accessory muscle use. GASTROINTESTINAL: Abdomen soft, non-tender, nondistended. EXTREMITIES: Left leg with dressing in situ. NEUROLOGICAL: Awake, alert, and oriented x 3. Non-focal. Results Labs CBC & Chem 7: 07/15/18 05:45 07/15/18 05:45 Assessment and Plan Plan Left lower leg cellulitis/Severe sepsis Complicated with sepsis, diabetes, peripheral vascular disease, peripheral neuropathy. Ultrasound of the lower extremity was done which did not indicate any DVTs. Wound care nurse, ID and podiatry consultations appreciated. MRI of the ankle and foot negative for osteomyelitis. S/p IVFs. Wound culture with pseudomonas, gram-negative rods and Enterococcus faecalis. Blood cultures growing corynebacterium. Pt complained of increased pain in the leg 07/10, but it was relieved with undoing of the dressings. -continue IV vancomycin, Levaquin and Zosyn per ID. -pain control with a bowel regimen. -follow culture data. -follow up with podiatry. On 07/14-had left thigh pain, resolved now. reviewed recent duplex, there was no evidence of DVT. Sinus Tachycardia-unexplained: Had SVT in the course of hospitalization which resolved with two doses of adenosine. Currently in sinus tachycardia which is unexplained. He is well hydrated,will discontinue IV fluids. His pain is well controlled.VQ scan 10 days ago was with low probability for PE. TSH is normal. He is on Metoprolol 25 mg q12, will increase to q6h. If no change, will obtain echo -telemetry. Acute Kidney injury with metabolic acidosis, anion gap 20--now resolved. Likely prerenal, however patient does have multiple medications that are nephrotoxic. Nephrology consult appreciated. -We will hold nephrotoxic medications at this time -Renal bladder ultrasound was performed which did not indicate any acute abnormality. Elevated d-dimer -Lower extremity ultrasounds performed without any signs of DVT. -VQ scan was performed which was low probability for pulmonary emboli. Diabetes- blood glucose within acceptable limits. -Accu-Cheks with sliding scale insulin -Diabetic diet -Levemir 15 units BID. Adjust as needed. Hypertension--bp within acceptable limits. -continue lisinopril at 10 mg daily (normally on 20). -amlodipine 5 mg daily added. -Clonidine as needed for blood pressure control DVT prevention -Subcutaneous heparin Progress Note: Quality VTE Deep Vein Thrombosis/Pulmonary Embolism Present on Admission: No
[2018-07-17] MEDS: Metoprolol Tartrate 25 MG Tablet PO SCH ×4 (03:56→22:12)
[2018-07-17] MEDS: Piperacil/Tazo 4.5 GM Premix 4.5 GM/100 ML BAG IV.SIG SCH ×4 (03:59→22:12)
[2018-07-17] MEDS ORDERED: Pharmacy Ordered Lab Info OTHER ONE (05:45)
[2018-07-17] MEDS: Vancomycin Inj 1,750 MG in Sodium Chlor 0.9% Inj 500 ML IV.SIG SCH (06:21)
[2018-07-17] MEDS: Heparin - SQ 10,000 UNITS/ML Vial SQ SCH ×2 (06:22→17:23)
[2018-07-17] MEDS: Gabapentin 400 MG Capsule PO SCH ×4 (08:14→22:12)
[2018-07-17] MEDS: Insulin Detemir Inj 1,000 UNIT/10 ML Vial SQ SCH ×2 (08:15→22:12)
[2018-07-17] MEDS: amLODIPine 5 MG Tablet PO SCH (08:15)
[2018-07-17] MEDS: Lisinopril 10 MG Tablet PO SCH (08:15)
[2018-07-17] MEDS: Folic Acid 1 MG Tablet PO SCH (08:15)
[2018-07-17] MEDS: Insulin NovoLOG Aspart Correctional Sugar Inj SQ SCH ×4 (08:16→22:12)
--- NOTE | 2018-07-17 11:30 | P.PNIM ---
Subjective Interval history: reports palpitations this morning when he was seated on chair , felt a bit dizzy and had to go back to bed. Physical Exam Vital signs: Last Vital Signs Temp 97.4 F L 07/17/18 08:00 Pulse 78 07/17/18 08:00 Resp 21 07/17/18 08:00 BP 125/62 07/17/18 08:00 Pulse Ox 95 07/17/18 08:00 Intake & Output 07/15/18 07/16/18 07/17/18 07/18/18 06:59 06:59 06:59 06:59 Intake Total 3667.5 / 3667.5 5555.0 / 5555.0 3850.0 / 3850.0 580 / 580 Output Total 5500 / 5500 1700 / 1700 3850 / 3850 800 / 800 Balance -1832.5 / -1832.5 3855.0 / 3855.0 0 / 0 -220 / -220 Weight 146.7 kg 146.4 kg 146.6 kg Narrative: GENERAL: Well-nourished, well-developed patient. SKIN: Warm and dry. HEENT: not pale,anicteric NECK:No JVD or lymphadenopathy. CARDIOVASCULAR: Regular rate and rhythm without murmurs, gallops, or rubs. RESPIRATORY: Breath sounds equal bilaterally. No accessory muscle use. GASTROINTESTINAL: Abdomen soft, non-tender, nondistended. EXTREMITIES: Left leg with dressing in situ. NEUROLOGICAL: Awake, alert, and oriented x 3. Non-focal. Results Labs CBC & Chem 7: 07/15/18 05:45 07/17/18 05:20 Assessment and Plan Plan Left lower leg cellulitis/Severe sepsis Complicated with sepsis, diabetes, peripheral vascular disease, peripheral neuropathy. Ultrasound of the lower extremity was done which did not indicate any DVTs. Wound care nurse, ID and podiatry consultations appreciated. MRI of the ankle and foot negative for osteomyelitis. S/p IVFs. Wound culture with pseudomonas, gram-negative rods and Enterococcus faecalis. Blood cultures growing corynebacterium. Pt complained of increased pain in the leg 07/10, but it was relieved with undoing of the dressings. -continue IV vancomycin, Levaquin and Zosyn per ID. -pain control with a bowel regimen. -follow culture data. -follow up with podiatry. On 07/14-had left thigh pain, resolved now. reviewed recent duplex, there was no evidence of DVT. Sinus Tachycardia-unexplained: Had SVT in the course of hospitalization which resolved with two doses of adenosine. Currently in sinus tachycardia which is unexplained. He is well hydrated,will discontinue IV fluids. His pain is well controlled.VQ scan 10 days ago was with low probability for PE. TSH is normal. increased Metoprol to q6h. If no change, will obtain echo -telemetry. Acute Kidney injury with metabolic acidosis, anion gap 20--now resolved. Likely prerenal, however patient does have multiple medications that are nephrotoxic. Nephrology consult appreciated. -We will hold nephrotoxic medications at this time -Renal bladder ultrasound was performed which did not indicate any acute abnormality. Elevated d-dimer -Lower extremity ultrasounds performed without any signs of DVT. -VQ scan was performed which was low probability for pulmonary emboli. Diabetes- blood glucose within acceptable limits. -Accu-Cheks with sliding scale insulin -Diabetic diet -Levemir 15 units BID. Adjust as needed. Hypertension--bp within acceptable limits. -continue lisinopril at 10 mg daily (normally on 20). -amlodipine 5 mg daily added. -Clonidine as needed for blood pressure control DVT prevention -Subcutaneous heparin Progress Note: Quality VTE Deep Vein Thrombosis/Pulmonary Embolism Present on Admission: No
[2018-07-17] MEDS: levoFLOXacin 500 MG Tablet PO SCH (15:43)
[2018-07-18] MEDS: Metoprolol Tartrate 25 MG Tablet PO SCH ×4 (02:09→21:30)
[2018-07-18] MEDS: Piperacil/Tazo 4.5 GM Premix 4.5 GM/100 ML BAG IV.SIG SCH ×4 (05:54→23:58)
[2018-07-18] MEDS: Heparin - SQ 10,000 UNITS/ML Vial SQ SCH ×2 (05:55→17:09)
[2018-07-18] MEDS: Lisinopril 10 MG Tablet PO SCH (09:07)
[2018-07-18] MEDS: Gabapentin 400 MG Capsule PO SCH ×4 (09:07→21:30)
[2018-07-18] MEDS: amLODIPine 5 MG Tablet PO SCH (09:08)
[2018-07-18] MEDS: Folic Acid 1 MG Tablet PO SCH (09:08)
[2018-07-18] MEDS: Insulin NovoLOG Aspart Correctional Sugar Inj SQ SCH ×4 (09:18→21:38)
[2018-07-18] MEDS: Insulin Detemir Inj 1,000 UNIT/10 ML Vial SQ SCH ×2 (09:18→21:30)
[2018-07-18] MEDS: Vancomycin Inj 1,500 MG in Sodium Chlor 0.9% Inj 500 ML IV.SIG SCH ×2 (13:39→23:58)
--- NOTE | 2018-07-18 14:14 | P.PNIM ---
Subjective Interval history: no complaints today, says he walked around the hallway with PT. Physical Exam Vital signs: Last Vital Signs Temp 97.9 F 07/18/18 12:00 Pulse 85 07/18/18 12:00 Resp 21 07/18/18 12:00 BP 173/83 H 07/18/18 12:00 Pulse Ox 96 07/18/18 12:00 Intake & Output 07/16/18 07/17/18 07/18/18 07/19/18 06:59 06:59 06:59 06:59 Intake Total 5555.0 / 5555.0 3850.0 / 3850.0 3660 / 3660 1160 / 1160 Output Total 1700 / 1700 3850 / 3850 8400 / 8400 1999 / 1999 Balance 3855.0 / 3855.0 0 / 0 -4740 / -4740 -840 / -840 Weight 146.4 kg 146.6 kg 144.4 kg Narrative: GENERAL: Well-nourished, well-developed patient. SKIN: Warm and dry. HEENT: not pale,anicteric NECK:No JVD or lymphadenopathy. CARDIOVASCULAR: Regular rate and rhythm without murmurs, gallops, or rubs. RESPIRATORY: Breath sounds equal bilaterally. No accessory muscle use. GASTROINTESTINAL: Abdomen soft, non-tender, nondistended. EXTREMITIES: Left leg with dressing in situ. NEUROLOGICAL: Awake, alert, and oriented x 3. Non-focal. Results Labs CBC & Chem 7: 07/15/18 05:45 07/17/18 05:20 Assessment and Plan Plan Left lower leg cellulitis/Severe sepsis Complicated with sepsis, diabetes, peripheral vascular disease, peripheral neuropathy. Ultrasound of the lower extremity was done which did not indicate any DVTs. Wound care nurse, ID and podiatry consultations appreciated. MRI of the ankle and foot negative for osteomyelitis. S/p IVFs. Wound culture with pseudomonas, Kleb pneumonia and Enterococcus faecalis. Blood cultures growing corynebacterium. Pt complained of increased pain in the leg 07/10, but it was relieved with undoing of the dressings. -continue IV vancomycin, Levaquin and Zosyn per ID. -pain control with a bowel regimen. -follow up with podiatry. Sinus Tachycardia-unexplained: Had SVT in the course of hospitalization which resolved with two doses of adenosine. Currently in sinus tachycardia which is unexplained. He is well hydrated,will discontinue IV fluids. His pain is well controlled.VQ scan 10 days ago was with low probability for PE. TSH is normal. increased Metoprol to [id number]--[id number] with this change. If no change, will obtain echo -telemetry. Acute Kidney injury with metabolic acidosis, anion gap 20--now resolved. Likely prerenal, however patient does have multiple medications that are nephrotoxic. Nephrology consult appreciated. -We will hold nephrotoxic medications at this time -Renal bladder ultrasound was performed which did not indicate any acute abnormality. Elevated d-dimer -Lower extremity ultrasounds performed without any signs of DVT. -VQ scan was performed which was low probability for pulmonary emboli. Diabetes- blood glucose within acceptable limits. -Accu-Cheks with sliding scale insulin -Diabetic diet -Levemir 15 units BID. Adjust as needed. Hypertension--bp within acceptable limits. -continue lisinopril at 10 mg daily (normally on 20). -amlodipine 5 mg daily added. -Clonidine as needed for blood pressure control DVT prevention -Subcutaneous heparin Progress Note: Quality VTE Deep Vein Thrombosis/Pulmonary Embolism Present on Admission: No
[2018-07-18] MEDS: levoFLOXacin 500 MG Tablet PO SCH (17:09)
[2018-07-19] MEDS: Metoprolol Tartrate 25 MG Tablet PO SCH ×4 (02:16→21:16)
[2018-07-19] MEDS: Piperacil/Tazo 4.5 GM Premix 4.5 GM/100 ML BAG IV.SIG SCH ×4 (04:59→21:26)
[2018-07-19] MEDS: Heparin - SQ 10,000 UNITS/ML Vial SQ SCH ×2 (06:15→17:22)
[2018-07-19 07:56] LABS: Potassium 3.7 meq/L (3.5-5.1)
[2018-07-19 08:02] LABS: Calcium 8.6 mg/dL (8.5-10.1)
[2018-07-19] MEDS: Insulin NovoLOG Aspart Correctional Sugar Inj SQ SCH ×4 (08:02→21:20)
[2018-07-19] MEDS: amLODIPine 5 MG Tablet PO SCH (09:04)
[2018-07-19] MEDS: Gabapentin 400 MG Capsule PO SCH ×4 (09:04→21:16)
[2018-07-19] MEDS: Insulin Detemir Inj 1,000 UNIT/10 ML Vial SQ SCH ×2 (09:04→21:16)
[2018-07-19] MEDS: Folic Acid 1 MG Tablet PO SCH (09:04)
[2018-07-19] MEDS: Lisinopril 10 MG Tablet PO SCH (09:05)
--- NOTE | 2018-07-19 09:26 | P.PNIM ---
Subjective Interval history: no complaints Physical Exam Vital signs: Last Vital Signs Temp 96.1 F L 07/19/18 04:00 Pulse 71 07/19/18 04:05 Resp 20 07/19/18 04:00 BP 116/79 07/19/18 04:00 Pulse Ox 98 07/19/18 04:00 Intake & Output 07/17/18 07/18/18 07/19/18 07/20/18 06:59 06:59 06:59 06:59 Intake Total 3850.0 / 3850.0 3660 / 3660 2970 / 2970 Output Total 3850 / 3850 8400 / 8400 3800 / 3800 Balance 0 / 0 -4740 / -4740 -830 / -830 Weight 146.6 kg 144.4 kg Narrative: GENERAL: Well-nourished, well-developed patient. SKIN: Warm and dry. HEENT: not pale,anicteric NECK:No JVD or lymphadenopathy. CARDIOVASCULAR: Regular rate and rhythm without murmurs, gallops, or rubs. RESPIRATORY: Breath sounds equal bilaterally. No accessory muscle use. GASTROINTESTINAL: Abdomen soft, non-tender, nondistended. EXTREMITIES: Left leg with dressing in situ. NEUROLOGICAL: Awake, alert, and oriented x 3. Non-focal. Results Labs CBC & Chem 7: 07/15/18 05:45 07/19/18 06:10 Assessment and Plan Plan 62-year-old male with known history of hypertension, hyperlipidemia, diabetes who presented to hospital because of 2 week h/o progressive worsening left lower extremity pain and swelling.He was found to have severe Leg wound with sepsis, metabolic acidosis an acute kidney injury on admission. He has had intermittent tachycardia inhouse, PE ruled out. 1.Left lower leg cellulitis/Severe sepsis Complicated with sepsis, diabetes, peripheral vascular disease, peripheral neuropathy. Ultrasound of the lower extremity was done which did not indicate any DVTs. Wound care nurse, ID and podiatry consultations appreciated. MRI of the ankle and foot negative for osteomyelitis. S/p IVFs. Wound culture with pseudomonas, Kleb pneumonia and Enterococcus faecalis. Blood cultures growing corynebacterium. Pt complained of increased pain in the leg 07/10, but it was relieved with undoing of the dressings. -continue IV vancomycin, Levaquin and Zosyn per ID. -pain control with a bowel regimen. -follow up with podiatry. 2.Sinus Tachycardia-unexplained: Had SVT in the course of hospitalization which resolved with two doses of adenosine. Currently in sinus tachycardia which is unexplained. He is well hydrated,will discontinue IV fluids. His pain is well controlled.VQ scan 10 days ago was with low probability for PE. TSH is normal. increased Metoprol to [id number]--[id number] with this change. If no change, will obtain echo -telemetry. 3.Acute Kidney injury with metabolic acidosis, anion gap 20--now resolved. Likely prerenal, however patient does have multiple medications that are nephrotoxic. Nephrology consult appreciated. -We will hold nephrotoxic medications at this time -Renal bladder ultrasound was performed which did not indicate any acute abnormality. 4.Elevated d-dimer -Lower extremity ultrasounds performed without any signs of DVT. -VQ scan was performed which was low probability for pulmonary emboli. 5.Diabetes- blood glucose within acceptable limits. -Accu-Cheks with sliding scale insulin -Diabetic diet -Levemir 15 units BID. Adjust as needed. 6.Hypertension--bp within acceptable limits. -continue lisinopril at 10 mg daily (normally on 20). -amlodipine 5 mg daily added. -Clonidine as needed for blood pressure control DVT prevention -Subcutaneous heparin dispo-still requires inpatient care,needs a few more days of IV abx as per ID recs. Progress Note: Quality VTE Deep Vein Thrombosis/Pulmonary Embolism Present on Admission: No
[2018-07-19] MEDS: Vancomycin Inj 1,500 MG in Sodium Chlor 0.9% Inj 500 ML IV.SIG SCH ×2 (12:09→23:54)
[2018-07-19] MEDS: levoFLOXacin 500 MG Tablet PO SCH (17:23)
--- NOTE | 2018-07-19 22:43 | P.PNPOD ---
Subjective Interval history: LLE infection. In NAD at bedside this am. Physical Exam Vital signs: Vital Signs 07/19/18 00:00 07/19/18 00:08 07/19/18 04:00 Temperature 97.5 F L 96.1 F L Pulse Rate 80 75 78 Respiratory Rate 20 20 Blood Pressure 137/79 116/79 Pulse Oximetry 98 98 07/19/18 04:05 07/19/18 08:00 07/19/18 12:00 Temperature 97.6 F Pulse Rate 71 85 90 Respiratory Rate 18 Blood Pressure 153/87 H Pulse Oximetry 98 07/19/18 16:00 07/19/18 20:00 Temperature 97.0 F L 97.1 F L Pulse Rate 82 80 Respiratory Rate 19 18 Blood Pressure 143/65 H 145/70 H Pulse Oximetry 98 97 Intake & Output 07/19/18 07/19/18 07/20/18 06:59 18:59 06:59 Intake Total 715 / 715 1215 / 1215 100 / 100 Output Total 1600 / 1600 Balance 715 / 715 -385 / -385 100 / 100 Weight 144.4 kg Intake: IV 715 / 715 715 / 715 100 / 100 Zosyn 4.5 GM Premix 4.5 gm In 200 / 200 200 / 200 100 / 100 100 ml @ 200 mls/hr IV.SIG Q6H DEBRA Rx#:[id number] Vancomycin Inj 1,500 MG In NS 515 / 515 515 / 515 Inj 500 ML @ 250 mls/hr IV.SIG Q12H DEBRA Rx#:[id number] Oral 500 / 500 Output: Urine 1600 / 1600 Other: Date of Last Bowel Movement 07/18/18 07/18/18 Narrative: LLE warm LE LLE is significantly improved in edema an erythema. Some skin slough. Medial calf with full thickness wound 5cm x 5cm, 100% granular. Medications and Allergies Active Medications: Active Medications Acetaminophen (Tylenol) 650 mg PO Q4H PRN PRN Reason: Temp > 100.4 Last Admin: 07/06/18 20:24 Dose: 650 mg Hydrocodone Bitart/Acetaminophen ([place] 10/325) 1 tab PO Q6H PRN PRN Reason: PAIN SCALE 6 TO 10 Last Admin: 07/19/18 17:23 Dose: 1 tab Hydrocodone Bitart/Acetaminophen ([place] 5/325) 1 tab PO Q6H PRN PRN Reason: PAIN SCALE 1 TO 5 Al Hydroxide/Mg Hydroxide (Milk Of Magnesia Liq) 30 ml PO Q12H PRN PRN Reason: Mild Constipation Albuterol (Duoneb Neb (Prn)) 1 ampul NEB Q2HR NEB PRN PRN Reason: WHEEZING Last Admin: 07/07/18 10:39 Dose: 1 ampul Amlodipine Besylate (Norvasc) 5 mg PO DAILY [facility] Last Admin: 07/19/18 09:04 Dose: 5 mg Bisacodyl (Dulcolax Supp) 10 mg RECTAL DAILY PRN PRN Reason: SEVERE CONSITIPATION Clonidine HCl (Catapres) 0.1 mg PO Q6H PRN PRN Reason: SBP>160, DBP>90 Last Admin: 07/10/18 20:05 Dose: 0.1 mg Dextrose (D50w Vial) 50 ml IV.PUSH UNSCH PRN PRN Reason: PER HYPOGLYCEMIA PROTOCOL Folic Acid (Folic Acid) 1 mg PO DAILY [facility] Last Admin: 07/19/18 09:04 Dose: 1 mg Gabapentin (Neurontin) 800 mg PO QID [facility] Last Admin: 07/19/18 21:16 Dose: 800 mg Glucagon (Glucagon Inj) 1 mg OTHER PRN PRN PRN Reason: for Hypoglycemia Protocol Heparin Sodium (Porcine) (Heparin Inj) 5,000 units SQ Q12H [facility] Last Admin: 07/19/18 17:22 Dose: 5,000 units Piperacillin/Tazobactam/Dextrose (Zosyn 4.5 Gm Premix) 4.5 gm in 100 mls @ 200 mls/hr IV.SIG Q6H [facility] Last Infusion: 07/19/18 22:00 Dose: Infused Vancomycin HCl 1,500 mg/ (Sodium Chloride) 515 mls @ 250 mls/hr IV.SIG Q12H [facility] Last Infusion: 07/19/18 18:39 Dose: Infused Insulin Aspart (Novolog Insulin Correctional Sugar Inj) 0 unit SQ ACHS [facility]; Protocol Last Admin: 07/19/18 21:20 Dose: 4 unit Insulin Detemir (Levemir Inj) 15 unit SQ BID [facility] Last Admin: 07/19/18 21:16 Dose: 15 unit Lactulose (Lactulose Liq) 30 ml PO DAILY PRN PRN Reason: SEVERE CONSITIPATION Levofloxacin (Levaquin) 500 mg PO Q24H [facility] Last Admin: 07/19/18 17:23 Dose: 500 mg Lisinopril (Prinivil) 10 mg PO DAILY [facility] Last Admin: 07/19/18 09:05 Dose: 10 mg Metoprolol Tartrate (Lopressor) 25 mg PO Q6H [facility] Last Admin: 07/19/18 21:16 Dose: 25 mg Miscellaneous Information ([facility] Ordered Lab Info) 0 each OTHER ONCE ONE Stop: 07/19/18 23:46 Naloxone HCl (Narcan Inj) 0.4 mg IV.PUSH UNSCH PRN PRN Reason: SEE LABEL COMMENTS Ondansetron HCl (Zofran Inj) 4 mg IV.PUSH Q6H PRN PRN Reason: NAUSEA OR VOMITING Pharmacy Profile Note (Vancomycin Consult Pharmacy) 1 each OTHER UNSCH PRN PRN Reason: Pharmacy to dose Sennosides (Senokot) 17.2 mg PO Q12H PRN PRN Reason: Moderate Constipation Last Admin: 07/14/18 14:25 Dose: 17.2 mg Sodium Chloride (Ns Flush) 2 ml IV.FLUSH BID [facility] Last Admin: 07/19/18 21:21 Dose: 2 ml Sodium Chloride (Ns Flush) 2 ml IV.FLUSH PRN PRN PRN Reason: FLUSH AFTER USING IV ACCESS Last Admin: 07/10/18 00:46 Dose: 2 ml Allergies Allergy/AdvReac Type Severity Reaction Status Date / Time erythromycin base Allergy Unknown UNKNOWN Verified 07/06/18 03:23 REACTION oxytetracycline Allergy Unknown UNKNOWN Verified 07/06/18 03:23 REACTION Home Medications Medication Instructions Recorded Confirmed Type dapagliflozin [Farxiga] 10 mg PO QAM 07/05/18 07/05/18 History diclofenac sodium 100 mg PO DAILY 07/05/18 07/05/18 History folic acid 0.8 mg PO DAILY 07/05/18 07/05/18 History furosemide 40 mg PO DAILY 07/05/18 07/05/18 History gabapentin 800 mg PO TID 07/05/18 07/05/18 History glimepiride 4 mg PO QAM 07/05/18 07/05/18 History lisinopril 20 mg PO DAILY 07/05/18 07/05/18 History metformin 1,000 mg PO BID 07/05/18 07/05/18 History [id number] 1 tab PO DAILY 07/05/18 07/05/18 History [Airborne (ascorbate sodium)] omega 9-uln-dbh-fish oil [Fish Oil] 1,000 mg PO DAILY 07/05/18 07/05/18 History solifenacin [Vesicare] 5 mg PO DAILY 07/05/18 07/05/18 History Results - Labs CBC & Chem 7: 07/15/18 05:45 07/19/18 06:10 Laboratory Results - last 24 hr 07/19/18 07/19/18 07/19/18 06:10 08:01 11:45 Sodium 141 Potassium 3.7 Chloride 104 Carbon Dioxide 29.0 Anion Gap 8 BUN 10 Creatinine 1.10 Estimated GFR 68 L POC Glucose 147 H 131 H Random Glucose 130 H Calcium 8.6 07/19/18 07/19/18 16:51 21:20 Sodium Potassium Chloride Carbon Dioxide Anion Gap BUN Creatinine Estimated GFR POC Glucose 179 H 213 H Random Glucose Calcium Assessment and Plan - Assessment (1) Cellulitis of left lower extremity Code(s): L03.116 - Cellulitis of left lower limb Status: Acute (2) Diabetes Code(s): E11.9 - Type 2 diabetes mellitus without complications Status: Acute (3) Leukocytosis Code(s): D72.829 - Elevated white blood cell count, unspecified Status: Acute (4) Severe sepsis Code(s): A41.9 - Sepsis, unspecified organism; R65.20 - Severe sepsis without septic shock Status: Acute - Plan Continue abx per ID OK to d/c per Podiatry. f/u with in 1 week of d/c Wound care with 1) adaptic, 2) aquacell and 3) Unna boot. Change daily. On discharge have home health care continue daily. (2) Diabetes Qualifiers: Diabetes mellitus type: type 2 Diabetes mellitus complication status: with neurologic complications Diabetes mellitus complication detail: with polyneuropathy
[2018-07-19] MEDS ORDERED: Pharmacy Ordered Lab Info OTHER ONE (23:45)
[2018-07-20] MEDS: Metoprolol Tartrate 25 MG Tablet PO SCH ×4 (02:58→21:46)
[2018-07-20] MEDS: Piperacil/Tazo 4.5 GM Premix 4.5 GM/100 ML BAG IV.SIG SCH ×4 (03:00→21:47)
[2018-07-20] MEDS: Heparin - SQ 10,000 UNITS/ML Vial SQ SCH ×2 (06:36→17:07)
[2018-07-20] MEDS: amLODIPine 5 MG Tablet PO SCH (08:20)
[2018-07-20] MEDS: Lisinopril 10 MG Tablet PO SCH (08:20)
[2018-07-20] MEDS: Folic Acid 1 MG Tablet PO SCH (08:20)
[2018-07-20] MEDS: Gabapentin 400 MG Capsule PO SCH ×4 (08:21→21:47)
[2018-07-20] MEDS: Insulin NovoLOG Aspart Correctional Sugar Inj SQ SCH ×4 (08:22→21:44)
[2018-07-20] MEDS: Insulin Detemir Inj 1,000 UNIT/10 ML Vial SQ SCH ×2 (08:24→21:43)
[2018-07-20] MEDS ORDERED: amLODIPine 5 MG Tablet PO SCH (08:59)
--- NOTE | 2018-07-20 08:59 | P.PNIM ---
Subjective Interval history: Follow-up for cellulitis Left lower extremity pain about 8/10, no fever or chills. No nausea or vomiting. Still with loose stools probably from antibiotics. No abdominal pain. Physical Exam Vital signs: Last Vital Signs Temp 98.2 F 07/20/18 08:00 Pulse 80 07/20/18 08:00 Resp 20 07/20/18 08:19 BP 143/81 H 07/20/18 08:00 Pulse Ox 97 07/20/18 08:00 Intake & Output 07/18/18 07/19/18 07/20/18 07/21/18 06:59 06:59 06:59 06:59 Intake Total 3660 / 3660 2970 / 2970 3930 / 3930 Output Total 8400 / 8400 3800 / 3800 6100 / 6100 Balance -4740 / -4740 -830 / -830 -2170 / -2170 Weight 144.4 kg 139.6 kg Narrative: GENERAL: Not in distress. CARDIOVASCULAR: Regular rate and rhythm without murmurs, gallops, or rubs. RESPIRATORY: Breath sounds equal bilaterally. No accessory muscle use. GASTROINTESTINAL: Abdomen soft, non-tender, nondistended. Beats. EXTREMITIES: Left lower extremity/calf cellulitis examined 07/20/2018: Still with significant warmth, tenderness and erythema. No visible discharge. NEUROLOGICAL: Awake, alert, and oriented x 3. Non-focal. Results Labs CBC & Chem 7: 07/15/18 05:45 07/19/18 06:10 Assessment and Plan Plan 62-year-old male with known history of hypertension, hyperlipidemia, diabetes who presented to hospital because of 2 week h/o progressive worsening left lower extremity pain and swelling.He was found to have severe Leg wound with sepsis, metabolic acidosis an acute kidney injury on admission. He has had intermittent tachycardia inhouse, PE ruled out. Severe sepsis secondary to left lower leg cellulitis - Ultrasound of the lower extremity was done which did not indicate any DVTs. Wound care nurse, ID and podiatry consultations appreciated. MRI of the ankle and foot negative for osteomyelitis. Wound culture with pseudomonas, Kleb pneumonia and Enterococcus faecalis. Blood cultures growing corynebacterium likely contaminants, repeat negative. Continue IV vancomycin, Levaquin and Zosyn per ID, pain control with a bowel regimen, follow up with podiatry. Cleared by podiatry for discharge. Wound care with 1) adaptic, 2) aquacell and 3) Unna boot. Change daily. On discharge have home health care continue daily. Patient cellulitis is significantly active. Sinus Tachycardia-unexplained: Had SVT in the course of hospitalization which resolved with two doses of adenosine. Currently in sinus tachycardia which is unexplained. His pain is well controlled.VQ scan 10 days ago was with low probability for PE. TSH is normal. Better, continue metoprolol, increased dose since blood pressure still not controlled. Acute Kidney injury with metabolic acidosis, anion gap 20--now resolved. Likely prerenal, however patient does have multiple medications that are nephrotoxic. Nephrology consult appreciated. Renal bladder ultrasound was performed which did not indicate any acute abnormality. Elevated d-dimer -Lower extremity ultrasounds performed without any signs of DVT. -VQ scan was performed which was low probability for pulmonary emboli. Diabetes- blood glucose within acceptable limits. Continue Levemir 15 units twice a day with Accu-Cheks and sliding scale insulin Hypertension--continue lisinopril 10 mg daily, Norvasc 5 mg daily, increase metoprolol as above, clonidine as needed. DVT prevention -Subcutaneous heparin dispo-still requires inpatient care,needs a few more days of IV abx . DC home when ready. Progress Note: Quality VTE Deep Vein Thrombosis/Pulmonary Embolism Present on Admission: No
[2018-07-20] MEDS: Vancomycin Inj 1,500 MG in Sodium Chlor 0.9% Inj 500 ML IV.SIG SCH (13:31)
[2018-07-20] MEDS: levoFLOXacin 500 MG Tablet PO SCH (15:16)
--- NOTE | 2018-07-20 16:25 | P.PNID ---
Subjective Remarks: ID coverage. No fevers Has some pain in the left leg. Has drainage and ulceration at the left tibia. Antibiotics: IV Vancomycin, Zosyn Levofloxacin Lines: Peripheral Past Medical History: Diabetes Allergies/Adverse Reactions: Allergies erythromycin base Allergy (Unknown, Verified 07/06/18 03:23) UNKNOWN REACTION oxytetracycline Allergy (Unknown, Verified 07/06/18 03:23) UNKNOWN REACTION Objective Vital Signs 07/19/18 20:00 07/20/18 00:00 07/20/18 00:24 Temperature 97.1 F L 96.8 F L Pulse Rate 79 83 75 Respiratory Rate 18 18 Blood Pressure 145/70 H 159/83 H Pulse Oximetry 97 95 07/20/18 04:00 07/20/18 08:00 07/20/18 08:19 Temperature 98.2 F Pulse Rate 78 80 Respiratory Rate 16 20 Blood Pressure 143/81 H Pulse Oximetry 97 07/20/18 12:00 07/20/18 15:26 07/20/18 16:00 Temperature 99.1 F 98.2 F Pulse Rate 78 83 Respiratory Rate 16 20 18 Blood Pressure 144/79 H 128/62 Pulse Oximetry 99 96 Intake & Output 07/19/18 07/20/18 07/20/18 18:59 06:59 18:59 Intake Total 1215 / 1215 2715 / 2715 615 / 615 Output Total 1600 / 1600 4500 / 4500 1999 Balance -385 / -385 -1785 / -1785 -1385 / -1385 Weight 144.4 kg 139.6 kg Intake: IV 715 / 715 715 / 715 615 / 615 Zosyn 4.5 GM Premix 4.5 gm In 200 / 200 200 / 200 100 / 100 100 ml @ 200 mls/hr IV.SIG Q6H [facility] Rx#:[id number] Vancomycin Inj 1,500 MG In NS 515 / 515 515 / 515 515 / 515 Inj 500 ML @ 250 mls/hr IV.SIG Q12H [facility] Rx#:[id number] Oral 500 / 500 1999 Output: Urine 1600 / 1600 4500 / 4500 1999 Other: Date of Last Bowel Movement 07/18/18 07/19/18 07/19/18 Lab - Chemistry Results 07/18/18 07/18/18 07/19/18 16:46 21:34 06:10 Sodium 141 Potassium 3.7 Chloride 104 Carbon Dioxide 29.0 Anion Gap 8 BUN 10 Creatinine 1.10 Estimated GFR 68 L POC Glucose 164 H 187 H Random Glucose 130 H Calcium 8.6 07/19/18 07/19/18 07/19/18 08:01 11:45 16:51 Sodium Potassium Chloride Carbon Dioxide Anion Gap BUN Creatinine Estimated GFR POC Glucose 147 H 131 H 179 H Random Glucose Calcium 07/19/18 07/20/18 07/20/18 21:20 07:18 11:56 Sodium Potassium Chloride Carbon Dioxide Anion Gap BUN Creatinine Estimated GFR POC Glucose 213 H 126 H 177 H Random Glucose Calcium Imaging: ITS Impressions Venous Doppler Study 07/05/18 21:32 CONCLUSION: No venous thrombosis is identified within either lower extremity. Abdomen/Bladder Ultrasound 07/06/18 00:00 CONCLUSION: 1. Renal cyst on the right 2. No suspicious mass or hydronephrosis. Pulmonary Perfusion Imaging 07/06/18 23:40 CONCLUSION: 1. Low probability for pulmonary embolism. Ankle MRI 07/07/18 00:00 CONCLUSION: 1. Severe and diffuse subcutaneous edema without abscess or osteomyelitis. 2. Mild navicular/cuneiform osteoarthritis. 3. Type II accessory navicular and slight tendinopathy of tibialis posterior tendon. 4. Very mild proximal plantar fasciitis. No tear. 5. Very mild Achilles tendinosis without tear. Foot MRI 07/07/18 07:11 CONCLUSION: Dorsal predominant subcutaneous swelling and edema of the left foot without abscess or evidence of osteomyelitis. Chest X-Ray 07/11/18 00:00 CONCLUSION: No acute cardiopulmonary process. Physical Exam: Awake alert and oriented. HEENT: Andrei. EOMI. No icterus. Chest : Clear breath sounds. Heart : S1 S2 normal. Abdomen: Soft Non tender Bowel sounds present EXT: Left leg has drainage where the blisters have broken. Ulcerated areas. underlying skin is purpuric. NEURO: non-focal. PSYCH: Calm and cooperative. Assessment and Plan (1) Cellulitis of left lower extremity Status: Acute Code(s): L03.116 - Cellulitis of left lower limb (2) Severe sepsis Status: Acute Code(s): A41.9 - Sepsis, unspecified organism; R65.20 - Severe sepsis without septic shock (3) Diabetes Status: Acute Code(s): E11.9 - Type 2 diabetes mellitus without complications - Plan Cellulitis severe. Slow to improve. 1. Blood cultures- CORNYBACTERIUM NOT JK - REPEAT HOWEVER NEGATIVE. Likely was contaminants 2. Change Vancomycin to Zyvox. 3. Continue IV Zosyn at 4.5 g q 6hrs 4. Continue Levofloxacin 500 mg po daily. 5. Continue dressing changes. Patient will be followed by Dr. Willis who will be covering ID for Merritt beginning 07/21. (3) Diabetes Qualifiers: Diabetes mellitus type: type 2 Diabetes mellitus complication status: with neurologic complications Diabetes mellitus complication detail: with polyneuropathy
[2018-07-21] MEDS: Piperacil/Tazo 4.5 GM Premix 4.5 GM/100 ML BAG IV.SIG SCH ×4 (03:51→21:08)
[2018-07-21] MEDS: Heparin - SQ 10,000 UNITS/ML Vial SQ SCH ×2 (06:14→19:20)
[2018-07-21] MEDS: Insulin NovoLOG Aspart Correctional Sugar Inj SQ SCH ×4 (07:47→20:35)
[2018-07-21] MEDS: Folic Acid 1 MG Tablet PO SCH (09:27)
[2018-07-21] MEDS: Metoprolol Tartrate 25 MG Tablet PO SCH ×2 (09:27→20:34)
[2018-07-21] MEDS: amLODIPine 5 MG Tablet PO SCH (09:27)
[2018-07-21] MEDS: Gabapentin 400 MG Capsule PO SCH ×4 (09:27→20:33)
[2018-07-21] MEDS: Insulin Detemir Inj 1,000 UNIT/10 ML Vial SQ SCH ×2 (09:27→20:34)
[2018-07-21] MEDS: Lisinopril 10 MG Tablet PO SCH (09:28)
--- NOTE | 2018-07-21 11:12 | P.PNIM ---
Subjective Interval history: Night events, pain is stable, no fever or chills. Physical Exam Vital signs: Last Vital Signs Temp 98.3 F 07/21/18 08:00 Pulse 87 07/21/18 08:00 Resp 21 07/21/18 08:00 BP 139/63 07/21/18 08:00 Pulse Ox 98 07/21/18 08:00 Intake & Output 07/19/18 07/20/18 07/21/18 07/22/18 06:59 06:59 06:59 06:59 Intake Total 2970 / 2970 3930 / 3930 3215 / 3215 100 / 100 Output Total 3800 / 3800 6100 / 6100 4000 / 4000 Balance -830 / -830 -2170 / -2170 -785 / -785 100 / 100 Weight 139.6 kg Narrative: GENERAL: Not in distress. CARDIOVASCULAR: Regular rate and rhythm without murmurs, gallops, or rubs. RESPIRATORY: Breath sounds equal bilaterally. No accessory muscle use. GASTROINTESTINAL: Abdomen soft, non-tender, nondistended. Beats. EXTREMITIES: Left lower extremity/calf cellulitis examined 07/20/2018: Still with significant warmth, tenderness and erythema. No visible discharge. NEUROLOGICAL: Awake, alert, and oriented x 3. Non-focal. Results Labs CBC & Chem 7: 07/15/18 05:45 07/21/18 06:40 Assessment and Plan Plan 62-year-old male with known history of hypertension, hyperlipidemia, diabetes who presented to hospital because of 2 week h/o progressive worsening left lower extremity pain and swelling.He was found to have severe Leg wound with sepsis, metabolic acidosis an acute kidney injury on admission. He has had intermittent tachycardia inhouse, PE ruled out. Severe sepsis secondary to left lower leg cellulitis - Ultrasound of the lower extremity was done which did not indicate any DVTs. Wound care nurse, ID and podiatry consultations appreciated. MRI of the ankle and foot negative for osteomyelitis. Wound culture with pseudomonas, Kleb pneumonia and Enterococcus faecalis. Blood cultures growing corynebacterium likely contaminants, repeat negative. Cleared by podiatry for discharge. Wound care with 1) adaptic, 2) aquacell and 3) Unna boot. Change daily. On discharge have home health care continue daily. - improving slowly, medically still with active cellulitis, discussed with infectious disease, continue IV antibiotics for now with vancomycin, Levaquin and Zosyn. Continue bowel regimen. Sinus Tachycardia-unexplained: Had SVT in the course of hospitalization which resolved with two doses of adenosine. Currently in sinus tachycardia which is unexplained. His pain is well controlled.VQ scan 10 days ago was with low probability for PE. TSH is normal. Continue metoprolol. Acute Kidney injury with metabolic acidosis, anion gap 20--now resolved. Likely prerenal, however patient does have multiple medications that are nephrotoxic. Nephrology consult appreciated. Renal bladder ultrasound was performed which did not indicate any acute abnormality. Elevated d-dimer -Lower extremity ultrasounds performed without any signs of DVT. -VQ scan was performed which was low probability for pulmonary emboli. Diabetes- blood glucose within acceptable limits. Continue Levemir 15 units twice a day with Accu-Cheks and sliding scale insulin Hypertension--continue lisinopril 10 mg daily, Norvasc 5 mg daily, increase metoprolol as above, clonidine as needed. DVT prevention -Subcutaneous heparin dispo-still requires inpatient care,needs a few more days of IV abx . DC home once cleared by infectious disease. Cleared by podiatry. Progress Note: Quality VTE Deep Vein Thrombosis/Pulmonary Embolism Present on Admission: No
--- NOTE | 2018-07-21 14:32 | P.DCO ---
Diagnosis (1) Cellulitis of left lower extremity: Status: Acute Physical Therapy Order: Evaluate and treat Home Health Nursing Order: Medical education, Wound care and dressing changes and Nursing assessment with vital signs Case Management Consult Case Management Consult-Home Health: Yes I have seen patient Trae Arizmendi on 07/21/18. My clinical findings support the need for the requested home health care services because: I certify that my clinical findings support that this patient is homebound because:
[2018-07-21] MEDS: levoFLOXacin 500 MG Tablet PO SCH (15:25)
[2018-07-22] MEDS: Piperacil/Tazo 4.5 GM Premix 4.5 GM/100 ML BAG IV.SIG SCH ×4 (04:27→21:48)
[2018-07-22] MEDS: Heparin - SQ 10,000 UNITS/ML Vial SQ SCH ×2 (05:17→17:46)
--- NOTE | 2018-07-22 08:50 | P.DCO ---
- Diagnosis (1) Cellulitis of left lower extremity Status: Acute (2) Diabetes Status: Acute - Home Health Nursing Order: Wound care and dressing changes, Nursing assessment with vital signs - Case Management Consult Case Management Consult-Home Health: Yes - Certification I have seen patient Trae Arizmendi on 07/22/18. My clinical findings support the need for the requested home health care services because: Limited ability to care for self I certify that my clinical findings support that this patient is homebound because: Unsafe to leave home unassisted (2) Diabetes Qualifiers: Diabetes mellitus type: type 2 Diabetes mellitus complication status: with neurologic complications Diabetes mellitus complication detail: with polyneuropathy
--- NOTE | 2018-07-22 09:55 | P.PNIM ---
Subjective Interval history: Patient says he is feeling right. Denies any chest pain or shortness of breath. Denies nausea vomiting. Denies constipation. Reports pain is controlled. Physical Exam Vital signs: Vital Signs 07/21/18 12:00 07/21/18 16:00 07/21/18 20:00 Temperature 97.4 F L 98.1 F 97.1 F L Pulse Rate 95 H 73 64 Respiratory Rate 21 20 20 Blood Pressure 128/80 109/53 L 150/77 H Pulse Oximetry 90 L 98 97 07/22/18 00:00 07/22/18 04:00 07/22/18 06:00 Temperature 98.1 F 96.5 F L Pulse Rate 74 72 Respiratory Rate 18 20 Blood Pressure 132/69 161/77 H 144/75 H Pulse Oximetry 95 96 07/22/18 08:00 Temperature 97.7 F Pulse Rate 73 Respiratory Rate 20 Blood Pressure 137/75 Pulse Oximetry 96 Intake & Output 07/21/18 07/22/18 07/22/18 18:59 06:59 18:59 Intake Total 6260 / 6260 500 / 500 Output Total 1999 / 1999 1400 / 1400 Balance 4260 / 4260 -900 / -900 Weight 139.8 kg Intake: IV 500 / 500 500 / 500 Zyvox 600 mg Premix 300 ML @ 300 / 300 300 / 300 300 mls/hr IV.SIG Q12H DEBRA Rx#: [id number] Zosyn 4.5 GM Premix 4.5 gm In 200 / 200 200 / 200 100 ml @ 200 mls/hr IV.SIG Q6H DEBRA Rx#:[id number] Oral 5760 / 5760 Output: Urine 1999 1400 / 1400 Other: Date of Last Bowel Movement 07/21/18 Narrative: GENERAL: Patient sitting up in chair. Appears comfortable. SKIN: Warm and dry. HEAD: Normocephalic. EYES: No scleral icterus. No injection or drainage. NECK: Supple, trachea midline. No JVD. CARDIOVASCULAR: Regular rate and rhythm without murmurs, gallops, or rubs. RESPIRATORY: Breath sounds equal bilaterally. No accessory muscle use. GASTROINTESTINAL: Abdomen soft, non-tender, nondistended. MUSCULOSKELETAL: No cyanosis, or edema. Left lower extremity dressed with dressing clean dry and intact. BACK: Nontender without obvious deformity. No CVA tenderness. Results - Labs CBC & Chem 7: 07/15/18 05:45 07/21/18 06:40 Laboratory Results - last 24 hr 07/21/18 07/21/18 07/21/18 12:32 16:32 20:32 POC Glucose 246 H 149 H 205 H Assessment and Plan - Assessment (1) Cellulitis of left lower extremity Code(s): L03.116 - Cellulitis of left lower limb Status: Acute (2) Diabetes Code(s): E11.9 - Type 2 diabetes mellitus without complications Status: Acute - Plan 62-year-old male with known history of hypertension, hyperlipidemia, diabetes who presented to hospital because of 2 week h/o progressive worsening left lower extremity pain and swelling.He was found to have severe Leg wound with sepsis, metabolic acidosis an acute kidney injury on admission. He has had intermittent tachycardia inhouse, PE ruled out. //Severe sepsis secondary to left lower leg cellulitis - Ultrasound of the lower extremity was done which did not indicate any DVTs. Wound care nurse, ID and podiatry consultations appreciated. MRI of the ankle and foot negative for osteomyelitis. Wound culture with pseudomonas, Kleb pneumonia and Enterococcus faecalis. Blood cultures growing corynebacterium likely contaminants, repeat negative. Cleared by podiatry for discharge. Wound care with 1) adaptic, 2) aquacell and 3) Unna boot. Change daily. On discharge have home health care continue daily. - improving slowly, medically still with active cellulitis, discussed with infectious disease, continue IV antibiotics for now with vancomycin, Levaquin and Zosyn. Continue bowel regimen. = Continue on IV antibiotics as per infectious disease. ID recommendations. //Sinus Tachycardia-unexplained: Had SVT in the course of hospitalization which resolved with two doses of adenosine. Currently in sinus tachycardia which is unexplained. His pain is well controlled.VQ scan 10 days ago was with low probability for PE. TSH is normal. Continue metoprolol. = Heart rate controlled. Continue current regimen. //Acute Kidney injury with metabolic acidosis, anion gap 20--now resolved. Likely prerenal, however patient does have multiple medications that are nephrotoxic. Nephrology consult appreciated. Renal bladder ultrasound was performed which did not indicate any acute abnormality. //Elevated d-dimer -Lower extremity ultrasounds performed without any signs of DVT. -VQ scan was performed which was low probability for pulmonary emboli. //Diabetes- blood glucose within acceptable limits. Continue Levemir 15 units twice a day with Accu-Cheks and sliding scale insulin //Hypertension--continue lisinopril 10 mg daily, Norvasc 5 mg daily, increase metoprolol as above, clonidine as needed. = Blood pressure acceptable. Continue current regimen. Continue to monitor. //DVT prevention -Subcutaneous heparin dispo-still requires inpatient care,needs a few more days of IV abx . DC home once cleared by infectious disease. Cleared by podiatry. Discussed Condition With: manager corporate responsibility., Patient (2) Diabetes Qualifiers: Diabetes mellitus type: type 2 Diabetes mellitus complication status: with neurologic complications Diabetes mellitus complication detail: with polyneuropathy
[2018-07-22] MEDS: Insulin NovoLOG Aspart Correctional Sugar Inj SQ SCH ×4 (10:08→23:19)
[2018-07-22] MEDS: Folic Acid 1 MG Tablet PO SCH (10:10)
[2018-07-22] MEDS: Lisinopril 10 MG Tablet PO SCH (10:10)
[2018-07-22] MEDS: Metoprolol Tartrate 25 MG Tablet PO SCH ×2 (10:10→21:48)
[2018-07-22] MEDS: amLODIPine 5 MG Tablet PO SCH (10:10)
[2018-07-22] MEDS: Insulin Detemir Inj 1,000 UNIT/10 ML Vial SQ SCH ×2 (10:10→21:48)
[2018-07-22] MEDS: Gabapentin 400 MG Capsule PO SCH ×4 (10:10→21:48)
--- NOTE | 2018-07-22 13:10 | P.PNID ---
Subjective Remarks: ID coverage. chart wqs reviewed 62 yo Antibiotics: zyvox Zosyn Levofloxacin Lines: Peripheral Past Medical History: Diabetes Allergies/Adverse Reactions: Allergies erythromycin base Allergy (Unknown, Verified 07/06/18 03:23) UNKNOWN REACTION oxytetracycline Allergy (Unknown, Verified 07/06/18 03:23) UNKNOWN REACTION Objective Vital Signs 07/21/18 16:00 07/21/18 20:00 07/22/18 00:00 Temperature 98.1 F 97.1 F L 98.1 F Pulse Rate 73 64 74 Respiratory Rate 20 20 18 Blood Pressure 109/53 L 150/77 H 132/69 Pulse Oximetry 98 97 95 07/22/18 04:00 07/22/18 06:00 07/22/18 08:00 Temperature 96.5 F L 97.7 F Pulse Rate 72 73 Respiratory Rate 20 20 Blood Pressure 161/77 H 144/75 H 137/75 Pulse Oximetry 96 96 07/22/18 12:00 Temperature 97.8 F Pulse Rate 77 Respiratory Rate 20 Blood Pressure 148/81 H Pulse Oximetry 98 Intake & Output 07/21/18 07/22/18 07/22/18 18:59 06:59 18:59 Intake Total 6260 / 6260 500 / 500 Output Total 1999 / 1999 1400 / 1400 Balance 4260 / 4260 -900 / -900 Weight 139.8 kg Intake: IV 500 / 500 500 / 500 Zyvox 600 mg Premix 300 ML @ 300 / 300 300 / 300 300 mls/hr IV.SIG Q12H DEBRA Rx#: [id number] Zosyn 4.5 GM Premix 4.5 gm In 200 / 200 200 / 200 100 ml @ 200 mls/hr IV.SIG Q6H DEBRA Rx#:[id number] Oral 5760 / 5760 Output: Urine 1999 1400 / 1400 Other: Date of Last Bowel Movement 07/21/18 Lab - Chemistry Results 07/20/18 07/20/18 07/21/18 16:47 21:28 06:40 Creatinine 1.00 Estimated GFR 76 L POC Glucose 133 H 210 H 07/21/18 07/21/18 07/21/18 07:41 12:32 16:32 Creatinine Estimated GFR POC Glucose 161 H 246 H 149 H 07/21/18 20:32 Creatinine Estimated GFR POC Glucose 205 H Imaging: ITS Impressions Venous Doppler Study 07/05/18 21:32 CONCLUSION: No venous thrombosis is identified within either lower extremity. Abdomen/Bladder Ultrasound 07/06/18 00:00 CONCLUSION: 1. Renal cyst on the right 2. No suspicious mass or hydronephrosis. Pulmonary Perfusion Imaging 07/06/18 23:40 CONCLUSION: 1. Low probability for pulmonary embolism. Ankle MRI 07/07/18 00:00 CONCLUSION: 1. Severe and diffuse subcutaneous edema without abscess or osteomyelitis. 2. Mild navicular/cuneiform osteoarthritis. 3. Type II accessory navicular and slight tendinopathy of tibialis posterior tendon. 4. Very mild proximal plantar fasciitis. No tear. 5. Very mild Achilles tendinosis without tear. Foot MRI 07/07/18 07:11 CONCLUSION: Dorsal predominant subcutaneous swelling and edema of the left foot without abscess or evidence of osteomyelitis. Chest X-Ray 07/11/18 00:00 CONCLUSION: No acute cardiopulmonary process. Physical Exam: Awake alert and oriented. HEENT: Andrei. EOMI. No icterus. Chest : Clear breath sounds. Heart : S1 S2 normal. Abdomen: Soft Non tender Bowel sounds present EXT: Left leg with dressing in place, intact some pedal edema noted NEURO: non-focal. PSYCH: Calm and cooperative. Assessment and Plan (1) Cellulitis of left lower extremity Status: Acute Code(s): L03.116 - Cellulitis of left lower limb (2) Severe sepsis Status: Acute Code(s): A41.9 - Sepsis, unspecified organism; R65.20 - Severe sepsis without septic shock (3) Diabetes Status: Acute Code(s): E11.9 - Type 2 diabetes mellitus without complications - Plan LLE cellulitis severe. Slow to improve. 1. Blood cultures- CORNYBACTERIUM NOT JK - REPEAT HOWEVER NEGATIVE. Likely was contaminants 2. Cont Zyvox po 3. Continue IV Zosyn at 4.5 g q 6hrs 4. Continue Levofloxacin 500 mg po daily. 5. Continue dressing changes. SAJI Geller [employer] (3) Diabetes Qualifiers: Diabetes mellitus type: type 2 Diabetes mellitus complication status: with neurologic complications Diabetes mellitus complication detail: with polyneuropathy
[2018-07-22] MEDS: levoFLOXacin 500 MG Tablet PO SCH (16:28)
[2018-07-23] MEDS: Piperacil/Tazo 4.5 GM Premix 4.5 GM/100 ML BAG IV.SIG SCH ×4 (04:34→22:13)
[2018-07-23] MEDS: Heparin - SQ 10,000 UNITS/ML Vial SQ SCH ×2 (06:37→17:37)
[2018-07-23 06:44] LABS: Baso % (Auto) 0.8 % (0.0-2.0); Eos # (Auto) 0.1 th/mm3 (0.0-0.4); Hematocrit 29.5 % (39.0-51.0); Hemoglobin 9.4 gm/dL (13.0-17.0); Lymph # (Auto) 1.5 th/mm3 (1.0-4.8); Lymph % (Auto) 26.8 % (9.0-44.0); Mean Corpuscular HGB Conc 31.9 % (32.0-36.0); Mean Corpuscular Hemoglobin 26.1 pg (27.0-34.0); Mean Corpuscular Volume 81.8 fL (80.0-100.0); Mean Platelet Volume 9.7 fL (7.0-11.0); Mono # (Auto) 0.5 th/mm3 (0.0-0.9); Mono % (Auto) 8.4 % (0.0-8.0); Neut # (Auto) 3.6 th/mm3 (1.8-7.7); Platelet Count 244 th/mm3 (150-450); Red Blood Count 3.61 mil/mm3 (4.50-5.90); Red Cell Distribution Width 18.9 % (11.6-17.2); White Blood Count 5.7 th/mm3 (4.0-11.0)
[2018-07-23 07:01] LABS: Potassium 3.6 meq/L (3.5-5.1)
[2018-07-23 07:05] LABS: Calcium 8.6 mg/dL (8.5-10.1)
[2018-07-23 07:06] LABS: Albumin 2.4 g/dL (3.4-5.0); Carbon Dioxide 27.7 meq/L (21.0-32.0); Magnesium 1.8 mg/dL (1.5-2.5)
[2018-07-23 07:09] LABS: Phosphorus 3.1 mg/dL (2.5-4.9)
[2018-07-23 07:11] LABS: Total Protein 6.9 g/dL (6.4-8.2)
[2018-07-23] MEDS: Gabapentin 400 MG Capsule PO SCH ×4 (11:32→22:01)
[2018-07-23] MEDS: Folic Acid 1 MG Tablet PO SCH (11:32)
[2018-07-23] MEDS: Metoprolol Tartrate 25 MG Tablet PO SCH ×2 (11:33→22:01)
[2018-07-23] MEDS: Lisinopril 10 MG Tablet PO SCH (11:33)
[2018-07-23] MEDS: amLODIPine 5 MG Tablet PO SCH (11:33)
[2018-07-23] MEDS: Insulin Detemir Inj 1,000 UNIT/10 ML Vial SQ SCH ×2 (11:33→22:01)
[2018-07-23] MEDS: Insulin NovoLOG Aspart Correctional Sugar Inj SQ SCH ×4 (11:33→22:06)
--- NOTE | 2018-07-23 13:26 | P.PNIM ---
Subjective Interval history: Patient says he is feeling right. Denies any chest pain shortness of breath. Reports pain is controlled. Physical Exam Vital signs: Vital Signs 07/22/18 16:00 07/22/18 20:00 07/23/18 00:00 Temperature 98.4 F 98.4 F 98.5 F Pulse Rate 72 70 74 Respiratory Rate 18 18 Blood Pressure 108/69 128/67 127/66 Pulse Oximetry 96 96 96 07/23/18 04:00 07/23/18 08:00 Temperature 97.6 F 97.1 F L Pulse Rate 78 72 Respiratory Rate 18 20 Blood Pressure 137/71 137/76 Pulse Oximetry 97 96 Intake & Output 07/22/18 07/23/18 07/23/18 18:59 06:59 18:59 Intake Total 1180 / 1180 1999 / 1999 Output Total 1500 / 1500 1999 / 1999 Balance -320 / -320 0 / 0 Weight 138.1 kg Intake: IV 100 / 100 800 / 800 Zyvox 600 mg Premix 300 ML @ 600 / 600 300 mls/hr IV.SIG Q12H DEBRA Rx#: [id number] Zosyn 4.5 GM Premix 4.5 gm In 100 / 100 200 / 200 100 ml @ 200 mls/hr IV.SIG Q6H DEBRA Rx#:[id number] Oral 1080 / 1080 1200 / 1200 Output: Urine 1500 / 1500 1999 / 1999 Other: # Bowel Movements 2 Narrative: GENERAL: Patient sitting up in chair. Appears comfortable. Alert and oriented x3 SKIN: Warm and dry. HEAD: Normocephalic. EYES: No scleral icterus. No injection or drainage. NECK: Supple, trachea midline. No JVD. CARDIOVASCULAR: Regular rate and rhythm without murmurs, gallops, or rubs. RESPIRATORY: Breath sounds equal bilaterally. No accessory muscle use. GASTROINTESTINAL: Abdomen soft, non-tender, nondistended. MUSCULOSKELETAL: No cyanosis, or edema. Left lower extremity dressed with dressing clean dry and intact as before. BACK: Nontender without obvious deformity. No CVA tenderness. Results - Labs CBC & Chem 7: 07/23/18 05:15 07/23/18 05:15 Laboratory Results - last 24 hr 07/22/18 07/22/18 07/22/18 13:07 17:47 21:57 CBC w Diff WBC RBC Hgb Hct MCV MCH MCHC RDW Plt Count MPV Neut % (Auto) Lymph % (Auto) [place] % (Auto) Eos % (Auto) Baso % (Auto) Neut # (Auto) Lymph # (Auto) [place] # (Auto) Eos # (Auto) Baso # (Auto) WBC Differential Differential Comment Sodium Potassium Chloride Carbon Dioxide Anion Gap BUN Creatinine Estimated GFR POC Glucose 198 H 172 H 194 H Random Glucose Calcium Phosphorus Magnesium Total Bilirubin Direct Bilirubin Indirect Bilirubin AST ALT Alkaline Phosphatase Total Protein Albumin 07/23/18 07/23/18 05:15 05:15 CBC w Diff Auto diff final WBC 5.7 RBC 3.61 L Hgb 9.4 L Hct 29.5 L MCV 81.8 MCH 26.1 L MCHC 31.9 L RDW 18.9 H Plt Count 244 D MPV 9.7 Neut % (Auto) 62.0 Lymph % (Auto) 26.8 [place] % (Auto) 8.4 H Eos % (Auto) 2.0 Baso % (Auto) 0.8 Neut # (Auto) 3.6 Lymph # (Auto) 1.5 [place] # (Auto) 0.5 Eos # (Auto) 0.1 Baso # (Auto) 0.0 WBC Differential . Differential Comment . Sodium 139 Potassium 3.6 Chloride 103 Carbon Dioxide 27.7 Anion Gap 8 BUN 11 Creatinine 1.10 Estimated GFR 68 L POC Glucose Random Glucose 152 H Calcium 8.6 Phosphorus 3.1 Magnesium 1.8 Total Bilirubin 0.4 Direct Bilirubin 0.1 Indirect Bilirubin 0.3 AST 14 L ALT 18 Alkaline Phosphatase 70 Total Protein 6.9 Albumin 2.4 L Assessment and Plan - Assessment (1) Cellulitis of left lower extremity Code(s): L03.116 - Cellulitis of left lower limb Status: Acute (2) Diabetes Code(s): E11.9 - Type 2 diabetes mellitus without complications Status: Acute - Plan 62-year-old male with known history of hypertension, hyperlipidemia, diabetes who presented to hospital because of 2 week h/o progressive worsening left lower extremity pain and swelling.He was found to have severe Leg wound with sepsis, metabolic acidosis an acute kidney injury on admission. He has had intermittent tachycardia inhouse, PE ruled out. //Severe sepsis secondary to left lower leg cellulitis - Ultrasound of the lower extremity was done which did not indicate any DVTs. Wound care nurse, ID and podiatry consultations appreciated. MRI of the ankle and foot negative for osteomyelitis. Wound culture with pseudomonas, Kleb pneumonia and Enterococcus faecalis. Blood cultures growing corynebacterium likely contaminants, repeat negative. Cleared by podiatry for discharge. Wound care with 1) adaptic, 2) aquacell and 3) Unna boot. Change daily. On discharge have home health care continue daily. - improving slowly, medically still with active cellulitis, discussed with infectious disease, continue IV antibiotics for now with vancomycin, Levaquin and Zosyn. Continue bowel regimen. = 07/23. Continue on IV antibiotics as per infectious disease. Follow-up ID recommendations. //Sinus Tachycardia-unexplained: Had SVT in the course of hospitalization which resolved with two doses of adenosine. Currently in sinus tachycardia which is unexplained. His pain is well controlled.VQ scan 10 days ago was with low probability for PE. TSH is normal. Continue metoprolol. = Heart rate controlled. Continue current regimen. //Acute Kidney injury with metabolic acidosis, anion gap 20--now resolved. Likely prerenal, however patient does have multiple medications that are nephrotoxic. Nephrology consult appreciated. Renal bladder ultrasound was performed which did not indicate any acute abnormality. //Elevated d-dimer -Lower extremity ultrasounds performed without any signs of DVT. -VQ scan was performed which was low probability for pulmonary emboli. //Diabetes- blood glucose within acceptable limits. Continue Levemir 15 units twice a day with Accu-Cheks and sliding scale insulin //Hypertension--continue lisinopril 10 mg daily, Norvasc 5 mg daily, increase metoprolol as above, clonidine as needed. = Blood pressure acceptable. Continue current regimen. Continue to monitor. //DVT prevention -Subcutaneous heparin Discharge Planning: Bariatric walker Rx written. dispo-still requires inpatient care,needs a few more days of IV abx . = DC home once cleared by infectious disease. Cleared by podiatry. (2) Diabetes Qualifiers: Diabetes mellitus type: type 2 Diabetes mellitus complication status: with neurologic complications Diabetes mellitus complication detail: with polyneuropathy
[2018-07-23] MEDS: levoFLOXacin 500 MG Tablet PO SCH (16:38)
--- NOTE | 2018-07-23 23:43 | P.PNID ---
Subjective Remarks: ID coverage. chart wqs reviewed 62 yo male with severe LLE cellulitis pt co some L ankle tenderness, edema, erythema no fever no new issues Antibiotics: zyvox Zosyn Levofloxacin Lines: Peripheral Past Medical History: Diabetes Allergies/Adverse Reactions: Allergies erythromycin base Allergy (Unknown, Verified 07/06/18 03:23) UNKNOWN REACTION oxytetracycline Allergy (Unknown, Verified 07/06/18 03:23) UNKNOWN REACTION Objective Vital Signs 07/23/18 00:00 07/23/18 04:00 07/23/18 08:00 Temperature 98.5 F 97.6 F 97.1 F L Pulse Rate 74 78 72 Respiratory Rate 18 18 20 Blood Pressure 127/66 137/71 137/76 Pulse Oximetry 96 97 96 07/23/18 12:00 07/23/18 16:00 07/23/18 20:00 Temperature 97.2 F L 98 F 98.3 F Pulse Rate 81 78 77 Respiratory Rate 20 20 20 Blood Pressure 128/62 114/56 L 126/69 Pulse Oximetry 96 97 Intake & Output 07/23/18 07/23/18 07/24/18 06:59 18:59 06:59 Intake Total 1999 / 1999 360 / 360 400 / 400 Output Total 1999 / 1999 1300 / 1300 Balance 0 / 0 -940 / -940 400 / 400 Weight 138.1 kg Intake: IV 800 / 800 400 / 400 Zyvox 600 mg Premix 300 ML @ 600 / 600 300 / 300 300 mls/hr IV.SIG Q12H DEBRA Rx#: [id number] Zosyn 4.5 GM Premix 4.5 gm In 200 / 200 100 / 100 100 ml @ 200 mls/hr IV.SIG Q6H DEBRA Rx#:[id number] Oral 1200 / 1200 360 / 360 Output: Urine 1999 / 1999 1300 / 1300 Other: # Voids 2 # Bowel Movements 2 Lab - Hematology Results 07/23/18 05:15 CBC w Diff Auto diff final WBC 5.7 RBC 3.61 L Hgb 9.4 L Hct 29.5 L MCV 81.8 MCH 26.1 L MCHC 31.9 L RDW 18.9 H Plt Count 244 D MPV 9.7 Neut % (Auto) 62.0 Lymph % (Auto) 26.8 [place] % (Auto) 8.4 H Eos % (Auto) 2.0 Baso % (Auto) 0.8 Neut # (Auto) 3.6 Lymph # (Auto) 1.5 [place] # (Auto) 0.5 Eos # (Auto) 0.1 Baso # (Auto) 0.0 WBC Differential . Differential Comment . Lab - Chemistry Results 07/22/18 07/22/18 07/22/18 13:07 17:47 21:57 Sodium Potassium Chloride Carbon Dioxide Anion Gap BUN Creatinine Estimated GFR POC Glucose 198 H 172 H 194 H Random Glucose Calcium Phosphorus Magnesium Total Bilirubin Direct Bilirubin Indirect Bilirubin AST ALT Alkaline Phosphatase Total Protein Albumin 07/23/18 07/23/18 07/23/18 05:15 16:36 22:01 Sodium 139 Potassium 3.6 Chloride 103 Carbon Dioxide 27.7 Anion Gap 8 BUN 11 Creatinine 1.10 Estimated GFR 68 L POC Glucose 153 H 206 H Random Glucose 152 H Calcium 8.6 Phosphorus 3.1 Magnesium 1.8 Total Bilirubin 0.4 Direct Bilirubin 0.1 Indirect Bilirubin 0.3 AST 14 L ALT 18 Alkaline Phosphatase 70 Total Protein 6.9 Albumin 2.4 L Imaging: ITS Impressions Venous Doppler Study 07/05/18 21:32 CONCLUSION: No venous thrombosis is identified within either lower extremity. Abdomen/Bladder Ultrasound 07/06/18 00:00 CONCLUSION: 1. Renal cyst on the right 2. No suspicious mass or hydronephrosis. Pulmonary Perfusion Imaging 07/06/18 23:40 CONCLUSION: 1. Low probability for pulmonary embolism. Ankle MRI 07/07/18 00:00 CONCLUSION: 1. Severe and diffuse subcutaneous edema without abscess or osteomyelitis. 2. Mild navicular/cuneiform osteoarthritis. 3. Type II accessory navicular and slight tendinopathy of tibialis posterior tendon. 4. Very mild proximal plantar fasciitis. No tear. 5. Very mild Achilles tendinosis without tear. Foot MRI 07/07/18 07:11 CONCLUSION: Dorsal predominant subcutaneous swelling and edema of the left foot without abscess or evidence of osteomyelitis. Chest X-Ray 07/11/18 00:00 CONCLUSION: No acute cardiopulmonary process. Physical Exam: Awake alert and oriented. HEENT: Andrei. EOMI. No icterus. Chest : Clear breath sounds. Heart : S1 S2 normal. Abdomen: Soft Non tender Bowel sounds present EXT: Left leg with erythema, edema tenderness around ankle, th rest of lower extremety looks w/o s/o infection, just chronic hyperpigmentation and healing superficial wounds NEURO: non-focal. PSYCH: Calm and cooperative. Assessment and Plan (1) Cellulitis of left lower extremity Status: Acute Code(s): L03.116 - Cellulitis of left lower limb (2) Severe sepsis Status: Acute Code(s): A41.9 - Sepsis, unspecified organism; R65.20 - Severe sepsis without septic shock (3) Diabetes Status: Acute Code(s): E11.9 - Type 2 diabetes mellitus without complications - Plan LLE cellulitis severe. Seems resolved proximally Edema, erythema aournd ankle 1. Blood cultures- CORNYBACTERIUM NOT JK - REPEAT HOWEVER NEGATIVE. Likely was contaminants 2. Cont Zyvox po 3. Continue IV Zosyn at 4.5 g q 6hrs 4. Continue Levofloxacin 500 mg po daily. 5. Continue dressing changes. MR L ankle SAJI Geller (3) Diabetes Qualifiers: Diabetes mellitus type: type 2 Diabetes mellitus complication status: with neurologic complications Diabetes mellitus complication detail: with polyneuropathy
[2018-07-24] MEDS: Heparin - SQ 10,000 UNITS/ML Vial SQ SCH ×2 (05:54→18:06)
--- NOTE | 2018-07-24 09:22 | P.PNIM ---
Subjective Interval history: Right. Denies any chest pain shortness of breath. Denies nausea vomiting. Denies constipation. Reports pain is under control. Physical Exam Vital signs: Vital Signs 07/23/18 12:00 07/23/18 16:00 07/23/18 20:00 Temperature 97.2 F L 98 F 98.3 F Pulse Rate 81 78 77 Respiratory Rate 20 20 20 Blood Pressure 128/62 114/56 L 126/69 Pulse Oximetry 96 97 07/24/18 00:00 07/24/18 04:00 07/24/18 08:00 Temperature 98.0 F 96.8 F L 97.5 F L Pulse Rate 67 72 74 Respiratory Rate 20 20 21 Blood Pressure 97/53 L 125/80 112/57 L Pulse Oximetry 96 96 96 Intake & Output 07/23/18 07/24/18 07/24/18 18:59 06:59 18:59 Intake Total 360 / 360 1220 / 1220 300 / 300 Output Total 1300 / 1300 1000 / 1000 400 / 400 Balance -940 / -940 220 / 220 -100 / -100 Weight 140.2 kg Intake: IV 500 / 500 Zyvox 600 mg Premix 300 ML @ 300 / 300 300 mls/hr IV.SIG Q12H [facility] Rx#: [id number] Zosyn 4.5 GM Premix 4.5 gm In 200 / 200 100 ml @ 200 mls/hr IV.SIG Q6H DEB[facility] Rx#:[id number] Oral 360 / 360 720 / 720 300 / 300 Output: Urine 1300 / 1300 1000 / 1000 400 / 400 Other: # Voids 2 # Bowel Movements 2 Narrative: GENERAL: Patient sitting up in chair. Appears comfortable. Exam unchanged from yesterday. Alert and oriented x3 SKIN: Warm and dry. HEAD: Normocephalic. EYES: No scleral icterus. No injection or drainage. NECK: Supple, trachea midline. No JVD. CARDIOVASCULAR: Regular rate and rhythm without murmurs, gallops, or rubs. RESPIRATORY: Breath sounds equal bilaterally. No accessory muscle use. GASTROINTESTINAL: Abdomen soft, non-tender, nondistended. MUSCULOSKELETAL: No cyanosis, or edema. Left lower extremity dressed with dressing clean dry and intact as before. BACK: Nontender without obvious deformity. No CVA tenderness. Results - Labs CBC & Chem 7: 07/23/18 05:15 12/27/18 05:15 Laboratory Results - last 24 hr 07/23/18 07/23/18 16:36 22:01 POC Glucose 153 H 206 H Assessment and Plan - Assessment (1) Cellulitis of left lower extremity Code(s): L03.116 - Cellulitis of left lower limb Status: Acute (2) Diabetes Code(s): E11.9 - Type 2 diabetes mellitus without complications Status: Acute - Plan 62-year-old male with known history of hypertension, hyperlipidemia, diabetes who presented to hospital because of 2 week h/o progressive worsening left lower extremity pain and swelling.He was found to have severe Leg wound with sepsis, metabolic acidosis an acute kidney injury on admission. He has had intermittent tachycardia inhouse, PE ruled out. //Severe sepsis secondary to left lower leg cellulitis - Ultrasound of the lower extremity was done which did not indicate any DVTs. Wound care nurse, ID and podiatry consultations appreciated. MRI of the ankle and foot negative for osteomyelitis. Wound culture with pseudomonas, Kleb pneumonia and Enterococcus faecalis. Blood cultures growing corynebacterium likely contaminants, repeat negative. Cleared by podiatry for discharge. Wound care with 1) adaptic, 2) aquacell and 3) Unna boot. Change daily. On discharge have home health care continue daily. - improving slowly, medically still with active cellulitis, discussed with infectious disease, continue IV antibiotics for now with vancomycin, Levaquin and Zosyn. Continue bowel regimen. = 07/23. Continue on IV antibiotics as per infectious disease. Follow-up ID recommendations. = 07/24. Discussed with infectious disease yesterday. Repeat MRI pending. Continue IV antibiotics as per ID. Appreciate ID assistance. //Sinus Tachycardia-unexplained: Had SVT in the course of hospitalization which resolved with two doses of adenosine. Currently in sinus tachycardia which is unexplained. His pain is well controlled.VQ scan 10 days ago was with low probability for PE. TSH is normal. Continue metoprolol. = Heart rate controlled. Continue current regimen. //Acute Kidney injury with metabolic acidosis, anion gap 20--now resolved. Likely prerenal, however patient does have multiple medications that are nephrotoxic. Nephrology consult appreciated. Renal bladder ultrasound was performed which did not indicate any acute abnormality. //Elevated d-dimer -Lower extremity ultrasounds performed without any signs of DVT. -VQ scan was performed which was low probability for pulmonary emboli. //Diabetes- blood glucose within acceptable limits. Continue Levemir 15 units twice a day with Accu-Cheks and sliding scale insulin //Hypertension--continue lisinopril 10 mg daily, Norvasc 5 mg daily, increase metoprolol as above, clonidine as needed. = Blood pressure acceptable. Continue current regimen. Continue to monitor. //DVT prevention -Subcutaneous heparin Discharge Planning: Bariatric walker Rx written. dispo-still requires inpatient care,needs a few more days of IV abx . = DC home once cleared by infectious disease. Cleared by podiatry. (2) Diabetes Qualifiers: Diabetes mellitus type: type 2 Diabetes mellitus complication status: with neurologic complications Diabetes mellitus complication detail: with polyneuropathy
[2018-07-24] MEDS: Piperacil/Tazo 4.5 GM Premix 4.5 GM/100 ML BAG IV.SIG SCH ×4 (09:59→22:31)
[2018-07-24] MEDS: Insulin NovoLOG Aspart Correctional Sugar Inj SQ SCH ×4 (10:00→22:33)
[2018-07-24] MEDS: Insulin Detemir Inj 1,000 UNIT/10 ML Vial SQ SCH ×2 (10:00→22:32)
[2018-07-24] MEDS: amLODIPine 5 MG Tablet PO SCH (10:01)
[2018-07-24] MEDS: Folic Acid 1 MG Tablet PO SCH (10:01)
[2018-07-24] MEDS: Gabapentin 400 MG Capsule PO SCH ×4 (10:01→22:30)
[2018-07-24] MEDS: Metoprolol Tartrate 25 MG Tablet PO SCH ×2 (10:01→22:31)
[2018-07-24] MEDS: Lisinopril 10 MG Tablet PO SCH (10:01)
[2018-07-24] MEDS ORDERED: Gadobutrol PF 7.5 MMOL/7.5 ML Vial (for RAD) IV.SIG ONE (13:44)
--- NOTE | 2018-07-24 14:23 | MR ---
EXAM DATE: 07/24/2018 2:15 PM EST AGE/SEX: 62 years / Male INDICATIONS: Abscess. Left hind foot/ankle pain and swelling. CLINICAL DATA: This is the patient's initial encounter. Patient reports that signs and symptoms have been present for 1 day and indicates a pain score of 4/10. MEDICAL/SURGICAL HISTORY: Diabetes mellitus type II. Hypertension. . Left knee surgeries. Her tracy. COMPARISON: [facility], MR FOOT LEFT W/O CONTRAST, 07/07/2018. . TECHNIQUE: Multiplanar, multisequence MRI examination was performed without contrast and after th e intravenous administration of 14 ml Gadavist (gadobutrol) single exam dose. FINDINGS: Today's exam is compared to the prior study of 07/07/2018. On today's examination there continues to be diffuse predominantly subcutaneous soft tissue swelling and edema of the left foot without evidenc e of abscess or osteomyelitis. The subcutaneous soft tissues swelling is mildly improved compared to the prior study. Otherwise, no other new or significant changes are demonstrated. CONCLUSION: 1. There has been some mild improvement in the subcutaneous soft tissue swelling and edema along the dorsum of the left foot. 2. Otherwise, no other new or significant changes are demonstrated. Electronically signed by: Lorenzo Mendieta MD Board Certified Radiologist 07/24/2018 2:21 PM EST
[2018-07-24] MEDS: levoFLOXacin 500 MG Tablet PO SCH (15:21)
--- NOTE | 2018-07-24 20:42 | P.PNADD ---
Addendum to Inpatient Note Additional information: MR result noted Improved and no fluid collection If pt cont to improve clinically might consider to d/c on PO abx over w/e
[2018-07-25] MEDS: Piperacil/Tazo 4.5 GM Premix 4.5 GM/100 ML BAG IV.SIG SCH ×4 (06:09→21:36)
[2018-07-25] MEDS: Heparin - SQ 10,000 UNITS/ML Vial SQ SCH ×2 (06:54→17:09)
[2018-07-25] MEDS: Insulin NovoLOG Aspart Correctional Sugar Inj SQ SCH ×4 (07:39→21:30)
[2018-07-25] MEDS: Metoprolol Tartrate 25 MG Tablet PO SCH ×2 (08:07→21:36)
[2018-07-25] MEDS: Gabapentin 400 MG Capsule PO SCH ×4 (08:07→21:35)
[2018-07-25] MEDS: Lisinopril 10 MG Tablet PO SCH (08:07)
[2018-07-25] MEDS: Folic Acid 1 MG Tablet PO SCH (08:08)
[2018-07-25] MEDS: amLODIPine 5 MG Tablet PO SCH (08:08)
[2018-07-25] MEDS: Insulin Detemir Inj 1,000 UNIT/10 ML Vial SQ SCH ×2 (08:08→21:36)
--- NOTE | 2018-07-25 14:15 | P.PNPOD ---
Subjective Interval history: Patient seen bedside. Resting comfortably. No concerns at this time. No nausea vomiting fevers or chills. Physical Exam Vital signs: Vital Signs 07/24/18 16:00 07/24/18 20:00 07/25/18 00:00 Temperature 98.0 F 98.5 F 99.2 F Pulse Rate 128 H 75 76 Respiratory Rate 22 20 20 Blood Pressure 131/73 124/74 130/69 Pulse Oximetry 98 96 91 L 07/25/18 04:00 07/25/18 08:00 07/25/18 08:09 Temperature 98.7 F 98.7 F Pulse Rate 77 77 77 Respiratory Rate 20 17 Blood Pressure 130/65 127/65 Pulse Oximetry 93 L 96 07/25/18 12:00 Temperature 98.8 F Pulse Rate 76 Respiratory Rate 20 Blood Pressure 136/72 Pulse Oximetry 96 Intake & Output 07/24/18 07/25/18 07/25/18 18:59 06:59 18:59 Intake Total 2019 / 2019 400 / 400 400 / 400 Output Total 1600 / 1600 300 / 300 Balance 420 / 420 100 / 100 400 / 400 Weight 138.5 kg Intake: IV 1000 / 1000 400 / 400 400 / 400 Zyvox 600 mg Premix 300 ML @ 300 / 300 300 / 300 300 mls/hr IV.SIG Q12H [facility] Rx#: [id number] Zosyn 4.5 GM Premix 4.5 gm In 1000 / 1000 100 / 100 100 / 100 100 ml @ 200 mls/hr IV.SIG Q6H [facility] Rx#:[id number] Oral 1020 / 1020 Output: Urine 1600 / 1600 300 / 300 Narrative: Venous leg ulceration noted to anterior and posterior mid left leg with no surrounding erythema and granular base. Mild erythema noted around left ankle. Decreased edema and erythema. The refill time under 3 seconds to digits x5 left foot. Medications and Allergies Active Medications: Active Medications Acetaminophen (Tylenol) 650 mg PO Q4H PRN PRN Reason: Temp > 100.4 Last Admin: 07/06/18 20:24 Dose: 650 mg Hydrocodone Bitart/Acetaminophen ([place] 10/325) 1 tab PO Q6H PRN PRN Reason: PAIN SCALE 6 TO 10 Last Admin: 07/24/18 22:32 Dose: 1 tab Hydrocodone Bitart/Acetaminophen ([place] 5/325) 1 tab PO Q6H PRN PRN Reason: PAIN SCALE 1 TO 5 Al Hydroxide/Mg Hydroxide (Milk Of Magnesia Liq) 30 ml PO Q12H PRN PRN Reason: Mild Constipation Albuterol (Duoneb Neb (Prn)) 1 ampul NEB Q2HR NEB PRN PRN Reason: WHEEZING Last Admin: 07/07/18 10:39 Dose: 1 ampul Amlodipine Besylate (Norvasc) 5 mg PO DAILY [facility] Last Admin: 07/25/18 08:08 Dose: 5 mg Bisacodyl (Dulcolax Supp) 10 mg RECTAL DAILY PRN PRN Reason: SEVERE CONSITIPATION Clonidine HCl (Catapres) 0.1 mg PO Q6H PRN PRN Reason: SBP>160, DBP>90 Last Admin: 07/22/18 05:20 Dose: 0.1 mg Dextrose (D50w Vial) 50 ml IV.PUSH UNSCH PRN PRN Reason: PER HYPOGLYCEMIA PROTOCOL Folic Acid (Folic Acid) 1 mg PO DAILY [facility] Last Admin: 07/25/18 08:08 Dose: 1 mg Gabapentin (Neurontin) 800 mg PO QID [facility] Last Admin: 07/25/18 14:06 Dose: 800 mg Glucagon (Glucagon Inj) 1 mg OTHER PRN PRN PRN Reason: for Hypoglycemia Protocol Heparin Sodium (Porcine) (Heparin Inj) 5,000 units SQ Q12H [facility] Last Admin: 07/25/18 06:54 Dose: 5,000 units Piperacillin/Tazobactam/Dextrose (Zosyn 4.5 Gm Premix) 4.5 gm in 100 mls @ 200 mls/hr IV.SIG Q6H [facility] Last Admin: 07/25/18 12:03 Dose: 200 mls/hr Linezolid (Zyvox 600 Mg Premix) 300 mls @ 300 mls/hr IV.SIG Q12H [facility] Last Admin: 07/25/18 12:03 Dose: 200 mls/hr Insulin Aspart (Novolog Insulin Correctional Sugar Inj) 0 unit SQ ACHS [facility]; Protocol Last Admin: 07/25/18 12:03 Dose: 1 unit Insulin Detemir (Levemir Inj) 15 unit SQ BID [facility] Last Admin: 07/25/18 08:08 Dose: 15 unit Lactulose (Lactulose Liq) 30 ml PO DAILY PRN PRN Reason: SEVERE CONSITIPATION Levofloxacin (Levaquin) 500 mg PO Q24H [facility] Last Admin: 07/24/18 15:21 Dose: 500 mg Lisinopril (Prinivil) 10 mg PO DAILY [facility] Last Admin: 07/25/18 08:07 Dose: 10 mg Metoprolol Tartrate (Lopressor) 75 mg PO BID [facility] Last Admin: 07/25/18 08:07 Dose: 75 mg Naloxone HCl (Narcan Inj) 0.4 mg IV.PUSH UNSCH PRN PRN Reason: SEE LABEL COMMENTS Ondansetron HCl (Zofran Inj) 4 mg IV.PUSH Q6H PRN PRN Reason: NAUSEA OR VOMITING Sennosides (Senokot) 17.2 mg PO Q12H PRN PRN Reason: Moderate Constipation Last Admin: 07/14/18 14:25 Dose: 17.2 mg Sodium Chloride (Ns Flush) 2 ml IV.FLUSH BID [facility] Last Admin: 07/25/18 08:08 Dose: 2 ml Sodium Chloride (Ns Flush) 2 ml IV.FLUSH PRN PRN PRN Reason: FLUSH AFTER USING IV ACCESS Last Admin: 07/10/18 00:46 Dose: 2 ml Allergies Allergy/AdvReac Type Severity Reaction Status Date / Time erythromycin base Allergy Unknown UNKNOWN Verified 07/06/18 03:23 REACTION oxytetracycline Allergy Unknown UNKNOWN Verified 07/06/18 03:23 REACTION Home Medications Medication Instructions Recorded Confirmed Type dapagliflozin [Farxiga] 10 mg PO QAM 07/05/18 07/05/18 History diclofenac sodium 100 mg PO DAILY 07/05/18 07/05/18 History folic acid 0.8 mg PO DAILY 07/05/18 07/05/18 History furosemide 40 mg PO DAILY 07/05/18 07/05/18 History gabapentin 800 mg PO TID 07/05/18 07/05/18 History glimepiride 4 mg PO QAM 07/05/18 07/05/18 History lisinopril 20 mg PO DAILY 07/05/18 07/05/18 History metformin 1,000 mg PO BID 07/05/18 07/05/18 History [id number] 1 tab PO DAILY 12/09/18 12/09/18 History [Airborne (ascorbate sodium)] omega 2-ghb-fkl-fish oil [Fish Oil] 1,000 mg PO DAILY 07/05/18 07/05/18 History solifenacin [Vesicare] 5 mg PO DAILY 07/05/18 07/05/18 History Results - Labs CBC & Chem 7: 07/23/18 05:15 07/23/18 05:15 Laboratory Results - last 24 hr 07/24/18 07/24/18 07/25/18 16:38 20:34 07:23 POC Glucose 333 H 208 H 149 H 07/25/18 11:06 POC Glucose 177 H - Imaging Impressions Foot MRI 07/24/18 00:00 CONCLUSION: 1. There has been some mild improvement in the subcutaneous soft tissue swelling and edema along the dorsum of the left foot. 2. Otherwise, no other new or significant changes are demonstrated. Assessment and Plan - Assessment (1) Cellulitis of left lower extremity Code(s): L03.116 - Cellulitis of left lower limb Status: Acute Plan: 62-year-old male with left lower extremity venous ulcerations Patient examined and evaluated all questions answered Unna boot dressing placed to left lower extremity Patient okay to have Unna boot placements every 4 days Patient okay to DC per podiatry Would recommend follow-up with wound care center Okay to have home health care performed dressing changes once a week with Unna boots with follow-up wound care center once per week Please reconsult as needed (2) Diabetes Code(s): E11.9 - Type 2 diabetes mellitus without complications Status: Acute (3) Leukocytosis Code(s): D72.829 - Elevated white blood cell count, unspecified Status: Acute (4) Severe sepsis Code(s): A41.9 - Sepsis, unspecified organism; R65.20 - Severe sepsis without septic shock Status: Acute (2) Diabetes Qualifiers: Diabetes mellitus type: type 2 Diabetes mellitus complication status: with neurologic complications Diabetes mellitus complication detail: with polyneuropathy
--- NOTE | 2018-07-25 14:19 | P.DCO ---
- Home Health Nursing Order: Wound care and dressing changes - Case Management Consult Case Management Consult-Home Health: Yes - Certification I have seen patient Trae Arizmendi on 07/25/18. My clinical findings support the need for the requested home health care services because: Limited mobility due to disease progression, Deconditioned with increased weakness, High risk of falls, Infection with risk of complications (Patient will need Maxorb AG (Aquacel Ag), followed by overlapping Unna boot, cast padding, Nicolas. Dressing change to be performed 1 times weekly) I certify that my clinical findings support that this patient is homebound because: Unsteady gait/balance
[2018-07-25] MEDS: levoFLOXacin 500 MG Tablet PO SCH (16:30)
--- NOTE | 2018-07-25 17:44 | P.PNIM ---
Subjective Interval history: Patient says he is feeling right. Reports pain is controlled. Denies any chest pain or shortness of breath. Says he feels like going home tomorrow. Physical Exam Vital signs: Vital Signs 07/24/18 20:00 07/25/18 00:00 07/25/18 04:00 Temperature 98.5 F 99.2 F 98.7 F Pulse Rate 75 76 77 Respiratory Rate 20 20 20 Blood Pressure 124/74 130/69 130/65 Pulse Oximetry 96 91 L 93 L 07/25/18 08:00 07/25/18 08:09 07/25/18 12:00 Temperature 98.7 F 98.8 F Pulse Rate 77 77 76 Respiratory Rate 17 20 Blood Pressure 127/65 136/72 Pulse Oximetry 96 96 07/25/18 16:00 07/25/18 16:42 Temperature 97.3 F L Pulse Rate 70 79 Respiratory Rate 20 Blood Pressure 137/70 Pulse Oximetry 97 Intake & Output 07/24/18 07/25/18 07/25/18 18:59 06:59 18:59 Intake Total 2019 / 2019 400 / 400 900 / 900 Output Total 1600 / 1600 300 / 300 Balance 420 / 420 100 / 100 900 / 900 Weight 138.5 kg Intake: IV 1000 / 1000 400 / 400 900 / 900 Zyvox 600 mg Premix 300 ML @ 300 / 300 600 / 600 300 mls/hr IV.SIG Q12H [facility] Rx#: [id number] Zosyn 4.5 GM Premix 4.5 gm In 1000 / 1000 100 / 100 300 / 300 100 ml @ 200 mls/hr IV.SIG Q6H [facility] Rx#:[id number] Oral 1020 / 1020 Output: Urine 1600 / 1600 300 / 300 Narrative: GENERAL: Patient sitting up in chair. Appears comfortable. Alert and oriented x3 SKIN: Warm and dry. HEAD: Normocephalic. EYES: No scleral icterus. No injection or drainage. NECK: Supple, trachea midline. No JVD. CARDIOVASCULAR: Regular rate and rhythm without murmurs, gallops, or rubs. RESPIRATORY: Breath sounds equal bilaterally. No accessory muscle use. GASTROINTESTINAL: Abdomen soft, non-tender, nondistended. MUSCULOSKELETAL: No cyanosis, or edema. Left lower extremity dressed with dressing clean dry and intact. BACK: Nontender without obvious deformity. No CVA tenderness. Results - Labs CBC & Chem 7: 07/23/18 05:15 07/23/18 05:15 Laboratory Results - last 24 hr 07/24/18 07/25/18 07/25/18 20:34 07:23 11:06 POC Glucose 208 H 149 H 177 H 07/25/18 16:31 POC Glucose 188 H Assessment and Plan - Assessment (1) Cellulitis of left lower extremity Code(s): L03.116 - Cellulitis of left lower limb Status: Acute (2) Diabetes Code(s): E11.9 - Type 2 diabetes mellitus without complications Status: Acute - Plan 62-year-old male with known history of hypertension, hyperlipidemia, diabetes who presented to hospital because of 2 week h/o progressive worsening left lower extremity pain and swelling.He was found to have severe Leg wound with sepsis, metabolic acidosis an acute kidney injury on admission. He has had intermittent tachycardia inhouse, PE ruled out. //Severe sepsis secondary to left lower leg cellulitis - Ultrasound of the lower extremity was done which did not indicate any DVTs. Wound care nurse, ID and podiatry consultations appreciated. MRI of the ankle and foot negative for osteomyelitis. Wound culture with pseudomonas, Kleb pneumonia and Enterococcus faecalis. Blood cultures growing corynebacterium likely contaminants, repeat negative. Cleared by podiatry for discharge. Wound care with 1) adaptic, 2) aquacell and 3) Unna boot. Change daily. On discharge have home health care continue daily. - improving slowly, medically still with active cellulitis, discussed with infectious disease, continue IV antibiotics for now with vancomycin, Levaquin and Zosyn. Continue bowel regimen. = 07/23. Continue on IV antibiotics as per infectious disease. Follow-up ID recommendations. = 07/24. Discussed with infectious disease yesterday. Repeat MRI pending. Continue IV antibiotics as per ID. Appreciate ID assistance. = 07/25. Discussed with infectious disease. Patient may build to go home on by mouth antibiotics tomorrow. Patient's leg has been dressed by podiatry. Discussed with podiatry. Appreciate assistance. Bandage will need to be changed at follow-up with wound care center early this coming week. //Sinus Tachycardia-unexplained: Had SVT in the course of hospitalization which resolved with two doses of adenosine. Currently in sinus tachycardia which is unexplained. His pain is well controlled.VQ scan 10 days ago was with low probability for PE. TSH is normal. Continue metoprolol. = Heart rate controlled. Continue current regimen. //Acute Kidney injury with metabolic acidosis, anion gap 20--now resolved. Likely prerenal, however patient does have multiple medications that are nephrotoxic. Nephrology consult appreciated. Renal bladder ultrasound was performed which did not indicate any acute abnormality. //Elevated d-dimer -Lower extremity ultrasounds performed without any signs of DVT. -VQ scan was performed which was low probability for pulmonary emboli. //Diabetes- blood glucose within acceptable limits. Continue Levemir 15 units twice a day with Accu-Cheks and sliding scale insulin //Hypertension--continue lisinopril 10 mg daily, Norvasc 5 mg daily, increase metoprolol as above, clonidine as needed. = Blood pressure acceptable. Continue current regimen. Continue to monitor. //DVT prevention -Subcutaneous heparin Discharge Planning: Bariatric walker Rx written. dispo-still requires inpatient care,needs a few more days of IV abx . = DC home likely tomorrow once cleared by infectious disease. Cleared by podiatry. -follow-up with wound care clinic as outpatient. (2) Diabetes Qualifiers: Diabetes mellitus type: type 2 Diabetes mellitus complication status: with neurologic complications Diabetes mellitus complication detail: with polyneuropathy
[2018-07-26] MEDS: Heparin - SQ 10,000 UNITS/ML Vial SQ SCH (06:08)
[2018-07-26] MEDS: Piperacil/Tazo 4.5 GM Premix 4.5 GM/100 ML BAG IV.SIG SCH ×2 (06:09→09:52)
[2018-07-26] MEDS: Metoprolol Tartrate 25 MG Tablet PO SCH (08:34)
[2018-07-26] MEDS: amLODIPine 5 MG Tablet PO SCH (08:35)
[2018-07-26] MEDS: Gabapentin 400 MG Capsule PO SCH (08:35)
[2018-07-26] MEDS: Folic Acid 1 MG Tablet PO SCH (08:35)
[2018-07-26] MEDS: Lisinopril 10 MG Tablet PO SCH (08:35)
--- NOTE | 2018-07-26 08:35 | P.PNIM ---
Subjective Interval history: Says he is feeling well. Denies any chest shortness of breath. Reports pain is controlled. Feels like going home. Physical Exam Vital signs: Vital Signs 07/25/18 12:00 07/25/18 16:00 07/25/18 16:42 Temperature 98.8 F 97.3 F L Pulse Rate 76 70 79 Respiratory Rate 20 20 Blood Pressure 136/72 137/70 Pulse Oximetry 96 97 07/25/18 20:00 07/25/18 23:53 07/26/18 00:00 Temperature 97.2 F L 97 F L Pulse Rate 76 79 77 Respiratory Rate 20 20 Blood Pressure 143/73 H 149/70 H Pulse Oximetry 97 97 07/26/18 04:00 Temperature Pulse Rate 69 Respiratory Rate Blood Pressure Pulse Oximetry Intake & Output 07/25/18 07/26/18 07/26/18 18:59 06:59 18:59 Intake Total 1740 / 1740 500 / 500 Output Total 500 / 500 Balance 1240 / 1240 500 / 500 Weight 138.5 kg Intake: IV 900 / 900 500 / 500 Zyvox 600 mg Premix 300 ML @ 600 / 600 300 / 300 300 mls/hr IV.SIG Q12H DEBRA Rx#: [id number] Zosyn 4.5 GM Premix 4.5 gm In 300 / 300 200 / 200 100 ml @ 200 mls/hr IV.SIG Q6H DEBRA Rx#:[id number] Oral 840 / 840 Output: Urine 500 / 500 Other: # Voids 6 # Bowel Movements 2 Narrative: GENERAL: Patient sitting up in chair. Appears comfortable. Alert and oriented x3. No change on exam SKIN: Warm and dry. HEAD: Normocephalic. EYES: No scleral icterus. No injection or drainage. NECK: Supple, trachea midline. No JVD. CARDIOVASCULAR: Regular rate and rhythm without murmurs, gallops, or rubs. RESPIRATORY: Breath sounds equal bilaterally. No accessory muscle use. GASTROINTESTINAL: Abdomen soft, non-tender, nondistended. MUSCULOSKELETAL: No cyanosis, or edema. Left lower extremity dressed with dressing clean dry and intact. BACK: Nontender without obvious deformity. No CVA tenderness. Results - Labs CBC & Chem 7: 07/23/18 05:15 07/23/18 05:15 Laboratory Results - last 24 hr 07/25/18 07/25/18 07/25/18 11:06 16:31 21:34 POC Glucose 177 H 188 H 183 H 07/26/18 07:25 POC Glucose 178 H Assessment and Plan - Assessment (1) Cellulitis of left lower extremity Code(s): L03.116 - Cellulitis of left lower limb Status: Acute (2) Diabetes Code(s): E11.9 - Type 2 diabetes mellitus without complications Status: Acute - Plan 62-year-old male with known history of hypertension, hyperlipidemia, diabetes who presented to hospital because of 2 week h/o progressive worsening left lower extremity pain and swelling.He was found to have severe Leg wound with sepsis, metabolic acidosis an acute kidney injury on admission. He has had intermittent tachycardia inhouse, PE ruled out. //Severe sepsis secondary to left lower leg cellulitis - Ultrasound of the lower extremity was done which did not indicate any DVTs. Wound care nurse, ID and podiatry consultations appreciated. MRI of the ankle and foot negative for osteomyelitis. Wound culture with pseudomonas, Kleb pneumonia and Enterococcus faecalis. Blood cultures growing corynebacterium likely contaminants, repeat negative. Cleared by podiatry for discharge. Wound care with 1) adaptic, 2) aquacell and 3) Unna boot. Change daily. On discharge have home health care continue daily. - improving slowly, medically still with active cellulitis, discussed with infectious disease, continue IV antibiotics for now with vancomycin, Levaquin and Zosyn. Continue bowel regimen. = 07/23. Continue on IV antibiotics as per infectious disease. Follow-up ID recommendations. = 07/24. Discussed with infectious disease yesterday. Repeat MRI pending. Continue IV antibiotics as per ID. Appreciate ID assistance. = 07/25. Discussed with infectious disease. Patient may build to go home on by mouth antibiotics tomorrow. Patient's leg has been dressed by podiatry. Discussed with podiatry. Appreciate assistance. Bandage will need to be changed at follow-up with wound care center early this coming week. = 07/26. Discussed with infectious disease yesterday and they feel the patient can go home on by mouth antibiotics. Follow-up antibiotic recommendations. Appreciate ID assistance. Patient will need to follow-up with wound care clinic on Friday //Sinus Tachycardia-unexplained: Had SVT in the course of hospitalization which resolved with two doses of adenosine. Currently in sinus tachycardia which is unexplained. His pain is well controlled.VQ scan 10 days ago was with low probability for PE. TSH is normal. Continue metoprolol. = Heart rate controlled. Continue current regimen. //Acute Kidney injury with metabolic acidosis, anion gap 20--now resolved. Likely prerenal, however patient does have multiple medications that are nephrotoxic. Nephrology consult appreciated. Renal bladder ultrasound was performed which did not indicate any acute abnormality. //Elevated d-dimer -Lower extremity ultrasounds performed without any signs of DVT. -VQ scan was performed which was low probability for pulmonary emboli. //Diabetes- blood glucose within acceptable limits. Continue Levemir 15 units twice a day with Accu-Cheks and sliding scale insulin //Hypertension--continue lisinopril 10 mg daily, Norvasc 5 mg daily, increase metoprolol as above, clonidine as needed. = Blood pressure acceptable. Continue current regimen. Continue to monitor. //DVT prevention -Subcutaneous heparin Discharge Planning: Bariatric walker Rx written. dispo-still requires inpatient care,needs a few more days of IV abx . = DC home likely tomorrow once cleared by infectious disease. Cleared by podiatry. -follow-up with wound care clinic on Friday as outpatient. (2) Diabetes Qualifiers: Diabetes mellitus type: type 2 Diabetes mellitus complication status: with neurologic complications Diabetes mellitus complication detail: with polyneuropathy
[2018-07-26] MEDS: Insulin Detemir Inj 1,000 UNIT/10 ML Vial SQ SCH (08:36)
[2018-07-26] MEDS: Insulin NovoLOG Aspart Correctional Sugar Inj SQ SCH (08:36)
[2018-07-26 08:45] VITALS: BP 119/70; PULSE 79; TEMP 97.2; O2SAT 100
[2018-07-26 09:29] VITALS: RESP 17
== END 2018-07-26 10:49 | disposition home or self-care (01) | DRG 854 ==
LOC: PHED 20:49 → PHEDA 20:49 → PH3 07-06 05:51 → PHICU 07-08 03:28 → PH3 07-08 17:27 → PHICU 07-11 01:06 → PH3 07-13 20:01
PROVIDERS: ADMIT Internal Medicine; ATTEND Internal Medicine
DX: N17.9 Acute kidney failure, unspecified; R65.20 Severe sepsis without septic shock; E11.51 Type 2 diabetes mellitus with diabetic peripheral angiopathy without gangrene; R79.1 Abnormal coagulation profile; E66.9 Obesity, unspecified; L97.529 Non-pressure chronic ulcer of other part of left foot with unspecified severity; B96.5 Pseudomonas (aeruginosa) (mallei) (pseudomallei) as the cause of diseases classified elsewhere; B95.2 Enterococcus as the cause of diseases classified elsewhere; B96.1 Klebsiella pneumoniae [K. pneumoniae] as the cause of diseases classified elsewhere; R26.2 Difficulty in walking, not elsewhere classified; Z68.41 Body mass index [BMI] 40.0-44.9, adult; E87.2 Acidosis; E11.42 Type 2 diabetes mellitus with diabetic polyneuropathy; Z83.3 Family history of diabetes mellitus; L03.116 Cellulitis of left lower limb; E87.1 Hypo-osmolality and hyponatremia; E11.621 Type 2 diabetes mellitus with foot ulcer; E86.0 Dehydration; Z23 Encounter for immunization; E78.5 Hyperlipidemia, unspecified; Z79.84 Long term (current) use of oral hypoglycemic drugs; I10 Essential (primary) hypertension; A41.9 Sepsis, unspecified organism; I47.1 Supraventricular tachycardia
CPT/HCPCS: 71010; 71020; 71045; 71046; 73718; 73720; 73721; 76775; 76937; 78582; 80048; 80053; 80069; 80076; 80202; 80307; 81001; 82550; 82552; 82565; 82607; 82728; 82746; 82948; 82962; 83540; 83550; 83605; 83735; 84443; 84484; 85014; 85018; 85025; 85379; 85610; 85651; 85652; 85730; 86140; 86403; 87040; 87070; 87077; 87149; 87186; 87205; 87275; 87276; 87804; 90471; 90658; 90686; 93005; 93970; 94664; 97110; 97116; 97163; 97164; 97530; 99285; A9519; A9540; A9567; A9585; C1094; C9223; G0008; J0150; J0153; J1644; J1815; J1956; J2020; J2060; J2270; J2543; J3370; J7030; J7040; J7050; J7120; Q2038